=== PATIENT | female | born 1940 | race Two or more races ===

== ENCOUNTER 2022-08-12 14:01 | Inpatient (IN) | payer MEDICARE, MEDICAID, SELFPAY ==
--- NOTE | ~2022-08-12 | XR_ITS ---
EXAMINATION: XR CHEST CLINICAL INFORMATION: Cough COMPARISON: None available. TECHNIQUE: Frontal view of the chest was obtained. FINDINGS: The lungs are well expanded. There is no focal consolidation, edema, or effusion. No pneumothorax. The cardiomediastinal silhouette is within normal limits of size with a tortuous aorta. No acute osseous abnormality. Advanced degenerative changes at both glenohumeral joints. XR/XR chest 1V IMPRESSION: No acute pulmonary disease.
--- NOTE | ~2022-08-12 | US_ITS ---
EXAMINATION: US VENOUS ULTRASOUND WITH DOPPLER LOWER EXTREMITY, BILATERAL CLINICAL INFORMATION: Swelling of the lower extremities, left greater than right COMPARISON: None available. TECHNIQUE: Ultrasound of the deep veins is performed from the hip to the calf with compression sonography and color and pulse Doppler assessment. Spectral analysis with color-flow imaging is performed. FINDINGS: RIGHT: There is normal venous compression and respiratory variation and augmented flow. The visualized common femoral vein, superficial femoral vein, profunda femoral vein, popliteal vein, and the trifurcation region shows no evidence of deep venous thrombosis. There is no significant popliteal fossa cyst. LEFT: There is normal venous compression and respiratory variation and augmented flow. The visualized common femoral vein, superficial femoral vein, profunda femoral vein, popliteal vein, and the trifurcation region shows no evidence of deep venous thrombosis. There is no significant popliteal fossa cyst. If the patient's symptoms persist, followup ultrasound in 5 days 7 days might be of value to exclude proximal propagation from a non-visualized calf vein. US/US venous duplex LE BI IMPRESSION: No DVT demonstrated in the bilateral lower extremity.
--- NOTE | ~2022-08-12 | CT_ITS ---
EXAMINATION: CT HEAD WITHOUT CONTRAST CLINICAL INFORMATION: New onset of psychosis and cognitive decline. COMPARISON: None. TECHNIQUE: Contiguous axial imaging was performed from the skullbase to vertex without intravenous administration of contrast. This CT examination was performed using dose optimization techniques as appropriate, variously including the following: *Automated exposure control *Adjustment of mA and/or kV according to patient size (this includes techniques or standardized protocols for targeted exams where dose is matched to indication/reason for exam; i.e. extremities or head) *Use of iterative reconstruction technique DLP: 661 mGy-cm. FINDINGS: There is no evidence of acute intracranial hemorrhage or territorial infarction. No abnormal mass effect or midline shift is seen. [place] to white matter differentiation is well preserved. No extra-axial fluid collections are identified. The ventricles are normal in size. Mild to moderate chronic white matter microangiopathic changes noted. The osseous structures and soft tissues are normal. The mastoid air cells are well aerated. Significant right sphenoid sinus mucosal disease noted. CT/CT head/brain wo IV con IMPRESSION: No acute intracranial pathology. Significant right sphenoid sinus disease; correlate for any acute symptomatology.
--- NOTE | 2022-08-12 14:11 | ECG_ITS ---
Test Reason : ams Blood Pressure : / mmHG Vent. Rate : 068 BPM Atrial Rate : 068 BPM P-R Int : 164 ms QRS Dur : 106 ms QT Int : 408 ms P-R-T Axes : 067 -45 070 degrees QTc Int : 433 ms Sinus rhythm with occasional Premature ventricular complexes and Premature atrial complexes Left anterior fascicular block Left ventricular hypertrophy with repolarization abnormality ( R in aVL , [place] product ) Abnormal ECG No previous ECGs available Referred By: Michael Ramirez Electronically Signed By:MANDY MONROE
[2022-08-12 14:15] VITALS: BP 179/77; PULSE 75; RESP 14; TEMP 37.1; O2SAT 95; BMI 24.5
--- NOTE | 2022-08-12 14:38 | ED_ITS ---
HPI - General Adult General Chief complaint: Psychiatric Symptoms Stated complaint: SEC 12, AVH per EMS Time Seen by Provider: 08/12/22 14:11 Source: patient Mode of arrival: EMS History of Present Illness HPI narrative: 81-year-old female with history of schizophrenia presents with increasing hallucinations, wandering. There is no reports of SI or HI. Patient is reportedly compliant with her medications. Patient denies SI or HI. She has no fevers, chills, sweats. She denies any urinary symptoms. Patient currently resides at home with her family. There is no clear relieving or exacerbating features. Symptoms are moderate to severe in nature. Reportedly, symptoms have been progressing over the last couple months. Additionally, patient has been noted to have a resting tremor. Related Data Allergies Allergy/AdvReac Type Severity Reaction Status Date / Time No Known Allergies Allergy Verified 08/12/22 14:11 Review of Systems Review of Systems: Yes all other systems are reviewed and are negative Physical Exam ED Vital Signs: Vital Signs - 24 hr 08/12/22 14:15 Temperature 98.7 F Pulse Rate 75 Respiratory Rate 14 Blood Pressure 179/77 H Pulse Oximetry 95 Oxygen Delivery Method Room Air BMI result Body Mass Index 24.5 GEN: Well developed, no acute distress, alert, oriented HEENT: Normocephalic, atraumatic, normal external ears, nose appears normal, no oropharyngeal edema or exudates Eyes: Normal to appearance Neck: Supple, no lymphadenopathy Respiratory: Talks in complete sentences, no respiratory distress, clear to auscultation bilaterally Cardiovascular: Regular rate and rhythm, no murmurs rubs or gallops Abdomen: Soft, nontender, nondistended, no guarding, no rebound Back: No CVA tenderness Extremities: No clubbing cyanosis or edema Neurologic: No focal neurologic deficits, cranial nerves 2-12 intact, strength is 5/5 bilaterally, gait normal Skin: No rash Course Course Course Narrative: 81-year-old female with history of schizophrenia presents for psychiatric evaluation. She has reportedly been having hallucinations and wandering. Patient initially did not want come to the hospital however when the police arrived, she was much more cooperative. Here in the emergency department she is cooperative. Offers no SI or HI. She is cooperative. Patient will have laboratory analysis to rule out metabolic related comorbidities and wrist guards to her decompensation Reevaluation(s) Reevaluation #1: Patient is awaiting psychiatric consultation. Patient will be signed out to my colleague who is assuming care at this time. Time: 16:48 Medications Administered Discontinued Medications Generic Name Dose Route Start Last Admin Trade Name Dean PRN Reason Stop Dose Admin Potassium Chloride 40 meq 08/12/22 16:19 08/12/22 16:39 Potassium Chloride Packet 20 Meq Packet PO 08/12/22 16:20 40 meq ONCE ONE Administration Medical Decision Making Medical Decision Making MDM Narrative: 81-year-old female history of schizophrenia. She presents for psychiatric evaluation. Will obtain routine laboratory analysis to rule out other organic causes such as thyroid dysfunction. Differential Diagnosis Differential Diagnoses: The differential diagnosis associated with the presentation includes (Schizophrenia, schizoaffective, bipolar, depression, anxiety, PTSD, mood disorder, adjustment disorder) Admission/Observation Consideration of admission/observation: Escalation of care including admission/observation considered Consult Healthcare Provider Management of the patient was discussed with: Behavioral Health Provider Lab Data [facility] Lab Attestation statement: I reviewed the patient's lab results. 08/12/22 15:40 08/12/22 15:40 Labs: Lab Results 08/12/22 08/12/22 08/12/22 Range/Units 15:40 15:40 15:40 WBC 9.2 (4.8-10.8) X10*3/uL RBC 4.38 (4.20-5.50) X10*6/uL Hgb 14.2 (12.0-16.0) g/dl Hct 41.8 (37.0-47.0) % MCV 95.4 (80.0-98.0) fL MCH 32.4 (27.0-33.0) pg MCHC 34.0 (31.0-35.0) g/dl RDW 13.5 (11.0-16.0) % Plt Count 330 (160-400) X10*3/uL MPV 9.1 L (9.4-12.3) fL Immature Gran % (Auto) 1.6 H (0.0-0.4) % Neut % (Auto) 68.4 (45-73) % Lymph % (Auto) 18.7 L (20-40) % [place] % (Auto) 10.5 (2-11) % Eos % (Auto) 0.4 (0-4) % Baso % (Auto) 0.4 (0-2) % Lymph # (Auto) 1.7 (1.2-4.9) X10*3/uL [place] # (Auto) 1.0 (0.1-1.2) X10*3/uL Eos # (Auto) 0.0 (0.0-0.4) X10*3/uL Baso # (Auto) 0.0 (0.0-0.2) X10*3/uL Abs Immat Gran (auto) 0.15 H (0.00-0.03) X10*3/uL Absolute Neuts (auto) 6.3 (2.0-8.3) x10*3/uL Absolute Nucleated RBC 0.000 (0.0-0.012) X10*3/uL Nucleated RBC % (auto) 0.0 (0.0-0.2) /100WBC Sodium 143 (135-145) mmol/L Potassium 3.2 L (3.3-5.1) mmol/L Chloride 108 (96-108) mmol/L Carbon Dioxide 25 (22-29) mmol/L Anion Gap 13 (12-20) BUN 12 (9-16) mg/dL Creatinine 0.70 (0.5-1.4) mg/dL Estim Creat Clear Calc 52.5 Estimated GFR > 60 Random Glucose 114 (60-115) mg/dL Calcium 9.2 (8.4-10.2) mg/dL Total Bilirubin 0.8 (0.0-1.0) mg/dL AST 19 (5-31) U/L ALT 13 (0-31) U/L Alkaline Phosphatase 60 (39-117) U/L Total Protein 6.2 L (6.5-8.0) g/dL Albumin 4.1 (3.5-5.0) g/dL TSH (0.32-4.0) uIU/mL Ethyl Alcohol < 10 mg/dL COVID-19 ([facility]) Negative (Negative) COVID-19 Clin Com See Note 08/12/22 Range/Units 15:40 WBC (4.8-10.8) X10*3/uL RBC (4.20-5.50) X10*6/uL Hgb (12.0-16.0) g/dl Hct (37.0-47.0) % MCV (80.0-98.0) fL MCH (27.0-33.0) pg MCHC (31.0-35.0) g/dl RDW (11.0-16.0) % Plt Count (160-400) X10*3/uL MPV (9.4-12.3) fL Immature Gran % (Auto) (0.0-0.4) % Neut % (Auto) (45-73) % Lymph % (Auto) (20-40) % [place] % (Auto) (2-11) % Eos % (Auto) (0-4) % Baso % (Auto) (0-2) % Lymph # (Auto) (1.2-4.9) X10*3/uL [place] # (Auto) (0.1-1.2) X10*3/uL Eos # (Auto) (0.0-0.4) X10*3/uL Baso # (Auto) (0.0-0.2) X10*3/uL Abs Immat Gran (auto) (0.00-0.03) X10*3/uL Absolute Neuts (auto) (2.0-8.3) x10*3/uL Absolute Nucleated RBC (0.0-0.012) X10*3/uL Nucleated RBC % (auto) (0.0-0.2) /100WBC Sodium (135-145) mmol/L Potassium (3.3-5.1) mmol/L Chloride (96-108) mmol/L Carbon Dioxide (22-29) mmol/L Anion Gap (12-20) BUN (9-16) mg/dL Creatinine (0.5-1.4) mg/dL Estim Creat Clear Calc Estimated GFR Random Glucose (60-115) mg/dL Calcium (8.4-10.2) mg/dL Total Bilirubin (0.0-1.0) mg/dL AST (5-31) U/L ALT (0-31) U/L Alkaline Phosphatase (39-117) U/L Total Protein (6.5-8.0) g/dL Albumin (3.5-5.0) g/dL TSH 0.49 (0.32-4.0) uIU/mL Ethyl Alcohol mg/dL COVID-19 ([facility]AL[facility]) (Negative) COVID-19 Clin Com Independent Interpretation I performed an independent interpretation of an: EKG (Normal sinus rhythm heart rate 68, frequent PVCs, frequent PACs, sinus arrhythmia, nonspecific T-wave changes, tremulous baseline) Independent Historian Clinical information obtained from an independent historian. History obtained from or confirmed by: EMS Prescription Management I considered prescription management with: Other (Anxiety lytics) Discharge Plan Discharge Clinical Impression: Chronic schizophrenia, Resting tremor, Hypokalemia Patient Disposition: Still a Patient Interventions: Gray-Suicide Risk Severity Scale Last Done: 08/12/22 14:17
[2022-08-12 15:45] LABS: MANUAL DIFF FLAG NO
[2022-08-12 15:47] LABS: Basophils Percent Auto 0.4 % (0-2); Eosinophils Percent Auto 0.4 % (0-4); Hematocrit 41.8 % (37.0-47.0); Hemoglobin 14.2 g/dl (12.0-16.0); Imm Gran Abs Auto 0.15 X10*3/uL (0.00-0.03); Imm Gran Pct Auto 1.6 % (0.0-0.4); Lymphocytes Absolute Auto 1.7 X10*3/uL (1.2-4.9); Lymphocytes Percent Auto 18.7 % (20-40); Mean Corpuscular Hemoglobin 32.4 pg (27.0-33.0); Mean Corpuscular Volume 95.4 fL (80.0-98.0); Mean Platelet Volume 9.1 fL (9.4-12.3); Monocytes Percent Auto 10.5 % (2-11); Neutrophils Absolute Auto 6.3 x10*3/uL (2.0-8.3); Neutrophils Percent Auto 68.4 % (45-73); Platelet Count 330 X10*3/uL (160-400); Red Blood Count 4.38 X10*6/uL (4.20-5.50); Red Cell Distribution Width 13.5 % (11.0-16.0); White Blood Count 9.2 X10*3/uL (4.8-10.8)
[2022-08-12 16:02] LABS: COVID-19 Test Negative (Negative); IDNOW Serial# BCCEAD1C
[2022-08-12 16:08] LABS: Alanine Aminotransferase 13 U/L (0-31); Albumin Level 4.1 g/dL (3.5-5.0); Alkaline Phosphatase 60 U/L (39-117); Anion Gap 13 (12-20); Aspartate Amino Transferase 19 U/L (5-31); Bilirubin Total 0.8 mg/dL (0.0-1.0); Blood Urea Nitrogen 12 mg/dL (9-16); Calcium 9.2 mg/dL (8.4-10.2); Carbon Dioxide 25 mmol/L (22-29); Chloride 108 mmol/L (96-108); Creatinine Clr Calc Pharmacy 52.5; Estimated Glomerular Filt Rate > 60; Ethanol < 10 mg/dL; Glucose Random 114 mg/dL (60-115); Potassium 3.2 mmol/L (3.3-5.1); Sodium 143 mmol/L (135-145); Total Protein 6.2 g/dL (6.5-8.0)
[2022-08-12 16:24] LABS: TSH reflex Free T4 0.49 uIU/mL (0.32-4.0)
[2022-08-12] MEDS: Potassium Chloride Packet 20 MEQ PACKET 40 MEQ PO (16:39)
[2022-08-12 18:36] LABS: Appearance Urine Cloudy; Color Urine Yellow; Glucose Urine UA Negative (Negative); Leukocyte Esterase Urine Negative (Negative); Nitrite Urine Negative (Negative); Specific Gravity - Urine 1.015 (1.005-1.025); Urine Blood Negative (Negative); Urine Ketones Negative (Negative); Urine Protein Negative (Neg-Trace)
[2022-08-12 18:44] LABS: Amphetamine Screen Urine Not Detected (Not Detect); Barbiturates, Urine Not Detected (Not Detect); Benzodiazepines Screen Urine Not Detected (Not Detect); Cannabinoid Screen Urine Not Detected (Not Detect); Cocaine Screen Urine Not Detected (Not Detect); Fentanyl, urine Not Detected (Not Detect); Opiate Screen Urine Not Detected (Not Detect); Phencyclidine Screen Urine Not Detected (Not Detect)
--- NOTE | 2022-08-12 19:43 | PHA.MEDREC ---
Pharmacy Consult ? Medication Reconciliation Pharmacy has completed the medication reconciliation. Med rec completed using claim history. Unable to obtain information from patient or daughter.
[2022-08-12 20:36] VITALS: BP 178/70; PULSE 65; RESP 17; TEMP 36.8; O2SAT 96
--- NOTE | 2022-08-13 01:56 | PC.ADMIT ---
Amy was admitted to S1 at 22:50 from POD on a CV for treatment of Unspecified Schizophrenia. Patient is taiwanese speaking only. A vendor analyst was present during admission, however admission assessment was brief due to a patient reporting she was tired and wanted to go to sleep. Information gathered from crisis assessment. Per crisis assessment pt moved here from [place] in September of 2021 and currently resides with her daughter in an apartment. Precipitants of admission per crisis evaluation include increased paranoia, AH, delusions and wandering. Pt reportedly wanders out of the apartment frequently and will get lost. Pt reported feeling as though people are putting cameras and microphones in her apartment to listen and watch her. She believes the police are after her. Amy is alert and oriented to self only, did not know the date, believed she was in [place], and when asked why she was here Iris responded ?there are lots? the declined to elaborate. Currently the patient is denying SI/HI/AH/VH. Crisis eval reports that she has been endorsing AH as well as responding to internal stimuli. Unable to assess how appetite and sleep have been d/t patient requesting to discontinue the admission assessment. Pt appears to be disorganized in the thought process. When speaking Iris will suddenly begin to whisper quietly. Pt has a HX of HTN. Unknown if the patient has been taking medications at home prior to arrival. Patient utilizes cane to ambulate per crisis assessment, appearing unsteady when on unit and attempting to ambulate. Patient gripping onto RN?s arm tightly. Pt placed on 5 minute safety checks.
[2022-08-13 06:00] VITALS: BP 148/70; PULSE 70; RESP 18; TEMP 36.8; O2SAT 98
[2022-08-13] MEDS: Atorvastatin Calcium 10 MG TABLET PO (08:50)
[2022-08-13] MEDS: Furosemide 40 MG TABLET PO (08:50)
[2022-08-13] MEDS: Cholecalciferol (Vitamin D3) 25 MCG TABLET PO (08:50)
--- NOTE | 2022-08-13 15:34 | P.HPPS_ITS ---
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 Patient is friendly and calm. She is alert and oriented to self place; she said she came to the hospital because she was nervous but is not sure why she has to remain. Patient endorses paranoid delusions saying that there are cameras and microphones set up in house to spy o n her; she is not sure who is doing it or why, perhaps the other tenants because they do not know her? Patient also has some worries that the police are after her but it is not clear why. Patient says that she prays a lot at home and her daughter mistakenly think she has hearing voices and talking to someone. She agrees to stay on the unit to help her with nervousness including starting medications for such. Patient's daughter also named amy paz who says that her mother has been living with her for the past 9 months and everything has been fine; in early July patient started having auditory hallucinations and talking about paranoid delusions saying the apartment was bugged; she would leave the apartment unannounced and was wandering around the building; when found on another floor she said her she hurt her cousin tell her to go there (no such goes exists). She says her mother will sit there talking out loud to no one; patient and daughter patient any visual hallucinations. Daughter says she has never heard of her mother having any psychiatric illness in her life; [facility] she does not know what her day-to-day life was like and will ask family who knows her from [place]. Past Psychiatric History: None Medical Evaluation Reviewed: Yes [facility] Family History: Daughter: Bipolar Social History: Patient lives her life in [place]; moved to [place] 9 months ago to live with her daughter; psychotic symptoms 1st started this July 2022 Substance History: Denies Trauma History: Deferred Diagnostics Vital Signs (24Hr): Vital Signs - 24 hr 08/12/22 20:36 08/13/22 06:00 Temperature 98.3 F 98.2 F Pulse Rate 65 70 Respiratory Rate 17 18 Blood Pressure 178/70 H 148/70 H Pulse Oximetry 96 98 Oxygen Delivery Method Room Air BMI result Body Mass Index 24.5 Labs 08/12/22 15:40 08/12/22 15:40 Labs: Laboratory Results - last 48 hr 08/12/22 08/12/22 08/12/22 15:40 15:40 15:40 WBC 9.2 RBC 4.38 Hgb 14.2 Hct 41.8 MCV 95.4 MCH 32.4 MCHC 34.0 RDW 13.5 Plt Count 330 MPV 9.1 L Immature Gran % (Auto) 1.6 H Neut % (Auto) 68.4 Lymph % (Auto) 18.7 L [place] % (Auto) 10.5 Eos % (Auto) 0.4 Baso % (Auto) 0.4 Lymph # (Auto) 1.7 [place] # (Auto) 1.0 Eos # (Auto) 0.0 Baso # (Auto) 0.0 Abs Immat Gran (auto) 0.15 H Absolute Neuts (auto) 6.3 Absolute Nucleated RBC 0.000 Nucleated RBC % (auto) 0.0 Sodium 143 Potassium 3.2 L Chloride 108 Carbon Dioxide 25 Anion Gap 13 BUN 12 Creatinine 0.70 Estim Creat Clear Calc 52.5 Estimated GFR > 60 Random Glucose 114 Calcium 9.2 Total Bilirubin 0.8 AST 19 ALT 13 Alkaline Phosphatase 60 Total Protein 6.2 L Albumin 4.1 TSH Urine Color Urine Appearance Urine pH Ur Specific [place] Urine Protein Urine Glucose (UA) Urine Ketones Urine Blood Urine Nitrite Ur Leukocyte Esterase Urine Opiates Screen Urine Fentanyl Screen Ur Barbiturates Screen Ur Phencyclidine Scrn Ur Amphetamines Screen U Benzodiazepines Scrn Urine Cocaine Screen U Marijuana (THC) Screen Ethyl Alcohol < 10 COVID-19 ([facility]) Negative COVID-19 Clin Com See Note 08/12/22 08/12/22 08/12/22 15:40 18:23 18:23 WBC RBC Hgb Hct MCV MCH MCHC RDW Plt Count MPV Immature Gran % (Auto) Neut % (Auto) Lymph % (Auto) [place] % (Auto) Eos % (Auto) Baso % (Auto) Lymph # (Auto) [place] # (Auto) Eos # (Auto) Baso # (Auto) Abs Immat Gran (auto) Absolute Neuts (auto) Absolute Nucleated RBC Nucleated RBC % (auto) Sodium Potassium Chloride Carbon Dioxide Anion Gap BUN Creatinine Estim Creat Clear Calc Estimated GFR Random Glucose Calcium Total Bilirubin AST ALT Alkaline Phosphatase Total Protein Albumin TSH 0.49 Urine Color Yellow Urine Appearance Cloudy Urine pH 7.0 Ur Specific [place] 1.015 Urine Protein Negative Urine Glucose (UA) Negative Urine Ketones Negative Urine Blood Negative Urine Nitrite Negative Ur Leukocyte Esterase Negative Urine Opiates Screen Not Detected Urine Fentanyl Screen Not Detected Ur Barbiturates Screen Not Detected Ur Phencyclidine Scrn Not Detected Ur Amphetamines Screen Not Detected U Benzodiazepines Scrn Not Detected Urine Cocaine Screen Not Detected U Marijuana (THC) Screen Not Detected Ethyl Alcohol COVID-19 ([facility]) COVID-19 Clin Com Meds/Allergies Meds Home Medications Medication Instructions Recorded Confirmed Type atorvastatin 10 mg tablet 1 tab PO DAILY 08/12/22 08/12/22 History calcium carbonate 500 mg calcium 1 tab PO DAILY 08/12/22 08/12/22 History (1,250 mg) tablet cholecalciferol (vitamin D3) 25 1 cap PO DAILY 08/12/22 08/12/22 History mcg (1,000 unit) capsule (Vitamin D3) furosemide 40 mg tablet 1 tab PO DAILY 08/12/22 08/12/22 History melatonin 10 mg disintegrating 1 tab PO BEDTIME PRN insomnia 08/12/22 08/12/22 History tablet metoprolol succinate 50 mg 1 tab PO DAILY 08/12/22 08/12/22 History tablet,extended release 24 hr nifedipine 90 mg tablet,extended 1 tab PO DAILY 08/12/22 08/12/22 History release sertraline 25 mg tablet 1 tab PO DAILY 08/12/22 08/12/22 History diclofenac sodium 1 % topical gel 2 - 4 g topical BID 08/13/22 08/13/22 History diclofenac sodium 1 % topical gel topical 08/13/22 History sertraline 50 mg tablet 1 tab PO DAILY 08/13/22 08/13/22 History Allergies Allergies Allergy/AdvReac Type Severity Reaction Status Date / Time No Known Allergies Allergy Verified 08/12/22 23:06 Mental Status Exam Mental Status Exam Narrative: Pt is alert and oriented; behavior is cooperative, friendly and calm; patient is not in distress; dressed in casual attire and well groomed: mood is described as good and affect congruent; eye contact appropriate; Speech is normal rate, volume and prosody and not pressured; no psychomotor agitation/retardation present; thought process is mostly goal directed; Thought content is with paranoid delusions; however she is also able to be pertinent irrelevant topics; denies any SI/HI. Patient internally preoccupied though denies AVH. Patients insight and judgment impaired Assessment & Plan Assessment & Plan (1) Psychotic disorder: Status: Acute Code(s): F29 - Unspecified psychosis not due to a substance or known physiological condition Plan Patient is a 81-year-old female with little known psychiatric history, moved here to live with her daughter 9 months ago and presents now for psychotic symptoms starting in early July. Patient is friendly and calm. She is alert and oriented to self place; she said she came to the hospital because she was nervous but is not sure why she has to remain. Patient endorses paranoid delusions saying that there are cameras and microphones set up in house to spy on her; daughter says no history of psychiatric illness that she knows of and no psychotic symptoms until this past July. Impression: Currently patient has psychotic symptoms of both auditory hallucinations and delusional thinking. Daughter may have bipolar disorder however patient does not have any other manic symptoms present. To daughter's knowledge her mother has never had any psychiatric or psychotic illness however will get collateral from family in [place]. Patient's vitals, labs grossly within normal limits. No signs of infection. Will continue home medications for now and start low-dose Risperdal at bedtime. Will consider head CT given that psychotic symptoms seemingly started for the 1st time this July; however will hold off until more collateral can be gathered about patient's history. Plan: CV Q 15 minute checks Patient's daughter Amy and her brother Tete healthcare proxies; they will get the form Continue home medications; full list provided by daughter Start Risperdal 0.5 mg q.h.s. for psychotic symptoms Will consider head CT but hold off for now until more collateral can be gathered Patient educated on: diagnosis and medication risk/benefits Informed Consent: understands, does not understand and further education needed Reason for continued inpatient stay Substantial Risk for: inability to function Statement Statement: I have reviewed the history and physical and performed a pertinent examination on my patient. No changes have occurred unless specified. If the History and Physical was not performed prior to admission, the Hospitalist's service will be consulted for completing the admission physical. Time Spent With Patient Time: Total time managing care of this patient today ____ minutes.
[2022-08-13 18:00] VITALS: BP 154/77; PULSE 100; RESP 18; TEMP 36; O2SAT 96
[2022-08-13] MEDS: Melatonin 3 MG TABLET 9 MG PO (20:52)
[2022-08-13] MEDS: risperiDONE 0.5 MG TABLET PO (20:52)
[2022-08-14 07:10] LABS: Alanine Aminotransferase 15 U/L (0-31); Alkaline Phosphatase 58 U/L (39-117); Anion Gap 18 (12-20); Aspartate Amino Transferase 22 U/L (5-31); Calcium 9.5 mg/dL (8.4-10.2); Carbon Dioxide 25 mmol/L (22-29); Chloride 105 mmol/L (96-108); Cholesterol 175 mg/dL; Glucose Fasting 116 mg/dL (60-99); HDL Cholesterol 61 mg/dL; LDL Cholesterol Calculated 94 mg/dl; Potassium 3.8 mmol/L (3.3-5.1); Sodium 144 mmol/L (135-145); Total Protein 6.4 g/dL (6.5-8.0); Triglycerides 103 mg/dL
[2022-08-14 07:30] VITALS: BP 177/85; PULSE 94; RESP 15; TEMP 37.5; O2SAT 95
[2022-08-14 07:38] LABS: Blood Urea Nitrogen 20 mg/dL (9-16); Creatinine Clr Calc Pharmacy 29.9; Estimated Glomerular Filt Rate 42
[2022-08-14] MEDS: NIFEdipine ER 90 MG TAB.ER.24 PO (08:29)
[2022-08-14] MEDS: Sertraline HCL 50 MG TABLET PO (08:29)
[2022-08-14] MEDS: Aspirin Enteric Coated 81 MG TABLET.DR PO (08:29)
[2022-08-14] MEDS: Metoprolol Succinate ER 50 MG TAB.ER.24H PO (08:29)
[2022-08-14] MEDS: Furosemide 40 MG TABLET PO (08:30)
[2022-08-14] MEDS: Cholecalciferol (Vitamin D3) 25 MCG TABLET PO (08:30)
[2022-08-14] MEDS: Sertraline HCL 25 MG TABLET PO (08:30)
[2022-08-14] MEDS: Atorvastatin Calcium 10 MG TABLET PO (08:30)
[2022-08-14 09:00] VITALS: BP 106/55
--- NOTE | 2022-08-14 16:28 | HO.PSYCHPN ---
Subjective Subjective Date of Service: 08/14/22 Reason For Visit: confused Interim History: Met with patient; discussed with nursing team; discussed with son was present Patient calm and cooperative on the unit; slept through the night; clearly internally preoccupied however denies AVH. Otherwise remains organized and well groomed. Patient willing to remain on the unit but says she very much wants to go home soon. Her son and [id number] present however they do not know her history either. Mental Status Exam Mental Status Exam Narrative: Pt is alert and oriented; behavior is cooperative, friendly and calm; patient is not in distress; dressed in casual attire and well groomed: mood is described as good and affect congruent; eye contact appropriate; Speech is normal rate, volume and prosody and not pressured; no psychomotor agitation/retardation present; thought process is mostly goal directed; Thought content is with paranoid delusions; however she is also able to be pertinent irrelevant topics; denies any SI/HI. Patient internally preoccupied though denies AVH. Patients insight and judgment impaired Diagnostics Vital Signs (24Hr): Vital Signs - 24 hr 08/13/22 18:00 08/14/22 07:30 08/14/22 09:00 Temperature 96.8 F 99.5 F Pulse Rate 100 94 Respiratory Rate 18 15 Blood Pressure 154/77 H 177/85 H 106/55 L Pulse Oximetry 96 95 Oxygen Delivery Method Room Air Room Air BMI result Body Mass Index 24.5 Labs 08/12/22 15:40 08/14/22 06:28 Labs: Laboratory Results - last 48 hr 08/12/22 08/12/22 08/12/22 15:40 15:40 15:40 WBC 9.2 RBC 4.38 Hgb 14.2 Hct 41.8 MCV 95.4 MCH 32.4 MCHC 34.0 RDW 13.5 Plt Count 330 MPV 9.1 L Immature Gran % (Auto) 1.6 H Neut % (Auto) 68.4 Lymph % (Auto) 18.7 L [place] % (Auto) 10.5 Eos % (Auto) 0.4 Baso % (Auto) 0.4 Lymph # (Auto) 1.7 [place] # (Auto) 1.0 Eos # (Auto) 0.0 Baso # (Auto) 0.0 Abs Immat Gran (auto) 0.15 H Absolute Neuts (auto) 6.3 Absolute Nucleated RBC 0.000 Nucleated RBC % (auto) 0.0 Sodium 143 Potassium 3.2 L Chloride 108 Carbon Dioxide 25 Anion Gap 13 BUN 12 Creatinine 0.70 Estim Creat Clear Calc 52.5 Estimated GFR > 60 Random Glucose 114 Fasting Glucose Calcium 9.2 Total Bilirubin 0.8 AST 19 ALT 13 Alkaline Phosphatase 60 Total Protein 6.2 L Albumin 4.1 Triglycerides Cholesterol LDL Cholesterol, Calc HDL Cholesterol TSH Urine Color Urine Appearance Urine pH Ur Specific [place] Urine Protein Urine Glucose (UA) Urine Ketones Urine Blood Urine Nitrite Ur Leukocyte Esterase Urine Opiates Screen Urine Fentanyl Screen Ur Barbiturates Screen Ur Phencyclidine Scrn Ur Amphetamines Screen U Benzodiazepines Scrn Urine Cocaine Screen U Marijuana (THC) Screen Ethyl Alcohol < 10 COVID-19 (ODALYS) Negative COVID-[employer] Com See Note 08/12/22 08/12/22 08/12/22 15:40 18:23 18:23 WBC RBC Hgb Hct MCV MCH MCHC RDW Plt Count MPV Immature Gran % (Auto) Neut % (Auto) Lymph % (Auto) [place] % (Auto) Eos % (Auto) Baso % (Auto) Lymph # (Auto) [place] # (Auto) Eos # (Auto) Baso # (Auto) Abs Immat Gran (auto) Absolute Neuts (auto) Absolute Nucleated RBC Nucleated RBC % (auto) Sodium Potassium Chloride Carbon Dioxide Anion Gap BUN Creatinine Estim Creat Clear Calc Estimated GFR Random Glucose Fasting Glucose Calcium Total Bilirubin AST ALT Alkaline Phosphatase Total Protein Albumin Triglycerides Cholesterol LDL Cholesterol, Calc HDL Cholesterol TSH 0.49 Urine Color Yellow Urine Appearance Cloudy Urine pH 7.0 Ur Specific [place] 1.015 Urine Protein Negative Urine Glucose (UA) Negative Urine Ketones Negative Urine Blood Negative Urine Nitrite Negative Ur Leukocyte Esterase Negative Urine Opiates Screen Not Detected Urine Fentanyl Screen Not Detected Ur Barbiturates Screen Not Detected Ur Phencyclidine Scrn Not Detected Ur Amphetamines Screen Not Detected U Benzodiazepines Scrn Not Detected Urine Cocaine Screen Not Detected U Marijuana (THC) Screen Not Detected Ethyl Alcohol COVID-19 (ODALYS) [email or web address] 08/14/22 06:28 WBC RBC Hgb Hct MCV MCH MCHC RDW Plt Count MPV Immature Gran % (Auto) Neut % (Auto) Lymph % (Auto) [place] % (Auto) Eos % (Auto) Baso % (Auto) Lymph # (Auto) [place] # (Auto) Eos # (Auto) Baso # (Auto) Abs Immat Gran (auto) Absolute Neuts (auto) Absolute Nucleated RBC Nucleated RBC % (auto) Sodium 144 Potassium 3.8 Chloride 105 Carbon Dioxide 25 Anion Gap 18 BUN 20 H Creatinine 1.23 Estim Creat Clear Calc 29.9 Estimated GFR 42 Random Glucose Fasting Glucose 116 H Calcium 9.5 Total Bilirubin 1.0 AST 22 ALT 15 Alkaline Phosphatase 58 Total Protein 6.4 L Albumin 4.0 Triglycerides 103 Cholesterol 175 LDL Cholesterol, Calc 94 HDL Cholesterol 61 TSH Urine Color Urine Appearance Urine pH Ur Specific [place] Urine Protein Urine Glucose (UA) Urine Ketones Urine Blood Urine Nitrite Ur Leukocyte Esterase Urine Opiates Screen Urine Fentanyl Screen Ur Barbiturates Screen Ur Phencyclidine Scrn Ur Amphetamines Screen U Benzodiazepines Scrn Urine Cocaine Screen U Marijuana (THC) Screen Ethyl Alcohol COVID-19 (ODALYS) COVID-19 Clin Com Medications Medications Current Medications Acetaminophen (Acetaminophen 325 Mg Tablet) 650 mg PO Q6H PRN PRN Reason: Headache/Pain Mild Scale (1-3) Al Hydroxide/Mg Hydroxide (Magnesium Hydrox/Alum Hydrox 30 Ml Oral.Susp) 30 ml PO Q6H PRN PRN Reason: Heartburn/Nausea Aspirin (Aspirin Enteric Coated 81 Mg Tablet.Dr) 81 mg PO DAILY [facility] Last Admin: 08/14/22 08:29 Dose: 81 mg Atorvastatin Calcium (Atorvastatin Calcium 10 Mg Tablet) 10 mg PO DAILY [facility] Last Admin: 08/14/22 08:30 Dose: 10 mg Calcium Carbonate (Calcium Carbonate 500 Mg Tablet) 500 mg PO DAILY [facility] Last Admin: 08/14/22 08:29 Dose: 500 mg Furosemide (Furosemide 40 Mg Tablet) 40 mg PO DAILY [facility]; Protocol Last Admin: 08/14/22 08:30 Dose: 40 mg Magnesium Hydroxide (Milk Of Magnesia 30 Ml Oral.Susp) 30 ml PO DAILY PRN PRN Reason: Constipation Melatonin (Melatonin 3 Mg Tablet) 9 mg PO BEDTIME PRN PRN Reason: insomnia Last Admin: 08/13/22 20:52 Dose: 9 mg Metoprolol Succinate (Metoprolol Succinate Er 50 Mg Tab.Er.24h) 50 mg PO DAILY [facility]; Protocol Last Admin: 08/14/22 08:29 Dose: 50 mg Nifedipine (Nifedipine Er 90 Mg Tab.Er.24) 90 mg PO DAILY [facility] Last Admin: 08/14/22 08:29 Dose: 90 mg Olanzapine (Olanzapine 2.5 Mg Tablet) 2.5 mg PO TID PRN PRN Reason: agitation Risperidone (Risperidone 0.5 Mg Tablet) 0.5 mg PO BEDTIME [facility] Last Admin: 08/13/22 20:52 Dose: 0.5 mg Sertraline HCl (Sertraline Hcl 25 Mg Tablet) 25 mg PO DAILY [facility] Last Admin: 08/14/22 08:30 Dose: 25 mg Sertraline HCl (Sertraline Hcl 50 Mg Tablet) 50 mg PO DAILY [facility] Last Admin: 08/14/22 08:29 Dose: 50 mg Vitamin D (Cholecalciferol (Vitamin D3) 25 Mcg Tablet) 25 mcg PO DAILY [facility] Last Admin: 08/14/22 08:30 Dose: 25 mcg Allergies Allergies Allergy/AdvReac Type Severity Reaction Status Date / Time No Known Allergies Allergy Verified 08/12/22 23:06 Assessment & Plan Assessment & Plan (1) Psychotic disorder: Status: Acute Code(s): F29 - Unspecified psychosis not due to a substance or known physiological condition Plan Patient is a 81-year-old female with little known psychiatric history, moved here to live with her daughter 9 months ago and presents now for psychotic symptoms starting in early July. Patient is friendly and calm. She is alert and oriented to self place; she said she came to the hospital because she was nervous but is not sure why she has to remain. Patient endorses paranoid delusions saying that there are cameras and microphones set up in house to spy on her; daughter says no history of psychiatric illness that she knows of and no psychotic symptoms until this past July. Impression: Currently patient has psychotic symptoms of both auditory hallucinations and delusional thinking. Daughter may have bipolar disorder however patient does not have any other manic symptoms present. To daughter's knowledge her mother has never had any psychiatric or psychotic illness however will get collateral from family in [place]. Patient's vitals, labs grossly within normal limits. No signs of infection. Will continue home medications for now and start low-dose Risperdal at bedtime. Will consider head CT given that psychotic symptoms seemingly started for the 1st time this July; however will hold off until more collateral can be gathered about patient's history. Plan: CV Q 15 minute checks Patient's daughter Amy and her brother Tete healthcare proxies; they will get the form Continue home medications; full list provided by daughter Continue Risperdal 0.5 mg q.h.s. for psychotic symptoms Will consider head CT but hold off for now until more collateral can be gathered Patient educated on: diagnosis Informed Consent: does not understand Reason for contiued inpatient stay Substantial Risk for: inability to function Time Spent With Patient Time: Total time managing care of this patient today ____ minutes.
[2022-08-14 18:01] VITALS: BP 129/73; PULSE 96; RESP 16; TEMP 36.3; O2SAT 97
[2022-08-14] MEDS: guaiFENesin 200 MG/10 ML 10 ML LIQUID PO (18:21)
[2022-08-14] MEDS: risperiDONE 0.5 MG TABLET PO (21:11)
[2022-08-15 06:00] VITALS: BP 131/71; PULSE 73; RESP 20; TEMP 36.6; O2SAT 93
--- NOTE | 2022-08-15 10:30 | HO.PSYCHPN ---
Subjective Subjective Date of Service: 08/15/22 Reason For Visit: confused Subjective Notes: Conditional Voluntary Interim History: Pt with bright affect, somewhat confused as to where she is, why. Pt reports she is here to rest. She denies SI/HI. She denies AH/VH. Per nursing, pt slept through the night. She is taking medications as prescribed. No behavioral concerns. When asked about safety at home, she states is a safe place where I live with my daughter. Medication Compliance: Yes Review of Systems Review of Systems Yes all other systems are reviewed and are negative Mental Status Exam Mental Status Exam Narrative: Appearance: casually groomed, good hygiene, in NAD. Ambulates with walker Behavior: friendly Psychomotor: no agitation or retardation noted Speech: clear, normal rate/rhythm/volume, spontaneous. TP: mostly linear, poverty of thought TC: feeling comfortable here Mood: Good Affect: bright, congruent SI: denies HI: denies VH/AH: denies, no overt signs Delusions: no overt delusional content noted or reported Insight/judgment: impaired x 2. Memory/cog: alert, not oriented to place, situation, year, she does know is August. Pending MOCA and ACL. Diagnostics Vital Signs (24Hr): Vital Signs - 24 hr 08/14/22 18:01 08/15/22 06:00 Temperature 97.3 F 97.9 F Pulse Rate 96 73 Respiratory Rate 16 20 Blood Pressure 129/73 131/71 Pulse Oximetry 97 93 Oxygen Delivery Method Room Air Room Air BMI result Body Mass Index 24.5 Labs 08/12/22 15:40 08/14/22 06:28 Labs: Laboratory Results - last 48 hr 08/14/22 08/15/22 06:28 11:11 Sodium 144 Potassium 3.8 Chloride 105 Carbon Dioxide 25 Anion Gap 18 BUN 20 H Creatinine 1.23 Estim Creat Clear Calc 29.9 Estimated GFR 42 Fasting Glucose 116 H Calcium 9.5 Total Bilirubin 1.0 AST 22 ALT 15 Alkaline Phosphatase 58 Total Protein 6.4 L Albumin 4.0 Triglycerides 103 Cholesterol 175 LDL Cholesterol, Calc 94 HDL Cholesterol 61 Influenza Type A (PCR) NEGATIVE Influenza Type B (PCR) NEGATIVE RSV RNA Qual (PCR) NEGATIVE SARS-CoV-2 RNA (RT-PCR) NEGATIVE Medications Medications Current Medications Acetaminophen (Acetaminophen 325 Mg Tablet) 650 mg PO Q6H PRN PRN Reason: Headache/Pain Mild Scale (1-3) Last Admin: 08/15/22 10:56 Dose: 650 mg Al Hydroxide/Mg Hydroxide (Magnesium Hydrox/Alum Hydrox 30 Ml Oral.Susp) 30 ml PO Q6H PRN PRN Reason: Heartburn/Nausea Aspirin (Aspirin Enteric Coated 81 Mg Tablet.Dr) 81 mg PO DAILY [facility] Last Admin: 08/15/22 10:54 Dose: 81 mg Atorvastatin Calcium (Atorvastatin Calcium 10 Mg Tablet) 10 mg PO DAILY [facility] Last Admin: 08/15/22 10:55 Dose: 10 mg Benzocaine (Throat Lozenge, Medicated Lozenge) 1 lozenge MUCOUS MEM Q2H PRN PRN Reason: Sore Throat Calcium Carbonate (Calcium Carbonate 500 Mg Tablet) 500 mg PO DAILY [facility] Last Admin: 08/15/22 10:56 Dose: 500 mg Furosemide (Furosemide 40 Mg Tablet) 40 mg PO DAILY [facility]; Protocol Last Admin: 08/15/22 10:56 Dose: 40 mg Guaifenesin (Guaifenesin 200 Mg/10 Ml 10 Ml Liquid) 10 ml PO Q6H PRN PRN Reason: Cough Last Admin: 08/15/22 10:54 Dose: 10 ml Magnesium Hydroxide (Milk Of Magnesia 30 Ml Oral.Susp) 30 ml PO DAILY PRN PRN Reason: Constipation Melatonin (Melatonin 3 Mg Tablet) 9 mg PO BEDTIME PRN PRN Reason: insomnia Last Admin: 08/13/22 20:52 Dose: 9 mg Metoprolol Succinate (Metoprolol Succinate Er 50 Mg Tab.Er.24h) 50 mg PO DAILY [facility]; Protocol Last Admin: 08/15/22 10:54 Dose: 50 mg Nifedipine (Nifedipine Er 90 Mg Tab.Er.24) 90 mg PO DAILY [facility] Last Admin: 08/15/22 10:54 Dose: 90 mg Olanzapine (Olanzapine 2.5 Mg Tablet) 2.5 mg PO TID PRN PRN Reason: agitation Risperidone (Risperidone 0.5 Mg Tablet) 0.5 mg PO BEDTIME [facility] Last Admin: 08/14/22 21:11 Dose: 0.5 mg Sertraline HCl (Sertraline Hcl 25 Mg Tablet) 25 mg PO DAILY [facility] Last Admin: 08/15/22 10:56 Dose: 25 mg Sertraline HCl (Sertraline Hcl 50 Mg Tablet) 50 mg PO DAILY [facility] Last Admin: 03/13/23 10:54 Dose: 50 mg Vitamin D (Cholecalciferol (Vitamin D3) 25 Mcg Tablet) 25 mcg PO DAILY [facility] Last Admin: 08/15/22 10:56 Dose: 25 mcg Allergies Allergies Allergy/AdvReac Type Severity Reaction Status Date / Time No Known Allergies Allergy Verified 08/12/22 23:06 Assessment & Plan Assessment & Plan (1) Psychotic disorder: Status: Acute Code(s): F29 - Unspecified psychosis not due to a substance or known physiological condition Plan Patient is a 81-year-old female with little known psychiatric history, moved here to live with her daughter 9 months ago and presents now for psychotic symptoms starting in early July. Patient is friendly and calm. She is alert and oriented to self place; she said she came to the hospital because she was nervous but is not sure why she has to remain. Patient endorses paranoid delusions saying that there are cameras and microphones set up in house to spy on her; daughter says no history of psychiatric illness that she knows of and no psychotic symptoms until this past July. Plan: CV Q 15 minute checks Patient's daughter Amy and her brother Tete healthcare proxies; they will get the form Continue home medications; full list provided by daughter Continue Risperdal 0.5 mg q.h.s. 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 continue risperidone and sertraline. Once MOCA is completed, pattern of cognitive impairment will be more clear. Reason for contiued inpatient stay Substantial Risk for: inability to function Time Spent With Patient Time: Total time managing care of this patient today ____ minutes.
[2022-08-15] MEDS: Sertraline HCL 50 MG TABLET PO (10:54)
[2022-08-15] MEDS: Metoprolol Succinate ER 50 MG TAB.ER.24H PO (10:54)
[2022-08-15] MEDS: Aspirin Enteric Coated 81 MG TABLET.DR PO (10:54)
[2022-08-15] MEDS: NIFEdipine ER 90 MG TAB.ER.24 PO (10:54)
[2022-08-15] MEDS: guaiFENesin 200 MG/10 ML 10 ML LIQUID PO (10:54)
[2022-08-15] MEDS: Atorvastatin Calcium 10 MG TABLET PO (10:55)
[2022-08-15] MEDS: Furosemide 40 MG TABLET PO (10:56)
[2022-08-15] MEDS: Acetaminophen 325 MG TABLET 650 MG PO (10:56)
[2022-08-15] MEDS: Sertraline HCL 25 MG TABLET PO (10:56)
[2022-08-15] MEDS: Cholecalciferol (Vitamin D3) 25 MCG TABLET PO (10:56)
[2022-08-15 12:09] LABS: Influenza A PCR NEGATIVE (Negative); Influenza B PCR NEGATIVE (Negative); Resp Syncy Virus RNA Qual PCR NEGATIVE (Negative); SARS COV2 PCR INHOUSE NEGATIVE (Negative)
[2022-08-15 18:00] VITALS: BP 134/72; PULSE 72; RESP 16; TEMP 36.8; O2SAT 92
[2022-08-15] MEDS: risperiDONE 0.5 MG TABLET PO (20:56)
[2022-08-16 06:00] VITALS: BP 134/79; PULSE 122; RESP 16; TEMP 37; O2SAT 95
[2022-08-16] MEDS: Sertraline HCL 25 MG TABLET PO (08:53)
[2022-08-16] MEDS: Sertraline HCL 50 MG TABLET PO (08:53)
[2022-08-16] MEDS: NIFEdipine ER 90 MG TAB.ER.24 PO (08:53)
[2022-08-16] MEDS: Aspirin Enteric Coated 81 MG TABLET.DR PO (08:53)
[2022-08-16] MEDS: Furosemide 40 MG TABLET PO (08:53)
[2022-08-16] MEDS: Atorvastatin Calcium 10 MG TABLET PO (08:54)
[2022-08-16] MEDS: Metoprolol Succinate ER 50 MG TAB.ER.24H PO (08:54)
[2022-08-16] MEDS: Cholecalciferol (Vitamin D3) 25 MCG TABLET PO (08:56)
--- NOTE | 2022-08-16 12:27 | HO.PSYCHPN ---
Subjective Subjective Date of Service: 08/16/22 Reason For Visit: confused Subjective Notes: Conditional Voluntary Interim History: Pt reports sleeping better. She reports cough (covid negative), mild malaise but denies SOB. Pt reports she has been in communication with her daughter who has advised her to continue care here in the hospital but she states that she misses home. Per nursing, pt appeared more confused in evening and appeared internally preoccupied. Review of Systems Review of Systems Yes all other systems are reviewed and are negative Mental Status Exam Mental Status Exam Narrative: Appearance: casually groomed, good hygiene, in NAD. Ambulates with walker Behavior: friendly Psychomotor: no agitation or retardation noted Speech: clear, normal rate/rhythm/volume, spontaneous. TP: mostly linear, poverty of thought TC: feeling comfortable here Mood: Good Affect: bright, congruent SI: denies HI: denies VH/AH: denies, no overt signs Delusions: no overt delusional content noted or reported Insight/judgment: impaired x 2. Memory/cog: alert, not oriented to place, situation, year, she does know is August. Pending MOCA and ACL. Diagnostics Vital Signs (24Hr): Vital Signs - 24 hr 08/15/22 18:00 08/16/22 06:00 Temperature 98.2 F 98.6 F Pulse Rate 72 122 H Respiratory Rate 16 16 Blood Pressure 134/72 134/79 Pulse Oximetry 92 95 Oxygen Delivery Method Room Air Room Air BMI result Body Mass Index 24.5 Labs 08/12/22 15:40 08/14/22 06:28 Labs: Laboratory Results - last 48 hr 08/15/22 11:11 Influenza Type A (PCR) NEGATIVE Influenza Type B (PCR) NEGATIVE RSV RNA Qual (PCR) NEGATIVE SARS-CoV-2 RNA (RT-PCR) NEGATIVE Imaging Radiology Impressions: ITS Impressions Head CT 08/15/22 14:53 IMPRESSION: No acute intracranial pathology. Significant right sphenoid sinus disease; correlate for any acute symptomatology. Medications Medications Current Medications Acetaminophen (Acetaminophen 325 Mg Tablet) 650 mg PO Q6H PRN PRN Reason: Headache/Pain Mild Scale (1-3) Last Admin: 08/15/22 10:56 Dose: 650 mg Al Hydroxide/Mg Hydroxide (Magnesium Hydrox/Alum Hydrox 30 Ml Oral.Susp) 30 ml PO Q6H PRN PRN Reason: Heartburn/Nausea Aspirin (Aspirin Enteric Coated 81 Mg Tablet.) 81 mg PO DAILY [facility] Last Admin: 08/16/22 08:53 Dose: 81 mg Atorvastatin Calcium (Atorvastatin Calcium 10 Mg Tablet) 10 mg PO DAILY [facility] Last Admin: 08/16/22 08:54 Dose: 10 mg Benzocaine (Throat Lozenge, Medicated Lozenge) 1 lozenge MUCOUS MEM Q2H PRN PRN Reason: Sore Throat Calcium Carbonate (Calcium Carbonate 500 Mg Tablet) 500 mg PO DAILY [facility] Last Admin: 08/16/22 08:53 Dose: 500 mg Furosemide (Furosemide 40 Mg Tablet) 40 mg PO DAILY [facility]; Protocol Last Admin: 08/16/22 08:53 Dose: 40 mg Guaifenesin (Guaifenesin 200 Mg/10 Ml 10 Ml Liquid) 10 ml PO Q6H PRN PRN Reason: Cough Last Admin: 08/15/22 10:54 Dose: 10 ml Magnesium Hydroxide (Milk Of Magnesia 30 Ml Oral.Susp) 30 ml PO DAILY PRN PRN Reason: Constipation Melatonin (Melatonin 3 Mg Tablet) 9 mg PO BEDTIME PRN PRN Reason: insomnia Last Admin: 08/13/22 20:52 Dose: 9 mg Metoprolol Succinate (Metoprolol Succinate Er 50 Mg Tab.Er.24h) 50 mg PO DAILY [facility]; Protocol Last Admin: 08/16/22 08:54 Dose: 50 mg Nifedipine (Nifedipine Er 90 Mg Tab.Er.24) 90 mg PO DAILY [facility] Last Admin: 08/16/22 08:53 Dose: 90 mg Olanzapine (Olanzapine 2.5 Mg Tablet) 2.5 mg PO TID PRN PRN Reason: agitation Risperidone (Risperidone 0.5 Mg Tablet) 0.5 mg PO BEDTIME [facility] Last Admin: 08/15/22 20:56 Dose: 0.5 mg Sertraline HCl (Sertraline Hcl 25 Mg Tablet) 25 mg PO DAILY [facility] Last Admin: 08/16/22 08:53 Dose: 25 mg Sertraline HCl (Sertraline Hcl 50 Mg Tablet) 50 mg PO DAILY [facility] Last Admin: 08/16/22 08:53 Dose: 50 mg Vitamin D (Cholecalciferol (Vitamin D3) 25 Mcg Tablet) 25 mcg PO DAILY [facility] Last Admin: 08/16/22 08:56 Dose: 25 mcg Allergies Allergies Allergy/AdvReac Type Severity Reaction Status Date / Time No Known Allergies Allergy Verified 08/12/22 23:06 Assessment & Plan Assessment & Plan (1) Psychotic disorder: Status: Acute Code(s): F29 - Unspecified psychosis not due to a substance or known physiological condition Plan Patient is a 81-year-old female with little known psychiatric history, moved here to live with her daughter 9 months ago and presents now for psychotic symptoms starting in early July. Patient is friendly and calm. She is alert and oriented to self place; she said she came to the hospital because she was nervous but is not sure why she has to remain. Patient endorses paranoid delusions saying that there are cameras and microphones set up in house to spy on her; daughter says no history of psychiatric illness that she knows of and no psychotic symptoms until this past July. Plan: CV Q 15 minute checks Patient's daughter Amy and her brother Tete healthcare proxies; they will get the form Continue home medications; full list provided by daughter Continue Risperdal 0.5 mg q.h.s. 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 continue risperidone and sertraline. Once MOCA is completed, pattern of cognitive impairment will be more clear. 08/16 continue current medications. May consider medication such as exelon or aricept Reason for contiued inpatient stay Substantial Risk for: inability to function Time Spent With Patient Time: Total time managing care of this patient today ____ minutes.
[2022-08-16 18:00] VITALS: BP 111/60; PULSE 73; RESP 18; TEMP 37; O2SAT 94
[2022-08-16] MEDS: Melatonin 3 MG TABLET 9 MG PO (20:49)
[2022-08-16] MEDS: risperiDONE 0.5 MG TABLET PO (20:49)
[2022-08-17 06:00] VITALS: BP 126/70; PULSE 95; RESP 16; TEMP 36.7; O2SAT 93
[2022-08-17] MEDS: Cholecalciferol (Vitamin D3) 25 MCG TABLET PO (10:46)
[2022-08-17] MEDS: Furosemide 40 MG TABLET PO (10:46)
[2022-08-17] MEDS: Sertraline HCL 25 MG TABLET PO (10:46)
[2022-08-17] MEDS: Sertraline HCL 50 MG TABLET PO (10:46)
[2022-08-17] MEDS: Aspirin Enteric Coated 81 MG TABLET.DR PO (10:47)
[2022-08-17] MEDS: Metoprolol Succinate ER 50 MG TAB.ER.24H PO (10:47)
[2022-08-17] MEDS: NIFEdipine ER 90 MG TAB.ER.24 PO (10:47)
[2022-08-17] MEDS: Atorvastatin Calcium 10 MG TABLET PO (10:47)
--- NOTE | 2022-08-17 15:33 | HO.PSYCHPN ---
Subjective Subjective Date of Service: 08/17/22 Reason For Visit: confused Subjective Notes: Conditional Voluntary Interim History: Per nursing, pt with broken sleep. Per staff pt observed talking to someone who was not there. She is taking medications as prescribed. We had family meeting with her daughter. We discussed dx of vascular dementia- MOCA showing impairment in executive function, recall, attention, orientation fairly intact. Head CT showing microvascular changes and atrophy. Daugther expressed concern as to whether she can care for her at home and wants pt to be placed at [facility]. Medication Compliance: Yes Side effects from medications: No Attending Groups: Intermittent Review of Systems Review of Systems Yes all other systems are reviewed and are negative Mental Status Exam Mental Status Exam Narrative: Appearance: casually groomed, good hygiene, in NAD. Ambulates with walker Behavior: friendly Psychomotor: no agitation or retardation noted Speech: clear, normal rate/rhythm/volume, spontaneous. TP: mostly linear, poverty of thought TC: feeling comfortable here Mood: Good Affect: bright, congruent SI: denies HI: denies VH/AH: denies, no overt signs Delusions: no overt delusional content noted or reported Insight/judgment: impaired x 2. Memory/cog: alert, not oriented to place, situation, year, she does know is August. Pending MOCA and ACL. Diagnostics Vital Signs (24Hr): Vital Signs - 24 hr 08/17/22 18:00 08/17/22 23:25 Temperature 98.3 F Pulse Rate 71 Respiratory Rate 18 Blood Pressure 151/70 H Pulse Oximetry 91 L 92 Oxygen Delivery Method Room Air Room Air BMI result Body Mass Index 24.5 Labs 08/12/22 15:40 08/14/22 06:28 Imaging Radiology Impressions: ITS Impressions Head CT 08/15/22 14:53 IMPRESSION: No acute intracranial pathology. Significant right sphenoid sinus disease; correlate for any acute symptomatology. Medications Medications Current Medications Acetaminophen (Acetaminophen 325 Mg Tablet) 650 mg PO Q6H PRN PRN Reason: Headache/Pain Mild Scale (1-3) Last Admin: 08/15/22 10:56 Dose: 650 mg Al Hydroxide/Mg Hydroxide (Magnesium Hydrox/Alum Hydrox 30 Ml Oral.Susp) 30 ml PO Q6H PRN PRN Reason: Heartburn/Nausea Aspirin (Aspirin Enteric Coated 81 Mg Tablet.) 81 mg PO DAILY [facility] Last Admin: 08/17/22 10:47 Dose: 81 mg Atorvastatin Calcium (Atorvastatin Calcium 10 Mg Tablet) 10 mg PO DAILY [facility] Last Admin: 08/17/22 10:47 Dose: 10 mg Benzocaine (Throat Lozenge, Medicated Lozenge) 1 lozenge MUCOUS MEM Q2H PRN PRN Reason: Sore Throat Calcium Carbonate (Calcium Carbonate 500 Mg Tablet) 500 mg PO DAILY [facility] Last Admin: 08/17/22 10:47 Dose: 500 mg Furosemide (Furosemide 40 Mg Tablet) 40 mg PO DAILY [facility]; Protocol Last Admin: 08/17/22 10:46 Dose: 40 mg Guaifenesin (Guaifenesin 200 Mg/10 Ml 10 Ml Liquid) 10 ml PO Q6H PRN PRN Reason: Cough Last Admin: 08/17/22 23:19 Dose: 10 ml Magnesium Hydroxide (Milk Of Magnesia 30 Ml Oral.Susp) 30 ml PO DAILY PRN PRN Reason: Constipation Melatonin (Melatonin 3 Mg Tablet) 9 mg PO BEDTIME PRN PRN Reason: insomnia Last Admin: 08/17/22 20:28 Dose: 9 mg Metoprolol Succinate (Metoprolol Succinate Er 50 Mg Tab.Er.24h) 50 mg PO DAILY [facility]; Protocol Last Admin: 08/17/22 10:47 Dose: 50 mg Nifedipine (Nifedipine Er 90 Mg Tab.Er.24) 90 mg PO DAILY [facility] Last Admin: 08/17/22 10:47 Dose: 90 mg Olanzapine (Olanzapine 2.5 Mg Tablet) 2.5 mg PO TID PRN PRN Reason: agitation Risperidone (Risperidone 0.5 Mg Tablet) 0.5 mg PO BEDTIME [facility] Last Admin: 08/17/22 20:28 Dose: 0.5 mg Sertraline HCl (Sertraline Hcl 25 Mg Tablet) 25 mg PO DAILY [facility] Last Admin: 08/17/22 10:46 Dose: 25 mg Sertraline HCl (Sertraline Hcl 50 Mg Tablet) 50 mg PO DAILY [facility] Last Admin: 08/17/22 10:46 Dose: 50 mg Vitamin D (Cholecalciferol (Vitamin D3) 25 Mcg Tablet) 25 mcg PO DAILY [facility] Last Admin: 08/17/22 10:46 Dose: 25 mcg Allergies Allergies Allergy/AdvReac Type Severity Reaction Status Date / Time No Known Allergies Allergy Verified 08/12/22 23:06 Assessment & Plan Assessment & Plan (1) Psychotic disorder: Status: Deleted Code(s): F29 - Unspecified psychosis not due to a substance or known physiological condition (2) Major 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 Patient is friendly and calm. She is alert and oriented to self place; she said she came to the hospital because she was nervous but is not sure why she has to remain. Patient endorses paranoid delusions saying that there are cameras and microphones set up in house to spy on her; daughter says no history of psychiatric illness that she knows of and no psychotic symptoms until this past July. Plan: CV Q 15 minute checks Patient's daughter Amy and her brother Tete healthcare proxies; they will get the form Continue home medications; full list provided by daughter Continue Risperdal 0.5 mg q.h.s. 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 continue risperidone and sertraline. Once MOCA is completed, pattern of cognitive impairment will be more clear. 08/16 continue current medications. May consider medication such as exelon or aricept 08/17 may change to olanzapine as pt already with resting tremors. Start exelon 1.5mg po BID. Patient educated on: diagnosis Informed Consent: understands Reason for contiued inpatient stay Substantial Risk for: inability to function Time Spent With Patient Time: Total time managing care of this patient today __30__ minutes.
[2022-08-17 18:00] VITALS: BP 151/70; PULSE 71; RESP 18; TEMP 36.8; O2SAT 91
[2022-08-17] MEDS: risperiDONE 0.5 MG TABLET PO (20:28)
[2022-08-17] MEDS: Melatonin 3 MG TABLET 9 MG PO (20:28)
[2022-08-17] MEDS: guaiFENesin 200 MG/10 ML 10 ML LIQUID PO (23:19)
[2022-08-17 23:25] VITALS: O2SAT 92
[2022-08-18 07:00] VITALS: BMI 23.8
[2022-08-18 08:30] VITALS: BP 119/69; PULSE 92; RESP 18; TEMP 36.6; O2SAT 94
[2022-08-18] MEDS: Cholecalciferol (Vitamin D3) 25 MCG TABLET PO (09:20)
[2022-08-18] MEDS: Metoprolol Succinate ER 50 MG TAB.ER.24H PO (09:20)
[2022-08-18] MEDS: NIFEdipine ER 90 MG TAB.ER.24 PO (09:21)
[2022-08-18] MEDS: Sertraline HCL 50 MG TABLET PO (09:21)
[2022-08-18] MEDS: Aspirin Enteric Coated 81 MG TABLET.DR PO (09:21)
[2022-08-18] MEDS: Furosemide 40 MG TABLET PO (09:21)
[2022-08-18] MEDS: Atorvastatin Calcium 10 MG TABLET PO (09:22)
[2022-08-18] MEDS: Sertraline HCL 25 MG TABLET PO (09:22)
[2022-08-18] MEDS: Rivastigmine Tartrate 1.5 MG CAPSULE PO ×2 (09:43→20:56)
--- NOTE | 2022-08-18 12:41 | P.PNPSI_ITS ---
Subjective Subjective Date of Service: 08/18/22 Reason For Visit: confused Subjective Notes: Conditional Voluntary Interim History: Pt slept through the night. Pt reports feeling better physically. She is enjoying conversation with new Bangladeshi speaking peer. She denies SI/HI. We discussed switching risperidone to olanzapine. She does have even before introducing antipsychotic resting tremor. No behavioral concerns. Medication Compliance: Yes Review of Systems Review of Systems Yes all other systems are reviewed and are negative Mental Status Exam Mental Status Exam Narrative: Appearance: casually groomed, good hygiene, in NAD. Ambulates with walker Behavior: friendly Psychomotor: no agitation or retardation noted Speech: clear, normal rate/rhythm/volume, spontaneous. TP: mostly linear, poverty of thought TC: feeling comfortable here Mood: Good Affect: bright, congruent SI: denies HI: denies VH/AH: denies, no overt signs Delusions: no overt delusional content noted or reported Insight/judgment: impaired x 2. Memory/cog: alert, not oriented to place, situation, year, she does know is August. Pending MOCA and ACL. Diagnostics Vital Signs (24Hr): Vital Signs - 24 hr 08/18/22 19:25 Temperature 98.1 F Pulse Rate 68 Respiratory Rate 18 Blood Pressure 119/61 Pulse Oximetry 95 Oxygen Delivery Method Room Air BMI result Body Mass Index 23.8 Labs 08/12/22 15:40 08/14/22 06:28 Imaging Radiology Impressions: ITS Impressions Head CT 08/15/22 14:53 IMPRESSION: No acute intracranial pathology. Significant right sphenoid sinus disease; correlate for any acute symptomatology. Medications Medications Current Medications Acetaminophen (Acetaminophen 325 Mg Tablet) 650 mg PO Q6H PRN PRN Reason: Headache/Pain Mild Scale (1-3) Last Admin: 08/15/22 10:56 Dose: 650 mg Al Hydroxide/Mg Hydroxide (Magnesium Hydrox/Alum Hydrox 30 Ml Oral.Susp) 30 ml PO Q6H PRN PRN Reason: Heartburn/Nausea Aspirin (Aspirin Enteric Coated 81 Mg Tablet.) 81 mg PO DAILY [facility] Last Admin: 08/18/22 09:21 Dose: 81 mg Atorvastatin Calcium (Atorvastatin Calcium 10 Mg Tablet) 10 mg PO DAILY [facility] Last Admin: 08/18/22 09:22 Dose: 10 mg Benzocaine (Throat Lozenge, Medicated Lozenge) 1 lozenge MUCOUS MEM Q2H PRN PRN Reason: Sore Throat Calcium Carbonate (Calcium Carbonate 500 Mg Tablet) 500 mg PO DAILY [facility] Last Admin: 08/18/22 09:21 Dose: 500 mg Furosemide (Furosemide 40 Mg Tablet) 40 mg PO DAILY [facility]; Protocol Last Admin: 08/18/22 09:21 Dose: 40 mg Guaifenesin (Guaifenesin 200 Mg/10 Ml 10 Ml Liquid) 10 ml PO Q6H PRN PRN Reason: Cough Last Admin: 08/17/22 23:19 Dose: 10 ml Magnesium Hydroxide (Milk Of Magnesia 30 Ml Oral.Susp) 30 ml PO DAILY PRN PRN Reason: Constipation Melatonin (Melatonin 3 Mg Tablet) 9 mg PO BEDTIME PRN PRN Reason: insomnia Last Admin: 08/18/22 22:19 Dose: 9 mg Metoprolol Succinate (Metoprolol Succinate Er 50 Mg Tab.Er.24h) 50 mg PO DAILY [facility]; Protocol Last Admin: 08/18/22 09:20 Dose: 50 mg Nifedipine (Nifedipine Er 90 Mg Tab.Er.24) 90 mg PO DAILY [facility] Last Admin: 08/18/22 09:21 Dose: 90 mg Olanzapine (Olanzapine 2.5 Mg Tablet) 2.5 mg PO TID PRN PRN Reason: agitation Rivastigmine Tartrate (Rivastigmine Tartrate 1.5 Mg Capsule) 1.5 mg PO BID [facility] Last Admin: 08/18/22 20:56 Dose: 1.5 mg Sertraline HCl (Sertraline Hcl 25 Mg Tablet) 25 mg PO DAILY [facility] Last Admin: 08/18/22 09:22 Dose: 25 mg Sertraline HCl (Sertraline Hcl 50 Mg Tablet) 50 mg PO DAILY [facility] Last Admin: 08/18/22 09:21 Dose: 50 mg Vitamin D (Cholecalciferol (Vitamin D3) 25 Mcg Tablet) 25 mcg PO DAILY [facility] Last Admin: 08/18/22 09:20 Dose: 25 mcg Allergies Allergies Allergy/AdvReac Type Severity Reaction Status Date / Time No Known Allergies Allergy Verified 08/12/22 23:06 Assessment & Plan Assessment & Plan (1) Major 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 Patient is friendly and calm. She is alert and oriented to self place; she said she came to the hospital because she was nervous but is not sure why she has to remain. Patient endorses paranoid delusions saying that there are cameras and microphones set up in house to spy on her; daughter says no history of psychiatric illness that she knows of and no psychotic symptoms until this past July. Plan: CV Q 15 minute checks Patient's daughter Amy and her brother Tete healthcare proxies; they will get the form Continue home medications; full list provided by daughter Continue Risperdal 0.5 mg q.h.s. 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 continue risperidone and sertraline. Once MOCA is completed, pattern of cognitive impairment will be more clear. 08/16 continue current medications. May consider medication such as exelon or aricept 08/17 may change to olanzapine as pt already with resting tremors. Start exelon 1.5mg po BID. 08/18 continue tx. change risperidone to olanzapine 2.5mg po qhs given underlying resting tremor. Reason for contiued inpatient stay Substantial Risk for: inability to function Time Spent With Patient Time: Total time managing care of this patient today ____ minutes.
[2022-08-18 19:25] VITALS: BP 119/61; PULSE 68; RESP 18; TEMP 36.7; O2SAT 95
[2022-08-18] MEDS: risperiDONE 0.5 MG TABLET PO (20:56)
[2022-08-18] MEDS: Melatonin 3 MG TABLET 9 MG PO (22:19)
[2022-08-19 06:00] VITALS: BP 111/59; PULSE 77; RESP 18; TEMP 36.7; O2SAT 94
[2022-08-19] MEDS: Cholecalciferol (Vitamin D3) 25 MCG TABLET PO (08:48)
[2022-08-19] MEDS: Rivastigmine Tartrate 1.5 MG CAPSULE PO ×2 (08:49→20:39)
[2022-08-19] MEDS: Aspirin Enteric Coated 81 MG TABLET.DR PO (08:49)
[2022-08-19] MEDS: Atorvastatin Calcium 10 MG TABLET PO (08:49)
[2022-08-19] MEDS: Furosemide 40 MG TABLET PO (08:49)
[2022-08-19] MEDS: NIFEdipine ER 90 MG TAB.ER.24 PO (08:50)
[2022-08-19] MEDS: Sertraline HCL 25 MG TABLET PO (08:50)
[2022-08-19] MEDS: Sertraline HCL 50 MG TABLET PO (08:50)
--- NOTE | 2022-08-19 15:23 | P.PNPSI_ITS ---
Subjective Subjective Date of Service: 08/19/22 Reason For Visit: confused Subjective Notes: Conditional Voluntary Interim History: The nursing staff reported the patient had been showing sinus symptoms of psychosis, responding to internal stimuli. The social media editor reported that the daughter does not want to take her back and she was exploring long-term placement options. On interview the patient is pleasantly confused Mental Status Exam Mental Status Exam Patient Appearance: Appropriate Patient Orientation: Person Level of Consciousness: Disoriented and Restless Patient Behavior: Guarded Mood Description: Calm Affect Description: Labile Patient Cognition Impaired: Yes Ability to Follow Directions: Fair Speech Pattern: Clear Hallucinations: Auditory Delusions: Paranoid Ideation Thought Process: Illogical and Distracted Thought Content: positive for [place] Judgement: Poor Diagnostics Vital Signs (24Hr): Vital Signs - 24 hr 08/18/22 19:25 08/19/22 06:00 Temperature 98.1 F 98.1 F Pulse Rate 68 77 Respiratory Rate 18 18 Blood Pressure 119/61 111/59 L Pulse Oximetry 95 94 Oxygen Delivery Method Room Air Room Air BMI result Body Mass Index 23.8 Labs 08/12/22 15:40 08/14/22 06:28 Imaging Radiology Impressions: ITS Impressions Head CT 08/15/22 14:53 IMPRESSION: No acute intracranial pathology. Significant right sphenoid sinus disease; correlate for any acute symptomatology. Medications Medications Current Medications Acetaminophen (Acetaminophen 325 Mg Tablet) 650 mg PO Q6H PRN PRN Reason: Headache/Pain Mild Scale (1-3) Last Admin: 08/15/22 10:56 Dose: 650 mg Al Hydroxide/Mg Hydroxide (Magnesium Hydrox/Alum Hydrox 30 Ml Oral.Susp) 30 ml PO Q6H PRN PRN Reason: Heartburn/Nausea Aspirin (Aspirin Enteric Coated 81 Mg Tablet.Dr) 81 mg PO DAILY [facility] Last Admin: 08/19/22 08:49 Dose: 81 mg Atorvastatin Calcium (Atorvastatin Calcium 10 Mg Tablet) 10 mg PO DAILY [facility] Last Admin: 08/19/22 08:49 Dose: 10 mg Benzocaine (Throat Lozenge, Medicated Lozenge) 1 lozenge MUCOUS MEM Q2H PRN PRN Reason: Sore Throat Calcium Carbonate (Calcium Carbonate 500 Mg Tablet) 500 mg PO DAILY [facility] Last Admin: 08/19/22 08:49 Dose: 500 mg Furosemide (Furosemide 40 Mg Tablet) 40 mg PO DAILY [facility]; Protocol Last Admin: 08/19/22 08:49 Dose: 40 mg Guaifenesin (Guaifenesin 200 Mg/10 Ml 10 Ml Liquid) 10 ml PO Q6H PRN PRN Reason: Cough Last Admin: 08/17/22 23:19 Dose: 10 ml Magnesium Hydroxide (Milk Of Magnesia 30 Ml Oral.Susp) 30 ml PO DAILY PRN PRN Reason: Constipation Melatonin (Melatonin 3 Mg Tablet) 9 mg PO BEDTIME PRN PRN Reason: insomnia Last Admin: 08/18/22 22:19 Dose: 9 mg Metoprolol Succinate (Metoprolol Succinate Er 50 Mg Tab.Er.24h) 50 mg PO DAILY [facility]; Protocol Last Admin: 08/19/22 08:52 Dose: Not Given Nifedipine (Nifedipine Er 90 Mg Tab.Er.24) 90 mg PO DAILY [facility] Last Admin: 08/19/22 08:50 Dose: 90 mg Olanzapine (Olanzapine 2.5 Mg Tablet) 2.5 mg PO TID PRN PRN Reason: agitation Olanzapine (Olanzapine 2.5 Mg Tablet) 2.5 mg PO BEDTIME [facility] Rivastigmine Tartrate (Rivastigmine Tartrate 1.5 Mg Capsule) 1.5 mg PO BID [facility] Last Admin: 08/19/22 08:49 Dose: 1.5 mg Sertraline HCl (Sertraline Hcl 25 Mg Tablet) 25 mg PO DAILY [facility] Last Admin: 08/19/22 08:50 Dose: 25 mg Sertraline HCl (Sertraline Hcl 50 Mg Tablet) 50 mg PO DAILY [facility] Last Admin: 08/19/22 08:50 Dose: 50 mg Vitamin D (Cholecalciferol (Vitamin D3) 25 Mcg Tablet) 25 mcg PO DAILY [facility] Last Admin: 08/19/22 08:48 Dose: 25 mcg Allergies Allergies Allergy/AdvReac Type Severity Reaction Status Date / Time No Known Allergies Allergy Verified 08/12/22 23:06 Assessment & Plan Assessment & Plan (1) Major 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 Patient is friendly and calm. She is alert and oriented to self place; she said she came to the hospital because she was nervous but is not sure why she has to remain. Patient endorses paranoid delusions saying that there are cameras and microphones set up in house to spy on her; daughter says no history of psychiatric illness that she knows of and no psychotic symptoms until this past July. Plan: CV Q 15 minute checks Patient's daughter Amy and her brother Tete healthcare proxies; they will get the form Continue home medications; full list provided by daughter Continue Risperdal 0.5 mg q.h.s. 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 continue risperidone and sertraline. Once MOCA is completed, pattern of cognitive impairment will be more clear. 08/16 continue current medications. May consider medication such as exelon or aricept 08/17 may change to olanzapine as pt already with resting tremors. Start exelon 1.5mg po BID. 08/18 continue tx. change risperidone to olanzapine 2.5mg po qhs given underlying resting tremor. 08/19 continue with same treatment Reason for contiued inpatient stay Substantial Risk for: inability to function, rapid decompensation and med/psych decompensation Time Spent With Patient Time: Total time managing care of this patient today __20__ minutes.
[2022-08-19 18:00] VITALS: BP 134/63; PULSE 88; RESP 16; TEMP 36.4; O2SAT 92
[2022-08-19] MEDS: OLANZapine 2.5 MG TABLET PO (20:39)
[2022-08-19] MEDS: Acetaminophen 325 MG TABLET 650 MG PO (20:44)
[2022-08-20 09:08] VITALS: BP 138/75; PULSE 54; RESP 18; TEMP 36.2; O2SAT 96
[2022-08-20] MEDS: Sertraline HCL 25 MG TABLET PO (09:10)
[2022-08-20] MEDS: Furosemide 40 MG TABLET PO (09:10)
[2022-08-20] MEDS: Atorvastatin Calcium 10 MG TABLET PO (09:10)
[2022-08-20] MEDS: Rivastigmine Tartrate 1.5 MG CAPSULE PO ×2 (09:10→20:12)
[2022-08-20] MEDS: Sertraline HCL 50 MG TABLET PO (09:10)
[2022-08-20] MEDS: Metoprolol Succinate ER 50 MG TAB.ER.24H PO (09:10)
[2022-08-20] MEDS: NIFEdipine ER 90 MG TAB.ER.24 PO (09:10)
[2022-08-20] MEDS: Aspirin Enteric Coated 81 MG TABLET.DR PO (09:10)
[2022-08-20] MEDS: Cholecalciferol (Vitamin D3) 25 MCG TABLET PO (09:10)
--- NOTE | 2022-08-20 09:54 | P.PNPSI_ITS ---
Subjective Subjective Date of Service: 08/20/22 Reason For Visit: confused Subjective Notes: Conditional Voluntary Interim History: The nursing staff reported the patient has been confused but cooperative, she ate 25% of her dinner, she is pleasant and cheerful and restless at times. She slept 5 hours. On interview the patient looks pleasantly confused no evidence of responding to internal stimulus Mental Status Exam Mental Status Exam Patient Appearance: Well Grooomed and Appropriate Patient Orientation: Person Level of Consciousness: Awake and Appropriate Patient Behavior: Guarded and Passive Mood Description: Suspicious Affect Description: Constricted Patient Cognition Impaired: Yes Ability to Follow Directions: Good Speech Pattern: Clear Hallucinations: None Delusions: Not Present Thought Process: Distracted Thought Content: positive for [place], positive for Circumstantial and positive for Poverty of Content Judgement: Fair Diagnostics Vital Signs (24Hr): Vital Signs - 24 hr 08/19/22 18:00 08/20/22 09:08 Temperature 97.5 F 97.2 F Pulse Rate 88 54 Respiratory Rate 16 18 Blood Pressure 134/63 138/75 Pulse Oximetry 92 96 Oxygen Delivery Method Room Air Room Air BMI result Body Mass Index 23.8 Labs 08/12/22 15:40 08/14/22 06:28 Imaging Radiology Impressions: ITS Impressions Head CT 08/15/22 14:53 IMPRESSION: No acute intracranial pathology. Significant right sphenoid sinus disease; correlate for any acute symptomatology. Medications Medications Current Medications Acetaminophen (Acetaminophen 325 Mg Tablet) 650 mg PO Q6H PRN PRN Reason: Headache/Pain Mild Scale (1-3) Last Admin: 08/19/22 20:44 Dose: 650 mg Al Hydroxide/Mg Hydroxide (Magnesium Hydrox/Alum Hydrox 30 Ml Oral.Susp) 30 ml PO Q6H PRN PRN Reason: Heartburn/Nausea Aspirin (Aspirin Enteric Coated 81 Mg Tablet.) 81 mg PO DAILY [facility] Last Admin: 08/20/22 09:10 Dose: 81 mg Atorvastatin Calcium (Atorvastatin Calcium 10 Mg Tablet) 10 mg PO DAILY [facility] Last Admin: 08/20/22 09:10 Dose: 10 mg Benzocaine (Throat Lozenge, Medicated Lozenge) 1 lozenge MUCOUS MEM Q2H PRN PRN Reason: Sore Throat Calcium Carbonate (Calcium Carbonate 500 Mg Tablet) 500 mg PO DAILY [facility] Last Admin: 08/20/22 09:10 Dose: 500 mg Furosemide (Furosemide 40 Mg Tablet) 40 mg PO DAILY [facility]; Protocol Last Admin: 08/20/22 09:10 Dose: 40 mg Guaifenesin (Guaifenesin 200 Mg/10 Ml 10 Ml Liquid) 10 ml PO Q6H PRN PRN Reason: Cough Last Admin: 08/17/22 23:19 Dose: 10 ml Magnesium Hydroxide (Milk Of Magnesia 30 Ml Oral.Susp) 30 ml PO DAILY PRN PRN Reason: Constipation Melatonin (Melatonin 3 Mg Tablet) 9 mg PO BEDTIME PRN PRN Reason: insomnia Last Admin: 08/18/22 22:19 Dose: 9 mg Metoprolol Succinate (Metoprolol Succinate Er 50 Mg Tab.Er.24h) 50 mg PO DAILY [facility]; Protocol Last Admin: 08/20/22 09:10 Dose: 50 mg Nifedipine (Nifedipine Er 90 Mg Tab.Er.24) 90 mg PO DAILY [facility] Last Admin: 08/20/22 09:10 Dose: 90 mg Olanzapine (Olanzapine 2.5 Mg Tablet) 2.5 mg PO TID PRN PRN Reason: agitation Olanzapine (Olanzapine 2.5 Mg Tablet) 2.5 mg PO BEDTIME [facility] Last Admin: 08/19/22 20:39 Dose: 2.5 mg Rivastigmine Tartrate (Rivastigmine Tartrate 1.5 Mg Capsule) 1.5 mg PO BID [facility] Last Admin: 08/20/22 09:10 Dose: 1.5 mg Sertraline HCl (Sertraline Hcl 25 Mg Tablet) 25 mg PO DAILY [facility] Last Admin: 08/20/22 09:10 Dose: 25 mg Sertraline HCl (Sertraline Hcl 50 Mg Tablet) 50 mg PO DAILY [facility] Last Admin: 08/20/22 09:10 Dose: 50 mg Vitamin D (Cholecalciferol (Vitamin D3) 25 Mcg Tablet) 25 mcg PO DAILY [facility] Last Admin: 08/20/22 09:10 Dose: 25 mcg Allergies Allergies Allergy/AdvReac Type Severity Reaction Status Date / Time No Known Allergies Allergy Verified 08/12/22 23:06 Assessment & Plan Assessment & Plan (1) Major neurocognitive disorder due to multiple etiologies with behavioral disturbance: Status: Acute Code(s): F02.818 - Dementia in other diseases classified elsewhere, unspecified severity, with other behavioral disturbance Plan Patient is a 81-year-old female with little known psychiatric history, moved here to live with her daughter 9 months ago and presents now for psychotic sympt oms starting in early July. Patient is friendly and calm. She is alert and oriented to self place; she said she came to the hospital because she was nervous but is not sure why she has to remain. Patient endorses paranoid delusions saying that there are cameras and microphones set up in house to spy on her; daughter says no history of psychiatric illness that she knows of and no psychotic symptoms until this past July. Plan: CV Q 15 minute checks Patient's daughter Amy and her brother Tete healthcare proxies; they will get the form Continue home medications; full list provided by daughter Continue Risperdal 0.5 mg q.h.s. 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 continue risperidone and sertraline. Once MOCA is completed, pattern of co gnitive impairment will be more clear. 08/16 continue current medications. May consider medication such as exelon or aricept 08/17 may change to olanzapine as pt already with resting tremors. Start exelon 1.5mg po BID. 08/18 continue tx. change risperidone to olanzapine 2.5mg po qhs given underlying resting tremor. 08/19 continue with same treatment 08/20 continue same treatment Reason for contiued inpatient stay Substantial Risk for: inability to function, rapid decompensation and med/psych decompensation Time Spent With Patient Time: Total time managing care of this patient today ____ minutes.
[2022-08-20 18:42] VITALS: BP 122/81; PULSE 79; RESP 16; TEMP 36.7; O2SAT 94
[2022-08-20] MEDS: OLANZapine 2.5 MG TABLET PO (20:12)
[2022-08-20] MEDS: Acetaminophen 325 MG TABLET 650 MG PO (20:37)
[2022-08-21] MEDS: Cholecalciferol (Vitamin D3) 25 MCG TABLET PO (08:03)
[2022-08-21] MEDS: Sertraline HCL 25 MG TABLET PO (08:03)
[2022-08-21] MEDS: Aspirin Enteric Coated 81 MG TABLET.DR PO (08:03)
[2022-08-21] MEDS: NIFEdipine ER 90 MG TAB.ER.24 PO (08:04)
[2022-08-21] MEDS: Sertraline HCL 50 MG TABLET PO (08:04)
[2022-08-21] MEDS: Atorvastatin Calcium 10 MG TABLET PO (08:05)
[2022-08-21] MEDS: Rivastigmine Tartrate 1.5 MG CAPSULE PO ×2 (08:05→19:48)
[2022-08-21] MEDS: Furosemide 40 MG TABLET PO (08:06)
[2022-08-21 08:09] VITALS: BP 111/70; PULSE 92; RESP 16; TEMP 36.4; O2SAT 99
--- NOTE | 2022-08-21 11:57 | P.PNPSI_ITS ---
Subjective Subjective Date of Service: 08/21/22 Reason For Visit: confused Subjective Notes: Conditional Voluntary Interim History: The nursing staff reported the patient slept well last night she complained of pain in received Tylenol with for improvement, she had a bowel movement yesterday. She slept 7 hours. The staff has noticed a sometimes she has self dialogue was. On interview the patient denies new symptoms she looks pleasantly confused. Mental Status Exam Mental Status Exam Patient Appearance: Well Grooomed and Appropriate Patient Orientation: Person and Situation Level of Consciousness: Awake and Appropriate Patient Behavior: Guarded and Passive Mood Description: Withdrawn Affect Description: Blunted Patient Cognition Impaired: Yes Ability to Follow Directions: Good Speech Pattern: Clear Hallucinations: Auditory Delusions: Paranoid Ideation Thought Process: Distracted and Slowed Thinking Thought Content: positive for [place] and positive for Circumstantial Judgement: Fair Diagnostics Vital Signs (24Hr): Vital Signs - 24 hr 08/20/22 18:42 08/21/22 08:09 Temperature 98.1 F 97.5 F Pulse Rate 79 92 Respiratory Rate 16 16 Blood Pressure 122/81 111/70 Pulse Oximetry 94 99 Oxygen Delivery Method Room Air Room Air BMI result Body Mass Index 23.8 Labs 08/12/22 15:40 08/14/22 06:28 Imaging Radiology Impressions: ITS Impressions Head CT 08/15/22 14:53 IMPRESSION: No acute intracranial pathology. Significant right sphenoid sinus disease; correlate for any acute symptomatology. Medications Medications Current Medications Acetaminophen (Acetaminophen 325 Mg Tablet) 650 mg PO Q6H PRN PRN Reason: Headache/Pain Mild Scale (1-3) Last Admin: 08/20/22 20:37 Dose: 650 mg Al Hydroxide/Mg Hydroxide (Magnesium Hydrox/Alum Hydrox 30 Ml Oral.Susp) 30 ml PO Q6H PRN PRN Reason: Heartburn/Nausea Aspirin (Aspirin Enteric Coated 81 Mg Tablet.) 81 mg PO DAILY [facility] Last Admin: 08/21/22 08:03 Dose: 81 mg Atorvastatin Calcium (Atorvastatin Calcium 10 Mg Tablet) 10 mg PO DAILY [facility] Last Admin: 08/21/22 08:05 Dose: 10 mg Benzocaine (Throat Lozenge, Medicated Lozenge) 1 lozenge MUCOUS MEM Q2H PRN PRN Reason: Sore Throat Calcium Carbonate (Calcium Carbonate 500 Mg Tablet) 500 mg PO DAILY [facility] Last Admin: 08/21/22 08:05 Dose: 500 mg Furosemide (Furosemide 40 Mg Tablet) 40 mg PO DAILY [facility]; Protocol Last Admin: 08/21/22 08:06 Dose: 40 mg Guaifenesin (Guaifenesin 200 Mg/10 Ml 10 Ml Liquid) 10 ml PO Q6H PRN PRN Reason: Cough Last Admin: 08/17/22 23:19 Dose: 10 ml Magnesium Hydroxide (Milk Of Magnesia 30 Ml Oral.Susp) 30 ml PO DAILY PRN PRN Reason: Constipation Melatonin (Melatonin 3 Mg Tablet) 9 mg PO BEDTIME PRN PRN Reason: insomnia Last Admin: 08/18/22 22:19 Dose: 9 mg Metoprolol Succinate (Metoprolol Succinate Er 50 Mg Tab.Er.24h) 50 mg PO DAILY [facility]; Protocol Last Admin: 08/21/22 08:04 Dose: Not Given Nifedipine (Nifedipine Er 90 Mg Tab.Er.24) 90 mg PO DAILY [facility] Last Admin: 08/21/22 08:04 Dose: 90 mg Olanzapine (Olanzapine 2.5 Mg Tablet) 2.5 mg PO TID PRN PRN Reason: agitation Olanzapine (Olanzapine 2.5 Mg Tablet) 2.5 mg PO BEDTIME [facility] Last Admin: 08/20/22 20:12 Dose: 2.5 mg Rivastigmine Tartrate (Rivastigmine Tartrate 1.5 Mg Capsule) 1.5 mg PO BID [facility] Last Admin: 08/21/22 08:05 Dose: 1.5 mg Sertraline HCl (Sertraline Hcl 25 Mg Tablet) 25 mg PO DAILY [facility] Last Admin: 08/21/22 08:03 Dose: 25 mg Sertraline HCl (Sertraline Hcl 50 Mg Tablet) 50 mg PO DAILY [facility] Last Admin: 08/21/22 08:04 Dose: 50 mg Vitamin D (Cholecalciferol (Vitamin D3) 25 Mcg Tablet) 25 mcg PO DAILY [facility] Last Admin: 08/21/22 08:03 Dose: 25 mcg Allergies Allergies Allergy/AdvReac Type Severity Reaction Status Date / Time No Known Allergies Allergy Verified 08/12/22 23:06 Assessment & Plan Assessment & Plan (1) Major 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 Patient is friendly and calm. She is alert and oriented to self place; she said she came to the hospital because she was nervous but is not sure why she has to remain. Patient endorses paranoid delusions saying that there are cameras and microphones set up in house to spy on her; daughter says no history of psychiatric illness that she knows of and no psychotic symptoms until this past July. Plan: CV Q 15 minute checks Patient's daughter Amy and her brother Tete healthcare proxies; they will get the form Continue home medications; full list provided by daughter Continue Risperdal 0.5 mg q.h.s. 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 continue risperidone and sertraline. Once MOCA is completed, pattern of cognitive impairment will be more clear. 08/16 continue current medications. May consider medication such as exelon or aricept 08/17 may change to olanzapine as pt already with resting tremors. Start exelon 1.5mg po BID. 08/18 continue tx. change risperidone to olanzapine 2.5mg po qhs given underlying resting tremor. 08/19 continue with same treatment 08/20 continue same treatment. 08/21 increase Zyprexa up to 5 mg po qhs. Reason for contiued inpatient stay Substantial Risk for: inability to function, rapid decompensation and med/psych decompensation Time Spent With Patient Time: Total time managing care of this patient today __20__ minutes.
[2022-08-21 18:51] VITALS: BP 144/74; PULSE 83; RESP 18; TEMP 36.3; O2SAT 95
[2022-08-21] MEDS: OLANZapine 5 MG TABLET PO (19:48)
[2022-08-21] MEDS: Melatonin 3 MG TABLET 9 MG PO (20:52)
[2022-08-22 08:20] VITALS: BP 160/97; PULSE 104; RESP 18; TEMP 36.3; O2SAT 95
[2022-08-22] MEDS: Furosemide 40 MG TABLET PO (08:21)
[2022-08-22] MEDS: NIFEdipine ER 90 MG TAB.ER.24 PO (08:22)
[2022-08-22] MEDS: Aspirin Enteric Coated 81 MG TABLET.DR PO (08:22)
[2022-08-22] MEDS: Metoprolol Succinate ER 50 MG TAB.ER.24H PO (08:22)
[2022-08-22] MEDS: Atorvastatin Calcium 10 MG TABLET PO (08:22)
[2022-08-22] MEDS: Rivastigmine Tartrate 1.5 MG CAPSULE PO ×2 (08:22→20:34)
[2022-08-22] MEDS: Sertraline HCL 50 MG TABLET PO (08:23)
[2022-08-22] MEDS: Cholecalciferol (Vitamin D3) 25 MCG TABLET PO (08:23)
[2022-08-22] MEDS: Sertraline HCL 25 MG TABLET PO (08:23)
--- NOTE | 2022-08-22 11:52 | PC.NURSE ---
Pt. with good balance and steady gait. Uses assistive devices appropriately. Bed alarm not indicated.
--- NOTE | 2022-08-22 14:28 | P.PNPSI_ITS ---
Subjective Subjective Date of Service: 08/22/22 Reason For Visit: confused Subjective Notes: Conditional Voluntary Interim History: Pt mostly in bed more visible in the afternoon. She reports feeling okay. She reports less cough and physical symptoms related to cold/sinus infection. Pt denies SI/HI. When asked about depression or anxiety, pt denies. No behavioral concerns. Visible bilat action and resting tremors. Medication Compliance: Yes Side effects from medications: No Review of Systems Review of Systems Yes all other systems are reviewed and are negative Mental Status Exam Mental Status Exam Narrative: Appearance: casually groomed, good hygiene, in NAD. Ambulates with walker Behavior: friendly Psychomotor: no agitation or retardation noted Speech: clear, normal rate/rhythm/volume, spontaneous. TP: mostly linear, poverty of thought TC: feeling comfortable here Mood: Good Affect: bright, congruent SI: denies HI: denies VH/AH: denies, no overt signs Delusions: no overt delusional content noted or reported Insight/judgment: impaired x 2. Memory/cog: alert, not oriented to place, situation, year, she does know is August. Pending MOCA and ACL. Diagnostics Vital Signs (24Hr): Vital Signs - 24 hr 08/22/22 08:20 08/22/22 20:35 Temperature 97.4 F 98.1 F Pulse Rate 104 H 73 Respiratory Rate 18 18 Blood Pressure 160/97 H 124/69 Pulse Oximetry 95 94 Oxygen Delivery Method Room Air Room Air BMI result Body Mass Index 23.8 Labs 08/12/22 15:40 08/14/22 06:28 Imaging Radiology Impressions: ITS Impressions Head CT 08/15/22 14:53 IMPRESSION: No acute intracranial pathology. Significant right sphenoid sinus disease; correlate for any acute symptomatology. Medications Medications Current Medications Acetaminophen (Acetaminophen 325 Mg Tablet) 650 mg PO Q6H PRN PRN Reason: Headache/Pain Mild Scale (1-3) Last Admin: 08/20/22 20:37 Dose: 650 mg Al Hydroxide/Mg Hydroxide (Magnesium Hydrox/Alum Hydrox 30 Ml Oral.Susp) 30 ml PO Q6H PRN PRN Reason: Heartburn/Nausea Aspirin (Aspirin Enteric Coated 81 Mg Tablet.) 81 mg PO DAILY [facility] Last Admin: 08/22/22 08:22 Dose: 81 mg Atorvastatin Calcium (Atorvastatin Calcium 10 Mg Tablet) 10 mg PO DAILY [facility] Last Admin: 08/22/22 08:22 Dose: 10 mg Benzocaine (Throat Lozenge, Medicated Lozenge) 1 lozenge MUCOUS MEM Q2H PRN PRN Reason: Sore Throat Calcium Carbonate (Calcium Carbonate 500 Mg Tablet) 500 mg PO DAILY [facility] Last Admin: 08/22/22 08:22 Dose: 500 mg Furosemide (Furosemide 40 Mg Tablet) 40 mg PO DAILY [facility]; Protocol Last Admin: 08/22/22 08:21 Dose: 40 mg Guaifenesin (Guaifenesin 200 Mg/10 Ml 10 Ml Liquid) 10 ml PO Q6H PRN PRN Reason: Cough Last Admin: 08/17/22 23:19 Dose: 10 ml Magnesium Hydroxide (Milk Of Magnesia 30 Ml Oral.Susp) 30 ml PO DAILY PRN PRN Reason: Constipation Melatonin (Melatonin 3 Mg Tablet) 9 mg PO BEDTIME PRN PRN Reason: insomnia Last Admin: 08/22/22 20:34 Dose: 9 mg Metoprolol Succinate (Metoprolol Succinate Er 50 Mg Tab.Er.24h) 50 mg PO DAILY [facility]; Protocol Last Admin: 08/22/22 08:22 Dose: 50 mg Nifedipine (Nifedipine Er 90 Mg Tab.Er.24) 90 mg PO DAILY [facility] Last Admin: 08/22/22 08:22 Dose: 90 mg Olanzapine (Olanzapine 2.5 Mg Tablet) 2.5 mg PO TID PRN PRN Reason: agitation Olanzapine (Olanzapine 5 Mg Tablet) 5 mg PO BEDTIME [facility] Last Admin: 08/22/22 20:34 Dose: 5 mg Rivastigmine Tartrate (Rivastigmine Tartrate 1.5 Mg Capsule) 1.5 mg PO BID [facility] Last Admin: 08/22/22 20:34 Dose: 1.5 mg Sertraline HCl (Sertraline Hcl 25 Mg Tablet) 25 mg PO DAILY [facility] Last Admin: 08/22/22 08:23 Dose: 25 mg Sertraline HCl (Sertraline Hcl 50 Mg Tablet) 50 mg PO DAILY [facility] Last Admin: 08/22/22 08:23 Dose: 50 mg Vitamin D (Cholecalciferol (Vitamin D3) 25 Mcg Tablet) 25 mcg PO DAILY [facility] Last Admin: 08/22/22 08:23 Dose: 25 mcg Allergies Allergies Allergy/AdvReac Type Severity Reaction Status Date / Time No Known Allergies Allergy Verified 08/12/22 23:06 Assessment & Plan Assessment & Plan (1) Major 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 Patient is friendly and calm. She is alert and oriented to self place; she said she came to the hospital because she was nervous but is not sure why she has to remain. Patient endorses paranoid delusions saying that there are cameras and microphones set up in house to spy on her; daughter says no history of psychiatric illness that she knows of and no psychotic symptoms until this past July. Plan: CV Q 15 minute checks Patient's daughter Amy and her brother Tete healthcare proxies; they will get the form Continue home medications; full list provided by daughter Continue Risperdal 0.5 mg q.h.s. for psychotic symptoms 08/15: psychotic symptoms most likely secondary to neurocognitive disorder. continue risperidone and sertraline. Once MOCA is completed, pattern of cognitive impairment will be more clear. 08/16 continue current medications. May consider medication such as exelon or aricept 08/17 may change to olanzapine as pt already with resting tremors. Start exelon 1.5mg po BID. 08/18 continue tx. change risperidone to olanzapine 2.5mg po qhs given underlying resting tremor. 08/19 continue with same treatment 08/20 continue same treatment. 08/21 increase Zyprexa up to 5 mg po qhs. 08/22 continue tx. Reason for contiued inpatient stay Substantial Risk for: inability to function Time Spent With Patient Time: Total time managing care of this patient today ____ minutes.
[2022-08-22] MEDS: Melatonin 3 MG TABLET 9 MG PO (20:34)
[2022-08-22] MEDS: OLANZapine 5 MG TABLET PO (20:34)
[2022-08-22 20:35] VITALS: BP 124/69; PULSE 73; RESP 18; TEMP 36.7; O2SAT 94
[2022-08-23] MEDS: OLANZapine 2.5 MG TABLET PO (00:47)
[2022-08-23] MEDS: Acetaminophen 325 MG TABLET 650 MG PO ×2 (00:48→10:52)
[2022-08-23] MEDS: traZODone HCL 50 MG TABLET PO ×2 (02:33→20:28)
[2022-08-23 08:20] VITALS: BP 134/69; PULSE 104; RESP 18; TEMP 35.9; O2SAT 95
[2022-08-23] MEDS: Furosemide 40 MG TABLET PO (08:22)
[2022-08-23] MEDS: Aspirin Enteric Coated 81 MG TABLET.DR PO (08:22)
[2022-08-23] MEDS: Metoprolol Succinate ER 50 MG TAB.ER.24H PO (08:23)
[2022-08-23] MEDS: Sertraline HCL 25 MG TABLET PO (08:23)
[2022-08-23] MEDS: Rivastigmine Tartrate 1.5 MG CAPSULE PO ×2 (08:23→20:27)
[2022-08-23] MEDS: Cholecalciferol (Vitamin D3) 25 MCG TABLET PO (08:23)
[2022-08-23] MEDS: Sertraline HCL 50 MG TABLET PO (08:24)
[2022-08-23] MEDS: NIFEdipine ER 90 MG TAB.ER.24 PO (08:24)
[2022-08-23] MEDS: Atorvastatin Calcium 10 MG TABLET PO (08:25)
--- NOTE | 2022-08-23 12:07 | P.CNNE_ITS ---
History of Present Illness Data of Consult Service Date: 08/23/22 Primary Care Provider: Unknown Physician HPI Reason for consult: Tremors, Hallucinations This is a 81-year-old female who moved here from [place] to live with her daughter 9 months ago. She presents with psychotic symptoms of auditory hallucinations and paranoia starting in early July.? Patient is friendly, calm, alert and oriented to self and place. I was asked to see her for tremors in her hands. The tremors get worse from time to time but do not affect her ability to function. She said she is here because she was nervous. Had some paranoid delusions about cameras and microphones set up in house to spy on her; she is not sure who is doing it or why. Also worries that the police are after her but it is not clear why.? Noted to have periods of self dialogue. CT brain negative. Review of Systems Review of Systems: Yes all other systems are reviewed and are negative [facility] Social History Social History Household Members: Children Housing: Apartment Do you presently have visiting nurse or other home services: Yes Unable to assess alcohol history related to: Unable to respond Patient Tobacco Use Status: Never used Tobacco Use of substances other than those prescribed or required for medical reasons: Unable to respond Currently Displaying Signs/Symptoms of Drug Intoxication Withdrawal: No Spiritual Healthcare Practices: Unknown d/t pt requesting to go to bed. Rastafari Healthcare Practices: Unknown d/t pt requesting to go to bed. Cultural Healthcare Practices: Unknown d/t pt requesting to go to bed. Advance Directives: Yes Advance Directives on File: Yes Advance Directives Date on File: 08/12/22 Do you have thoughts of harming others: None Do you have a plan to hurt others: No Plan Recently lost weight without trying: Unsure How much weight loss: Unsure Nutrition Risks: No Nutritional Risk Patient : No : No Poor oral hygiene: No Sexual orientation: Straight/Heterosexual Meds Allergies Allergy/AdvReac Type Severity Reaction Status Date / Time No Known Allergies Allergy Verified 08/12/22 23:06 Active Medications: Current Medications Acetaminophen (Acetaminophen 325 Mg Tablet) 650 mg PO Q6H PRN PRN Reason: Headache/Pain Mild Scale (1-3) Last Admin: 08/23/22 10:52 Dose: 650 mg Al Hydroxide/Mg Hydroxide (Magnesium Hydrox/Alum Hydrox 30 Ml Oral.Susp) 30 ml PO Q6H PRN PRN Reason: Heartburn/Nausea Aspirin (Aspirin Enteric Coated 81 Mg Tablet.Dr) 81 mg PO DAILY [facility] Last Admin: 08/23/22 08:22 Dose: 81 mg Atorvastatin Calcium (Atorvastatin Calcium 10 Mg Tablet) 10 mg PO DAILY [facility] Last Admin: 08/23/22 08:25 Dose: 10 mg Benzocaine (Throat Lozenge, Medicated Lozenge) 1 lozenge MUCOUS MEM Q2H PRN PRN Reason: Sore Throat Calcium Carbonate (Calcium Carbonate 500 Mg Tablet) 500 mg PO DAILY [facility] Last Admin: 08/23/22 08:23 Dose: 500 mg Furosemide (Furosemide 40 Mg Tablet) 40 mg PO DAILY [facility]; Protocol Last Admin: 08/23/22 08:22 Dose: 40 mg Guaifenesin (Guaifenesin 200 Mg/10 Ml 10 Ml Liquid) 10 ml PO Q6H PRN PRN Reason: Cough Last Admin: 08/17/22 23:19 Dose: 10 ml Magnesium Hydroxide (Milk Of Magnesia 30 Ml Oral.Susp) 30 ml PO DAILY PRN PRN Reason: Constipation Melatonin (Melatonin 3 Mg Tablet) 9 mg PO BEDTIME PRN PRN Reason: insomnia Last Admin: 08/22/22 20:34 Dose: 9 mg Metoprolol Succinate (Metoprolol Succinate Er 50 Mg Tab.Er.24h) 50 mg PO DAILY [facility]; Protocol Last Admin: 08/23/22 08:23 Dose: 50 mg Nifedipine (Nifedipine Er 90 Mg Tab.Er.24) 90 mg PO DAILY [facility] Last Admin: 08/23/22 08:24 Dose: 90 mg Olanzapine (Olanzapine 2.5 Mg Tablet) 2.5 mg PO TID PRN PRN Reason: agitation Last Admin: 08/23/22 00:47 Dose: 2.5 mg Olanzapine (Olanzapine 5 Mg Tablet) 5 mg PO BEDTIME [facility] Last Admin: 08/22/22 20:34 Dose: 5 mg Rivastigmine Tartrate (Rivastigmine Tartrate 1.5 Mg Capsule) 1.5 mg PO BID [facility] Last Admin: 08/23/22 08:23 Dose: 1.5 mg Sertraline HCl (Sertraline Hcl 25 Mg Tablet) 25 mg PO DAILY [facility] Last Admin: 08/23/22 08:23 Dose: 25 mg Sertraline HCl (Sertraline Hcl 50 Mg Tablet) 50 mg PO DAILY [facility] Last Admin: 08/23/22 08:24 Dose: 50 mg Trazodone HCl (Trazodone Hcl 50 Mg Tablet) 50 mg PO BEDTIME [facility] Trazodone HCl (Trazodone Hcl 50 Mg Tablet) 50 mg PO BEDTIME PRN PRN Reason: Sleep Vitamin D (Cholecalciferol (Vitamin D3) 25 Mcg Tablet) 25 mcg PO DAILY [facility] Last Admin: 08/23/22 08:23 Dose: 25 mcg Home Medications Medication Instructions Recorded Confirmed Last Taken Type atorvastatin 10 mg tablet 1 tab PO DAILY 08/12/22 08/12/22 Unknown History calcium carbonate 500 mg calcium 1 tab PO DAILY 08/12/22 08/12/22 Unknown History (1,250 mg) tablet cholecalciferol (vitamin D3) 25 1 cap PO DAILY 08/12/22 08/12/22 Unknown History mcg (1,000 unit) capsule (Vitamin D3) furosemide 40 mg tablet 1 tab PO DAILY 08/12/22 08/12/22 Unknown History melatonin 10 mg disintegrating 1 tab PO BEDTIME PRN insomnia 08/12/22 08/12/22 Unknown History tablet metoprolol succinate 50 mg 1 tab PO DAILY 08/12/22 08/12/22 Unknown History tablet,extended release 24 hr nifedipine 90 mg tablet,extended 1 tab PO DAILY 08/12/22 08/12/22 Unknown History release sertraline 25 mg tablet 1 tab PO DAILY 08/12/22 08/12/22 Unknown History diclofenac sodium 1 % topical gel 2 - 4 g topical BID 08/13/22 08/13/22 Unknown History diclofenac sodium 1 % topical gel topical 08/13/22 Unknown History sertraline 50 mg tablet 1 tab PO DAILY 08/13/22 08/13/22 Unknown History Physical Exam Vital Signs: Vital Signs: Last Vital Signs Temp 96.6 F L 08/23/22 08:20 Pulse 104 H 08/23/22 08:20 Resp 18 08/23/22 08:20 BP 134/69 08/23/22 08:20 Pulse Ox 95 08/23/22 08:20 O2 Del Method 08/23/22 08:20 BMI result Body Mass Index 23.8 Neuro: Other: Alert pleasant and cooperative. No bradykinesia or rigidity. No rest tremor. Normal muscle toneWalks with a walkerShe has moderate amplitude coarse tremor of the extended upper extremities aware that it high-frequency that is maintained through [id number] test. Walks with a walker Results Labs 08/12/22 15:40 08/14/22 06:28 Microbiology Microbiology Results: Microbiology 08/18/22 11:15 Throat Throat Culture - Final No Group A Beta-hemolytic Streptococci isolated. Assessment and Plan (1) Tremor: Status: Acute This appears to be an essential tremor that may have been made worse with medications. History should be obtained from the daughter to find out if there is any family history of tremor that may suggest a benign familial tremor and whether the tremor was present before this admission. Recommendation: I would start her on propranolol 40 mg orally twice a day. (2) Major neurocognitive disorder due to multiple etiologies with behavioral d isturbance: Status: Acute Plan Patient is a 81-year-old female with little known psychiatric history, moved here to live with her daughter 9 months ago and presents now for psychotic symptoms starting in early July. Patient is friendly and calm. She is alert and oriented to self place; she said she came to the hospital because she was nervous but is not sure why she has to remain. Patient endorses paranoid de lusions saying that there are cameras and microphones set up in house to spy on her; daughter says no history of psychiatric illness that she knows of and no psychotic symptoms until this past July. Plan: CV Q 15 minute checks Patient's daughter Amy and her brother Tete healthcare proxies; they will get the form Continue home medications; full list provided by daughter Continue Risperdal 0.5 mg q.h.s. for psychotic symptoms 08/15: psychotic symptoms most likely secondary to neurocognitive disorder. continue risperidone and sertraline. Once MOCA is completed, pattern of cognitive impairment will be more clear. 08/16 continue current medications. May consider medication such as exelon or aricept 08/17 may change to olanzapine as pt already with resting tremors. Start exelon 1.5mg po BID. 08/18 continue tx. change risperidone to olanzapine 2.5mg po qhs given underlying resting tremor. 08/19 continue with same treatment 08/20 continue same treatment. 08/21 increase Zyprexa up to 5 mg po qhs. 3/20 continue tx. Time Spent With Patient Time: Total time managing care of this patient today ____ minutes. Procedures Date of Service Date of Service: 08/23/22
--- NOTE | 2022-08-23 13:34 | P.PNPSI_ITS ---
Subjective Subjective Date of Service: 08/23/22 Reason For Visit: confused Subjective Notes: Conditional Voluntary Interim History: Pt sitting in chair in her room. She reports she is feeling well. She denies SI/HI. She does report some sadness about being here in hospital and not able to go outside. She denies VH/AH. Pt slept most of the night but woke up after midnight and received trazodone with good effect. Will scheduled trazodone. Review of Systems Review of Systems Yes all other systems are reviewed and are negative Mental Status Exam Mental Status Exam Narrative: Appearance: casually groomed, good hygiene, in NAD. Ambulates with walker Behavior: friendly Psychomotor: no agitation or retardation noted Speech: clear, normal rate/rhythm/volume, spontaneous. TP: mostly linear, poverty of thought TC: feeling comfortable here Mood: Good Affect: bright, congruent SI: denies HI: denies VH/AH: denies, no overt signs Delusions: no overt delusional content noted or reported Insight/judgment: impaired x 2. Memory/cog: alert, not oriented to place, situation, year, she does know is [facility]. Pending MOCA and ACL. Diagnostics Vital Signs (24Hr): Vital Signs - 24 hr 08/22/22 20:35 08/23/22 08:20 Temperature 98.1 F 96.6 F L Pulse Rate 73 104 H Respiratory Rate 18 18 Blood Pressure 124/69 134/69 Pulse Oximetry 94 95 Oxygen Delivery Method Room Air Room Air BMI result Body Mass Index 23.8 Labs 08/12/22 15:40 08/14/22 06:28 Imaging Radiology Impressions: ITS Impressions Head CT 08/15/22 14:53 IMPRESSION: No acute intracranial pathology. Significant right sphenoid sinus disease; correlate for any acute symptomatology. Medications Medications Current Medications Acetaminophen (Acetaminophen 325 Mg Tablet) 650 mg PO Q6H PRN PRN Reason: Headache/Pain Mild Scale (1-3) Last Admin: 08/23/22 10:52 Dose: 650 mg Al Hydroxide/Mg Hydroxide (Magnesium Hydrox/Alum Hydrox 30 Ml Oral.Susp) 30 ml PO Q6H PRN PRN Reason: Heartburn/Nausea Aspirin (Aspirin Enteric Coated 81 Mg Tablet.) 81 mg PO DAILY [facility] Last Admin: 08/23/22 08:22 Dose: 81 mg Atorvastatin Calcium (Atorvastatin Calcium 10 Mg Tablet) 10 mg PO DAILY [facility] Last Admin: 08/23/22 08:25 Dose: 10 mg Benzocaine (Throat Lozenge, Medicated Lozenge) 1 lozenge MUCOUS MEM Q2H PRN PRN Reason: Sore Throat Calcium Carbonate (Calcium Carbonate 500 Mg Tablet) 500 mg PO DAILY [facility] Last Admin: 08/23/22 08:23 Dose: 500 mg Furosemide (Furosemide 40 Mg Tablet) 40 mg PO DAILY [facility]; Protocol Last Admin: 08/23/22 08:22 Dose: 40 mg Guaifenesin (Guaifenesin 200 Mg/10 Ml 10 Ml Liquid) 10 ml PO Q6H PRN PRN Reason: Cough Last Admin: 08/17/22 23:19 Dose: 10 ml Magnesium Hydroxide (Milk Of Magnesia 30 Ml Oral.Susp) 30 ml PO DAILY PRN PRN Reason: Constipation Melatonin (Melatonin 3 Mg Tablet) 9 mg PO BEDTIME PRN PRN Reason: insomnia Last Admin: 08/22/22 20:34 Dose: 9 mg Metoprolol Succinate (Metoprolol Succinate Er 50 Mg Tab.Er.24h) 50 mg PO DAILY [facility]; Protocol Last Admin: 08/23/22 08:23 Dose: 50 mg Nifedipine (Nifedipine Er 90 Mg Tab.Er.24) 90 mg PO DAILY [facility] Last Admin: 08/23/22 08:24 Dose: 90 mg Olanzapine (Olanzapine 2.5 Mg Tablet) 2.5 mg PO TID PRN PRN Reason: agitation Last Admin: 08/23/22 00:47 Dose: 2.5 mg Olanzapine (Olanzapine 5 Mg Tablet) 5 mg PO BEDTIME [facility] Last Admin: 08/22/22 20:34 Dose: 5 mg Rivastigmine Tartrate (Rivastigmine Tartrate 1.5 Mg Capsule) 1.5 mg PO BID [facility] Last Admin: 08/23/22 08:23 Dose: 1.5 mg Sertraline HCl (Sertraline Hcl 25 Mg Tablet) 25 mg PO DAILY [facility] Last Admin: 08/23/22 08:23 Dose: 25 mg Sertraline HCl (Sertraline Hcl 50 Mg Tablet) 50 mg PO DAILY [facility] Last Admin: 08/23/22 08:24 Dose: 50 mg Trazodone HCl (Trazodone Hcl 50 Mg Tablet) 50 mg PO BEDTIME [facility] Trazodone HCl (Trazodone Hcl 50 Mg Tablet) 50 mg PO BEDTIME PRN PRN Reason: Sleep Vitamin D (Cholecalciferol (Vitamin D3) 25 Mcg Tablet) 25 mcg PO DAILY [facility] Last Admin: 08/23/22 08:23 Dose: 25 mcg Allergies Allergies Allergy/AdvReac Type Severity Reaction Status Date / Time No Known Allergies Allergy Verified 08/12/22 23:06 Assessment & Plan Assessment & Plan (1) Major 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 Patient is friendly and calm. She is alert and oriented to self place; she said she came to the hospital because she was nervous but is not sure why she has to remain. Patient endorses paranoid delusions saying that there are cameras and microphones set up in house to spy on her; daughter says no history of psychiatric illness that she knows of and no psychotic symptoms until this past July. Plan: CV Q 15 minute checks Patient's daughter Amy and her brother Tete healthcare proxies; they will get the form Continue home medications; full list provided by daughter Continue Risperdal 0.5 mg q.h.s. for psychotic symptoms 08/15: psychotic symptoms most likely secondary to neurocognitive disorder. continue risperidone and sertraline. Once MOCA is completed, pattern of cognitive impairment will be more clear. 08/16 continue current medications. May consider medication such as exelon or aricept 08/17 may change to olanzapine as pt already with resting tremors. Start exelon 1.5mg po BID. 08/18 continue tx. change risperidone to olanzapine 2.5mg po qhs given underlying resting tremor. 08/19 continue with same treatment 08/20 continue same treatment. 08/21 increase Zyprexa up to 5 mg po qhs. 08/22 continue tx. 08/23 scheduled trazodone 50mg po qhs. seen by neurology re: tremors. Reason for contiued inpatient stay Substantial Risk for: inability to function Time Spent With Patient Time: Total time managing care of this patient today ____ minutes.
[2022-08-23 18:00] VITALS: BP 153/78; PULSE 75; RESP 18; TEMP 36.3; O2SAT 93
[2022-08-23] MEDS: OLANZapine 5 MG TABLET PO (20:27)
[2022-08-24 08:00] VITALS: BP 140/77; PULSE 93; RESP 20; TEMP 36.1; O2SAT 97
[2022-08-24] MEDS: Aspirin Enteric Coated 81 MG TABLET.DR PO (08:21)
[2022-08-24] MEDS: Metoprolol Succinate ER 50 MG TAB.ER.24H PO (08:21)
[2022-08-24] MEDS: Atorvastatin Calcium 10 MG TABLET PO (08:21)
[2022-08-24] MEDS: NIFEdipine ER 90 MG TAB.ER.24 PO (08:21)
[2022-08-24] MEDS: Sertraline HCL 25 MG TABLET PO (08:21)
[2022-08-24] MEDS: Furosemide 40 MG TABLET PO (08:21)
[2022-08-24] MEDS: Rivastigmine Tartrate 1.5 MG CAPSULE PO ×2 (08:22→20:34)
[2022-08-24] MEDS: Sertraline HCL 50 MG TABLET PO (08:22)
[2022-08-24] MEDS: Cholecalciferol (Vitamin D3) 25 MCG TABLET PO (08:23)
[2022-08-24] MEDS: Acetaminophen 325 MG TABLET 650 MG PO ×3 (08:32→21:25)
[2022-08-24] MEDS: Amoxicillin/Potassium Clav 500 MG TABLET PO (15:23)
[2022-08-24 18:00] VITALS: BP 137/72; PULSE 101; RESP 18; TEMP 36.4; O2SAT 92
[2022-08-24] MEDS: OLANZapine 5 MG TABLET PO (20:34)
[2022-08-24] MEDS: traZODone HCL 100 MG TABLET PO (20:34)
--- NOTE | 2022-08-25 00:33 | PC.NURSE ---
Staff notified this filing writer that pt fell in the floor. Went to the room to assess patient and found pt. lying on the floor in her R. side of the body. When pt. asked what happened? Pt. answered, I feel dizzy and I fell on my R side of my body but I did not hit my head. Body assessment done. Pt. alert and oriented x3, pupils in equal size, 3 mm. PERRLA. Able to move all extremities w/o pain, no bruises or skin tears noted.VS taken and recorded. Pt assisted by staff to get up w/o pain and able to walk using a walker back to bed.Machine I Cutter- Tracie Patel and Dr. Lalo Florian and daughter, Amy Huertas notified of the fall. We will continue to monitor patient.
[2022-08-25 01:07] VITALS: BP 137/72; PULSE 101; RESP 17; TEMP 36.4
[2022-08-25 06:00] VITALS: BP 124/72; PULSE 103; RESP 18; TEMP 36.1; O2SAT 93
[2022-08-25 07:00] VITALS: BMI 24.3
[2022-08-25] MEDS: Amoxicillin/Potassium Clav 500 MG TABLET PO ×2 (07:01→17:22)
--- NOTE | 2022-08-25 08:38 | HO.PSYCHPN ---
Subjective Subjective Date of Service: 08/24/22 Reason For Visit: confused Subjective Notes: Conditional Voluntary Interim History: Pt seen talking to herself, yelling at someone who is not there. When asked pt states she is praying but this financial underwriter commented on fact that it does not sound like a prayer. Pt reports sinus pain radiating to ear and headache. Will start antibiotic for sinusitis, her head CT did show sinus inflamation and it is not getting better. She denies IS/HI. no behavioral concerns. Review of Systems Review of Systems Yes all other systems are reviewed and are negative Mental Status Exam Mental Status Exam Narrative: Appearance: casually groomed, good hygiene, in NAD. Ambulates with walker Behavior: friendly Psychomotor: no agitation or retardation noted Speech: clear, normal rate/rhythm/volume, spontaneous. TP: mostly linear, poverty of thought TC: feeling comfortable here Mood: Good Affect: bright, congruent SI: denies HI: denies VH/AH: denies, no overt signs Delusions: no overt delusional content noted or reported Insight/judgment: impaired x 2. Memory/cog: alert, not oriented to place, situation, year, she does know is [place]. Pending MOCA and ACL. Diagnostics Vital Signs (24Hr): Vital Signs - 24 hr 08/24/22 18:00 08/25/22 01:07 Temperature 97.6 F 97.6 F Pulse Rate 101 H 101 H Respiratory Rate 18 17 Blood Pressure 137/72 137/72 Pulse Oximetry 92 Oxygen Delivery Method Room Air BMI result Body Mass Index 23.8 Labs 08/12/22 15:40 08/14/22 06:28 Imaging Radiology Impressions: ITS Impressions Head CT 08/15/22 14:53 IMPRESSION: No acute intracranial pathology. Significant right sphenoid sinus disease; correlate for any acute symptomatology. Medications Medications Current Medications Acetaminophen (Acetaminophen 325 Mg Tablet) 650 mg PO Q6H PRN PRN Reason: Headache/Pain Mild Scale (1-3) Last Admin: 08/24/22 21:25 Dose: 650 mg Al Hydroxide/Mg Hydroxide (Magnesium Hydrox/Alum Hydrox 30 Ml Oral.Susp) 30 ml PO Q6H PRN PRN Reason: Heartburn/Nausea Amoxicillin/Clavulanate Potassium (Amoxicillin/Potassium Clav 500 Mg Tablet) 500 mg PO Q12H [facility] Stop: 08/31/22 17:59 Last Admin: 08/25/22 07:01 Dose: 500 mg Aspirin (Aspirin Enteric Coated 81 Mg Tablet.Dr) 81 mg PO DAILY [facility] Last Admin: 08/24/22 08:21 Dose: 81 mg Atorvastatin Calcium (Atorvastatin Calcium 10 Mg Tablet) 10 mg PO DAILY [facility] Last Admin: 08/24/22 08:21 Dose: 10 mg Benzocaine (Throat Lozenge, Medicated Lozenge) 1 lozenge MUCOUS MEM Q2H PRN PRN Reason: Sore Throat Calcium Carbonate (Calcium Carbonate 500 Mg Tablet) 500 mg PO DAILY [facility] Last Admin: 08/24/22 08:21 Dose: 500 mg Capsaicin (Capsaicin 0.025% Cream 60 Gm Tube) 1 appl TOPICAL TID PRN; Protocol PRN Reason: knee pain Furosemide (Furosemide 40 Mg Tablet) 40 mg PO DAILY [facility]; Protocol Last Admin: 08/24/22 08:21 Dose: 40 mg Guaifenesin (Guaifenesin 200 Mg/10 Ml 10 Ml Liquid) 10 ml PO Q6H PRN PRN Reason: Cough Last Admin: 08/17/22 23:19 Dose: 10 ml Magnesium Hydroxide (Milk Of Magnesia 30 Ml Oral.Susp) 30 ml PO DAILY PRN PRN Reason: Constipation Melatonin (Melatonin 3 Mg Tablet) 9 mg PO BEDTIME PRN PRN Reason: insomnia Last Admin: 08/22/22 20:34 Dose: 9 mg Metoprolol Succinate (Metoprolol Succinate Er 50 Mg Tab.Er.24h) 50 mg PO DAILY [facility]; Protocol Last Admin: 08/24/22 08:21 Dose: 50 mg Nifedipine (Nifedipine Er 90 Mg Tab.Er.24) 90 mg PO DAILY [facility] Last Admin: 08/24/22 08:21 Dose: 90 mg Olanzapine (Olanzapine 2.5 Mg Tablet) 2.5 mg PO TID PRN PRN Reason: agitation Last Admin: 08/23/22 00:47 Dose: 2.5 mg Olanzapine (Olanzapine 5 Mg Tablet) 5 mg PO BEDTIME [facility] Last Admin: 08/24/22 20:34 Dose: 5 mg Olanzapine (Olanzapine 2.5 Mg Tablet) 2.5 mg PO DAILY [facility] Rivastigmine Tartrate (Rivastigmine Tartrate 1.5 Mg Capsule) 1.5 mg PO BID [facility] Last Admin: 08/24/22 20:34 Dose: 1.5 mg Sertraline HCl (Sertraline Hcl 50 Mg Tablet) 50 mg PO DAILY [facility] Last Admin: 08/24/22 08:22 Dose: 50 mg Trazodone HCl (Trazodone Hcl 50 Mg Tablet) 50 mg PO BEDTIME PRN PRN Reason: Sleep Trazodone HCl (Trazodone Hcl 100 Mg Tablet) 100 mg PO BEDTIME [facility] Last Admin: 08/24/22 20:34 Dose: 100 mg Vitamin D (Cholecalciferol (Vitamin D3) 25 Mcg Tablet) 25 mcg PO DAILY [facility] Last Admin: 08/24/22 08:23 Dose: 25 mcg Allergies Allergies Allergy/AdvReac Type Severity Reaction Status Date / Time No Known Allergies Allergy Verified 08/12/22 23:06 Assessment & Plan Assessment & Plan (1) Major 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 Patient is friendly and calm. She is alert and oriented to self place; she said she came to the hospital because she was nervous but is not sure why she has to remain. Patient endorses paranoid delusions saying that there are cameras and microphones set up in house to spy on her; daughter says no history of psychiatric illness that she knows of and no psychotic symptoms until this past July. Plan: CV Q 15 minute checks Patient's daughter Amy and her brother Tete healthcare proxies; they will get the form Continue home medications; full list provided by daughter Continue Risperdal 0.5 mg q.h.s. for psychotic symptoms 08/15: psychotic symptoms most likely secondary to neurocognitive disorder. continue risperidone and sertraline. Once MOCA is completed, pattern of cognitive impairment will be more clear. 08/16 continue current medications. May consider medication such as exelon or aricept 08/17 may change to olanzapine as pt already with resting tremors. Start exelon 1.5mg po BID. 08/18 continue tx. change risperidone to olanzapine 2.5mg po qhs given underlying resting tremor. 08/19 continue with same treatment 08/20 continue same treatment. 08/21 increase Zyprexa up to 5 mg po qhs. 08/22 continue tx. 08/24 Increase olanzapine to 2.5mg po daily and 5mg po qhs. start aumentin 500mg po BID x 7 days for sinusitis. Reason for contiued inpatient stay Substantial Risk for: inability to function Time Spent With Patient Time: Total time managing care of this patient today ____ minutes.
[2022-08-25] MEDS: Aspirin Enteric Coated 81 MG TABLET.DR PO (08:40)
[2022-08-25] MEDS: Cholecalciferol (Vitamin D3) 25 MCG TABLET PO (08:41)
[2022-08-25] MEDS: Sertraline HCL 50 MG TABLET PO (08:44)
[2022-08-25] MEDS: OLANZapine 2.5 MG TABLET PO (08:44)
[2022-08-25] MEDS: Atorvastatin Calcium 10 MG TABLET PO (08:44)
[2022-08-25] MEDS: Furosemide 40 MG TABLET PO (08:44)
[2022-08-25] MEDS: Rivastigmine Tartrate 1.5 MG CAPSULE PO ×2 (08:44→20:01)
[2022-08-25] MEDS: NIFEdipine ER 90 MG TAB.ER.24 PO (08:44)
[2022-08-25] MEDS: Acetaminophen 325 MG TABLET 650 MG PO ×2 (09:11→21:06)
[2022-08-25] MEDS: Throat Lozenge, Medicated LOZENGE 1 LOZENGE MUCOUS MEM ×3 (09:11→21:06)
[2022-08-25] MEDS: guaiFENesin 200 MG/10 ML 10 ML LIQUID PO ×2 (09:11→21:06)
[2022-08-25 10:03] LABS: COVID-19 Test Negative (Negative); IDNOW Serial# 08D9AD1C
--- NOTE | 2022-08-25 15:11 | HO.PSYCHPN ---
Subjective Subjective Date of Service: 08/25/22 Reason For Visit: confused Subjective Notes: Conditional Voluntary Interim History: The nursing staff reported the patient had been depressed but no anxiety. She has been visible in the unit but with low energy. Today she complained of cough and nasal discharge. COVID test was ordered and was negative. On interview the patient denies new symptoms. Mental Status Exam Mental Status Exam Patient Appearance: Appropriate Patient Orientation: Person and Situation Level of Consciousness: Awake and Appropriate Patient Behavior: Guarded and Passive Mood Description: Calm Affect Description: Withdrawn Patient Cognition Impaired: Yes Ability to Follow Directions: Good Speech Pattern: Clear Hallucinations: Auditory Delusions: Paranoid Ideation Thought Process: Distracted and Slowed Thinking Thought Content: positive for [place] and positive for Perseveration Judgement: Fair Diagnostics Vital Signs (24Hr): Vital Signs - 24 hr 08/24/22 18:00 08/25/22 01:07 08/25/22 06:00 Temperature 97.6 F 97.6 F 96.9 F Pulse Rate 101 H 101 H 103 H Respiratory Rate 18 17 18 Blood Pressure 137/72 137/72 124/72 Pulse Oximetry 92 93 Oxygen Delivery Method Room Air Room Air BMI result Body Mass Index 24.3 Labs 08/12/22 15:40 08/14/22 06:28 Labs: Laboratory Results - last 48 hr 08/25/22 09:00 COVID-19 ([facility]) Negative COVID-19 Clin Com See Note Imaging Radiology Impressions: ITS Impressions Head CT 08/15/22 14:53 IMPRESSION: No acute intracranial pathology. Significant right sphenoid sinus disease; correlate for any acute symptomatology. Medications Medications Current Medications Acetaminophen (Acetaminophen 325 Mg Tablet) 650 mg PO Q6H PRN PRN Reason: Headache/Pain Mild Scale (1-3) Last Admin: 08/25/22 09:11 Dose: 650 mg Al Hydroxide/Mg Hydroxide (Magnesium Hydrox/Alum Hydrox 30 Ml Oral.Susp) 30 ml PO Q6H PRN PRN Reason: Heartburn/Nausea Amoxicillin/Clavulanate Potassium (Amoxicillin/Potassium Clav 500 Mg Tablet) 500 mg PO Q12H [facility] Stop: 08/31/22 17:59 Last Admin: 08/25/22 07:01 Dose: 500 mg Aspirin (Aspirin Enteric Coated 81 Mg Tablet.) 81 mg PO DAILY [facility] Last Admin: 08/25/22 08:40 Dose: 81 mg Atorvastatin Calcium (Atorvastatin Calcium 10 Mg Tablet) 10 mg PO DAILY [facility] Last Admin: 08/25/22 08:44 Dose: 10 mg Benzocaine (Throat Lozenge, Medicated Lozenge) 1 lozenge MUCOUS MEM Q2H PRN PRN Reason: Sore Throat Last Admin: 08/25/22 09:11 Dose: 1 lozenge Calcium Carbonate (Calcium Carbonate 500 Mg Tablet) 500 mg PO DAILY [facility] Last Admin: 08/25/22 08:44 Dose: 500 mg Capsaicin (Capsaicin 0.025% Cream 60 Gm Tube) 1 appl TOPICAL TID PRN; Protocol PRN Reason: knee pain Furosemide (Furosemide 40 Mg Tablet) 40 mg PO DAILY [facility]; Protocol Last Admin: 08/25/22 08:44 Dose: 40 mg Guaifenesin (Guaifenesin 200 Mg/10 Ml 10 Ml Liquid) 10 ml PO Q6H PRN PRN Reason: Cough Last Admin: 08/25/22 09:11 Dose: 10 ml Magnesium Hydroxide (Milk Of Magnesia 30 Ml Oral.Susp) 30 ml PO DAILY PRN PRN Reason: Constipation Melatonin (Melatonin 3 Mg Tablet) 9 mg PO BEDTIME PRN PRN Reason: insomnia Last Admin: 08/22/22 20:34 Dose: 9 mg Metoprolol Succinate (Metoprolol Succinate Er 50 Mg Tab.Er.24h) 50 mg PO DAILY [facility]; Protocol Last Admin: 08/25/22 08:48 Dose: Not Given Nifedipine (Nifedipine Er 90 Mg Tab.Er.24) 90 mg PO DAILY [facility] Last Admin: 08/25/22 08:44 Dose: 90 mg Olanzapine (Olanzapine 2.5 Mg Tablet) 2.5 mg PO TID PRN PRN Reason: agitation Last Admin: 08/23/22 00:47 Dose: 2.5 mg Olanzapine (Olanzapine 5 Mg Tablet) 5 mg PO BEDTIME [facility] Last Admin: 08/24/22 20:34 Dose: 5 mg Olanzapine (Olanzapine 2.5 Mg Tablet) 2.5 mg PO DAILY [facility] Last Admin: 08/25/22 08:44 Dose: 2.5 mg Rivastigmine Tartrate (Rivastigmine Tartrate 1.5 Mg Capsule) 1.5 mg PO BID [facility] Last Admin: 08/25/22 08:44 Dose: 1.5 mg Sertraline HCl (Sertraline Hcl 50 Mg Tablet) 50 mg PO DAILY [facility] Last Admin: 08/25/22 08:44 Dose: 50 mg Trazodone HCl (Trazodone Hcl 50 Mg Tablet) 50 mg PO BEDTIME PRN PRN Reason: Sleep Trazodone HCl (Trazodone Hcl 100 Mg Tablet) 100 mg PO BEDTIME [facility] Last Admin: 08/24/22 20:34 Dose: 100 mg Vitamin D (Cholecalciferol (Vitamin D3) 25 Mcg Tablet) 25 mcg PO DAILY [facility] Last Admin: 08/25/22 08:41 Dose: 25 mcg Allergies Allergies Allergy/AdvReac Type Severity Reaction Status Date / Time No Known Allergies Allergy Verified 08/12/22 23:06 Assessment & Plan Assessment & Plan (1) Major 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 Patient is friendly and calm. She is alert and oriented to self place; she said she came to the hospital because she was nervous but is not sure why she has to remain. Patient endorses paranoid delusions saying that there are cameras and microphones set up in house to spy on her; daughter says no history of psychiatric illness that she knows of and no psychotic symptoms until this past July. Plan: CV Q 15 minute checks Patient's daughter Amy and her brother Tete healthcare proxies; they will get the form Continue home medications; full list provided by daughter Continue Risperdal 0.5 mg q.h.s. for psychotic symptoms 08/15: psychotic symptoms most likely secondary to neurocognitive disorder. continue risperidone and sertraline. Once MOCA is completed, pattern of cognitive impairment will be more clear. 08/16 continue current medications. May consider medication such as exelon or aricept 08/17 may change to olanzapine as pt already with resting tremors. Start exelon 1.5mg po BID. 08/18 continue tx. change risperidone to olanzapine 2.5mg po qhs given underlying resting tremor. 08/19 continue with same treatment 08/20 continue same treatment. 08/21 increase Zyprexa up to 5 mg po qhs. 08/22 continue tx. 08/24 Increase olanzapine to 2.5mg po daily and 5mg po qhs. start aumentin 500mg po BID x 7 days for sinusitis. Reason for contiued inpatient stay Substantial Risk for: inability to function, rapid decompensation and med/psych decompensation Time Spent With Patient Time: Total time managing care of this patient today __20__ minutes.
[2022-08-25 18:00] VITALS: BP 134/73; PULSE 80; RESP 18; TEMP 36.5; O2SAT 95
[2022-08-25] MEDS: traZODone HCL 100 MG TABLET PO (20:01)
[2022-08-25] MEDS: OLANZapine 5 MG TABLET PO (20:01)
[2022-08-26 06:00] VITALS: BP 123/78; PULSE 98; RESP 19; TEMP 36.1; O2SAT 93
[2022-08-26] MEDS: Acetaminophen 325 MG TABLET 650 MG PO (06:05)
[2022-08-26] MEDS: Throat Lozenge, Medicated LOZENGE 1 LOZENGE MUCOUS MEM (06:05)
[2022-08-26] MEDS: Amoxicillin/Potassium Clav 500 MG TABLET PO ×2 (06:05→17:53)
[2022-08-26] MEDS: guaiFENesin 200 MG/10 ML 10 ML LIQUID PO (06:05)
[2022-08-26] MEDS: Sertraline HCL 50 MG TABLET PO (08:38)
[2022-08-26] MEDS: NIFEdipine ER 90 MG TAB.ER.24 PO (08:38)
[2022-08-26] MEDS: Cholecalciferol (Vitamin D3) 25 MCG TABLET PO (08:38)
[2022-08-26] MEDS: Aspirin Enteric Coated 81 MG TABLET.DR PO (08:38)
[2022-08-26] MEDS: Rivastigmine Tartrate 1.5 MG CAPSULE PO ×2 (08:39→19:44)
[2022-08-26] MEDS: Furosemide 40 MG TABLET PO (08:39)
[2022-08-26] MEDS: Atorvastatin Calcium 10 MG TABLET PO (08:39)
[2022-08-26] MEDS: Metoprolol Succinate ER 50 MG TAB.ER.24H PO (08:39)
[2022-08-26] MEDS: OLANZapine 2.5 MG TABLET PO (08:41)
[2022-08-26] MEDS: LORazepam 0.5 MG TABLET PO (15:56)
[2022-08-26 18:00] VITALS: BP 144/72; PULSE 75; RESP 18; TEMP 36.8; O2SAT 93
[2022-08-26] MEDS: OLANZapine 5 MG TABLET PO (19:44)
[2022-08-26] MEDS: traZODone HCL 100 MG TABLET PO (19:44)
[2022-08-26] MEDS: Propranolol HCL 20 MG TABLET PO (19:44)
--- NOTE | 2022-08-26 20:34 | P.PNPSI_ITS ---
Subjective Subjective Date of Service: 08/26/22 Reason For Visit: confused Subjective Notes: Conditional Voluntary Interim History: Pt reports that she is feeling better physically, no headache or radiating pain to ear thought to be related to sinusitis. Pt reports she prays, and that she is concern because staff thinks that she is hearing voices. She states she understands that she has to wait here until she finds new placement but that she is praying not hearing voices. Tremors are visible- neurology saw pt and recommended propanolol, however, pt on metoprolol. This consumer loan underwriter sent message to neurology to clarify if okay to give both but no response yet. She denies SI/HI. She slept through the night. No behavioral concerns. Review of Systems Review of Systems Yes all other systems are reviewed and are negative Mental Status Exam Mental Status Exam Narrative: Appearance: casually groomed, good hygiene, in NAD. Ambulates with walker Behavior: friendly Psychomotor: no agitation or retardation noted Speech: clear, normal rate/rhythm/volume, spontaneous. TP: mostly linear, poverty of thought TC: feeling comfortable here Mood: Good Affect: bright, congruent SI: denies HI: denies VH/AH: denies, no overt signs Delusions: no overt delusional content noted or reported Insight/judgment: impaired x 2. Memory/cog: alert, not oriented to place, situation, year, she does know is August. Pending MOCA and ACL. Diagnostics Vital Signs (24Hr): Vital Signs - 24 hr 08/26/22 06:00 08/26/22 18:00 Temperature 96.9 F 98.2 F Pulse Rate 98 75 Respiratory Rate 19 18 Blood Pressure 123/78 144/72 H Pulse Oximetry 93 93 Oxygen Delivery Method Room Air Room Air BMI result Body Mass Index 24.3 Labs 08/12/22 15:40 08/14/22 06:28 Labs: Laboratory Results - last 48 hr 08/25/22 09:00 COVID-19 ([facility]) Negative COVID-19 Clin Com See Note Imaging Radiology Impressions: ITS Impressions Head CT 08/15/22 14:53 IMPRESSION: No acute intracranial pathology. Significant right sphenoid sinus disease; correlate for any acute symptomatology. Medications Medications Current Medications Acetaminophen (Acetaminophen 325 Mg Tablet) 650 mg PO Q6H PRN PRN Reason: Headache/Pain Mild Scale (1-3) Last Admin: 08/26/22 06:05 Dose: 650 mg Al Hydroxide/Mg Hydroxide (Magnesium Hydrox/Alum Hydrox 30 Ml Oral.Susp) 30 ml PO Q6H PRN PRN Reason: Heartburn/Nausea Amoxicillin/Clavulanate Potassium (Amoxicillin/Potassium Clav 500 Mg Tablet) 500 mg PO Q12H [facility] Stop: 08/31/22 17:59 Last Admin: 08/26/22 17:53 Dose: 500 mg Aspirin (Aspirin Enteric Coated 81 Mg Tablet.Dr) 81 mg PO DAILY [facility] Last Admin: 08/26/22 08:38 Dose: 81 mg Atorvastatin Calcium (Atorvastatin Calcium 10 Mg Tablet) 10 mg PO DAILY [facility] Last Admin: 08/26/22 08:39 Dose: 10 mg Benzocaine (Throat Lozenge, Medicated Lozenge) 1 lozenge MUCOUS MEM Q2H PRN PRN Reason: Sore Throat Last Admin: 08/26/22 06:05 Dose: 1 lozenge Calcium Carbonate (Calcium Carbonate 500 Mg Tablet) 500 mg PO DAILY [facility] Last Admin: 08/26/22 08:37 Dose: 500 mg Capsaicin (Capsaicin 0.025% Cream 60 Gm Tube) 1 appl TOPICAL TID [facility]; Protocol Last Admin: 08/26/22 19:46 Dose: Not Given Furosemide (Furosemide 40 Mg Tablet) 40 mg PO DAILY [facility]; Protocol Last Admin: 08/26/22 08:39 Dose: 40 mg Guaifenesin (Guaifenesin 200 Mg/10 Ml 10 Ml Liquid) 10 ml PO Q6H PRN PRN Reason: Cough Last Admin: 08/26/22 06:05 Dose: 10 ml Magnesium Hydroxide (Milk Of Magnesia 30 Ml Oral.Susp) 30 ml PO DAILY PRN PRN Reason: Constipation Melatonin (Melatonin 3 Mg Tablet) 9 mg PO BEDTIME PRN PRN Reason: insomnia Last Admin: 08/22/22 20:34 Dose: 9 mg Metoprolol Succinate (Metoprolol Succinate Er 50 Mg Tab.Er.24h) 50 mg PO DAILY [facility]; Protocol Last Admin: 08/26/22 08:39 Dose: 50 mg Nifedipine (Nifedipine Er 90 Mg Tab.Er.24) 90 mg PO DAILY [facility] Last Admin: 08/26/22 08:38 Dose: 90 mg Olanzapine (Olanzapine 2.5 Mg Tablet) 2.5 mg PO TID PRN PRN Reason: agitation Last Admin: 08/23/22 00:47 Dose: 2.5 mg Olanzapine (Olanzapine 5 Mg Tablet) 5 mg PO BEDTIME [facility] Last Admin: 08/26/22 19:44 Dose: 5 mg Olanzapine (Olanzapine 2.5 Mg Tablet) 2.5 mg PO DAILY [facility] Last Admin: 08/26/22 08:41 Dose: 2.5 mg Propranolol HCl (Propranolol Hcl 20 Mg Tablet) 20 mg PO BID [facility]; Protocol Last Admin: 08/26/22 19:44 Dose: 20 mg Rivastigmine Tartrate (Rivastigmine Tartrate 1.5 Mg Capsule) 1.5 mg PO BID [facility] Last Admin: 08/26/22 19:44 Dose: 1.5 mg Sertraline HCl (Sertraline Hcl 50 Mg Tablet) 50 mg PO DAILY [facility] Last Admin: 08/26/22 08:38 Dose: 50 mg Trazodone HCl (Trazodone Hcl 50 Mg Tablet) 50 mg PO BEDTIME PRN PRN Reason: Sleep Trazodone HCl (Trazodone Hcl 100 Mg Tablet) 100 mg PO BEDTIME [facility] Last Admin: 08/26/22 19:44 Dose: 100 mg Vitamin D (Cholecalciferol (Vitamin D3) 25 Mcg Tablet) 25 mcg PO DAILY [facility] Last Admin: 08/26/22 08:38 Dose: 25 mcg Allergies Allergies Allergy/AdvReac Type Severity Reaction Status Date / Time No Known Allergies Allergy Verified 08/12/22 23:06 Assessment & Plan Assessment & Plan (1) Major 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 Patient is friendly and calm. She is alert and oriented to self place; she said she came to the hospital because she was nervous but is not sure why she has to remain. Patient endorses paranoid delusions saying that there are cameras and microphones set up in house to spy on her; daughter says no history of psychiatric illness that she knows of and no psychotic symptoms until this past July. Plan: 08/15: psychotic symptoms most likely secondary to neurocognitive disorder. con tinue risperidone and sertraline. Once MOCA is completed, pattern of cognitive impairment will be more clear. 08/16 continue current medications. May consider medication such as exelon or aricept 08/17 may change to olanzapine as pt already with resting tremors. Start exelon 1.5mg po BID. 08/18 continue tx. change risperidone to olanzapine 2.5mg po qhs given underlying resting tremor. 08/19 continue with same treatment 08/20 continue same treatment. Tremors are visible- neurology saw pt and recomme nded propanolol, however, pt on metoprolol. This consumer loan underwriter sent message to neurology to clarify if okay to give both but no response yet. 08/21 increase Zyprexa up to 5 mg po qhs. 08/22 continue tx. 08/24 Increase olanzapine to 2.5mg po daily and 5mg po qhs. start aumentin 500mg po BID x 7 days for sinusitis. 08/26 Tremors are visible and impairing her mobility- neurology saw pt and recommended propanolol, however, pt on metoprolol. This consumer loan underwriter sent message to neurology to clarify if okay to give both but no response yet. Will add propanolol 20mg po BID. Reason for contiued inpatient stay Substantial Risk for: inability to function Time Spent With Patient Time: Total time managing care of this patient today ____ minutes.
[2022-08-27] MEDS: Amoxicillin/Potassium Clav 500 MG TABLET PO ×2 (05:24→17:25)
[2022-08-27 08:31] VITALS: BP 155/74; PULSE 74; RESP 16; TEMP 36.2; O2SAT 92
[2022-08-27] MEDS: Aspirin Enteric Coated 81 MG TABLET.DR PO (08:50)
[2022-08-27] MEDS: Cholecalciferol (Vitamin D3) 25 MCG TABLET PO (08:50)
[2022-08-27] MEDS: Rivastigmine Tartrate 1.5 MG CAPSULE PO ×2 (08:51→19:48)
[2022-08-27] MEDS: Sertraline HCL 50 MG TABLET PO (08:51)
[2022-08-27] MEDS: Propranolol HCL 20 MG TABLET PO ×2 (08:51→19:48)
[2022-08-27] MEDS: Metoprolol Succinate ER 50 MG TAB.ER.24H PO (08:51)
[2022-08-27] MEDS: Atorvastatin Calcium 10 MG TABLET PO (08:51)
[2022-08-27] MEDS: Furosemide 40 MG TABLET PO (08:51)
[2022-08-27] MEDS: OLANZapine 2.5 MG TABLET PO (08:51)
[2022-08-27] MEDS: NIFEdipine ER 90 MG TAB.ER.24 PO (08:51)
[2022-08-27 18:00] VITALS: BP 130/74; PULSE 68; RESP 16; TEMP 36.3; O2SAT 94
--- NOTE | 2022-08-27 18:43 | HO.PSYCHPN ---
Subjective Subjective Date of Service: 08/27/22 Reason For Visit: confused Interim History: Pt reports that she is feeling good . She is seen in her room. She was called by her name. She was looking outside the window. She was preoccupied and was talking to herself and responding to internal stimuli. She has been better physically, Had visitors today. She denies SI/HI. She slept through the night. No behavioral concerns. Review of Systems Review of Systems Yes all other systems are reviewed and are negative Mental Status Exam Mental Status Exam Narrative: Appearance: casually groomed, good hygiene, in NAD. Ambulates with walker Behavior: friendly Psychomotor: no agitation or retardation noted Speech: clear, normal rate/rhythm/volume, spontaneous. TP: mostly linear, poverty of thought TC: feeling comfortable here Mood: Good Affect: bright, congruent SI: denies HI: denies VH/AH: denies, no overt signs Delusions: no overt delusional content noted or reported Insight/judgment: impaired x 2. Memory/cog: alert, not oriented to place, situation, year, she does know is August. Pending MOCA and ACL. Patient Appearance: Appropriate Patient Orientation: Person and Situation Level of Consciousness: Awake and Appropriate Patient Behavior: Guarded and Passive Mood Description: Calm Affect Description: Withdrawn Patient Cognition Impaired: Yes Ability to Follow Directions: Good Speech Pattern: Clear Diagnostics Vital Signs (24Hr): Vital Signs - 24 hr 08/27/22 08:31 Temperature 97.1 F Pulse Rate 74 Respiratory Rate 16 Blood Pressure 155/74 H Pulse Oximetry 92 Oxygen Delivery Method Room Air BMI result Body Mass Index 24.3 Labs 08/12/22 15:40 08/14/22 06:28 Imaging Radiology Impressions: ITS Impressions Head CT 08/15/22 14:53 IMPRESSION: No acute intracranial pathology. Significant right sphenoid sinus disease; correlate for any acute symptomatology. Medications Medications Current Medications Acetaminophen (Acetaminophen 325 Mg Tablet) 650 mg PO Q6H PRN PRN Reason: Headache/Pain Mild Scale (1-3) Last Admin: 08/26/22 06:05 Dose: 650 mg Al Hydroxide/Mg Hydroxide (Magnesium Hydrox/Alum Hydrox 30 Ml Oral.Susp) 30 ml PO Q6H PRN PRN Reason: Heartburn/Nausea Amoxicillin/Clavulanate Potassium (Amoxicillin/Potassium Clav 500 Mg Tablet) 500 mg PO Q12H [facility] Stop: 08/31/22 17:59 Last Admin: 08/27/22 17:25 Dose: 500 mg Aspirin (Aspirin Enteric Coated 81 Mg Tablet.Dr) 81 mg PO DAILY [facility] Last Admin: 08/27/22 08:50 Dose: 81 mg Atorvastatin Calcium (Atorvastatin Calcium 10 Mg Tablet) 10 mg PO DAILY [facility] Last Admin: 08/27/22 08:51 Dose: 10 mg Benzocaine (Throat Lozenge, Medicated Lozenge) 1 lozenge MUCOUS MEM Q2H PRN PRN Reason: Sore Throat Last Admin: 08/26/22 06:05 Dose: 1 lozenge Calcium Carbonate (Calcium Carbonate 500 Mg Tablet) 500 mg PO DAILY [facility] Last Admin: 08/27/22 08:51 Dose: 500 mg Capsaicin (Capsaicin 0.025% Cream 60 Gm Tube) 1 appl TOPICAL TID [facility]; Protocol Last Admin: 08/27/22 14:41 Dose: Not Given Furosemide (Furosemide 40 Mg Tablet) 40 mg PO DAILY [facility]; Protocol Last Admin: 08/27/22 08:51 Dose: 40 mg Guaifenesin (Guaifenesin 200 Mg/10 Ml 10 Ml Liquid) 10 ml PO Q6H PRN PRN Reason: Cough Last Admin: 08/26/22 06:05 Dose: 10 ml Magnesium Hydroxide (Milk Of Magnesia 30 Ml Oral.Susp) 30 ml PO DAILY PRN PRN Reason: Constipation Melatonin (Melatonin 3 Mg Tablet) 9 mg PO BEDTIME PRN PRN Reason: insomnia Last Admin: 08/22/22 20:34 Dose: 9 mg Metoprolol Succinate (Metoprolol Succinate Er 50 Mg Tab.Er.24h) 50 mg PO DAILY [facility]; Protocol Last Admin: 08/27/22 08:51 Dose: 50 mg Nifedipine (Nifedipine Er 90 Mg Tab.Er.24) 90 mg PO DAILY [facility] Last Admin: 08/27/22 08:51 Dose: 90 mg Non-Formulary Medication ( Diclofenac Sodium 1% Gel) 1 each TOPICAL BID@ [facility] Olanzapine (Olanzapine 2.5 Mg Tablet) 2.5 mg PO TID PRN PRN Reason: agitation Last Admin: 08/23/22 00:47 Dose: 2.5 mg Olanzapine (Olanzapine 5 Mg Tablet) 5 mg PO BEDTIME [facility] Last Admin: 08/26/22 19:44 Dose: 5 mg Olanzapine (Olanzapine 2.5 Mg Tablet) 2.5 mg PO DAILY [facility] Last Admin: 08/27/22 08:51 Dose: 2.5 mg Propranolol HCl (Propranolol Hcl 20 Mg Tablet) 20 mg PO BID [facility]; Protocol Last Admin: 08/27/22 08:51 Dose: 20 mg Rivastigmine Tartrate (Rivastigmine Tartrate 1.5 Mg Capsule) 1.5 mg PO BID [facility] Last Admin: 08/27/22 08:51 Dose: 1.5 mg Sertraline HCl (Sertraline Hcl 50 Mg Tablet) 50 mg PO DAILY [facility] Last Admin: 08/27/22 08:51 Dose: 50 mg Trazodone HCl (Trazodone Hcl 50 Mg Tablet) 50 mg PO BEDTIME PRN PRN Reason: Sleep Trazodone HCl (Trazodone Hcl 100 Mg Tablet) 100 mg PO BEDTIME [facility] Last Admin: 08/26/22 19:44 Dose: 100 mg Vitamin D (Cholecalciferol (Vitamin D3) 25 Mcg Tablet) 25 mcg PO DAILY [facility] Last Admin: 08/27/22 08:50 Dose: 25 mcg Allergies Allergies Allergy/AdvReac Type Severity Reaction Status Date / Time No Known Allergies Allergy Verified 08/12/22 23:06 Assessment & Plan Assessment & Plan (1) Major 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 Patient is friendly and calm. She is alert and oriented to self place; she said she came to the hospital because she was nervous but is not sure why she has to remain. Patient endorses paranoid delusions saying that there are cameras and microphones set up in house to spy on her; daughter says no history of psychiatric illness that she knows of and no psychotic symptoms until this past July. Plan: 08/15: psychotic symptoms most likely secondary to neurocognitive disorder. continue risperidone and sertraline. Once MOCA is completed, pattern of cognitive impairment will be more clear. 08/16 continue current medications. May consider medication such as exelon or aricept 08/17 may change to olanzapine as pt already with resting tremors. Start exelon 1.5mg po BID. 08/18 continue tx. change risperidone to olanzapine 2.5mg po qhs given underlying resting tremor. 08/19 continue with same treatment 08/20 continue same treatment. Tremors are visible- neurology saw pt and recommended propanolol, however, pt on metoprolol. This insurance underwriter sales sent message to neurology to clarify if okay to give both but no response yet. 08/21 increase Zyprexa up to 5 mg po qhs. 08/22 continue tx. 08/24 Increase olanzapine to 2.5mg po daily and 5mg po qhs. start aumentin 500mg po BID x 7 days for sinusitis. 08/26 Tremors are visible and impairing her mobility- neurology saw pt and recommended propanolol, however, pt on metoprolol. This insurance underwriter sales sent message to neurology to clarify if okay to give both but no response yet. Will add propanolol 20mg po BID. 08/27: Continue current tx plan. VSS. Reason for contiued inpatient stay Substantial Risk for: inability to function and rapid decompensation Time Spent With Patient Time: Total time managing care of this patient today ____ minutes.
[2022-08-27] MEDS: OLANZapine 5 MG TABLET PO (19:48)
[2022-08-27] MEDS: traZODone HCL 100 MG TABLET PO (19:52)
--- NOTE | 2022-08-28 | ECG_ITS ---
Test Reason : cough Blood Pressure : / mmHG Vent. Rate : 065 BPM Atrial Rate : 065 BPM P-R Int : 184 ms QRS Dur : 108 ms QT Int : 454 ms P-R-T Axes : 081 -41 033 degrees QTc Int : 472 ms Sinus rhythm with Premature supraventricular complexes Left axis deviation Minimal voltage criteria for LVH, may be normal variant ( Omega product ) Cannot rule out Anterior infarct , age undetermined Abnormal ECG No significant changes when compared with the previous EKG of 12 august 2022 Referred By: Cornelius Sadler Electronically Signed By:MANDY MONROE
[2022-08-28] MEDS: Amoxicillin/Potassium Clav 500 MG TABLET PO ×2 (05:34→17:32)
[2022-08-28 07:30] VITALS: BP 130/63; PULSE 66; RESP 16; TEMP 36.7; O2SAT 94
[2022-08-28] MEDS: Sertraline HCL 50 MG TABLET PO (08:30)
[2022-08-28] MEDS: Furosemide 40 MG TABLET PO (08:30)
[2022-08-28] MEDS: OLANZapine 2.5 MG TABLET PO (08:30)
[2022-08-28] MEDS: Rivastigmine Tartrate 1.5 MG CAPSULE PO ×2 (08:30→20:34)
[2022-08-28] MEDS: Propranolol HCL 20 MG TABLET PO ×2 (08:30→20:33)
[2022-08-28] MEDS: Aspirin Enteric Coated 81 MG TABLET.DR PO (08:30)
[2022-08-28] MEDS: Cholecalciferol (Vitamin D3) 25 MCG TABLET PO (08:30)
[2022-08-28] MEDS: Atorvastatin Calcium 10 MG TABLET PO (08:31)
[2022-08-28] MEDS: NIFEdipine ER 90 MG TAB.ER.24 PO (08:31)
[2022-08-28] MEDS: Metoprolol Succinate ER 50 MG TAB.ER.24H PO (08:31)
[2022-08-28] MEDS: Acetaminophen 325 MG TABLET 650 MG PO ×2 (10:37→21:47)
[2022-08-28 18:00] VITALS: BP 144/74; PULSE 70; RESP 17; TEMP 36.2; O2SAT 92
--- NOTE | 2022-08-28 18:22 | HO.PSYCHPN ---
Subjective Subjective Date of Service: 08/28/22 Reason For Visit: confused Interim History: Pt reports that she is feeling good . She continues to be observed to respond to internal stimuli. Isolative. Cooperative with care. Denies SI. She appears preoccupied at times and talking to self. She has been better physically, She denies SI/HI. She slept through the night. No behavioral concerns. Review of Systems Review of Systems Yes all other systems are reviewed and are negative Mental Status Exam Mental Status Exam Narrative: Appearance: casually groomed, good hygiene, in NAD. Ambulates with walker Behavior: friendly Psychomotor: no agitation or retardation noted Speech: clear, normal rate/rhythm/volume, spontaneous. TP: mostly linear, poverty of thought TC: feeling comfortable here Mood: Good Affect: bright, congruent SI: denies HI: denies VH/AH: denies, no overt signs Delusions: no overt delusional content noted or reported Insight/judgment: impaired x 2. Memory/cog: alert, not oriented to place, situation, year, she does know is August. Pending MOCA and ACL. Patient Appearance: Appropriate Patient Orientation: Person and Situation Level of Consciousness: Awake and Appropriate Patient Behavior: Guarded and Passive Mood Description: Calm Affect Description: Withdrawn Patient Cognition Impaired: Yes Ability to Follow Directions: Good Speech Pattern: Clear Diagnostics Vital Signs (24Hr): Vital Signs - 24 hr 08/28/22 07:30 Temperature 98.1 F Pulse Rate 66 Respiratory Rate 16 Blood Pressure 130/63 Pulse Oximetry 94 Oxygen Delivery Method Room Air BMI result Body Mass Index 24.3 Labs 08/12/22 15:40 08/14/22 06:28 Imaging Radiology Impressions: ITS Impressions Head CT 08/15/22 14:53 IMPRESSION: No acute intracranial pathology. Significant right sphenoid sinus disease; correlate for any acute symptomatology. Medications Medications Current Medications Acetaminophen (Acetaminophen 325 Mg Tablet) 650 mg PO Q6H PRN PRN Reason: Headache/Pain Mild Scale (1-3) Last Admin: 08/28/22 10:37 Dose: 650 mg Al Hydroxide/Mg Hydroxide (Magnesium Hydrox/Alum Hydrox 30 Ml Oral.Susp) 30 ml PO Q6H PRN PRN Reason: Heartburn/Nausea Amoxicillin/Clavulanate Potassium (Amoxicillin/Potassium Clav 500 Mg Tablet) 500 mg PO Q12H [facility] Stop: 08/31/22 17:59 Last Admin: 08/28/22 17:32 Dose: 500 mg Aspirin (Aspirin Enteric Coated 81 Mg Tablet.Dr) 81 mg PO DAILY [facility] Last Admin: 08/28/22 08:30 Dose: 81 mg Atorvastatin Calcium (Atorvastatin Calcium 10 Mg Tablet) 10 mg PO DAILY [facility] Last Admin: 08/28/22 08:31 Dose: 10 mg Benzocaine (Throat Lozenge, Medicated Lozenge) 1 lozenge MUCOUS MEM Q2H PRN PRN Reason: Sore Throat Last Admin: 08/26/22 06:05 Dose: 1 lozenge Calcium Carbonate (Calcium Carbonate 500 Mg Tablet) 500 mg PO DAILY [facility] Last Admin: 08/28/22 08:30 Dose: 500 mg Capsaicin (Capsaicin 0.025% Cream 60 Gm Tube) 1 appl TOPICAL TID [facility]; Protocol Last Admin: 08/28/22 17:23 Dose: Not Given Furosemide (Furosemide 40 Mg Tablet) 40 mg PO DAILY [facility]; Protocol Last Admin: 08/28/22 08:30 Dose: 40 mg Guaifenesin (Guaifenesin 200 Mg/10 Ml 10 Ml Liquid) 10 ml PO Q6H PRN PRN Reason: Cough Last Admin: 08/26/22 06:05 Dose: 10 ml Magnesium Hydroxide (Milk Of Magnesia 30 Ml Oral.Susp) 30 ml PO DAILY PRN PRN Reason: Constipation Melatonin (Melatonin 3 Mg Tablet) 9 mg PO BEDTIME PRN PRN Reason: insomnia Last Admin: 08/22/22 20:34 Dose: 9 mg Metoprolol Succinate (Metoprolol Succinate Er 50 Mg Tab.Er.24h) 50 mg PO DAILY [facility]; Protocol Last Admin: 08/28/22 08:31 Dose: 50 mg Nifedipine (Nifedipine Er 90 Mg Tab.Er.24) 90 mg PO DAILY [facility] Last Admin: 08/28/22 08:31 Dose: 90 mg Non-Formulary Medication ( Diclofenac Sodium 1% Gel) 1 each TOPICAL BID@0830,2029 [facility] Last Admin: 08/28/22 17:21 Dose: 1 each Olanzapine (Olanzapine 2.5 Mg Tablet) 2.5 mg PO TID PRN PRN Reason: agitation Last Admin: 08/23/22 00:47 Dose: 2.5 mg Olanzapine (Olanzapine 5 Mg Tablet) 5 mg PO BEDTIME [facility] Last Admin: 08/27/22 19:48 Dose: 5 mg Olanzapine (Olanzapine 2.5 Mg Tablet) 2.5 mg PO DAILY [facility] Last Admin: 08/28/22 08:30 Dose: 2.5 mg Propranolol HCl (Propranolol Hcl 20 Mg Tablet) 20 mg PO BID [facility]; Protocol Last Admin: 08/28/22 08:30 Dose: 20 mg Rivastigmine Tartrate (Rivastigmine Tartrate 1.5 Mg Capsule) 1.5 mg PO BID [facility] Last Admin: 08/28/22 08:30 Dose: 1.5 mg Sertraline HCl (Sertraline Hcl 50 Mg Tablet) 50 mg PO DAILY [facility] Last Admin: 08/28/22 08:30 Dose: 50 mg Trazodone HCl (Trazodone Hcl 50 Mg Tablet) 50 mg PO BEDTIME PRN PRN Reason: Sleep Trazodone HCl (Trazodone Hcl 100 Mg Tablet) 100 mg PO BEDTIME [facility] Last Admin: 08/27/22 19:52 Dose: 100 mg Vitamin D (Cholecalciferol (Vitamin D3) 25 Mcg Tablet) 25 mcg PO DAILY [facility] Last Admin: 08/28/22 08:30 Dose: 25 mcg Allergies Allergies Allergy/AdvReac Type Severity Reaction Status Date / Time No Known Allergies Allergy Verified 08/12/22 23:06 Assessment & Plan Assessment & Plan (1) Major 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 Patient is friendly and calm. She is alert and oriented to self place; she said she came to the hospital because she was nervous but is not sure why she has to remain. Patient endorses paranoid delusions saying that there are cameras and microphones set up in house to spy on her; daughter says no history of psychiatric illness that she knows of and no psychotic symptoms until this past July. Plan: 08/15: psychotic symptoms most likely secondary to neurocognitive disorder. continue risperidone and sertraline. Once MOCA is completed, pattern of cognitive impairment will be more clear. 08/16 continue current medications. May consider medication such as exelon or aricept 08/17 may change to olanzapine as pt already with resting tremors. Start exelon 1.5mg po BID. 08/18 continue tx. change risperidone to olanzapine 2.5mg po qhs given underlying resting tremor. 08/19 continue with same treatment 08/20 continue same treatment. Tremors are visible- neurology saw pt and recommended propanolol, however, pt on metoprolol. This proposal manager writer sent message to neurology to clarify if okay to give both but no response yet. 08/21 increase Zyprexa up to 5 mg po qhs. 08/22 continue tx. 08/24 Increase olanzapine to 2.5mg po daily and 5mg po qhs. start aumentin 500mg po BID x 7 days for sinusitis. 08/26 Tremors are visible and impairing her mobility- neurology saw pt and recommended propanolol, however, pt on metoprolol. This proposal manager writer sent message to neurology to clarify if okay to give both but no response yet. Will add propanolol 20mg po BID. 08/27: Continue current tx plan. VSS. 08/28: Continue current plan Reason for contiued inpatient stay Substantial Risk for: inability to function and rapid decompensation Time Spent With Patient Time: Total time managing care of this patient today ____ minutes.
[2022-08-28] MEDS: OLANZapine 5 MG TABLET PO (20:33)
[2022-08-28] MEDS: traZODone HCL 100 MG TABLET PO (20:34)
[2022-08-28] MEDS: guaiFENesin 200 MG/10 ML 10 ML LIQUID PO (21:47)
--- NOTE | 2022-08-28 22:53 | P.EN_ITS ---
Event Note Date of Service: 08/28/22 Event Note: I was asked to evaluate this patient for complaints of chest pain. Patient is [place]ian-speaking, history is obtained with the help of PRODUCTION TEAM MEMBER at bedside. Patient states midsternal chest pain that has now resolved. She states it is worse with coughing, intermittent only when she coughs, nonradiating, has now resolved. She is stating shortness of breath, not hypoxic on vital check. she states that she has had a cough for the past 1 week, no phlegm, no fever or chills. Patient hemodynamically stable. Chest x-ray shows no acute pulmonary disease, troponin 15, EKG shows no ST T-wave changes, Plan: Will repeat troponin at 03:00 hours Will prescribe guaifenesin, for cough If patient continues to have cough or develops fever, considers chest CT to rule out pneumonia but at this time I am not concerned. Will obtain CBC to rule out leukocytosis. Patient afebrile, no tachycardia, no tachypnea, therefore pneumonia less likely. Continue supportive measure with cough suppressant Time Spent With Patient Time: Total time managing care of this patient today ____ minutes.
[2022-08-28 23:00] LABS: Troponin-I High Sensitivity 15.7 ng/L (<3.5-17.0)
--- NOTE | 2022-08-28 23:52 | PC.NURSE ---
Patient complaint of chest pain and cough. MD made aware. cough medication and tylenol given. Hospitalist consult obtained. EKG, chest xray, and troponin ordered. vitals obtained temp 98.4 BP 143/68 pulse 60 and O2 91.
[2022-08-29 02:31] LABS: Troponin-I High Sensitivity 18.1 ng/L (<3.5-17.0)
[2022-08-29] MEDS: Amoxicillin/Potassium Clav 500 MG TABLET PO ×2 (05:31→17:26)
[2022-08-29 06:00] VITALS: BP 127/62; PULSE 58; RESP 18; TEMP 36.2; O2SAT 93
[2022-08-29 09:48] LABS: Alanine Aminotransferase 12 U/L (0-31); Albumin Level 3.8 g/dL (3.5-5.0); Alkaline Phosphatase 57 U/L (39-117); Anion Gap 15 (12-20); Aspartate Amino Transferase 22 U/L (5-31); Bilirubin Total 0.7 mg/dL (0.0-1.0); Blood Urea Nitrogen 14 mg/dL (9-16); Calcium 9.3 mg/dL (8.4-10.2); Carbon Dioxide 25 mmol/L (22-29); Chloride 105 mmol/L (96-108); Creatinine Clr Calc Pharmacy 50.9; Estimated Glomerular Filt Rate > 60; Glucose Random 164 mg/dL (60-115); Potassium 3.8 mmol/L (3.3-5.1); Sodium 141 mmol/L (135-145); Total Protein 6.2 g/dL (6.5-8.0)
[2022-08-29] MEDS: Cholecalciferol (Vitamin D3) 25 MCG TABLET PO (10:13)
[2022-08-29] MEDS: NIFEdipine ER 90 MG TAB.ER.24 PO (10:13)
[2022-08-29] MEDS: Furosemide 40 MG TABLET PO (10:13)
[2022-08-29] MEDS: Metoprolol Succinate ER 50 MG TAB.ER.24H PO (10:13)
[2022-08-29] MEDS: Rivastigmine Tartrate 1.5 MG CAPSULE PO ×2 (10:13→20:44)
[2022-08-29] MEDS: OLANZapine 2.5 MG TABLET PO (10:14)
[2022-08-29] MEDS: Sertraline HCL 50 MG TABLET PO (10:14)
[2022-08-29] MEDS: Propranolol HCL 20 MG TABLET PO ×2 (10:14→20:43)
[2022-08-29] MEDS: Atorvastatin Calcium 10 MG TABLET PO (10:14)
[2022-08-29] MEDS: Aspirin Enteric Coated 81 MG TABLET.DR PO (10:14)
[2022-08-29] MEDS: Capsaicin 0.025% Cream 60 GM TUBE 1 APPL TOPICAL ×2 (14:22→20:41)
[2022-08-29 18:00] VITALS: BP 148/72; PULSE 62; RESP 18; TEMP 36; O2SAT 95
[2022-08-29] MEDS: OLANZapine 5 MG TABLET PO (20:43)
[2022-08-29] MEDS: traZODone HCL 100 MG TABLET PO (20:44)
[2022-08-30] MEDS: Amoxicillin/Potassium Clav 500 MG TABLET PO ×2 (06:27→16:56)
[2022-08-30 07:30] VITALS: BP 130/66; PULSE 69; RESP 16; TEMP 37; O2SAT 95
--- NOTE | 2022-08-30 07:57 | P.PNPSI_ITS ---
Subjective Subjective Date of Service: 08/29/22 Reason For Visit: confused Subjective Notes: Conditional Voluntary Interim History: Pt in her room. She reports she prays, denies hearing voices. Pt mostly in her room. She denies headache. She reports shoulder pain and left knee pain. She reports she used to get injections but does not remember doctor giving it to her- will contact daughter for further info on this. Pt denies SI/HI. Less tremors with addition of propanolol. Will monitor ortho VS, dizziness. Per nursing, no aggression towards self or others. Review of Systems Review of Systems Yes all other systems are reviewed and are negative Mental Status Exam Mental Status Exam Narrative: Appearance: casually groomed, good hygiene, in NAD. Ambulates with walker Behavior: friendly Psychomotor: no agitation or retardation noted Speech: clear, normal rate/rhythm/volume, spontaneous. TP: mostly linear, poverty of thought TC: feeling comfortable here Mood: Good Affect: bright, congruent SI: denies HI: denies VH/AH: denies, no overt signs Delusions: no overt delusional content noted or reported Insight/judgment: impaired x 2. Memory/cog: alert, not oriented to place, situation, year, she does know is August. Pending MOCA and ACL. Diagnostics Vital Signs (24Hr): Vital Signs - 24 hr 08/29/22 18:00 Temperature 96.8 F Pulse Rate 62 Respiratory Rate 18 Blood Pressure 148/72 H Pulse Oximetry 95 Oxygen Delivery Method Room Air BMI result Body Mass Index 24.3 Labs 08/12/22 15:40 08/29/22 09:20 Labs: Laboratory Results - last 48 hr 08/28/22 08/29/22 08/29/22 22:28 01:58 09:20 Sodium 141 Potassium 3.8 Chloride 105 Carbon Dioxide 25 Anion Gap 15 BUN 14 Creatinine 0.71 Estim Creat Clear Calc 50.9 Estimated GFR > 60 Random Glucose 164 H Calcium 9.3 Total Bilirubin 0.7 AST 22 ALT 12 Alkaline Phosphatase 57 Troponin I High Sens 15.7 18.1 H Total Protein 6.2 L Albumin 3.8 Imaging Radiology Impressions: ITS Impressions Head CT 08/15/22 14:53 IMPRESSION: No acute intracranial pathology. Significant right sphenoid sinus disease; correlate for any acute symptomatology. Chest X-Ray 08/28/22 22:24 IMPRESSION: No acute pulmonary disease. Medications Medications Current Medications Acetaminophen (Acetaminophen 325 Mg Tablet) 650 mg PO Q6H PRN PRN Reason: Headache/Pain Mild Scale (1-3) Last Admin: 08/28/22 21:47 Dose: 650 mg Al Hydroxide/Mg Hydroxide (Magnesium Hydrox/Alum Hydrox 30 Ml Oral.Susp) 30 ml PO Q6H PRN PRN Reason: Heartburn/Nausea Amoxicillin/Clavulanate Potassium (Amoxicillin/Potassium Clav 500 Mg Tablet) 500 mg PO Q12H [facility] Stop: 08/31/22 17:59 Last Admin: 08/30/22 06:27 Dose: 500 mg Aspirin (Aspirin Enteric Coated 81 Mg Tablet.Dr) 81 mg PO DAILY [facility] Last Admin: 08/29/22 10:14 Dose: 81 mg Atorvastatin Calcium (Atorvastatin Calcium 10 Mg Tablet) 10 mg PO DAILY [facility] Last Admin: 08/29/22 10:14 Dose: 10 mg Benzocaine (Throat Lozenge, Medicated Lozenge) 1 lozenge MUCOUS MEM Q2H PRN PRN Reason: Sore Throat Last Admin: 08/26/22 06:05 Dose: 1 lozenge Calcium Carbonate (Calcium Carbonate 500 Mg Tablet) 500 mg PO DAILY [facility] Last Admin: 08/29/22 10:14 Dose: 500 mg Capsaicin (Capsaicin 0.025% Cream 60 Gm Tube) 1 appl TOPICAL TID [facility]; Protocol Last Admin: 08/29/22 20:41 Dose: 1 appl Furosemide (Furosemide 40 Mg Tablet) 40 mg PO DAILY [facility]; Protocol Last Admin: 08/29/22 10:13 Dose: 40 mg Guaifenesin (Guaifenesin 200 Mg/10 Ml 10 Ml Liquid) 10 ml PO Q6H PRN PRN Reason: Cough Last Admin: 08/28/22 21:47 Dose: 10 ml Guaifenesin/Dextromethorphan (Guaifenesin Dm 100/10/5 Ml 5 Ml Syrup) 5 ml PO Q4H PRN PRN Reason: cough Magnesium Hydroxide (Milk Of Magnesia 30 Ml Oral.Susp) 30 ml PO DAILY PRN PRN Reason: Constipation Melatonin (Melatonin 3 Mg Tablet) 9 mg PO BEDTIME PRN PRN Reason: insomnia Last Admin: 08/22/22 20:34 Dose: 9 mg Metoprolol Succinate (Metoprolol Succinate Er 50 Mg Tab.Er.24h) 50 mg PO DAILY [facility]; Protocol Last Admin: 08/29/22 10:13 Dose: 50 mg Nifedipine (Nifedipine Er 90 Mg Tab.Er.24) 90 mg PO DAILY [facility] Last Admin: 08/29/22 10:13 Dose: 90 mg Non-Formulary Medication ( Diclofenac Sodium 1% Gel) 1 each TOPICAL BID@08,2029 [facility] Last Admin: 08/29/22 20:41 Dose: 1 each Olanzapine (Olanzapine 2.5 Mg Tablet) 2.5 mg PO TID PRN PRN Reason: agitation Last Admin: 08/23/22 00:47 Dose: 2.5 mg Olanzapine (Olanzapine 5 Mg Tablet) 5 mg PO BEDTIME [facility] Last Admin: 08/29/22 20:43 Dose: 5 mg Olanzapine (Olanzapine 2.5 Mg Tablet) 2.5 mg PO DAILY [facility] Last Admin: 08/29/22 10:14 Dose: 2.5 mg Ondansetron HCl (Ondansetron Odt 4 Mg Tab.Rapdis) 4 mg TRANSLINGU Q8H PRN PRN Reason: Nausea Propranolol HCl (Propranolol Hcl 20 Mg Tablet) 20 mg PO BID [facility]; Protocol Last Admin: 08/29/22 20:43 Dose: 20 mg Rivastigmine Tartrate (Rivastigmine Tartrate 1.5 Mg Capsule) 1.5 mg PO BID [facility] Last Admin: 08/29/22 20:44 Dose: 1.5 mg Sertraline HCl (Sertraline Hcl 50 Mg Tablet) 50 mg PO DAILY [facility] Last Admin: 08/29/22 10:14 Dose: 50 mg Trazodone HCl (Trazodone Hcl 50 Mg Tablet) 50 mg PO BEDTIME PRN PRN Reason: Sleep Trazodone HCl (Trazodone Hcl 100 Mg Tablet) 100 mg PO BEDTIME [facility] Last Admin: 08/29/22 20:44 Dose: 100 mg Vitamin D (Cholecalciferol (Vitamin D3) 25 Mcg Tablet) 25 mcg PO DAILY [facility] Last Admin: 08/29/22 10:13 Dose: 25 mcg Allergies Allergies Allergy/AdvReac Type Severity Reaction Status Date / Time No Known Allergies Allergy Verified 08/12/22 23:06 Assessment & Plan Assessment & Plan (1) Major 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 Patient is friendly and calm. She is alert and oriented to self place; she said she came to the hospital because she was nervous but is not sure why she has to remain. Patient endorses paranoid delusions saying that there are cameras and microphones set up in house to spy on her; daughter says no history of psychiatric illness that she knows of and no psychotic symptoms until this past July. Plan: 08/15: psychotic symptoms most likely secondary to neurocognitive disorder. continue risperidone and sertraline. Once MOCA is completed, pattern of cognitive impairment will be more clear. 08/16 continue current medications. May consider medication such as exelon or aricept 08/17 may change to olanzapine as pt already with resting tremors. Start exelon 1.5mg po BID. 08/18 continue tx. change risperidone to olanzapine 2.5mg po qhs given underlying resting tremor. 08/19 continue with same treatment 08/20 continue same treatment. Tremors are visible- neurology saw pt and recommended propanolol, however, pt on metoprolol. This communications writer sent message to neurology to clarify if okay to give both but no response yet. 08/21 increase Zyprexa up to 5 mg po qhs. 08/22 continue tx. 08/24 Increase olanzapine to 2.5mg po daily and 5mg po qhs. start aumentin 500mg po BID x 7 days for sinusitis. 08/26 Tremors are visible and impairing her mobility- neurology saw pt and recommended propanolol, however, pt on metoprolol. This communications writer sent message to neurology to clarify if okay to give both but no response yet. Will add propanolol 20mg po BID. 08/27: Continue current tx plan. VSS. 08/28: Continue current plan 08/29 continue tx. Reason for contiued inpatient stay Substantial Risk for: inability to function Time Spent With Patient Time: Total time managing care of this patient today ____ minutes.
--- NOTE | 2022-08-30 08:37 | P.PNPSI_ITS ---
Subjective Subjective Date of Service: 08/30/22 Reason For Visit: confused Interim History: Pt mostly in her room. She denies depressed mood but expresses appropriate frustration about being here waiting for placement. Per daughter, pt has called her reporting paranoid telling daughter that the police is after her. Pt denies hearing voices but may be experiencing paranoid delusions. She denies SI/HI. Per nursing, pt slept well. No behavioral concerns. Medication Compliance: Yes Review of Systems Review of Systems Yes all other systems are reviewed and are negative Mental Status Exam Mental Status Exam Narrative: Appearance: casually groomed, good hygiene, in NAD. Ambulates with walker Behavior: friendly Psychomotor: no agitation or retardation noted Speech: clear, normal rate/rhythm/volume, spontaneous. TP: mostly linear, poverty of thought TC: feeling comfortable here Mood: Good Affect: bright, congruent SI: denies HI: denies VH/AH: denies, no overt signs Delusions: no overt delusional content noted or reported Insight/judgment: impaired x 2. Memory/cog: alert, not oriented to place, situation, year, she does know is August. Pending MOCA and ACL. Diagnostics Vital Signs (24Hr): Vital Signs - 24 hr 08/29/22 18:00 Temperature 96.8 F Pulse Rate 62 Respiratory Rate 18 Blood Pressure 148/72 H Pulse Oximetry 95 Oxygen Delivery Method Room Air BMI result Body Mass Index 24.3 Labs 08/12/22 15:40 08/29/22 09:20 Labs: Laboratory Results - last 48 hr 08/28/22 08/29/22 08/29/22 22:28 01:58 09:20 Sodium 141 Potassium 3.8 Chloride 105 Carbon Dioxide 25 Anion Gap 15 BUN 14 Creatinine 0.71 Estim Creat Clear Calc 50.9 Estimated GFR > 60 Random Glucose 164 H Calcium 9.3 Total Bilirubin 0.7 AST 22 ALT 12 Alkaline Phosphatase 57 Troponin I High Sens 15.7 18.1 H Total Protein 6.2 L Albumin 3.8 Imaging Radiology Impressions: ITS Impressions Head CT 08/15/22 14:53 IMPRESSION: No acute intracranial pathology. Significant right sphenoid sinus disease; correlate for any acute symptomatology. Chest X-Ray 08/28/22 22:24 IMPRESSION: No acute pulmonary disease. Medications Medications Current Medications Acetaminophen (Acetaminophen 325 Mg Tablet) 650 mg PO Q6H PRN PRN Reason: Headache/Pain Mild Scale (1-3) Last Admin: 08/28/22 21:47 Dose: 650 mg Al Hydroxide/Mg Hydroxide (Magnesium Hydrox/Alum Hydrox 30 Ml Oral.Susp) 30 ml PO Q6H PRN PRN Reason: Heartburn/Nausea Amoxicillin/Clavulanate Potassium (Amoxicillin/Potassium Clav 500 Mg Tablet) 500 mg PO Q12H [facility] Stop: 08/31/22 17:59 Last Admin: 08/30/22 06:27 Dose: 500 mg Aspirin (Aspirin Enteric Coated 81 Mg Tablet.Dr) 81 mg PO DAILY [facility] Last Admin: 08/29/22 10:14 Dose: 81 mg Atorvastatin Calcium (Atorvastatin Calcium 10 Mg Tablet) 10 mg PO DAILY [facility] Last Admin: 08/29/22 10:14 Dose: 10 mg Benzocaine (Throat Lozenge, Medicated Lozenge) 1 lozenge MUCOUS MEM Q2H PRN PRN Reason: Sore Throat Last Admin: 08/26/22 06:05 Dose: 1 lozenge Calcium Carbonate (Calcium Carbonate 500 Mg Tablet) 500 mg PO DAILY [facility] Last Admin: 08/29/22 10:14 Dose: 500 mg Capsaicin (Capsaicin 0.025% Cream 60 Gm Tube) 1 appl TOPICAL TID [facility]; Protocol Last Admin: 08/29/22 20:41 Dose: 1 appl Furosemide (Furosemide 40 Mg Tablet) 40 mg PO DAILY [facility]; Protocol Last Admin: 08/29/22 10:13 Dose: 40 mg Guaifenesin (Guaifenesin 200 Mg/10 Ml 10 Ml Liquid) 10 ml PO Q6H PRN PRN Reason: Cough Last Admin: 08/28/22 21:47 Dose: 10 ml Guaifenesin/Dextromethorphan (Guaifenesin Dm 100/10/5 Ml 5 Ml Syrup) 5 ml PO Q4H PRN PRN Reason: cough Magnesium Hydroxide (Milk Of Magnesia 30 Ml Oral.Susp) 30 ml PO DAILY PRN PRN Reason: Constipation Melatonin (Melatonin 3 Mg Tablet) 9 mg PO BEDTIME PRN PRN Reason: insomnia Last Admin: 08/22/22 20:34 Dose: 9 mg Metoprolol Succinate (Metoprolol Succinate Er 50 Mg Tab.Er.24h) 50 mg PO DAILY [facility]; Protocol Last Admin: 08/29/22 10:13 Dose: 50 mg Nifedipine (Nifedipine Er 90 Mg Tab.Er.24) 90 mg PO DAILY [facility] Last Admin: 08/29/22 10:13 Dose: 90 mg Non-Formulary Medication ( Diclofenac Sodium 1% Gel) 1 each TOPICAL BID@829,2029 [facility] Last Admin: 08/29/22 20:41 Dose: 1 each Olanzapine (Olanzapine 2.5 Mg Tablet) 2.5 mg PO TID PRN PRN Reason: agitation Last Admin: 08/23/22 00:47 Dose: 2.5 mg Olanzapine (Olanzapine 5 Mg Tablet) 5 mg PO BEDTIME [facility] Last Admin: 08/29/22 20:43 Dose: 5 mg Olanzapine (Olanzapine 2.5 Mg Tablet) 2.5 mg PO DAILY [facility] Last Admin: 08/29/22 10:14 Dose: 2.5 mg Ondansetron HCl (Ondansetron Odt 4 Mg Tab.Rapdis) 4 mg TRANSLINGU Q8H PRN PRN Reason: Nausea Propranolol HCl (Propranolol Hcl 20 Mg Tablet) 20 mg PO BID [facility]; Protocol Last Admin: 08/29/22 20:43 Dose: 20 mg Rivastigmine Tartrate (Rivastigmine Tartrate 1.5 Mg Capsule) 1.5 mg PO BID [facility] Last Admin: 08/29/22 20:44 Dose: 1.5 mg Sertraline HCl (Sertraline Hcl 50 Mg Tablet) 50 mg PO DAILY [facility] Last Admin: 08/29/22 10:14 Dose: 50 mg Trazodone HCl (Trazodone Hcl 50 Mg Tablet) 50 mg PO BEDTIME PRN PRN Reason: Sleep Trazodone HCl (Trazodone Hcl 100 Mg Tablet) 100 mg PO BEDTIME [facility] Last Admin: 08/29/22 20:44 Dose: 100 mg Vitamin D (Cholecalciferol (Vitamin D3) 25 Mcg Tablet) 25 mcg PO DAILY [facility] Last Admin: 08/29/22 10:13 Dose: 25 mcg Allergies Allergies Allergy/AdvReac Type Severity Reaction Status Date / Time No Known Allergies Allergy Verified 08/12/22 23:06 Assessment & Plan Assessment & Plan (1) Major 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 Patient is friendly and calm. She is alert and oriented to self place; she said she came to the hospital because she was nervous but is not sure why she has to remain. Patient endorses paranoid delusions saying that there are cameras and microphones set up in house to spy on her; daughter says no history of psychiatric illness that she knows of and no psychotic symptoms until this past July. Plan: 08/15: psychotic symptoms most likely secondary to neurocognitive disorder. continue risperidone and sertraline. Once MOCA is completed, pattern of cognitive impairment will be more clear. 08/16 continue current medications. May consider medication such as exelon or aricept 08/17 may change to olanzapine as pt already with resting tremors. Start exelon 1.5mg po BID. 08/18 continue tx. change risperidone to olanzapine 2.5mg po qhs given underlying resting tremor. 08/19 continue with same treatment 08/20 continue same treatment. Tremors are visible- neurology saw pt and recommended propanolol, however, pt on metoprolol. This underwriter mortgage loan sent message to neurology to clarify if okay to give both but no response yet. 08/21 increase Zyprexa up to 5 mg po qhs. 08/22 continue tx. 08/24 Increase olanzapine to 2.5mg po daily and 5mg po qhs. start aumentin 500mg po BID x 7 days for sinusitis. 08/26 Tremors are visible and impairing her mobility- neurology saw pt and recommended propanolol, however, pt on metoprolol. This underwriter mortgage loan sent message to neurology to clarify if okay to give both but no response yet. Will add propanolol 20mg po BID. 08/27: Continue current tx plan. VSS. 08/28: Continue current plan 08/29 continue tx. 08/30 continue tx. Reason for contiued inpatient stay Substantial Risk for: inability to function Time Spent With Patient Time: Total time managing care of this patient today ____ minutes.
[2022-08-30] MEDS: Sertraline HCL 50 MG TABLET PO (09:09)
[2022-08-30] MEDS: Furosemide 40 MG TABLET PO (09:09)
[2022-08-30] MEDS: Cholecalciferol (Vitamin D3) 25 MCG TABLET PO (09:09)
[2022-08-30] MEDS: Propranolol HCL 20 MG TABLET PO ×2 (09:09→20:53)
[2022-08-30] MEDS: Metoprolol Succinate ER 50 MG TAB.ER.24H PO (09:09)
[2022-08-30] MEDS: OLANZapine 2.5 MG TABLET PO (09:09)
[2022-08-30] MEDS: Atorvastatin Calcium 10 MG TABLET PO (09:09)
[2022-08-30] MEDS: Aspirin Enteric Coated 81 MG TABLET.DR PO (09:09)
[2022-08-30] MEDS: Rivastigmine Tartrate 1.5 MG CAPSULE PO ×2 (09:10→20:43)
[2022-08-30] MEDS: NIFEdipine ER 90 MG TAB.ER.24 PO (09:11)
[2022-08-30 20:30] VITALS: BP 158/83; PULSE 63; RESP 18; TEMP 36.9; O2SAT 93
[2022-08-30] MEDS: OLANZapine 5 MG TABLET PO (20:43)
[2022-08-30] MEDS: traZODone HCL 100 MG TABLET PO (20:43)
[2022-08-31] MEDS: Amoxicillin/Potassium Clav 500 MG TABLET PO (04:47)
[2022-08-31 07:30] VITALS: BP 141/70; PULSE 67; RESP 18; TEMP 36.3; O2SAT 95
[2022-08-31] MEDS: Aspirin Enteric Coated 81 MG TABLET.DR PO (08:17)
[2022-08-31] MEDS: Cholecalciferol (Vitamin D3) 25 MCG TABLET PO (08:17)
[2022-08-31] MEDS: Furosemide 40 MG TABLET PO (08:17)
[2022-08-31] MEDS: OLANZapine 2.5 MG TABLET PO (08:18)
[2022-08-31] MEDS: NIFEdipine ER 90 MG TAB.ER.24 PO (08:18)
[2022-08-31] MEDS: Atorvastatin Calcium 10 MG TABLET PO (08:18)
[2022-08-31] MEDS: Metoprolol Succinate ER 50 MG TAB.ER.24H PO (08:18)
[2022-08-31] MEDS: Sertraline HCL 50 MG TABLET PO (08:18)
[2022-08-31] MEDS: Propranolol HCL 20 MG TABLET PO ×2 (08:18→20:24)
[2022-08-31] MEDS: Rivastigmine Tartrate 1.5 MG CAPSULE PO ×2 (08:18→20:24)
[2022-08-31 18:00] VITALS: BP 151/72; PULSE 60; RESP 18; TEMP 36.3; O2SAT 94
[2022-08-31] MEDS: traZODone HCL 100 MG TABLET PO (20:24)
[2022-08-31] MEDS: OLANZapine 5 MG TABLET PO (20:24)
[2022-09-01 06:00] VITALS: BP 161/83; PULSE 66; RESP 16; TEMP 36.6; O2SAT 95
[2022-09-01 07:00] VITALS: BMI 24.5
--- NOTE | 2022-09-01 08:42 | HO.PSYCHPN ---
Subjective Subjective Date of Service: 08/31/22 Reason For Visit: confused Subjective Notes: Conditional Voluntary Interim History: Pt continues to be in her room. She reports feeling okay. She reports shoulder and left knee pain. Pt denies SI/HI. Pt appears to be more paranoid in afternoon/night when she calls daughter telling her that police is after her. Pt slept through the night. Tremors have improved with propanolol. Medication Compliance: Yes Side effects from medications: No Attending Groups: No Review of Systems Review of Systems Yes all other systems are reviewed and are negative Mental Status Exam Mental Status Exam Narrative: Appearance: casually groomed, good hygiene, in NAD. Ambulates with walker Behavior: friendly Psychomotor: no agitation or retardation noted Speech: clear, normal rate/rhythm/volume, spontaneous. TP: mostly linear, poverty of thought TC: feeling comfortable here Mood: Good Affect: bright, congruent SI: denies HI: denies VH/AH: denies, no overt signs Delusions: no overt delusional content noted or reported Insight/judgment: impaired x 2. Memory/cog: alert, not oriented to place, situation, year, she does know is August. Pending MOCA and ACL. Diagnostics Vital Signs (24Hr): Vital Signs - 24 hr 08/31/22 18:00 Temperature 97.4 F Pulse Rate 60 Respiratory Rate 18 Blood Pressure 151/72 H Pulse Oximetry 94 Oxygen Delivery Method Room Air BMI result Body Mass Index 24.3 Labs 08/12/22 15:40 08/29/22 09:20 Imaging Radiology Impressions: ITS Impressions Head CT 08/15/22 14:53 IMPRESSION: No acute intracranial pathology. Significant right sphenoid sinus disease; correlate for any acute symptomatology. Chest X-Ray 08/28/22 22:24 IMPRESSION: No acute pulmonary disease. Medications Medications Current Medications Acetaminophen (Acetaminophen 325 Mg Tablet) 650 mg PO Q6H PRN PRN Reason: Headache/Pain Mild Scale (1-3) Last Admin: 08/28/22 21:47 Dose: 650 mg Al Hydroxide/Mg Hydroxide (Magnesium Hydrox/Alum Hydrox 30 Ml Oral.Susp) 30 ml PO Q6H PRN PRN Reason: Heartburn/Nausea Aspirin (Aspirin Enteric Coated 81 Mg Tablet.) 81 mg PO DAILY [facility] Last Admin: 08/31/22 08:17 Dose: 81 mg Atorvastatin Calcium (Atorvastatin Calcium 10 Mg Tablet) 10 mg PO DAILY [facility] Last Admin: 08/31/22 08:18 Dose: 10 mg Benzocaine (Throat Lozenge, Medicated Lozenge) 1 lozenge MUCOUS MEM Q2H PRN PRN Reason: Sore Throat Last Admin: 08/26/22 06:05 Dose: 1 lozenge Calcium Carbonate (Calcium Carbonate 500 Mg Tablet) 500 mg PO DAILY [facility] Last Admin: 08/31/22 08:17 Dose: 500 mg Capsaicin (Capsaicin 0.025% Cream 60 Gm Tube) 1 appl TOPICAL TID [facility]; Protocol Last Admin: 08/31/22 20:28 Dose: Not Given Furosemide (Furosemide 40 Mg Tablet) 40 mg PO DAILY [facility]; Protocol Last Admin: 08/31/22 08:17 Dose: 40 mg Guaifenesin (Guaifenesin 200 Mg/10 Ml 10 Ml Liquid) 10 ml PO Q6H PRN PRN Reason: Cough Last Admin: 08/28/22 21:47 Dose: 10 ml Guaifenesin/Dextromethorphan (Guaifenesin Dm 100/10/5 Ml 5 Ml Syrup) 5 ml PO Q4H PRN PRN Reason: cough Magnesium Hydroxide (Milk Of Magnesia 30 Ml Oral.Susp) 30 ml PO DAILY PRN PRN Reason: Constipation Melatonin (Melatonin 3 Mg Tablet) 9 mg PO BEDTIME PRN PRN Reason: insomnia Last Admin: 08/22/22 20:34 Dose: 9 mg Metoprolol Succinate (Metoprolol Succinate Er 50 Mg Tab.Er.24h) 50 mg PO DAILY [facility]; Protocol Last Admin: 08/31/22 08:18 Dose: 50 mg Nifedipine (Nifedipine Er 90 Mg Tab.Er.24) 90 mg PO DAILY [facility] Last Admin: 08/31/22 08:18 Dose: 90 mg Non-Formulary Medication ( Diclofenac Sodium 1% Gel) 1 each TOPICAL BID@0830,2030 [facility] Last Admin: 08/31/22 20:25 Dose: 1 each Olanzapine (Olanzapine 2.5 Mg Tablet) 2.5 mg PO TID PRN PRN Reason: agitation Last Admin: 08/23/22 00:47 Dose: 2.5 mg Olanzapine (Olanzapine 5 Mg Tablet) 5 mg PO BEDTIME [facility] Last Admin: 08/31/22 20:24 Dose: 5 mg Olanzapine (Olanzapine 2.5 Mg Tablet) 2.5 mg PO DAILY@1500 [facility] Ondansetron HCl (Ondansetron Odt 4 Mg Tab.Rapdis) 4 mg TRANSLINGU Q8H PRN PRN Reason: Nausea Propranolol HCl (Propranolol Hcl 20 Mg Tablet) 20 mg PO BID [facility]; Protocol Last Admin: 08/31/22 20:24 Dose: 20 mg Rivastigmine Tartrate (Rivastigmine Tartrate 1.5 Mg Capsule) 1.5 mg PO BID [facility] Last Admin: 08/31/22 20:24 Dose: 1.5 mg Sertraline HCl (Sertraline Hcl 50 Mg Tablet) 50 mg PO DAILY [facility] Last Admin: 08/31/22 08:18 Dose: 50 mg Trazodone HCl (Trazodone Hcl 50 Mg Tablet) 50 mg PO BEDTIME PRN PRN Reason: Sleep Trazodone HCl (Trazodone Hcl 100 Mg Tablet) 100 mg PO BEDTIME [facility] Last Admin: 08/31/22 20:24 Dose: 100 mg Vitamin D (Cholecalciferol (Vitamin D3) 25 Mcg Tablet) 25 mcg PO DAILY [facility] Last Admin: 08/31/22 08:17 Dose: 25 mcg Allergies Allergies Allergy/AdvReac Type Severity Reaction Status Date / Time No Known Allergies Allergy Verified 08/12/22 23:06 Assessment & Plan Assessment & Plan (1) Major 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 Patient is friendly and calm. She is alert and oriented to self place; she said she came to the hospital because she was nervous but is not sure why she has to remain. Patient endorses paranoid delusions saying that there are cameras and microphones set up in house to spy on her; daughter says no history of psychiatric illness that she knows of and no psychotic symptoms until this past July. Plan: 08/15: psychotic symptoms most likely secondary to neurocognitive disorder. continue risperidone and sertraline. Once MOCA is completed, pattern of cognitive impairment will be more clear. 08/16 continue current medications. May consider medication such as exelon or aricept 08/17 may change to olanzapine as pt already with resting tremors. Start exelon 1.5mg po BID. 08/18 continue tx. change risperidone to olanzapine 2.5mg po qhs given underlying resting tremor. 08/19 continue with same treatment 08/20 continue same treatment. Tremors are visible- neurology saw pt and recommended propanolol, however, pt on metoprolol. This pattern chart writer sent message to neurology to clarify if okay to give both but no response yet. 08/21 increase Zyprexa up to 5 mg po qhs. 08/22 continue tx. 08/24 Increase olanzapine to 2.5mg po daily and 5mg po qhs. start aumentin 500mg po BID x 7 days for sinusitis. 08/26 Tremors are visible and impairing her mobility- neurology saw pt and recommended propanolol, however, pt on metoprolol. This pattern chart writer sent message to neurology to clarify if okay to give both but no response yet. Will add propanolol 20mg po BID. 08/27: Continue current tx plan. VSS. 08/28: Continue current plan 08/29 continue tx. 08/30 continue tx. 08/31 continue tx. Reason for contiued inpatient stay Substantial Risk for: inability to function Time Spent With Patient Time: Total time managing care of this patient today ____ minutes.
[2022-09-01] MEDS: Aspirin Enteric Coated 81 MG TABLET.DR PO (08:51)
[2022-09-01] MEDS: Rivastigmine Tartrate 1.5 MG CAPSULE PO ×2 (08:51→20:18)
[2022-09-01] MEDS: NIFEdipine ER 90 MG TAB.ER.24 PO (08:51)
[2022-09-01] MEDS: Capsaicin 0.025% Cream 60 GM TUBE 1 APPL TOPICAL ×3 (08:52→20:23)
[2022-09-01] MEDS: Metoprolol Succinate ER 50 MG TAB.ER.24H PO (08:52)
[2022-09-01] MEDS: Furosemide 40 MG TABLET PO (08:52)
[2022-09-01] MEDS: Cholecalciferol (Vitamin D3) 25 MCG TABLET PO (08:52)
[2022-09-01] MEDS: Propranolol HCL 20 MG TABLET PO ×2 (08:52→20:18)
[2022-09-01] MEDS: Atorvastatin Calcium 10 MG TABLET PO (08:52)
[2022-09-01] MEDS: Sertraline HCL 50 MG TABLET PO (08:52)
--- NOTE | 2022-09-01 11:38 | P.PNPSI_ITS ---
Subjective Subjective Date of Service: 09/02/22 Reason For Visit: confused Interim History: Pt is pleasant on approach. She reports she is feeling well and shows appreciation for this display card writer checking in with her. She reports she has been sleeping well- which is verified by nursing. She is visible for meals but minimally interacting with peers. No SI/HI. She continues to be seen self holden loguing which daughter reports is not her usual, although pt will say she is praying. This display card writer called [facility], she is due to cortisone shot in November, has appointment coming up in September but this is to check on shoulder. Medication Compliance: Yes Side effects from medications: No Review of Systems Review of Systems Yes all other systems are reviewed and are negative Mental Status Exam Mental Status Exam Narrative: Appearance: casually groomed, good hygiene, in NAD. Ambulates with walker Behavior: friendly Psychomotor: no agitation or retardation noted Speech: clear, normal rate/rhythm/volume, spontaneous. TP: mostly linear, poverty of thought TC: feeling comfortable here Mood: Good Affect: bright, congruent SI: denies HI: denies VH/AH: denies, no overt signs Delusions: no overt delusional content noted or reported Insight/judgment: impaired x 2. Memory/cog: alert, not oriented to place, situation, year, she does know is August. Pending MOCA and ACL. Diagnostics Vital Signs (24Hr): Vital Signs - 24 hr 08/31/22 18:00 09/01/22 06:00 Temperature 97.4 F 97.8 F Pulse Rate 60 66 Respiratory Rate 18 16 Blood Pressure 151/72 H 161/83 H Pulse Oximetry 94 95 Oxygen Delivery Method Room Air Room Air BMI result Body Mass Index 24.3 Labs 08/12/22 15:40 08/29/22 09:20 Imaging Radiology Impressions: ITS Impressions Head CT 08/15/22 14:53 IMPRESSION: No acute intracranial pathology. Significant right sphenoid sinus disease; correlate for any acute symptomatology. Chest X-Ray 08/28/22 22:24 IMPRESSION: No acute pulmonary disease. Medications Medications Current Medications Acetaminophen (Acetaminophen 325 Mg Tablet) 650 mg PO Q6H PRN PRN Reason: Headache/Pain Mild Scale (1-3) Last Admin: 08/28/22 21:47 Dose: 650 mg Al Hydroxide/Mg Hydroxide (Magnesium Hydrox/Alum Hydrox 30 Ml Oral.Susp) 30 ml PO Q6H PRN PRN Reason: Heartburn/Nausea Aspirin (Aspirin Enteric Coated 81 Mg Tablet.Dr) 81 mg PO DAILY [facility] Last Admin: 09/01/22 08:51 Dose: 81 mg Atorvastatin Calcium (Atorvastatin Calcium 10 Mg Tablet) 10 mg PO DAILY [facility] Last Admin: 09/01/22 08:52 Dose: 10 mg Benzocaine (Throat Lozenge, Medicated Lozenge) 1 lozenge MUCOUS MEM Q2H PRN PRN Reason: Sore Throat Last Admin: 08/26/22 06:05 Dose: 1 lozenge Calcium Carbonate (Calcium Carbonate 500 Mg Tablet) 500 mg PO DAILY [facility] Last Admin: 09/01/22 08:51 Dose: 500 mg Capsaicin (Capsaicin 0.025% Cream 60 Gm Tube) 1 appl TOPICAL TID [facility]; Protocol Last Admin: 09/01/22 08:52 Dose: 1 appl Furosemide (Furosemide 40 Mg Tablet) 40 mg PO DAILY [facility]; Protocol Last Admin: 09/01/22 08:52 Dose: 40 mg Guaifenesin (Guaifenesin 200 Mg/10 Ml 10 Ml Liquid) 10 ml PO Q6H PRN PRN Reason: Cough Last Admin: 08/28/22 21:47 Dose: 10 ml Guaifenesin/Dextromethorphan (Guaifenesin Dm 100/10/5 Ml 5 Ml Syrup) 5 ml PO Q4H PRN PRN Reason: cough Magnesium Hydroxide (Milk Of Magnesia 30 Ml Oral.Susp) 30 ml PO DAILY PRN PRN Reason: Constipation Melatonin (Melatonin 3 Mg Tablet) 9 mg PO BEDTIME PRN PRN Reason: insomnia Last Admin: 08/22/22 20:34 Dose: 9 mg Metoprolol Succinate (Metoprolol Succinate Er 50 Mg Tab.Er.24h) 50 mg PO DAILY [facility]; Protocol Last Admin: 09/01/22 08:52 Dose: 50 mg Nifedipine (Nifedipine Er 90 Mg Tab.Er.24) 90 mg PO DAILY [facility] Last Admin: 09/01/22 08:51 Dose: 90 mg Non-Formulary Medication ( Diclofenac Sodium 1% Gel) 1 each TOPICAL BID@0830,2029 [facility] Last Admin: 09/01/22 09:53 Dose: 1 each Olanzapine (Olanzapine 2.5 Mg Tablet) 2.5 mg PO TID PRN PRN Reason: agitation Last Admin: 08/23/22 00:47 Dose: 2.5 mg Olanzapine (Olanzapine 5 Mg Tablet) 5 mg PO BEDTIME [facility] Last Admin: 08/31/22 20:24 Dose: 5 mg Olanzapine (Olanzapine 2.5 Mg Tablet) 2.5 mg PO DAILY@1500 [facility] Ondansetron HCl (Ondansetron Odt 4 Mg Tab.Rapdis) 4 mg TRANSLINGU Q8H PRN PRN Reason: Nausea Propranolol HCl (Propranolol Hcl 20 Mg Tablet) 20 mg PO BID [facility]; Protocol Last Admin: 09/01/22 08:52 Dose: 20 mg Rivastigmine Tartrate (Rivastigmine Tartrate 1.5 Mg Capsule) 1.5 mg PO BID [facility] Last Admin: 09/01/22 08:51 Dose: 1.5 mg Sertraline HCl (Sertraline Hcl 50 Mg Tablet) 50 mg PO DAILY [facility] Last Admin: 09/01/22 08:52 Dose: 50 mg Trazodone HCl (Trazodone Hcl 50 Mg Tablet) 50 mg PO BEDTIME PRN PRN Reason: Sleep Trazodone HCl (Trazodone Hcl 100 Mg Tablet) 100 mg PO BEDTIME [facility] Last Admin: 08/31/22 20:24 Dose: 100 mg Vitamin D (Cholecalciferol (Vitamin D3) 25 Mcg Tablet) 25 mcg PO DAILY [facility] Last Admin: 09/01/22 08:52 Dose: 25 mcg Allergies Allergies Allergy/AdvReac Type Severity Reaction Status Date / Time No Known Allergies Allergy Verified 08/12/22 23:06 Assessment & Plan Assessment & Plan (1) Major 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 Patient is friendly and calm. She is alert and oriented to self place; she said she came to the hospital because she was nervous but is not sure why she has to remain. Patient endorses paranoid delusions saying that there are cameras and microphones set up in house to spy on her; daughter says no history of psychiatric illness that she knows of and no psychotic symptoms until this past July. Plan: 08/15: psychotic symptoms most likely secondary to neurocognitive disorder. continue risperidone and sertraline. Once MOCA is completed, pattern of cognitive impairment will be more clear. 08/16 continue current medications. May consider medication such as exelon or aricept 08/17 may change to olanzapine as pt already with resting tremors. Start exelon 1.5mg po BID. 08/18 continue tx. change risperidone to olanzapine 2.5mg po qhs given underlying resting tremor. 08/19 continue with same treatment 08/20 continue same treatment. Tremors are visible- neurology saw pt and recommended propanolol, however, pt on metoprolol. This display card writer sent message to neurology to clarify if okay to give both but no response yet. 08/21 increase Zyprexa up to 5 mg po qhs. 08/22 continue tx. 08/24 Increase olanzapine to 2.5mg po daily and 5mg po qhs. start aumentin 500mg po BID x 7 days for sinusitis. 08/26 Tremors are visible and impairing her mobility- neurology saw pt and recommended propanolol, however, pt on metoprolol. This display card writer sent message to neurology to clarify if okay to give both but no response yet. Will add pro panolol 20mg po BID. 08/27: Continue current tx plan. VSS. 08/28: Continue current plan 08/29 continue tx. 08/30 continue tx. 08/31 continue tx. 09/01 continue tx. called [facility] to check on next cortisone shot for left knee not until November. Reason for contiued inpatient stay Substantial Risk for: inability to function Time Spent With Patient Time: Total time managing care of this patient today ____ minutes.
[2022-09-01] MEDS: OLANZapine 2.5 MG TABLET PO (14:41)
[2022-09-01 18:00] VITALS: BP 137/62; PULSE 63; RESP 18; TEMP 36.3; O2SAT 96
[2022-09-01] MEDS: OLANZapine 5 MG TABLET PO (20:18)
[2022-09-01] MEDS: traZODone HCL 100 MG TABLET PO (20:19)
[2022-09-02 06:00] VITALS: BP 150/75; PULSE 55; RESP 16; TEMP 36.6; O2SAT 96
[2022-09-02] MEDS: Cholecalciferol (Vitamin D3) 25 MCG TABLET PO (09:28)
[2022-09-02] MEDS: Aspirin Enteric Coated 81 MG TABLET.DR PO (09:28)
[2022-09-02] MEDS: NIFEdipine ER 90 MG TAB.ER.24 PO (09:28)
[2022-09-02] MEDS: Furosemide 40 MG TABLET PO (09:29)
[2022-09-02] MEDS: Sertraline HCL 50 MG TABLET PO (09:29)
[2022-09-02] MEDS: Rivastigmine Tartrate 1.5 MG CAPSULE PO ×2 (09:29→20:27)
[2022-09-02] MEDS: Atorvastatin Calcium 10 MG TABLET PO (09:29)
[2022-09-02] MEDS: Capsaicin 0.025% Cream 60 GM TUBE 1 APPL TOPICAL ×2 (09:59→17:07)
[2022-09-02] MEDS: OLANZapine 2.5 MG TABLET PO (14:21)
[2022-09-02 18:00] VITALS: BP 140/63; PULSE 73; RESP 16; O2SAT 93
--- NOTE | 2022-09-02 19:56 | HO.PSYCHPN ---
Subjective Subjective Date of Service: 09/02/22 Reason For Visit: confused Subjective Notes: Conditional Voluntary Interim History: Pt continues to present as pleasant on approach. She reports she is feeling well. She reports she has been sleeping well- which is verified by nursing. She is more visible on the unit but does not interact with peers much. She reports left knee pain at times is severe, taking tylenol and capsaicin. No SI/HI. She continues to be seen self dialoguing which daughter reports is not her usual, although pt will say she is praying. Review of Systems Review of Systems Yes all other systems are reviewed and are negative Mental Status Exam Mental Status Exam Narrative: Appearance: casually groomed, good hygiene, in NAD. Ambulates with walker Behavior: friendly Psychomotor: no agitation or retardation noted Speech: clear, normal rate/rhythm/volume, spontaneous. TP: mostly linear, poverty of thought TC: feeling comfortable here Mood: Good Affect: bright, congruent SI: denies HI: denies VH/AH: denies, no overt signs Delusions: no overt delusional content noted or reported Insight/judgment: impaired x 2. Memory/cog: alert, not oriented to place, situation, year, she does know is August. Pending MOCA and ACL. Diagnostics Vital Signs (24Hr): Vital Signs - 24 hr 09/02/22 06:00 Temperature 97.8 F Pulse Rate 55 Respiratory Rate 16 Blood Pressure 150/75 H Pulse Oximetry 96 Oxygen Delivery Method Room Air BMI result Body Mass Index 24.5 Labs 08/12/22 15:40 08/29/22 09:20 Imaging Radiology Impressions: ITS Impressions Head CT 08/15/22 14:53 IMPRESSION: No acute intracranial pathology. Significant right sphenoid sinus disease; correlate for any acute symptomatology. Chest X-Ray 08/28/22 22:24 IMPRESSION: No acute pulmonary disease. Medications Medications Current Medications Acetaminophen (Acetaminophen 325 Mg Tablet) 650 mg PO Q6H PRN PRN Reason: Headache/Pain Mild Scale (1-3) Last Admin: 08/28/22 21:47 Dose: 650 mg Al Hydroxide/Mg Hydroxide (Magnesium Hydrox/Alum Hydrox 30 Ml Oral.Susp) 30 ml PO Q6H PRN PRN Reason: Heartburn/Nausea Aspirin (Aspirin Enteric Coated 81 Mg Tablet.) 81 mg PO DAILY [facility] Last Admin: 09/02/22 09:28 Dose: 81 mg Atorvastatin Calcium (Atorvastatin Calcium 10 Mg Tablet) 10 mg PO DAILY [facility] Last Admin: 09/02/22 09:29 Dose: 10 mg Benzocaine (Throat Lozenge, Medicated Lozenge) 1 lozenge MUCOUS MEM Q2H PRN PRN Reason: Sore Throat Last Admin: 08/26/22 06:05 Dose: 1 lozenge Calcium Carbonate (Calcium Carbonate 500 Mg Tablet) 500 mg PO DAILY [facility] Last Admin: 09/02/22 09:29 Dose: 500 mg Capsaicin (Capsaicin 0.025% Cream 60 Gm Tube) 1 appl TOPICAL TID [facility]; Protocol Last Admin: 09/02/22 17:07 Dose: 1 appl Furosemide (Furosemide 40 Mg Tablet) 40 mg PO DAILY [facility]; Protocol Last Admin: 09/02/22 09:29 Dose: 40 mg Guaifenesin (Guaifenesin 200 Mg/10 Ml 10 Ml Liquid) 10 ml PO Q6H PRN PRN Reason: Cough Last Admin: 08/28/22 21:47 Dose: 10 ml Guaifenesin/Dextromethorphan (Guaifenesin Dm 100/10/5 Ml 5 Ml Syrup) 5 ml PO Q4H PRN PRN Reason: cough Magnesium Hydroxide (Milk Of Magnesia 30 Ml Oral.Susp) 30 ml PO DAILY PRN PRN Reason: Constipation Melatonin (Melatonin 3 Mg Tablet) 9 mg PO BEDTIME PRN PRN Reason: insomnia Last Admin: 08/22/22 20:34 Dose: 9 mg Metoprolol Succinate (Metoprolol Succinate Er 50 Mg Tab.Er.24h) 50 mg PO DAILY [facility]; Protocol Last Admin: 09/02/22 09:30 Dose: Not Given Nifedipine (Nifedipine Er 90 Mg Tab.Er.24) 90 mg PO DAILY [facility] Last Admin: 09/02/22 09:28 Dose: 90 mg Non-Formulary Medication ( Diclofenac Sodium 1% Gel) 1 each TOPICAL BID@0830,2029 [facility] Last Admin: 09/02/22 09:59 Dose: 1 each Olanzapine (Olanzapine 2.5 Mg Tablet) 2.5 mg PO TID PRN PRN Reason: agitation Last Admin: 08/23/22 00:47 Dose: 2.5 mg Olanzapine (Olanzapine 5 Mg Tablet) 5 mg PO BEDTIME [facility] Last Admin: 09/01/22 20:18 Dose: 5 mg Olanzapine (Olanzapine 2.5 Mg Tablet) 2.5 mg PO DAILY@1500 [facility] Last Admin: 09/02/22 14:21 Dose: 2.5 mg Ondansetron HCl (Ondansetron Odt 4 Mg Tab.Rapdis) 4 mg TRANSLINGU Q8H PRN PRN Reason: Nausea Propranolol HCl (Propranolol Hcl 20 Mg Tablet) 20 mg PO BID [facility]; Protocol Last Admin: 09/02/22 09:31 Dose: Not Given Rivastigmine Tartrate (Rivastigmine Tartrate 1.5 Mg Capsule) 1.5 mg PO BID [facility] Last Admin: 09/02/22 09:29 Dose: 1.5 mg Sertraline HCl (Sertraline Hcl 50 Mg Tablet) 50 mg PO DAILY [facility] Last Admin: 09/02/22 09:29 Dose: 50 mg Trazodone HCl (Trazodone Hcl 50 Mg Tablet) 50 mg PO BEDTIME PRN PRN Reason: Sleep Trazodone HCl (Trazodone Hcl 100 Mg Tablet) 100 mg PO BEDTIME [facility] Last Admin: 09/01/22 20:19 Dose: 100 mg Vitamin D (Cholecalciferol (Vitamin D3) 25 Mcg Tablet) 25 mcg PO DAILY [facility] Last Admin: 09/02/22 09:28 Dose: 25 mcg Allergies Allergies Allergy/AdvReac Type Severity Reaction Status Date / Time No Known Allergies Allergy Verified 08/12/22 23:06 Assessment & Plan Assessment & Plan (1) Major 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 Patient is friendly and calm. She is alert and oriented to self place; she said she came to the hospital because she was nervous but is not sure why she has to remain. Patient endorses paranoid delusions saying that there are cameras and microphones set up in house to spy on her; daughter says no history of psychiatric illness that she knows of and no psychotic symptoms until this past July. Plan: 08/15: psychotic symptoms most likely secondary to neurocognitive disorder. continue risperidone and sertraline. Once MOCA is completed, pattern of cognitive impairment will be more clear. 08/16 continue current medications. May consider medication such as exelon or aricept 08/17 may change to olanzapine as pt already with resting tremors. Start exelon 1.5mg po BID. 08/18 continue tx. change risperidone to olanzapine 2.5mg po qhs given underlying resting tremor. 08/19 continue with same treatment 08/20 continue same treatment. Tremors are visible- neurology saw pt and recommended propanolol, however, pt on metoprolol. This sign writer hand sent message to neurology to clarify if okay to give both but no response yet. 08/21 increase Zyprexa up to 5 mg po qhs. 08/22 continue tx. 08/24 Increase olanzapine to 2.5mg po daily and 5mg po qhs. start aumentin 500mg po BID x 7 days for sinusitis. 08/26 Tremors are visible and impairing her mobility- neurology saw pt and recommended propanolol, however, pt on metoprolol. This sign writer hand sent message to neurology to clarify if okay to give both but no response yet. Will add propanolol 20mg po BID. 08/27: Continue current tx plan. VSS. 08/28: Continue current plan 08/29 continue tx. 08/30 continue tx. 08/31 continue tx. 09/01 continue tx. called [facility] to check on next cortisone shot for left knee not until November. 09/02 continue tx. [facility] reports next cortisone shot for knee is in November, not September. Reason for contiued inpatient stay Substantial Risk for: inability to function Time Spent With Patient Time: Total time managing care of this patient today ____ minutes.
[2022-09-02] MEDS: OLANZapine 5 MG TABLET PO (20:27)
[2022-09-02] MEDS: Propranolol HCL 20 MG TABLET PO (20:27)
[2022-09-02] MEDS: traZODone HCL 100 MG TABLET PO (20:27)
[2022-09-03 08:36] VITALS: BP 146/67; PULSE 85; RESP 17; TEMP 36.1; O2SAT 97
[2022-09-03] MEDS: Metoprolol Succinate ER 50 MG TAB.ER.24H PO (09:00)
[2022-09-03] MEDS: Furosemide 40 MG TABLET PO (09:00)
[2022-09-03] MEDS: Rivastigmine Tartrate 1.5 MG CAPSULE PO ×2 (09:00→20:32)
[2022-09-03] MEDS: NIFEdipine ER 90 MG TAB.ER.24 PO (09:00)
[2022-09-03] MEDS: Cholecalciferol (Vitamin D3) 25 MCG TABLET PO (09:00)
[2022-09-03] MEDS: Sertraline HCL 50 MG TABLET PO (09:00)
[2022-09-03] MEDS: Atorvastatin Calcium 10 MG TABLET PO (09:00)
[2022-09-03] MEDS: Aspirin Enteric Coated 81 MG TABLET.DR PO (09:00)
[2022-09-03] MEDS: Propranolol HCL 20 MG TABLET PO ×2 (09:00→20:32)
--- NOTE | 2022-09-03 12:54 | HO.PSYCHPN ---
Subjective Subjective Date of Service: 09/03/22 Reason For Visit: confused Subjective Notes: Conditional Voluntary Interim History: Pt continues to present as pleasant on approach. She reports she is feeling well. She reports she has been sleeping well- which is verified by nursing. She is more visible on the unit but does not interact with peers much. She reports left knee pain at times is severe, taking tylenol and capsaicin. No SI/HI. She continues to be seen self dialoguing which daughter reports is not her usual, although pt will say she is praying. Review of Systems Review of Systems Yes all other systems are reviewed and are negative Mental Status Exam Mental Status Exam Narrative: Appearance: casually groomed, good hygiene, in NAD. Ambulates with walker Behavior: friendly Psychomotor: no agitation or retardation noted Speech: clear, normal rate/rhythm/volume, spontaneous. TP: mostly linear, poverty of thought TC: feeling comfortable here Mood: Good Affect: bright, congruent SI: denies HI: denies VH/AH: denies, no overt signs Delusions: no overt delusional content noted or reported Insight/judgment: impaired x 2. Memory/cog: alert, not oriented to place, situation, year, she does know is August. Pending MOCA and ACL. Diagnostics Vital Signs (24Hr): Vital Signs - 24 hr 09/02/22 18:00 09/03/22 08:36 Temperature 97.0 F Pulse Rate 73 85 Respiratory Rate 16 17 Blood Pressure 140/63 H 146/67 H Pulse Oximetry 93 97 Oxygen Delivery Method Room Air Room Air BMI result Body Mass Index 24.5 Labs 08/12/22 15:40 08/29/22 09:20 Imaging Radiology Impressions: ITS Impressions Head CT 08/15/22 14:53 IMPRESSION: No acute intracranial pathology. Significant right sphenoid sinus disease; correlate for any acute symptomatology. Chest X-Ray 08/28/22 22:24 IMPRESSION: No acute pulmonary disease. Medications Medications Current Medications Acetaminophen (Acetaminophen 325 Mg Tablet) 650 mg PO Q6H PRN PRN Reason: Headache/Pain Mild Scale (1-3) Last Admin: 08/28/22 21:47 Dose: 650 mg Al Hydroxide/Mg Hydroxide (Magnesium Hydrox/Alum Hydrox 30 Ml Oral.Susp) 30 ml PO Q6H PRN PRN Reason: Heartburn/Nausea Aspirin (Aspirin Enteric Coated 81 Mg Tablet.Dr) 81 mg PO DAILY [facility] Last Admin: 09/03/22 09:00 Dose: 81 mg Atorvastatin Calcium (Atorvastatin Calcium 10 Mg Tablet) 10 mg PO DAILY [facility] Last Admin: 09/03/22 09:00 Dose: 10 mg Benzocaine (Throat Lozenge, Medicated Lozenge) 1 lozenge MUCOUS MEM Q2H PRN PRN Reason: Sore Throat Last Admin: 08/26/22 06:05 Dose: 1 lozenge Calcium Carbonate (Calcium Carbonate 500 Mg Tablet) 500 mg PO DAILY [facility] Last Admin: 09/03/22 09:00 Dose: 500 mg Capsaicin (Capsaicin 0.025% Cream 60 Gm Tube) 1 appl TOPICAL TID [facility]; Protocol Last Admin: 09/03/22 09:34 Dose: Not Given Furosemide (Furosemide 40 Mg Tablet) 40 mg PO DAILY [facility]; Protocol Last Admin: 09/03/22 09:00 Dose: 40 mg Guaifenesin (Guaifenesin 200 Mg/10 Ml 10 Ml Liquid) 10 ml PO Q6H PRN PRN Reason: Cough Last Admin: 08/28/22 21:47 Dose: 10 ml Guaifenesin/Dextromethorphan (Guaifenesin Dm 100/10/5 Ml 5 Ml Syrup) 5 ml PO Q4H PRN PRN Reason: cough Magnesium Hydroxide (Milk Of Magnesia 30 Ml Oral.Susp) 30 ml PO DAILY PRN PRN Reason: Constipation Melatonin (Melatonin 3 Mg Tablet) 9 mg PO BEDTIME PRN PRN Reason: insomnia Last Admin: 08/22/22 20:34 Dose: 9 mg Metoprolol Succinate (Metoprolol Succinate Er 50 Mg Tab.Er.24h) 50 mg PO DAILY [facility]; Protocol Last Admin: 09/03/22 09:00 Dose: 50 mg Nifedipine (Nifedipine Er 90 Mg Tab.Er.24) 90 mg PO DAILY [facility] Last Admin: 09/03/22 09:00 Dose: 90 mg Non-Formulary Medication ( Diclofenac Sodium 1% Gel) 1 each TOPICAL BID@829,2029 [facility] Last Admin: 09/03/22 09:02 Dose: 1 each Olanzapine (Olanzapine 2.5 Mg Tablet) 2.5 mg PO TID PRN PRN Reason: agitation Last Admin: 08/23/22 00:47 Dose: 2.5 mg Olanzapine (Olanzapine 5 Mg Tablet) 5 mg PO BEDTIME [facility] Last Admin: 09/02/22 20:27 Dose: 5 mg Olanzapine (Olanzapine 2.5 Mg Tablet) 2.5 mg PO DAILY@1500 [facility] Last Admin: 09/02/22 14:21 Dose: 2.5 mg Ondansetron HCl (Ondansetron Odt 4 Mg Tab.Rapdis) 4 mg TRANSLINGU Q8H PRN PRN Reason: Nausea Propranolol HCl (Propranolol Hcl 20 Mg Tablet) 20 mg PO BID [facility]; Protocol Last Admin: 09/03/22 09:00 Dose: 20 mg Rivastigmine Tartrate (Rivastigmine Tartrate 1.5 Mg Capsule) 1.5 mg PO BID [facility] Last Admin: 09/03/22 09:00 Dose: 1.5 mg Sertraline HCl (Sertraline Hcl 50 Mg Tablet) 50 mg PO DAILY [facility] Last Admin: 09/03/22 09:00 Dose: 50 mg Trazodone HCl (Trazodone Hcl 50 Mg Tablet) 50 mg PO BEDTIME PRN PRN Reason: Sleep Trazodone HCl (Trazodone Hcl 100 Mg Tablet) 100 mg PO BEDTIME [facility] Last Admin: 09/02/22 20:27 Dose: 100 mg Vitamin D (Cholecalciferol (Vitamin D3) 25 Mcg Tablet) 25 mcg PO DAILY [facility] Last Admin: 09/03/22 09:00 Dose: 25 mcg Allergies Allergies Allergy/AdvReac Type Severity Reaction Status Date / Time No Known Allergies Allergy Verified 08/12/22 23:06 Assessment & Plan Assessment & Plan (1) Major 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 Patient is friendly and calm. She is alert and oriented to self place; she said she came to the hospital because she was nervous but is not sure why she has to remain. Patient endorses paranoid delusions saying that there are cameras and microphones set up in house to spy on her; daughter says no history of psychiatric illness that she knows of and no psychotic symptoms until this past July. Plan: 08/15: psychotic symptoms most likely secondary to neurocognitive disorder. continue risperidone and sertraline. Once MOCA is completed, pattern of cognitive impairment will be more clear. 08/16 continue current medications. May consider medication such as exelon or aricept 08/17 may change to olanzapine as pt already with resting tremors. Start exelon 1.5mg po BID. 08/18 continue tx. change risperidone to olanzapine 2.5mg po qhs given underlying resting tremor. 08/19 continue with same treatment 08/20 continue same treatment. Tremors are visible- neurology saw pt and recommended propanolol, however, pt on metoprolol. This clinical writer sent message to neurology to clarify if okay to give both but no response yet. 08/21 increase Zyprexa up to 5 mg po qhs. 08/22 continue tx. 08/24 Increase olanzapine to 2.5mg po daily and 5mg po qhs. start aumentin 500mg po BID x 7 days for sinusitis. 08/26 Tremors are visible and impairing her mobility- neurology saw pt and recommended propanolol, however, pt on metoprolol. This clinical writer sent message to neurology to clarify if okay to give both but no response yet. Will add propanolol 20mg po BID. 08/27: Continue current tx plan. VSS. 08/28: Continue current plan 08/29 continue tx. 08/30 continue tx. 08/31 continue tx. 09/01 continue tx. called [facility] to check on next cortisone shot for left knee not until November. 09/02 continue tx. 09/03 continue tx. Reason for contiued inpatient stay Substantial Risk for: inability to function Time Spent With Patient Time: Total time managing care of this patient today ____ minutes.
[2022-09-03] MEDS: OLANZapine 2.5 MG TABLET PO (15:25)
[2022-09-03 18:00] VITALS: BP 118/59; PULSE 62; RESP 18; TEMP 36.2; O2SAT 93
[2022-09-03] MEDS: OLANZapine 5 MG TABLET PO (20:31)
[2022-09-03] MEDS: Capsaicin 0.025% Cream 60 GM TUBE 1 APPL TOPICAL (20:31)
[2022-09-03] MEDS: traZODone HCL 100 MG TABLET PO (20:32)
[2022-09-04] MEDS: Acetaminophen 325 MG TABLET 650 MG PO (01:12)
[2022-09-04] MEDS: traZODone HCL 50 MG TABLET PO (01:13)
[2022-09-04 07:30] VITALS: BP 136/65; PULSE 62; RESP 15; TEMP 36.2; O2SAT 96
[2022-09-04] MEDS: NIFEdipine ER 90 MG TAB.ER.24 PO (09:17)
[2022-09-04] MEDS: Rivastigmine Tartrate 1.5 MG CAPSULE PO ×2 (09:17→20:48)
[2022-09-04] MEDS: Metoprolol Succinate ER 50 MG TAB.ER.24H PO (09:17)
[2022-09-04] MEDS: Aspirin Enteric Coated 81 MG TABLET.DR PO (09:17)
[2022-09-04] MEDS: Cholecalciferol (Vitamin D3) 25 MCG TABLET PO (09:17)
[2022-09-04] MEDS: Sertraline HCL 50 MG TABLET PO (09:18)
[2022-09-04] MEDS: Atorvastatin Calcium 10 MG TABLET PO (09:18)
[2022-09-04] MEDS: Furosemide 40 MG TABLET PO (09:18)
[2022-09-04] MEDS: Propranolol HCL 20 MG TABLET PO ×2 (09:18→20:48)
[2022-09-04] MEDS: OLANZapine 2.5 MG TABLET PO (15:35)
--- NOTE | 2022-09-04 19:56 | P.PNPSI_ITS ---
Subjective Subjective Date of Service: 09/04/22 Reason For Visit: confused Subjective Notes: Conditional Voluntary Interim History: Pt continues to present as pleasant on approach. She reports she is feeling well. She reports she has been sleeping well- which is verified by nursing. She is more visible on the unit but does not interact with peers much. She reports left knee pain at times is severe, taking tylenol and capsaicin. No SI/HI. She continues but appears less, self dialoguing. Review of Systems Review of Systems Yes all other systems are reviewed and are negative Mental Status Exam Mental Status Exam Narrative: Appearance: casually groomed, good hygiene, in NAD. Ambulates with walker Behavior: friendly Psychomotor: no agitation or retardation noted Speech: clear, normal rate/rhythm/volume, spontaneous. TP: mostly linear, poverty of thought TC: feeling comfortable here Mood: Good Affect: bright, congruent SI: denies HI: denies VH/AH: denies, no overt signs Delusions: no overt delusional content noted or reported Insight/judgment: impaired x 2. Memory/cog: alert, not oriented to place, situation, year, she does know is August. Pending MOCA and ACL. Diagnostics Vital Signs (24Hr): Vital Signs - 24 hr 09/04/22 07:30 Temperature 97.1 F Pulse Rate 62 Respiratory Rate 15 Blood Pressure 136/65 Pulse Oximetry 96 Oxygen Delivery Method Room Air BMI result Body Mass Index 24.5 Labs 08/12/22 15:40 08/29/22 09:20 Imaging Radiology Impressions: ITS Impressions Head CT 08/15/22 14:53 IMPRESSION: No acute intracranial pathology. Significant right sphenoid sinus disease; correlate for any acute symptomatology. Chest X-Ray 08/28/22 22:24 IMPRESSION: No acute pulmonary disease. Medications Medications Current Medications Acetaminophen (Acetaminophen 325 Mg Tablet) 650 mg PO Q6H PRN PRN Reason: Headache/Pain Mild Scale (1-3) Last Admin: 09/04/22 01:12 Dose: 650 mg Al Hydroxide/Mg Hydroxide (Magnesium Hydrox/Alum Hydrox 30 Ml Oral.Susp) 30 ml PO Q6H PRN PRN Reason: Heartburn/Nausea Aspirin (Aspirin Enteric Coated 81 Mg Tablet.) 81 mg PO DAILY [facility] Last Admin: 09/04/22 09:17 Dose: 81 mg Atorvastatin Calcium (Atorvastatin Calcium 10 Mg Tablet) 10 mg PO DAILY [facility] Last Admin: 09/04/22 09:18 Dose: 10 mg Benzocaine (Throat Lozenge, Medicated Lozenge) 1 lozenge MUCOUS MEM Q2H PRN PRN Reason: Sore Throat Last Admin: 08/26/22 06:05 Dose: 1 lozenge Calcium Carbonate (Calcium Carbonate 500 Mg Tablet) 500 mg PO DAILY [facility] Last Admin: 09/04/22 09:18 Dose: 500 mg Capsaicin (Capsaicin 0.025% Cream 60 Gm Tube) 1 appl TOPICAL TID [facility]; Protocol Last Admin: 09/04/22 16:00 Dose: Not Given Furosemide (Furosemide 40 Mg Tablet) 40 mg PO DAILY [facility]; Protocol Last Admin: 09/04/22 09:18 Dose: 40 mg Guaifenesin (Guaifenesin 200 Mg/10 Ml 10 Ml Liquid) 10 ml PO Q6H PRN PRN Reason: Cough Last Admin: 08/28/22 21:47 Dose: 10 ml Guaifenesin/Dextromethorphan (Guaifenesin Dm 100/10/5 Ml 5 Ml Syrup) 5 ml PO Q4H PRN PRN Reason: cough Magnesium Hydroxide (Milk Of Magnesia 30 Ml Oral.Susp) 30 ml PO DAILY PRN PRN Reason: Constipation Melatonin (Melatonin 3 Mg Tablet) 9 mg PO BEDTIME PRN PRN Reason: insomnia Last Admin: 08/22/22 20:34 Dose: 9 mg Metoprolol Succinate (Metoprolol Succinate Er 50 Mg Tab.Er.24h) 50 mg PO DAILY [facility]; Protocol Last Admin: 09/04/22 09:17 Dose: 50 mg Nifedipine (Nifedipine Er 90 Mg Tab.Er.24) 90 mg PO DAILY [facility] Last Admin: 09/04/22 09:17 Dose: 90 mg Non-Formulary Medication ( Diclofenac Sodium 1% Gel) 1 each TOPICAL BID@0830,2030 [facility] Last Admin: 09/04/22 09:50 Dose: Not Given Olanzapine (Olanzapine 2.5 Mg Tablet) 2.5 mg PO TID PRN PRN Reason: agitation Last Admin: 08/23/22 00:47 Dose: 2.5 mg Olanzapine (Olanzapine 5 Mg Tablet) 5 mg PO BEDTIME [facility] Last Admin: 09/03/22 20:31 Dose: 5 mg Olanzapine (Olanzapine 2.5 Mg Tablet) 2.5 mg PO DAILY@1500 [facility] Last Admin: 09/04/22 15:35 Dose: 2.5 mg Ondansetron HCl (Ondansetron Odt 4 Mg Tab.Rapdis) 4 mg TRANSLINGU Q8H PRN PRN Reason: Nausea Propranolol HCl (Propranolol Hcl 20 Mg Tablet) 20 mg PO BID [facility]; Protocol Last Admin: 09/04/22 09:18 Dose: 20 mg Rivastigmine Tartrate (Rivastigmine Tartrate 1.5 Mg Capsule) 1.5 mg PO BID [facility] Last Admin: 09/04/22 09:17 Dose: 1.5 mg Sertraline HCl (Sertraline Hcl 50 Mg Tablet) 50 mg PO DAILY [facility] Last Admin: 09/04/22 09:18 Dose: 50 mg Trazodone HCl (Trazodone Hcl 50 Mg Tablet) 50 mg PO BEDTIME PRN PRN Reason: Sleep Last Admin: 09/04/22 01:13 Dose: 50 mg Trazodone HCl (Trazodone Hcl 100 Mg Tablet) 100 mg PO BEDTIME [facility] Last Admin: 09/03/22 20:32 Dose: 100 mg Vitamin D (Cholecalciferol (Vitamin D3) 25 Mcg Tablet) 25 mcg PO DAILY [facility] Last Admin: 09/04/22 09:17 Dose: 25 mcg Allergies Allergies Allergy/AdvReac Type Severity Reaction Status Date / Time No Known Allergies Allergy Verified 08/12/22 23:06 Assessment & Plan Assessment & Plan (1) Major 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 Patient is friendly and calm. She is alert and oriented to self place; she said she came to the hospital because she was nervous but is not sure why she has to remain. Patient endorses paranoid delusions saying that there are cameras and microphones set up in house to spy on her; daughter says no history of psychiatric illness that she knows of and no psychotic symptoms until this past July. Plan: 08/15: psychotic symptoms most likely secondary to neurocognitive disorder. continue risperidone and sertraline. Once MOCA is completed, pattern of cognitive impairment will be more clear. 08/16 continue current medications. May consider medication such as exelon or aricept 08/17 may change to olanzapine as pt already with resting tremors. Start exelon 1.5mg po BID. 08/18 continue tx. change risperidone to olanzapine 2.5mg po qhs given underlying resting tremor. 08/19 continue with same treatment 08/20 continue same treatment. Tremors are visible- neurology saw pt and recommended propanolol, however, pt on metoprolol. This jingle writer sent message to neurology to clarify if okay to give both but no response yet. 08/21 increase Zyprexa up to 5 mg po qhs. 08/22 continue tx. 08/24 Increase olanzapine to 2.5mg po daily and 5mg po qhs. start aumentin 500mg po BID x 7 days for sinusitis. 08/26 Tremors are visible and impairing her mobility- neurology saw pt and recommended propanolol, however, pt on metoprolol. This jingle writer sent message to neurology to clarify if okay to give both but no response yet. Will add propanolol 20mg po BID. 08/27: Continue current tx plan. VSS. 08/28: Continue current plan 08/29 continue tx. 08/30 continue tx. 08/31 continue tx. 09/01 continue tx. called [facility] to check on next cortisone shot for left knee not until November. 09/02 continue tx. 09/03 continue tx 09/04 continue tx. Reason for contiued inpatient stay Substantial Risk for: inability to function Time Spent With Patient Time: Total time managing care of this patient today ____ minutes.
[2022-09-04] MEDS: OLANZapine 5 MG TABLET PO (20:48)
[2022-09-04] MEDS: traZODone HCL 100 MG TABLET PO (20:48)
[2022-09-04 21:39] VITALS: BP 112/55; PULSE 61; RESP 18; TEMP 36.5; O2SAT 93
[2022-09-05 08:00] VITALS: BP 143/67; PULSE 67; RESP 18; TEMP 36.6; O2SAT 96
[2022-09-05] MEDS: Sertraline HCL 50 MG TABLET PO (09:20)
[2022-09-05] MEDS: Atorvastatin Calcium 10 MG TABLET PO (09:20)
[2022-09-05] MEDS: Aspirin Enteric Coated 81 MG TABLET.DR PO (09:20)
[2022-09-05] MEDS: Rivastigmine Tartrate 1.5 MG CAPSULE PO ×2 (09:20→21:16)
[2022-09-05] MEDS: Cholecalciferol (Vitamin D3) 25 MCG TABLET PO (09:20)
[2022-09-05] MEDS: NIFEdipine ER 90 MG TAB.ER.24 PO (09:21)
[2022-09-05] MEDS: Propranolol HCL 20 MG TABLET PO (09:21)
[2022-09-05] MEDS: Metoprolol Succinate ER 50 MG TAB.ER.24H PO (09:21)
[2022-09-05] MEDS: Furosemide 40 MG TABLET PO (09:21)
[2022-09-05] MEDS: Capsaicin 0.025% Cream 60 GM TUBE 1 APPL TOPICAL ×3 (09:22→21:17)
--- NOTE | 2022-09-05 13:28 | P.PNPSI_ITS ---
Subjective Subjective Date of Service: 09/05/22 Reason For Visit: confused Subjective Notes: Conditional Voluntary Interim History: Pt continues to present as pleasant on approach. She reports knee pain. She states she hopes to go to new facility soon. She is awaiting answer from facility as pt hopes to be discharged soon. Pt denies SI/HI. Does talk sometimes, which she states she is praying. Review of Systems Review of Systems Yes all other systems are reviewed and are negative Mental Status Exam Mental Status Exam Narrative: Appearance: casually groomed, good hygiene, in NAD. Ambulates with walker Behavior: friendly Psychomotor: no agitation or retardation noted Speech: clear, normal rate/rhythm/volume, spontaneous. TP: mostly linear, poverty of thought TC: feeling comfortable here Mood: Good Affect: bright, congruent SI: denies HI: denies VH/AH: denies, no overt signs Delusions: no overt delusional content noted or reported Insight/judgment: impaired x 2. Memory/cog: alert, not oriented to place, situation, year, she does know is August. Pending MOCA and ACL. Diagnostics Vital Signs (24Hr): Vital Signs - 24 hr 09/04/22 21:39 09/05/22 08:00 Temperature 97.7 F 97.9 F Pulse Rate 61 67 Respiratory Rate 18 18 Blood Pressure 112/55 L 143/67 H Pulse Oximetry 93 96 Oxygen Delivery Method Room Air Room Air BMI result Body Mass Index 24.5 Labs 08/12/22 15:40 08/29/22 09:20 Imaging Radiology Impressions: ITS Impressions Head CT 08/15/22 14:53 IMPRESSION: No acute intracranial pathology. Significant right sphenoid sinus disease; correlate for any acute symptomatology. Chest X-Ray 08/28/22 22:24 IMPRESSION: No acute pulmonary disease. Medications Medications Current Medications Acetaminophen (Acetaminophen 325 Mg Tablet) 650 mg PO Q6H PRN PRN Reason: Headache/Pain Mild Scale (1-3) Last Admin: 09/04/22 01:12 Dose: 650 mg Al Hydroxide/Mg Hydroxide (Magnesium Hydrox/Alum Hydrox 30 Ml Oral.Susp) 30 ml PO Q6H PRN PRN Reason: Heartburn/Nausea Aspirin (Aspirin Enteric Coated 81 Mg Tablet.) 81 mg PO DAILY [facility] Last Admin: 09/05/22 09:20 Dose: 81 mg Atorvastatin Calcium (Atorvastatin Calcium 10 Mg Tablet) 10 mg PO DAILY [facility] Last Admin: 09/05/22 09:20 Dose: 10 mg Benzocaine (Throat Lozenge, Medicated Lozenge) 1 lozenge MUCOUS MEM Q2H PRN PRN Reason: Sore Throat Last Admin: 08/26/22 06:05 Dose: 1 lozenge Calcium Carbonate (Calcium Carbonate 500 Mg Tablet) 500 mg PO DAILY [facility] Last Admin: 09/05/22 09:21 Dose: 500 mg Capsaicin (Capsaicin 0.025% Cream 60 Gm Tube) 1 appl TOPICAL TID [facility]; Protocol Last Admin: 09/05/22 09:22 Dose: 1 appl Furosemide (Furosemide 40 Mg Tablet) 40 mg PO DAILY [facility]; Protocol Last Admin: 09/05/22 09:21 Dose: 40 mg Guaifenesin (Guaifenesin 200 Mg/10 Ml 10 Ml Liquid) 10 ml PO Q6H PRN PRN Reason: Cough Last Admin: 08/28/22 21:47 Dose: 10 ml Guaifenesin/Dextromethorphan (Guaifenesin Dm 100/10/5 Ml 5 Ml Syrup) 5 ml PO Q4H PRN PRN Reason: cough Magnesium Hydroxide (Milk Of Magnesia 30 Ml Oral.Susp) 30 ml PO DAILY PRN PRN Reason: Constipation Melatonin (Melatonin 3 Mg Tablet) 9 mg PO BEDTIME PRN PRN Reason: insomnia Last Admin: 08/22/22 20:34 Dose: 9 mg Metoprolol Succinate (Metoprolol Succinate Er 50 Mg Tab.Er.24h) 50 mg PO DAILY [facility]; Protocol Last Admin: 09/05/22 09:21 Dose: 50 mg Nifedipine (Nifedipine Er 90 Mg Tab.Er.24) 90 mg PO DAILY [facility] Last Admin: 09/05/22 09:21 Dose: 90 mg Non-Formulary Medication ( Diclofenac Sodium 1% Gel) 1 each TOPICAL BID@0830 ,2030 [facility] Last Admin: 09/05/22 10:44 Dose: 1 each Olanzapine (Olanzapine 2.5 Mg Tablet) 2.5 mg PO TID PRN PRN Reason: agitation Last Admin: 08/23/22 00:47 Dose: 2.5 mg Olanzapine (Olanzapine 5 Mg Tablet) 5 mg PO BEDTIME [facility] Last Admin: 09/04/22 20:48 Dose: 5 mg Olanzapine (Olanzapine 2.5 Mg Tablet) 2.5 mg PO DAILY@1500 [facility] Last Admin: 09/04/22 15:35 Dose: 2.5 mg Ondansetron HCl (Ondansetron Odt 4 Mg Tab.Rapdis) 4 mg TRANSLINGU Q8H PRN PRN Reason: Nausea Propranolol HCl (Propranolol Hcl 20 Mg Tablet) 20 mg PO BID [facility]; Protocol Last Admin: 09/05/22 09:21 Dose: 20 mg Rivastigmine Tartrate (Rivastigmine Tartrate 1.5 Mg Capsule) 1.5 mg PO BID [facility] Last Admin: 09/05/22 09:20 Dose: 1.5 mg Sertraline HCl (Sertraline Hcl 50 Mg Tablet) 50 mg PO DAILY [facility] Last Admin: 09/05/22 09:20 Dose: 50 mg Trazodone HCl (Trazodone Hcl 50 Mg Tablet) 50 mg PO BEDTIME PRN PRN Reason: Sleep Last Admin: 09/04/22 01:13 Dose: 50 mg Trazodone HCl (Trazodone Hcl 100 Mg Tablet) 100 mg PO BEDTIME [facility] Last Admin: 09/04/22 20:48 Dose: 100 mg Vitamin D (Cholecalciferol (Vitamin D3) 25 Mcg Tablet) 25 mcg PO DAILY [facility] Last Admin: 09/05/22 09:20 Dose: 25 mcg Allergies Allergies Allergy/AdvReac Type Severity Reaction Status Date / Time No Known Allergies Allergy Verified 08/12/22 23:06 Assessment & Plan Assessment & Plan (1) Major 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 Patient is friendly and calm. She is alert and oriented to self place; she said she came to the hospital because she was nervous but is not sure why she has to remain. Patient endorses paranoid delusions saying that there are cameras and microphones set up in house to spy on her; daughter says no history of psychiatric illness that she knows of and no psychotic symptoms until this past July. Plan: 08/15: psychotic symptoms most likely secondary to neurocognitive disorder. continue risperidone and sertraline. Once MOCA is completed, pattern of cognitive impairment will be more clear. 08/16 continue current medications. May consider medication such as exelon or aricept 08/17 may change to olanzapine as pt already with resting tremors. Start exelon 1.5mg po BID. 08/18 continue tx. change risperidone to olanzapine 2.5mg po qhs given underlying resting tremor. 08/19 continue with same treatment 08/20 continue same treatment. Tremors are visible- neurology saw pt and recommended propanolol, however, pt on metoprolol. This mortgage loan underwriter sent message to neurology to clarify if okay to give both but no response yet. 08/21 increase Zyprexa up to 5 mg po qhs. 08/22 continue tx. 08/24 Increase olanzapine to 2.5mg po daily and 5mg po qhs. start aumentin 500mg po BID x 7 days for sinusitis. 08/26 Tremors are visible and impairing her mobility- neurology saw pt and recommended propanolol, however, pt on metoprolol. This mortgage loan underwriter sent message to neurology to clarify if okay to give both but no response yet. Will add propanolol 20mg po BID. 08/27: Continue current tx plan. VSS. 08/28: Continue current plan 08/29 continue tx. 08/30 continue tx. 08/31 continue tx. 09/01 continue tx. called [facility] to check on next cortisone shot for left knee not until November. 09/02 continue tx. 09/03 continue tx 09/04 continue tx. 09/05 continue tx. Reason for contiued inpatient stay Substantial Risk for: inability to function Time Spent With Patient Time: Total time managing care of this patient today ____ minutes.
[2022-09-05] MEDS: OLANZapine 2.5 MG TABLET PO (14:54)
[2022-09-05] MEDS: Acetaminophen 325 MG TABLET 650 MG PO (17:34)
[2022-09-05 18:00] VITALS: BP 156/71; PULSE 59; RESP 18; TEMP 36.1; O2SAT 95
[2022-09-05] MEDS: traZODone HCL 100 MG TABLET PO (21:15)
[2022-09-05] MEDS: OLANZapine 5 MG TABLET PO (21:15)
[2022-09-06 10:20] VITALS: BP 148/68; PULSE 63; RESP 18; TEMP 36.5; O2SAT 95
[2022-09-06] MEDS: Sertraline HCL 50 MG TABLET PO (10:56)
[2022-09-06] MEDS: Furosemide 40 MG TABLET PO (10:56)
[2022-09-06] MEDS: NIFEdipine ER 90 MG TAB.ER.24 PO (10:56)
[2022-09-06] MEDS: Atorvastatin Calcium 10 MG TABLET PO (10:56)
[2022-09-06] MEDS: Propranolol HCL 20 MG TABLET PO ×2 (10:57→20:20)
[2022-09-06] MEDS: Metoprolol Succinate ER 50 MG TAB.ER.24H PO (10:57)
[2022-09-06] MEDS: Aspirin Enteric Coated 81 MG TABLET.DR PO (10:57)
[2022-09-06] MEDS: Rivastigmine Tartrate 1.5 MG CAPSULE PO ×2 (10:57→20:20)
[2022-09-06] MEDS: Cholecalciferol (Vitamin D3) 25 MCG TABLET PO (10:58)
[2022-09-06] MEDS: Capsaicin 0.025% Cream 60 GM TUBE 1 APPL TOPICAL (14:44)
[2022-09-06] MEDS: Acetaminophen 325 MG TABLET 650 MG PO (14:45)
[2022-09-06] MEDS: OLANZapine 2.5 MG TABLET PO (14:45)
[2022-09-06] MEDS: traMADoL HCL 50 MG TABLET 25 MG PO (15:55)
[2022-09-06 20:07] VITALS: BP 129/62; PULSE 64
[2022-09-06] MEDS: OLANZapine 5 MG TABLET PO (20:20)
[2022-09-06] MEDS: Acetaminophen 325 MG TABLET 975 MG PO (20:20)
[2022-09-06] MEDS: traZODone HCL 100 MG TABLET PO (20:20)
--- NOTE | 2022-09-06 21:44 | P.PNPSI_ITS ---
Subjective Subjective Date of Service: 09/06/22 Reason For Visit: confused Subjective Notes: Conditional Voluntary Interim History: Pt sleeping and eating well. Pt very disappointed because facility considers she should go to memory unit,not regular [facility]. Pt denies SI/HI. Pt reports knee pain as severe- schedule tylenol, will give one dose of tramadol. No behavioral concerns. Medication Compliance: Yes Side effects from medications: No Review of Systems Review of Systems Yes all other systems are reviewed and are negative Mental Status Exam Mental Status Exam Narrative: Appearance: casually groomed, good hygiene, in NAD. Ambulates with walker Behavior: friendly Psychomotor: no agitation or retardation noted Speech: clear, normal rate/rhythm/volume, spontaneous. TP: mostly linear, poverty of thought TC: feeling comfortable here Mood: Good Affect: bright, congruent SI: denies HI: denies VH/AH: denies, no overt signs Delusions: no overt delusional content noted or reported Insight/judgment: impaired x 2. Memory/cog: alert, not oriented to place, situation, year, she does know is August. Pending MOCA and ACL. Diagnostics Vital Signs (24Hr): Vital Signs - 24 hr 09/06/22 10:20 09/06/22 20:07 Temperature 97.7 F Pulse Rate 63 64 Respiratory Rate 18 Blood Pressure 148/68 H 129/62 Pulse Oximetry 95 Oxygen Delivery Method Room Air BMI result Body Mass Index 24.5 Labs 08/12/22 15:40 08/29/22 09:20 Imaging Radiology Impressions: ITS Impressions Head CT 08/15/22 14:53 IMPRESSION: No acute intracranial pathology. Significant right sphenoid sinus disease; correlate for any acute symptomatology. Chest X-Ray 08/28/22 22:24 IMPRESSION: No acute pulmonary disease. Medications Medications Current Medications Acetaminophen (Acetaminophen 325 Mg Tablet) 975 mg PO BID [facility] Last Admin: 09/06/22 20:20 Dose: 975 mg Al Hydroxide/Mg Hydroxide (Magnesium Hydrox/Alum Hydrox 30 Ml Oral.Susp) 30 ml PO Q6H PRN PRN Reason: Heartburn/Nausea Aspirin (Aspirin Enteric Coated 81 Mg Tablet.) 81 mg PO DAILY [facility] Last Admin: 09/06/22 10:57 Dose: 81 mg Atorvastatin Calcium (Atorvastatin Calcium 10 Mg Tablet) 10 mg PO DAILY [facility] Last Admin: 09/06/22 10:56 Dose: 10 mg Benzocaine (Throat Lozenge, Medicated Lozenge) 1 lozenge MUCOUS MEM Q2H PRN PRN Reason: Sore Throat Last Admin: 08/26/22 06:05 Dose: 1 lozenge Calcium Carbonate (Calcium Carbonate 500 Mg Tablet) 500 mg PO DAILY [facility] Last Admin: 09/06/22 10:57 Dose: 500 mg Capsaicin (Capsaicin 0.025% Cream 60 Gm Tube) 1 appl TOPICAL TID [facility]; Protocol Last Admin: 09/06/22 20:24 Dose: Not Given Furosemide (Furosemide 40 Mg Tablet) 40 mg PO DAILY [facility]; Protocol Last Admin: 09/06/22 10:56 Dose: 40 mg Guaifenesin (Guaifenesin 200 Mg/10 Ml 10 Ml Liquid) 10 ml PO Q6H PRN PRN Reason: Cough Last Admin: 08/28/22 21:47 Dose: 10 ml Guaifenesin/Dextromethorphan (Guaifenesin Dm 100/10/5 Ml 5 Ml Syrup) 5 ml PO Q4H PRN PRN Reason: cough Magnesium Hydroxide (Milk Of Magnesia 30 Ml Oral.Susp) 30 ml PO DAILY PRN PRN Reason: Constipation Melatonin (Melatonin 3 Mg Tablet) 9 mg PO BEDTIME PRN PRN Reason: insomnia Last Admin: 08/22/22 20:34 Dose: 9 mg Metoprolol Succinate (Metoprolol Succinate Er 50 Mg Tab.Er.24h) 50 mg PO DAILY [facility]; Protocol Last Admin: 09/06/22 10:57 Dose: 50 mg Nifedipine (Nifedipine Er 90 Mg Tab.Er.24) 90 mg PO DAILY [facility] Last Admin: 09/06/22 10:56 Dose: 90 mg Non-Formulary Medication ( Diclofenac Sodium 1% Gel) 1 each TOPICAL BID@0830,2030 [facility] Last Admin: 09/06/22 20:24 Dose: Not Given Olanzapine (Olanzapine 2.5 Mg Tablet) 2.5 mg PO TID PRN PRN Reason: agitation Last Admin: 08/23/22 00:47 Dose: 2.5 mg Olanzapine (Olanzapine 5 Mg Tablet) 5 mg PO BEDTIME [facility] Last Admin: 09/06/22 20:20 Dose: 5 mg Olanzapine (Olanzapine 2.5 Mg Tablet) 2.5 mg PO DAILY@1500 [facility] Last Admin: 09/06/22 14:45 Dose: 2.5 mg Ondansetron HCl (Ondansetron Odt 4 Mg Tab.Rapdis) 4 mg TRANSLINGU Q8H PRN PRN Reason: Nausea Propranolol HCl (Propranolol Hcl 20 Mg Tablet) 20 mg PO BID [facility]; Protocol Last Admin: 09/06/22 20:20 Dose: 20 mg Rivastigmine Tartrate (Rivastigmine Tartrate 1.5 Mg Capsule) 1.5 mg PO BID [facility] Last Admin: 09/06/22 20:20 Dose: 1.5 mg Sertraline HCl (Sertraline Hcl 50 Mg Tablet) 50 mg PO DAILY [facility] Last Admin: 09/06/22 10:56 Dose: 50 mg Trazodone HCl (Trazodone Hcl 50 Mg Tablet) 50 mg PO BEDTIME PRN PRN Reason: Sleep Last Admin: 09/04/22 01:13 Dose: 50 mg Trazodone HCl (Trazodone Hcl 100 Mg Tablet) 100 mg PO BEDTIME [facility] Last Admin: 09/06/22 20:20 Dose: 100 mg Vitamin D (Cholecalciferol (Vitamin D3) 25 Mcg Tablet) 25 mcg PO DAILY [facility] Last Admin: 09/06/22 10:58 Dose: 25 mcg Allergies Allergies Allergy/AdvReac Type Severity Reaction Status Date / Time No Known Allergies Allergy Verified 08/12/22 23:06 Assessment & Plan Assessment & Plan (1) Major 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 Patient is friendly and calm. She is alert and oriented to self place; she said she came to the hospital because she was nervous but is not sure why she has to remain. Patient endorses paranoid delusions saying that there are cameras and microphones set up in house to spy on her; daughter says no history of psychiatric illness that she knows of and no psychotic symptoms until this past July. Plan: 08/15: psychotic symptoms most likely secondary to neurocognitive disorder. continue risperidone and sertraline. Once MOCA is completed, pattern of cognitive impairment will be more clear. 08/16 continue current medications. May consider medication such as exelon or aricept 08/17 may change to olanzapine as pt already with resting tremors. Start exelon 1.5mg po BID. 08/18 continue tx. change risperidone to olanzapine 2.5mg po qhs given underlying resting tremor. 08/19 continue with same treatment 08/20 continue same treatment. Tremors are visible- neurology saw pt and recommended propanolol, however, pt on metoprolol. This senior underwriter sent message to neurology to clarify if okay to give both but no response yet. 08/21 increase Zyprexa up to 5 mg po qhs. 08/22 continue tx. 08/24 Increase olanzapine to 2.5mg po daily and 5mg po qhs. start aumentin 500mg po BID x 7 days for sinusitis. 08/26 Tremors are visible and impairing her mobility- neurology saw pt and recommended propanolol, however, pt on metoprolol. This senior underwriter sent message to neurology to clarify if okay to give both but no response yet. Will add p ropanolol 20mg po BID. 08/27: Continue current tx plan. VSS. 08/28: Continue current plan 08/29 continue tx. 08/30 continue tx. 08/31 continue tx. 09/01 continue tx. called [facility] to check on next cortisone shot for left knee not until November. 09/02 continue tx. 09/03 continue tx 09/04 continue tx. 09/05 continue tx. 09/06 schedule tylenol 979 mg po BID. one time dose of tramadol for knee pain. Reason for contiued inpatient stay Substantial Risk for: inability to function Time Spent With Patient Time: Total time managing care of this patient today ____ minutes.
[2022-09-06] MEDS: traZODone HCL 50 MG TABLET PO (23:12)
[2022-09-06] MEDS: Melatonin 3 MG TABLET 9 MG PO (23:14)
[2022-09-06] MEDS: guaiFENesin 200 MG/10 ML 10 ML LIQUID PO (23:15)
[2022-09-07 06:00] VITALS: BP 130/62; PULSE 62; RESP 16; TEMP 36.1; O2SAT 97
[2022-09-07] MEDS: Capsaicin 0.025% Cream 60 GM TUBE 1 APPL TOPICAL ×2 (09:00→20:39)
[2022-09-07] MEDS: Rivastigmine Tartrate 1.5 MG CAPSULE PO ×2 (09:03→20:41)
[2022-09-07] MEDS: Sertraline HCL 50 MG TABLET PO (09:03)
[2022-09-07] MEDS: Cholecalciferol (Vitamin D3) 25 MCG TABLET PO (09:03)
[2022-09-07] MEDS: NIFEdipine ER 90 MG TAB.ER.24 PO (09:03)
[2022-09-07] MEDS: Acetaminophen 325 MG TABLET 975 MG PO ×2 (09:03→20:38)
[2022-09-07] MEDS: Furosemide 40 MG TABLET PO (09:04)
[2022-09-07] MEDS: Metoprolol Succinate ER 50 MG TAB.ER.24H PO (09:04)
[2022-09-07] MEDS: Aspirin Enteric Coated 81 MG TABLET.DR PO (09:04)
[2022-09-07] MEDS: Propranolol HCL 20 MG TABLET PO ×2 (09:04→20:40)
[2022-09-07] MEDS: Atorvastatin Calcium 10 MG TABLET PO (09:04)
--- NOTE | 2022-09-07 10:14 | HO.PSYCHPN ---
Subjective Subjective Date of Service: 09/07/22 Reason For Visit: confused Subjective Notes: Conditional Voluntary Interim History: Pt sleeping and eating well. Pt pleasant cooperative c/o knee pain No behavioral concerns. Medication Compliance: Yes Side effects from medications: No Mental Status Exam Mental Status Exam Narrative: Appearance: casually groomed, good hygiene, in NAD. Ambulates with walker Behavior: friendly Psychomotor: no agitation or retardation noted Speech: clear, normal rate/rhythm/volume, spontaneous. TP: mostly linear, poverty of thought TC: feeling comfortable here Mood: Good Affect: bright, congruent SI: denies HI: denies VH/AH: denies, no overt signs Delusions: no overt delusional content noted or reported Insight/judgment: impaired x 2. Memory/cog: alert, not oriented to place, situation, year, she does know is August. Pending MOCA and ACL. Diagnostics Vital Signs (24Hr): Vital Signs - 24 hr 09/06/22 10:20 09/06/22 20:07 09/07/22 06:00 Temperature 97.7 F 96.9 F Pulse Rate 63 64 62 Respiratory Rate 18 16 Blood Pressure 148/68 H 129/62 130/62 Pulse Oximetry 95 97 Oxygen Delivery Method Room Air Room Air BMI result Body Mass Index 24.5 Labs 08/12/22 15:40 08/29/22 09:20 Imaging Radiology Impressions: ITS Impressions Head CT 08/15/22 14:53 IMPRESSION: No acute intracranial pathology. Significant right sphenoid sinus disease; correlate for any acute symptomatology. Chest X-Ray 08/28/22 22:24 IMPRESSION: No acute pulmonary disease. Medications Medications Current Medications Acetaminophen (Acetaminophen 325 Mg Tablet) 975 mg PO BID [facility] Last Admin: 09/07/22 09:03 Dose: 975 mg Al Hydroxide/Mg Hydroxide (Magnesium Hydrox/Alum Hydrox 30 Ml Oral.Susp) 30 ml PO Q6H PRN PRN Reason: Heartburn/Nausea Aspirin (Aspirin Enteric Coated 81 Mg Tablet.) 81 mg PO DAILY [facility] Last Admin: 09/07/22 09:04 Dose: 81 mg Atorvastatin Calcium (Atorvastatin Calcium 10 Mg Tablet) 10 mg PO DAILY [facility] Last Admin: 09/07/22 09:04 Dose: 10 mg Benzocaine (Throat Lozenge, Medicated Lozenge) 1 lozenge MUCOUS MEM Q2H PRN PRN Reason: Sore Throat Last Admin: 08/26/22 06:05 Dose: 1 lozenge Calcium Carbonate (Calcium Carbonate 500 Mg Tablet) 500 mg PO DAILY [facility] Last Admin: 09/07/22 09:04 Dose: 500 mg Capsaicin (Capsaicin 0.025% Cream 60 Gm Tube) 1 appl TOPICAL TID [facility]; Protocol Last Admin: 09/07/22 09:00 Dose: 1 appl Furosemide (Furosemide 40 Mg Tablet) 40 mg PO DAILY [facility]; Protocol Last Admin: 09/07/22 09:04 Dose: 40 mg Guaifenesin (Guaifenesin 200 Mg/10 Ml 10 Ml Liquid) 10 ml PO Q6H PRN PRN Reason: Cough Last Admin: 09/06/22 23:15 Dose: 10 ml Guaifenesin/Dextromethorphan (Guaifenesin Dm 100/10/5 Ml 5 Ml Syrup) 5 ml PO Q4H PRN PRN Reason: cough Magnesium Hydroxide (Milk Of Magnesia 30 Ml Oral.Susp) 30 ml PO DAILY PRN PRN Reason: Constipation Melatonin (Melatonin 3 Mg Tablet) 9 mg PO BEDTIME PRN PRN Reason: insomnia Last Admin: 09/06/22 23:14 Dose: 9 mg Metoprolol Succinate (Metoprolol Succinate Er 50 Mg Tab.Er.24h) 50 mg PO DAILY [facility]; Protocol Last Admin: 09/07/22 09:04 Dose: 50 mg Nifedipine (Nifedipine Er 90 Mg Tab.Er.24) 90 mg PO DAILY [facility] Last Admin: 09/07/22 09:03 Dose: 90 mg Non-Formulary Medication ( Diclofenac Sodium 1% Gel) 1 each TOPICAL BID@0830,2030 [facility] Last Admin: 09/07/22 09:00 Dose: 1 each Olanzapine (Olanzapine 2.5 Mg Tablet) 2.5 mg PO TID PRN PRN Reason: agitation Last Admin: 08/23/22 00:47 Dose: 2.5 mg Olanzapine (Olanzapine 5 Mg Tablet) 5 mg PO BEDTIME [facility] Last Admin: 09/06/22 20:20 Dose: 5 mg Olanzapine (Olanzapine 2.5 Mg Tablet) 2.5 mg PO DAILY@1500 [facility] Last Admin: 09/06/22 14:45 Dose: 2.5 mg Ondansetron HCl (Ondansetron Odt 4 Mg Tab.Rapdis) 4 mg TRANSLINGU Q8H PRN PRN Reason: Nausea Propranolol HCl (Propranolol Hcl 20 Mg Tablet) 20 mg PO BID [facility]; Protocol Last Admin: 09/07/22 09:04 Dose: 20 mg Rivastigmine Tartrate (Rivastigmine Tartrate 1.5 Mg Capsule) 1.5 mg PO BID [facility] Last Admin: 09/07/22 09:03 Dose: 1.5 mg Sertraline HCl (Sertraline Hcl 50 Mg Tablet) 50 mg PO DAILY [facility] Last Admin: 09/07/22 09:03 Dose: 50 mg Trazodone HCl (Trazodone Hcl 50 Mg Tablet) 50 mg PO BEDTIME PRN PRN Reason: Sleep Last Admin: 09/06/22 23:12 Dose: 50 mg Trazodone HCl (Trazodone Hcl 100 Mg Tablet) 100 mg PO BEDTIME [facility] Last Admin: 09/06/22 20:20 Dose: 100 mg Vitamin D (Cholecalciferol (Vitamin D3) 25 Mcg Tablet) 25 mcg PO DAILY [facility] Last Admin: 09/07/22 09:03 Dose: 25 mcg Allergies Allergies Allergy/AdvReac Type Severity Reaction Status Date / Time No Known Allergies Allergy Verified 08/12/22 23:06 Assessment & Plan Assessment & Plan (1) Major 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 Patient is friendly and calm. She is alert and oriented to self place; she said she came to the hospital because she was nervous but is not sure why she has to remain. Patient endorses paranoid delusions saying that there are cameras and microphones set up in house to spy on her; daughter says no history of psychiatric illness that she knows of and no psychotic symptoms until this past July. Plan: 08/15: psychotic symptoms most likely secondary to neurocognitive disorder. continue risperidone and sertraline. Once MOCA is completed, pattern of cognitive impairment will be more clear. 08/16 continue current medications. May consider medication such as exelon or aricept 08/17 may change to olanzapine as pt already with resting tremors. Start exelon 1.5mg po BID. 08/18 continue tx. change risperidone to olanzapine 2.5mg po qhs given underlying resting tremor. 08/19 continue with same treatment 08/20 continue same treatment. Tremors are visible- neurology saw pt and recommended propanolol, however, pt on metoprolol. This entry writer sent message to neurology to clarify if okay to give both but no response yet. 08/21 increase Zyprexa up to 5 mg po qhs. 08/22 continue tx. 08/24 Increase olanzapine to 2.5mg po daily and 5mg po qhs. start aumentin 500mg po BID x 7 days for sinusitis. 08/26 Tremors are visible and impairing her mobility- neurology saw pt and recommended propanolol, however, pt on metoprolol. This entry writer sent message to neurology to clarify if okay to give both but no response yet. Will add propanolol 20mg po BID. 08/27: Continue current tx plan. VSS. 08/28: Continue current plan 08/29 continue tx. 08/30 continue tx. 08/31 continue tx. 09/01 continue tx. called [facility] to check on next cortisone shot for left knee not until November. 09/02 continue tx. 09/03 continue tx 09/04 continue tx. 09/05 continue tx. 09/06 schedule tylenol 979 mg po BID. one time dose of tramadol for knee pain. 09/07/22 cont plan of care d/c planning Reason for contiued inpatient stay Substantial Risk for: inability to function and rapid decompensation Time Spent With Patient Time: Total time managing care of this patient today ____ minutes.
[2022-09-07] MEDS: OLANZapine 2.5 MG TABLET PO (14:30)
[2022-09-07 18:00] VITALS: BP 138/63; PULSE 66; RESP 18; TEMP 36.4; O2SAT 96
[2022-09-07] MEDS: OLANZapine 5 MG TABLET PO (20:40)
[2022-09-07] MEDS: traZODone HCL 100 MG TABLET PO (20:41)
[2022-09-08 06:00] VITALS: BP 164/77; PULSE 62; RESP 18; TEMP 36.7; O2SAT 96
[2022-09-08] MEDS: Metoprolol Succinate ER 50 MG TAB.ER.24H PO (08:56)
[2022-09-08] MEDS: Rivastigmine Tartrate 1.5 MG CAPSULE PO ×2 (08:56→22:59)
[2022-09-08] MEDS: Acetaminophen 325 MG TABLET 975 MG PO ×2 (08:56→22:58)
[2022-09-08] MEDS: NIFEdipine ER 90 MG TAB.ER.24 PO (08:57)
[2022-09-08] MEDS: Aspirin Enteric Coated 81 MG TABLET.DR PO (08:57)
[2022-09-08] MEDS: Furosemide 40 MG TABLET PO (08:57)
[2022-09-08] MEDS: Cholecalciferol (Vitamin D3) 25 MCG TABLET PO (08:57)
[2022-09-08] MEDS: Propranolol HCL 20 MG TABLET PO (08:57)
[2022-09-08] MEDS: Atorvastatin Calcium 10 MG TABLET PO (08:57)
[2022-09-08] MEDS: Sertraline HCL 50 MG TABLET PO (08:58)
[2022-09-08] MEDS: OLANZapine 2.5 MG TABLET PO (16:24)
[2022-09-08] MEDS: Capsaicin 0.025% Cream 60 GM TUBE 1 APPL TOPICAL ×2 (16:24→22:59)
[2022-09-08 22:57] VITALS: BP 121/56; PULSE 61; RESP 18; TEMP 36.9; O2SAT 98
[2022-09-08] MEDS: OLANZapine 5 MG TABLET PO (22:59)
[2022-09-08] MEDS: traZODone HCL 100 MG TABLET PO (22:59)
[2022-09-09 06:00] VITALS: BP 129/62; PULSE 66; RESP 16; TEMP 36.1; O2SAT 95
[2022-09-09] MEDS: Sertraline HCL 50 MG TABLET PO (08:12)
[2022-09-09] MEDS: Aspirin Enteric Coated 81 MG TABLET.DR PO (08:12)
[2022-09-09] MEDS: Propranolol HCL 20 MG TABLET PO ×2 (08:12→19:50)
[2022-09-09] MEDS: Rivastigmine Tartrate 1.5 MG CAPSULE PO ×2 (08:13→19:50)
[2022-09-09] MEDS: Acetaminophen 325 MG TABLET 975 MG PO ×2 (08:13→19:50)
[2022-09-09] MEDS: Cholecalciferol (Vitamin D3) 25 MCG TABLET PO (08:14)
[2022-09-09] MEDS: Furosemide 40 MG TABLET PO (08:14)
[2022-09-09] MEDS: NIFEdipine ER 90 MG TAB.ER.24 PO (08:14)
[2022-09-09] MEDS: Metoprolol Succinate ER 50 MG TAB.ER.24H PO (08:14)
[2022-09-09] MEDS: Atorvastatin Calcium 10 MG TABLET PO (08:14)
--- NOTE | 2022-09-09 08:31 | P.PNPSI_ITS ---
Subjective Subjective Date of Service: 09/08/22 Reason For Visit: confused Subjective Notes: Conditional Voluntary Interim History: Pt reports she is doing well, continues to report knee pain, minimal effect with tylenol. Pt denies SI/HI. She hopes to go soon to new facility, she states she does not want to be a burden to her children and understand she can't live with them. Per nursing, no behavioral concerns. Review of Systems Review of Systems Yes all other systems are reviewed and are negative Mental Status Exam Mental Status Exam Narrative: Appearance: casually groomed, good hygiene, in NAD. Ambulates with walker Behavior: friendly Psychomotor: no agitation or retardation noted Speech: clear, normal rate/rhythm/volume, spontaneous. TP: mostly linear, poverty of thought TC: feeling comfortable here Mood: Good Affect: bright, congruent SI: denies HI: denies VH/AH: denies, no overt signs Delusions: no overt delusional content noted or reported Insight/judgment: impaired x 2. Memory/cog: alert, not oriented to place, situation, year, she does know is August. Pending MOCA and ACL. Diagnostics Vital Signs (24Hr): Vital Signs - 24 hr 09/08/22 22:57 Temperature 98.4 F Pulse Rate 61 Respiratory Rate 18 Blood Pressure 121/56 L Pulse Oximetry 98 Oxygen Delivery Method Room Air BMI result Body Mass Index 24.5 Labs 08/12/22 15:40 08/29/22 09:20 Imaging Radiology Impressions: ITS Impressions Head CT 08/15/22 14:53 IMPRESSION: No acute intracranial pathology. Significant right sphenoid sinus disease; correlate for any acute symptomatology. Chest X-Ray 08/28/22 22:24 IMPRESSION: No acute pulmonary disease. Medications Medications Current Medications Acetaminophen (Acetaminophen 325 Mg Tablet) 975 mg PO BID [facility] Last Admin: 09/09/22 08:13 Dose: 975 mg Al Hydroxide/Mg Hydroxide (Magnesium Hydrox/Alum Hydrox 30 Ml Oral.Susp) 30 ml PO Q6H PRN PRN Reason: Heartburn/Nausea Aspirin (Aspirin Enteric Coated 81 Mg Tablet.) 81 mg PO DAILY [facility] Last Admin: 09/09/22 08:12 Dose: 81 mg Atorvastatin Calcium (Atorvastatin Calcium 10 Mg Tablet) 10 mg PO DAILY [facility] Last Admin: 09/09/22 08:14 Dose: 10 mg Benzocaine (Throat Lozenge, Medicated Lozenge) 1 lozenge MUCOUS MEM Q2H PRN PRN Reason: Sore Throat Last Admin: 08/26/22 06:05 Dose: 1 lozenge Calcium Carbonate (Calcium Carbonate 500 Mg Tablet) 500 mg PO DAILY [facility] Last Admin: 09/09/22 08:14 Dose: 500 mg Capsaicin (Capsaicin 0.025% Cream 60 Gm Tube) 1 appl TOPICAL TID [facility]; Protocol Last Admin: 09/08/22 22:59 Dose: 1 appl Furosemide (Furosemide 40 Mg Tablet) 40 mg PO DAILY [facility]; Protocol Last Admin: 09/09/22 08:14 Dose: 40 mg Guaifenesin (Guaifenesin 200 Mg/10 Ml 10 Ml Liquid) 10 ml PO Q6H PRN PRN Reason: Cough Last Admin: 09/06/22 23:15 Dose: 10 ml Guaifenesin/Dextromethorphan (Guaifenesin Dm 100/10/5 Ml 5 Ml Syrup) 5 ml PO Q4H PRN PRN Reason: cough Magnesium Hydroxide (Milk Of Magnesia 30 Ml Oral.Susp) 30 ml PO DAILY PRN PRN Reason: Constipation Melatonin (Melatonin 3 Mg Tablet) 9 mg PO BEDTIME PRN PRN Reason: insomnia Last Admin: 09/06/22 23:14 Dose: 9 mg Metoprolol Succinate (Metoprolol Succinate Er 50 Mg Tab.Er.24h) 50 mg PO DAILY [facility]; Protocol Last Admin: 09/09/22 08:14 Dose: 50 mg Nifedipine (Nifedipine Er 90 Mg Tab.Er.24) 90 mg PO DAILY [facility] Last Admin: 09/09/22 08:14 Dose: 90 mg Non-Formulary Medication ( Diclofenac Sodium 1% Gel) 1 each TOPICAL BID@0830,2030 [facility] Last Admin: 09/08/22 22:59 Dose: 1 each Olanzapine (Olanzapine 2.5 Mg Tablet) 2.5 mg PO TID PRN PRN Reason: agitation Last Admin: 08/23/22 00:47 Dose: 2.5 mg Olanzapine (Olanzapine 5 Mg Tablet) 5 mg PO BEDTIME [facility] Last Admin: 09/08/22 22:59 Dose: 5 mg Olanzapine (Olanzapine 2.5 Mg Tablet) 2.5 mg PO DAILY@1500 [facility] Last Admin: 09/08/22 16:24 Dose: 2.5 mg Ondansetron HCl (Ondansetron Odt 4 Mg Tab.Rapdis) 4 mg TRANSLINGU Q8H PRN PRN Reason: Nausea Propranolol HCl (Propranolol Hcl 20 Mg Tablet) 20 mg PO BID [facility]; Protocol Last Admin: 09/09/22 08:12 Dose: 20 mg Rivastigmine Tartrate (Rivastigmine Tartrate 1.5 Mg Capsule) 1.5 mg PO BID [facility] Last Admin: 09/09/22 08:13 Dose: 1.5 mg Sertraline HCl (Sertraline Hcl 50 Mg Tablet) 50 mg PO DAILY [facility] Last Admin: 09/09/22 08:12 Dose: 50 mg Trazodone HCl (Trazodone Hcl 50 Mg Tablet) 50 mg PO BEDTIME PRN PRN Reason: Sleep Last Admin: 09/06/22 23:12 Dose: 50 mg Trazodone HCl (Trazodone Hcl 100 Mg Tablet) 100 mg PO BEDTIME [facility] Last Admin: 09/08/22 22:59 Dose: 100 mg Vitamin D (Cholecalciferol (Vitamin D3) 25 Mcg Tablet) 25 mcg PO DAILY [facility] Last Admin: 09/09/22 08:14 Dose: 25 mcg Allergies Allergies Allergy/AdvReac Type Severity Reaction Status Date / Time No Known Allergies Allergy Verified 08/12/22 23:06 Assessment & Plan Assessment & Plan (1) Major 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 Patient is friendly and calm. She is alert and oriented to self place; she said she came to the hospital because she was nervous but is not sure why she has to remain. Patient endorses paranoid delusions saying that there are cameras and microphones set up in house to spy on her; daughter says no history of psychiatric illness that she knows of and no psychotic symptoms until this past July. Plan: 08/15: psychotic symptoms most likely secondary to neurocognitive disorder. continue risperidone and sertraline. Once MOCA is completed, pattern of cognitive impairment will be more clear. 08/16 continue current medications. May consider medication such as exelon or aricept 08/17 may change to olanzapine as pt already with resting tremors. Start exelon 1.5mg po BID. 08/18 continue tx. change risperidone to olanzapine 2.5mg po qhs given underlying resting tremor. 08/19 continue with same treatment 08/20 continue same treatment. Tremors are visible- neurology saw pt and recommended propanolol, however, pt on metoprolol. This ticket writer sent message to neurology to clarify if okay to give both but no response yet. 08/21 increase Zyprexa up to 5 mg po qhs. 08/22 continue tx. 08/24 Increase olanzapine to 2.5mg po daily and 5mg po qhs. start aumentin 500mg po BID x 7 days for sinusitis. 08/26 Tremors are visible and impairing her mobility- neurology saw pt and recommended propanolol, however, pt on metoprolol. This ticket writer sent message to neurology to clarify if okay to give both but no response yet. Will add propanol ol 20mg po BID. 08/27: Continue current tx plan. VSS. 08/28: Continue current plan 08/29 continue tx. 08/30 continue tx. 08/31 continue tx. 09/01 continue tx. called [facility] to check on next cortisone shot for left knee not until November. 09/02 continue tx. 09/03 continue tx 09/04 continue tx. 09/05 continue tx. 09/06 schedule tylenol 979 mg po BID. one time dose of tramadol for knee pain. 09/07/22 cont plan of care d/c planning Reason for contiued inpatient stay Substantial Risk for: inability to function Time Spent With Patient Time: Total time managing care of this patient today ____ minutes.
--- NOTE | 2022-09-09 11:54 | P.PNPSI_ITS ---
Subjective Subjective Date of Service: 09/09/22 Reason For Visit: confused Subjective Notes: Conditional Voluntary Interim History: Pt continues to report she is doing well, continues to report knee pain, minimal effect with tylenol. Pt denies SI/HI. She hopes to go soon to new facility, she states she does not want to be a burden to her children and understand she can't live with them. Per nursing, no behavioral concerns. Review of Systems Review of Systems Yes all other systems are reviewed and are negative Mental Status Exam Mental Status Exam Narrative: Appearance: casually groomed, good hygiene, in NAD. Ambulates with walker Behavior: friendly Psychomotor: no agitation or retardation noted Speech: clear, normal rate/rhythm/volume, spontaneous. TP: mostly linear, poverty of thought TC: feeling comfortable here Mood: Good Affect: bright, congruent SI: denies HI: denies VH/AH: denies, no overt signs Delusions: no overt delusional content noted or reported Insight/judgment: impaired x 2. Memory/cog: alert, not oriented to place, situation, year, she does know is August. Pending MOCA and ACL. Diagnostics Vital Signs (24Hr): Vital Signs - 24 hr 09/08/22 22:57 09/09/22 06:00 Temperature 98.4 F 97.0 F Pulse Rate 61 66 Respiratory Rate 18 16 Blood Pressure 121/56 L 129/62 Pulse Oximetry 98 95 Oxygen Delivery Method Room Air Room Air BMI result Body Mass Index 24.5 Labs 08/12/22 15:40 08/29/22 09:20 Imaging Radiology Impressions: ITS Impressions Head CT 08/15/22 14:53 IMPRESSION: No acute intracranial pathology. Significant right sphenoid sinus disease; correlate for any acute symptomatology. Chest X-Ray 08/28/22 22:24 IMPRESSION: No acute pulmonary disease. Medications Medications Current Medications Acetaminophen (Acetaminophen 325 Mg Tablet) 975 mg PO BID [facility] Last Admin: 09/09/22 08:13 Dose: 975 mg Al Hydroxide/Mg Hydroxide (Magnesium Hydrox/Alum Hydrox 30 Ml Oral.Susp) 30 ml PO Q6H PRN PRN Reason: Heartburn/Nausea Aspirin (Aspirin Enteric Coated 81 Mg Tablet.) 81 mg PO DAILY [facility] Last Admin: 09/09/22 08:12 Dose: 81 mg Atorvastatin Calcium (Atorvastatin Calcium 10 Mg Tablet) 10 mg PO DAILY [facility] Last Admin: 09/09/22 08:14 Dose: 10 mg Benzocaine (Throat Lozenge, Medicated Lozenge) 1 lozenge MUCOUS MEM Q2H PRN PRN Reason: Sore Throat Last Admin: 08/26/22 06:05 Dose: 1 lozenge Calcium Carbonate (Calcium Carbonate 500 Mg Tablet) 500 mg PO DAILY [facility] Last Admin: 09/09/22 08:14 Dose: 500 mg Capsaicin (Capsaicin 0.025% Cream 60 Gm Tube) 1 appl TOPICAL TID [facility]; Protocol Last Admin: 09/08/22 22:59 Dose: 1 appl Furosemide (Furosemide 40 Mg Tablet) 40 mg PO DAILY [facility]; Protocol Last Admin: 09/09/22 08:14 Dose: 40 mg Guaifenesin (Guaifenesin 200 Mg/10 Ml 10 Ml Liquid) 10 ml PO Q6H PRN PRN Reason: Cough Last Admin: 09/06/22 23:15 Dose: 10 ml Guaifenesin/Dextromethorphan (Guaifenesin Dm 100/10/5 Ml 5 Ml Syrup) 5 ml PO Q4H PRN PRN Reason: cough Magnesium Hydroxide (Milk Of Magnesia 30 Ml Oral.Susp) 30 ml PO DAILY PRN PRN Reason: Constipation Melatonin (Melatonin 3 Mg Tablet) 9 mg PO BEDTIME PRN PRN Reason: insomnia Last Admin: 09/06/22 23:14 Dose: 9 mg Metoprolol Succinate (Metoprolol Succinate Er 50 Mg Tab.Er.24h) 50 mg PO DAILY [facility]; Protocol Last Admin: 09/09/22 08:14 Dose: 50 mg Nifedipine (Nifedipine Er 90 Mg Tab.Er.24) 90 mg PO DAILY [facility] Last Admin: 09/09/22 08:14 Dose: 90 mg Non-Formulary Medication ( Diclofenac Sodium 1% Gel) 1 each TOPICAL BID@0830,2030 [facility] Last Admin: 09/09/22 08:35 Dose: 1 each Olanzapine (Olanzapine 2.5 Mg Tablet) 2.5 mg PO TID PRN PRN Reason: agitation Last Admin: 08/23/22 00:47 Dose: 2.5 mg Olanzapine (Olanzapine 5 Mg Tablet) 5 mg PO BEDTIME [facility] Last Admin: 09/08/22 22:59 Dose: 5 mg Olanzapine (Olanzapine 2.5 Mg Tablet) 2.5 mg PO DAILY@1500 [facility] Last Admin: 09/08/22 16:24 Dose: 2.5 mg Ondansetron HCl (Ondansetron Odt 4 Mg Tab.Rapdis) 4 mg TRANSLINGU Q8H PRN PRN Reason: Nausea Propranolol HCl (Propranolol Hcl 20 Mg Tablet) 20 mg PO BID [facility]; Protocol Last Admin: 09/09/22 08:12 Dose: 20 mg Rivastigmine Tartrate (Rivastigmine Tartrate 1.5 Mg Capsule) 1.5 mg PO BID [facility] Last Admin: 09/09/22 08:13 Dose: 1.5 mg Sertraline HCl (Sertraline Hcl 50 Mg Tablet) 50 mg PO DAILY [facility] Last Admin: 09/09/22 08:12 Dose: 50 mg Trazodone HCl (Trazodone Hcl 50 Mg Tablet) 50 mg PO BEDTIME PRN PRN Reason: Sleep Last Admin: 09/06/22 23:12 Dose: 50 mg Trazodone HCl (Trazodone Hcl 100 Mg Tablet) 100 mg PO BEDTIME [facility] Last Admin: 09/08/22 22:59 Dose: 100 mg Vitamin D (Cholecalciferol (Vitamin D3) 25 Mcg Tablet) 25 mcg PO DAILY [facility] Last Admin: 09/09/22 08:14 Dose: 25 mcg Allergies Allergies Allergy/AdvReac Type Severity Reaction Status Date / Time No Known Allergies Allergy Verified 08/12/22 23:06 Assessment & Plan Assessment & Plan (1) Major 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 Patient is friendly and calm. She is alert and oriented to self place; she said she came to the hospital because she was nervous but is not sure why she has to remain. Patient endorses paranoid delusions saying that there are cameras and microphones set up in house to spy on her; daughter says no history of psychiatric illness that she knows of and no psychotic symptoms until this past July. Plan: 08/15: psychotic symptoms most likely secondary to neurocognitive disorder. continue risperidone and sertraline. Once MOCA is completed, pattern of cognitive impairment will be more clear. 08/16 continue current medications. May consider medication such as exelon or aricept 08/17 may change to olanzapine as pt already with resting tremors. Start exelon 1.5mg po BID. 08/18 continue tx. change risperidone to olanzapine 2.5mg po qhs given underlying resting tremor. 08/19 continue with same treatment 08/20 continue same treatment. Tremors are visible- neurology saw pt and recommended propanolol, however, pt on metoprolol. This insurance writer sent message to neurology to clarify if okay to give both but no response yet. 08/21 increase Zyprexa up to 5 mg po qhs. 08/22 continue tx. 08/24 Increase olanzapine to 2.5mg po daily and 5mg po qhs. start aumentin 500mg po BID x 7 days for sinusitis. 08/26 Tremors are visible and impairing her mobility- neurology saw pt and recommended propanolol, however, pt on metoprolol. This insurance writer sent message to neurology to clarify if okay to give both but no response yet. Will add propanolol 20mg po BID. 08/27: Continue current tx plan. VSS. 08/28: Continue current plan 08/29 continue tx. 08/30 continue tx. 08/31 continue tx. 09/01 continue tx. called [facility] to check on next cortisone shot for left knee not until November. 09/02 continue tx. 09/03 continue tx 09/04 continue tx. 09/05 continue tx. 09/06 schedule tylenol 979 mg po BID. one time dose of tramadol for knee pain. 09/07/22 cont plan of care d/c planning 09/08 continue tx 09/09 continue tx. Reason for contiued inpatient stay Substantial Risk for: inability to function Time Spent With Patient Time: Total time managing care of this patient today ____ minutes.
[2022-09-09] MEDS: OLANZapine 2.5 MG TABLET PO (15:47)
[2022-09-09] MEDS: Capsaicin 0.025% Cream 60 GM TUBE 1 APPL TOPICAL (16:09)
[2022-09-09 18:00] VITALS: BP 135/90; PULSE 61; RESP 16; TEMP 36.1; O2SAT 97
[2022-09-09] MEDS: traZODone HCL 100 MG TABLET PO (19:50)
[2022-09-09] MEDS: OLANZapine 5 MG TABLET PO (19:50)
[2022-09-10 06:00] VITALS: BP 169/79; PULSE 64; RESP 16; TEMP 36.6; O2SAT 95
[2022-09-10] MEDS: Aspirin Enteric Coated 81 MG TABLET.DR PO (09:26)
[2022-09-10] MEDS: NIFEdipine ER 90 MG TAB.ER.24 PO (09:26)
[2022-09-10] MEDS: Acetaminophen 325 MG TABLET 975 MG PO ×2 (09:26→20:43)
[2022-09-10] MEDS: Metoprolol Succinate ER 50 MG TAB.ER.24H PO (09:27)
[2022-09-10] MEDS: Atorvastatin Calcium 10 MG TABLET PO (09:27)
[2022-09-10] MEDS: Furosemide 40 MG TABLET PO (09:27)
[2022-09-10] MEDS: Rivastigmine Tartrate 1.5 MG CAPSULE PO ×2 (09:27→20:44)
[2022-09-10] MEDS: Cholecalciferol (Vitamin D3) 25 MCG TABLET PO (09:27)
[2022-09-10] MEDS: Sertraline HCL 50 MG TABLET PO (09:27)
[2022-09-10] MEDS: Propranolol HCL 20 MG TABLET PO ×2 (09:27→20:43)
[2022-09-10] MEDS: OLANZapine 2.5 MG TABLET PO (14:23)
[2022-09-10 18:00] VITALS: BP 152/80; PULSE 65; RESP 18; TEMP 36.4; O2SAT 96
[2022-09-10] MEDS: traZODone HCL 100 MG TABLET PO (20:44)
[2022-09-10] MEDS: OLANZapine 5 MG TABLET PO (20:44)
[2022-09-10] MEDS: Capsaicin 0.025% Cream 60 GM TUBE 1 APPL TOPICAL (20:48)
--- NOTE | 2022-09-10 22:25 | HO.PSYCHPN ---
Subjective Subjective Date of Service: 09/10/22 Reason For Visit: confused Interim History: Met with pt and d/w nursing. Increased internal stimuli. Established cognitive impairment. Pt reports being upset about her daughter and blames her for being in the hospital. Reports knee pain- has diclofencac cream that daughter is bringing in from home. Reports feeling safe herre but not at her daughters home. Deniedi depression. Denied med concerns. Eating ok. Medication Compliance: Yes Side effects from medications: No Attending Groups: Intermittent Review of Systems Acute medical concerns: No Review of Systems Review of Systems nothing acute/new Mental Status Exam Mental Status Exam Narrative: Appearance: casually groomed, good hygiene, in NAD. Ambulates with walker Behavior: friendly Psychomotor: no agitation or retardation noted Speech: clear, normal rate/rhythm/volume, spontaneous. TP: mostly linear, poverty of thought TC: feeling comfortable here Mood: Good Affect: bright, congruent SI: denies HI: denies VH/AH: denies, no overt signs Delusions: no overt delusional content noted or reported Insight/judgment: impaired x 2. Memory/cog: alert, not oriented to place, situation, year Diagnostics Vital Signs (24Hr): Vital Signs - 24 hr 09/10/22 06:00 09/10/22 18:00 Temperature 97.8 F 97.6 F Pulse Rate 64 65 Respiratory Rate 16 18 Blood Pressure 169/79 H 152/80 H Pulse Oximetry 95 96 Oxygen Delivery Method Room Air Room Air BMI result Body Mass Index 24.5 Labs 08/12/22 15:40 08/29/22 09:20 Imaging Radiology Impressions: ITS Impressions Head CT 08/15/22 14:53 IMPRESSION: No acute intracranial pathology. Significant right sphenoid sinus disease; correlate for any acute symptomatology. Chest X-Ray 08/28/22 22:24 IMPRESSION: No acute pulmonary disease. Medications Medications Current Medications Acetaminophen (Acetaminophen 325 Mg Tablet) 975 mg PO BID [facility] Last Admin: 09/10/22 20:43 Dose: 975 mg Al Hydroxide/Mg Hydroxide (Magnesium Hydrox/Alum Hydrox 30 Ml Oral.Susp) 30 ml PO Q6H PRN PRN Reason: Heartburn/Nausea Aspirin (Aspirin Enteric Coated 81 Mg Tablet.) 81 mg PO DAILY [facility] Last Admin: 09/10/22 09:26 Dose: 81 mg Atorvastatin Calcium (Atorvastatin Calcium 10 Mg Tablet) 10 mg PO DAILY [facility] Last Admin: 09/10/22 09:27 Dose: 10 mg Benzocaine (Throat Lozenge, Medicated Lozenge) 1 lozenge MUCOUS MEM Q2H PRN PRN Reason: Sore Throat Last Admin: 08/26/22 06:05 Dose: 1 lozenge Calcium Carbonate (Calcium Carbonate 500 Mg Tablet) 500 mg PO DAILY [facility] Last Admin: 09/10/22 09:27 Dose: 500 mg Capsaicin (Capsaicin 0.025% Cream 60 Gm Tube) 1 appl TOPICAL TID [facility]; Protocol Last Admin: 09/10/22 20:48 Dose: 1 appl Furosemide (Furosemide 40 Mg Tablet) 40 mg PO DAILY [facility]; Protocol Last Admin: 09/10/22 09:27 Dose: 40 mg Guaifenesin (Guaifenesin 200 Mg/10 Ml 10 Ml Liquid) 10 ml PO Q6H PRN PRN Reason: Cough Last Admin: 09/06/22 23:15 Dose: 10 ml Guaifenesin/Dextromethorphan (Guaifenesin Dm 100/10/5 Ml 5 Ml Syrup) 5 ml PO Q4H PRN PRN Reason: cough Magnesium Hydroxide (Milk Of Magnesia 30 Ml Oral.Susp) 30 ml PO DAILY PRN PRN Reason: Constipation Melatonin (Melatonin 3 Mg Tablet) 9 mg PO BEDTIME PRN PRN Reason: insomnia Last Admin: 09/06/22 23:14 Dose: 9 mg Metoprolol Succinate (Metoprolol Succinate Er 50 Mg Tab.Er.24h) 50 mg PO DAILY [facility]; Protocol Last Admin: 09/10/22 09:27 Dose: 50 mg Nifedipine (Nifedipine Er 90 Mg Tab.Er.24) 90 mg PO DAILY [facility] Last Admin: 09/10/22 09:26 Dose: 90 mg Non-Formulary Medication ( Diclofenac Sodium 1% Gel) 1 each TOPICAL BID@0830,2030 [facility] Last Admin: 09/10/22 20:50 Dose: Not Given Olanzapine (Olanzapine 2.5 Mg Tablet) 2.5 mg PO TID PRN PRN Reason: agitation Last Admin: 08/23/22 00:47 Dose: 2.5 mg Olanzapine (Olanzapine 5 Mg Tablet) 5 mg PO BEDTIME [facility] Last Admin: 09/10/22 20:44 Dose: 5 mg Olanzapine (Olanzapine 2.5 Mg Tablet) 2.5 mg PO DAILY@1500 [facility] Last Admin: 09/10/22 14:23 Dose: 2.5 mg Ondansetron HCl (Ondansetron Odt 4 Mg Tab.Rapdis) 4 mg TRANSLINGU Q8H PRN PRN Reason: Nausea Propranolol HCl (Propranolol Hcl 20 Mg Tablet) 20 mg PO BID [facility]; Protocol Last Admin: 09/10/22 20:43 Dose: 20 mg Rivastigmine Tartrate (Rivastigmine Tartrate 1.5 Mg Capsule) 1.5 mg PO BID [facility] Last Admin: 09/10/22 20:44 Dose: 1.5 mg Sertraline HCl (Sertraline Hcl 50 Mg Tablet) 50 mg PO DAILY [facility] Last Admin: 09/10/22 09:27 Dose: 50 mg Trazodone HCl (Trazodone Hcl 50 Mg Tablet) 50 mg PO BEDTIME PRN PRN Reason: Sleep Last Admin: 09/06/22 23:12 Dose: 50 mg Trazodone HCl (Trazodone Hcl 100 Mg Tablet) 100 mg PO BEDTIME [facility] Last Admin: 09/10/22 20:44 Dose: 100 mg Vitamin D (Cholecalciferol (Vitamin D3) 25 Mcg Tablet) 25 mcg PO DAILY [facility] Last Admin: 09/10/22 09:27 Dose: 25 mcg Allergies Allergies Allergy/AdvReac Type Severity Reaction Status Date / Time No Known Allergies Allergy Verified 08/12/22 23:06 Assessment & Plan Assessment & Plan (1) Major 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 Patient is friendly and calm. She is alert and oriented to self place; she said she came to the hospital because she was nervous but is not sure why she has to remain. Patient endorses paranoid delusions saying that there are cameras and microphones set up in house to spy on her; daughter says no history of psychiatric illness that she knows of and no psychotic symptoms until this past July. Plan: 08/15: psychotic symptoms most likely secondary to neurocognitive disorder. continue risperidone and sertraline. Once MOCA is completed, pattern of cognitive impairment will be more clear. 08/16 continue current medications. May consider medication such as exelon or aricept 08/17 may change to olanzapine as pt already with resting tremors. Start exelon 1.5mg po BID. 08/18 continue tx. change risperidone to olanzapine 2.5mg po qhs given underlying resting tremor. 08/19 continue with same treatment 08/20 continue same treatment. Tremors are visible- neurology saw pt and recommended propanolol, however, pt on metoprolol. This advertising writer sent message to neurology to clarify if okay to give both but no response yet. 08/21 increase Zyprexa up to 5 mg po qhs. 08/22 continue tx. 08/24 Increase olanzapine to 2.5mg po daily and 5mg po qhs. start aumentin 500mg po BID x 7 days for sinusitis. 08/26 Tremors are visible and impairing her mobility- neurology saw pt and recommended propanolol, however, pt on metoprolol. This advertising writer sent message to neurology to clarify if okay to give both but no response yet. Will add propanolol 20mg po BID. 08/27: Continue current tx plan. VSS. 08/28: Continue current plan 08/29 continue tx. 08/30 continue tx. 08/31 continue tx. 09/01 continue tx. called [facility] to check on next cortisone shot for left knee not until November. 09/02 continue tx. 09/03 continue tx 09/04 continue tx. 09/05 continue tx. 09/06 schedule tylenol 979 mg po BID. one time dose of tramadol for knee pain. 09/07/22 cont plan of care d/c planning 09/08 continue tx 09/09 continue tx. 09/10: no changes Reason for contiued inpatient stay Substantial Risk for: inability to function and rapid decompensation Time Spent With Patient Time: Total time managing care of this patient today ____ minutes.
[2022-09-11 08:00] VITALS: BP 160/76; PULSE 77; RESP 16; TEMP 36.6; O2SAT 97
[2022-09-11] MEDS: Cholecalciferol (Vitamin D3) 25 MCG TABLET PO (08:35)
[2022-09-11] MEDS: NIFEdipine ER 90 MG TAB.ER.24 PO (08:36)
[2022-09-11] MEDS: Atorvastatin Calcium 10 MG TABLET PO (08:36)
[2022-09-11] MEDS: Acetaminophen 325 MG TABLET 975 MG PO ×2 (08:36→21:05)
[2022-09-11] MEDS: Furosemide 40 MG TABLET PO (08:36)
[2022-09-11] MEDS: Metoprolol Succinate ER 50 MG TAB.ER.24H PO (08:37)
[2022-09-11] MEDS: Sertraline HCL 50 MG TABLET PO (08:38)
[2022-09-11] MEDS: Propranolol HCL 20 MG TABLET PO ×2 (08:38→21:07)
[2022-09-11] MEDS: Rivastigmine Tartrate 1.5 MG CAPSULE PO ×2 (08:38→21:06)
[2022-09-11] MEDS: Aspirin Enteric Coated 81 MG TABLET.DR PO (08:39)
[2022-09-11] MEDS: Capsaicin 0.025% Cream 60 GM TUBE 1 APPL TOPICAL ×3 (08:40→21:05)
--- NOTE | 2022-09-11 13:33 | HO.PSYCHPN ---
Subjective Subjective Date of Service: 09/11/22 Reason For Visit: confused Interim History: Met with pt and d/w nursing. Established cognitive impairment. Complaining of lower left leg swelling- pitting, no clear tenderness, no cellulitis, but differs significantly from right side. Otherwise continue to be upset about being in the hospital and with her family. Increased internal stimuli. Denied med concerns. Eating ok. Medication Compliance: Yes Side effects from medications: No Attending Groups: Intermittent Review of Systems Complaining of lower left leg swelling- pitting, no clear tenderness, no cellulitis, but differs significantly from right side Review of Systems Review of Systems Complaining of lower left leg swelling- pitting, no clear tenderness, no cellulitis, but differs significantly from right side Mental Status Exam Mental Status Exam Narrative: Appearance: casually groomed, good hygiene, in NAD. Ambulates with walker Behavior: friendly Psychomotor: no agitation or retardation noted Speech: clear, normal rate/rhythm/volume, spontaneous. TP: mostly linear, poverty of thought TC: feeling comfortable here Mood: Good Affect: bright, congruent SI: denies HI: denies VH/AH: denies, no overt signs Delusions: no overt delusional content noted or reported Insight/judgment: impaired x 2. Memory/cog: alert, not oriented to place, situation, year Diagnostics Vital Signs (24Hr): Vital Signs - 24 hr 09/10/22 18:00 Temperature 97.6 F Pulse Rate 65 Respiratory Rate 18 Blood Pressure 152/80 H Pulse Oximetry 96 Oxygen Delivery Method Room Air BMI result Body Mass Index 24.5 Labs 08/12/22 15:40 08/29/22 09:20 Imaging Radiology Impressions: ITS Impressions Head CT 08/15/22 14:53 IMPRESSION: No acute intracranial pathology. Significant right sphenoid sinus disease; correlate for any acute symptomatology. Chest X-Ray 08/28/22 22:24 IMPRESSION: No acute pulmonary disease. Medications Medications Current Medications Acetaminophen (Acetaminophen 325 Mg Tablet) 975 mg PO BID [facility] Last Admin: 09/11/22 08:36 Dose: 975 mg Al Hydroxide/Mg Hydroxide (Magnesium Hydrox/Alum Hydrox 30 Ml Oral.Susp) 30 ml PO Q6H PRN PRN Reason: Heartburn/Nausea Aspirin (Aspirin Enteric Coated 81 Mg Tablet.) 81 mg PO DAILY [facility] Last Admin: 09/11/22 08:39 Dose: 81 mg Atorvastatin Calcium (Atorvastatin Calcium 10 Mg Tablet) 10 mg PO DAILY [facility] Last Admin: 09/11/22 08:36 Dose: 10 mg Benzocaine (Throat Lozenge, Medicated Lozenge) 1 lozenge MUCOUS MEM Q2H PRN PRN Reason: Sore Throat Last Admin: 08/26/22 06:05 Dose: 1 lozenge Calcium Carbonate (Calcium Carbonate 500 Mg Tablet) 500 mg PO DAILY [facility] Last Admin: 09/11/22 09:36 Dose: 500 mg Capsaicin (Capsaicin 0.025% Cream 60 Gm Tube) 1 appl TOPICAL TID [facility]; Protocol Last Admin: 09/11/22 08:40 Dose: 1 appl Furosemide (Furosemide 40 Mg Tablet) 40 mg PO DAILY [facility]; Protocol Last Admin: 09/11/22 08:36 Dose: 40 mg Guaifenesin (Guaifenesin 200 Mg/10 Ml 10 Ml Liquid) 10 ml PO Q6H PRN PRN Reason: Cough Last Admin: 09/06/22 23:15 Dose: 10 ml Guaifenesin/Dextromethorphan (Guaifenesin Dm 100/10/5 Ml 5 Ml Syrup) 5 ml PO Q4H PRN PRN Reason: cough Magnesium Hydroxide (Milk Of Magnesia 30 Ml Oral.Susp) 30 ml PO DAILY PRN PRN Reason: Constipation Melatonin (Melatonin 3 Mg Tablet) 9 mg PO BEDTIME PRN PRN Reason: insomnia Last Admin: 09/06/22 23:14 Dose: 9 mg Metoprolol Succinate (Metoprolol Succinate Er 50 Mg Tab.Er.24h) 50 mg PO DAILY [facility]; Protocol Last Admin: 09/11/22 08:37 Dose: 50 mg Nifedipine (Nifedipine Er 90 Mg Tab.Er.24) 90 mg PO DAILY [facility] Last Admin: 09/11/22 08:36 Dose: 90 mg Non-Formulary Medication ( Diclofenac Sodium 1% Gel) 1 each TOPICAL BID@829,2029 [facility] Last Admin: 09/11/22 09:35 Dose: Not Given Olanzapine (Olanzapine 2.5 Mg Tablet) 2.5 mg PO TID PRN PRN Reason: agitation Last Admin: 08/23/22 00:47 Dose: 2.5 mg Olanzapine (Olanzapine 5 Mg Tablet) 5 mg PO BEDTIME [facility] Last Admin: 09/10/22 20:44 Dose: 5 mg Olanzapine (Olanzapine 2.5 Mg Tablet) 2.5 mg PO DAILY@1500 [facility] Last Admin: 09/10/22 14:23 Dose: 2.5 mg Ondansetron HCl (Ondansetron Odt 4 Mg Tab.Rapdis) 4 mg TRANSLINGU Q8H PRN PRN Reason: Nausea Propranolol HCl (Propranolol Hcl 20 Mg Tablet) 20 mg PO BID [facility]; Protocol Last Admin: 09/11/22 08:38 Dose: 20 mg Rivastigmine Tartrate (Rivastigmine Tartrate 1.5 Mg Capsule) 1.5 mg PO BID [facility] Last Admin: 09/11/22 08:38 Dose: 1.5 mg Sertraline HCl (Sertraline Hcl 50 Mg Tablet) 50 mg PO DAILY [facility] Last Admin: 09/11/22 08:38 Dose: 50 mg Trazodone HCl (Trazodone Hcl 50 Mg Tablet) 50 mg PO BEDTIME PRN PRN Reason: Sleep Last Admin: 09/06/22 23:12 Dose: 50 mg Trazodone HCl (Trazodone Hcl 100 Mg Tablet) 100 mg PO BEDTIME [facility] Last Admin: 09/10/22 20:44 Dose: 100 mg Vitamin D (Cholecalciferol (Vitamin D3) 25 Mcg Tablet) 25 mcg PO DAILY [facility] Last Admin: 09/11/22 08:35 Dose: 25 mcg Allergies Allergies Allergy/AdvReac Type Severity Reaction Status Date / Time No Known Allergies Allergy Verified 08/12/22 23:06 Assessment & Plan Assessment & Plan (1) Major 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 Patient is friendly and calm. She is alert and oriented to self place; she said she came to the hospital because she was nervous but is not sure why she has to remain. Patient endorses paranoid delusions saying that there are cameras and microphones set up in house to spy on her; daughter says no history of psychiatric illness that she knows of and no psychotic symptoms until this past July. Plan: 08/15: psychotic symptoms most likely secondary to neurocognitive disorder. continue risperidone and sertraline. Once MOCA is completed, pattern of cognitive impairment will be more clear. 08/16 continue current medications. May consider medication such as exelon or aricept 08/17 may change to olanzapine as pt already with resting tremors. Start exelon 1.5mg po BID. 08/18 continue tx. change risperidone to olanzapine 2.5mg po qhs given underlying resting tremor. 08/19 continue with same treatment 08/20 continue same treatment. Tremors are visible- neurology saw pt and recommended propanolol, however, pt on metoprolol. This loan underwriter sent message to neurology to clarify if okay to give both but no response yet. 08/21 increase Zyprexa up to 5 mg po qhs. 08/22 continue tx. 08/24 Increase olanzapine to 2.5mg po daily and 5mg po qhs. start aumentin 500mg po BID x 7 days for sinusitis. 08/26 Tremors are visible and impairing her mobility- neurology saw pt and recommended propanolol, however, pt on metoprolol. This loan underwriter sent message to neurology to clarify if okay to give both but no response yet. Will add propanolol 20mg po BID. 08/27: Continue current tx plan. VSS. 08/28: Continue current plan 08/29 continue tx. 08/30 continue tx. 08/31 continue tx. 09/01 continue tx. called [facility] to check on next cortisone shot for left knee not until November. 09/02 continue tx. 09/03 continue tx 09/04 continue tx. 09/05 continue tx. 09/06 schedule tylenol 979 mg po BID. one time dose of tramadol for knee pain. 09/07/22 cont plan of care d/c planning 09/08 continue tx 09/09 continue tx. 09/10: no changes 09/11: Complaining of lower left leg swelling- pitting, no clear tenderness, no cellulitis, but differs significantly from right side. Will order doppler and hospitalist consult Reason for contiued inpatient stay Substantial Risk for: inability to function Time Spent With Patient Time: Total time managing care of this patient today ____ minutes.
--- NOTE | 2022-09-11 15:27 | PM.EVENT ---
Event Note Date of Service: 09/11/22 Event Note: Addendum: Venous ultrasound of lower extremities bilaterally negative for DVT. Pt is an 82-year-old Amharic-speaking female seen for evaluation of left-leg swelling that was first noticed earlier in the day. Pt afebrile and hemodynamically stable. Pt complaining of chronic knee pain for which she wears a sleeve on her knee. Pt wears brace at all times, even at night. Patient not complaining of pain. Upon examination patient was noted to have 2+ left lower leg pitting edema. No erythema, signs of infection. Upon further examination left knee sleeve was noted to be doubled over and sitting under the patient's knee, cutting off circulation and thus the likely cause of the patient's unilateral lower leg edema. Brace was removed from leg and all braces were removed from the pt's room and placed in her secured belongings. Pt is to receive ultrasound of bilateral lower legs to evaluate for DVT, which we will review Pt should stop wearing her brace for now and elevate her legs If swelling persists or worsens, will re-evaluate pt Thank you for allowing us to participate in the care of this patient. Signing off at this time. Please let us know if there are any acute complaints or questions. Time Spent With Patient Time: Total time managing care of this patient today ____ minutes.
[2022-09-11] MEDS: OLANZapine 2.5 MG TABLET PO (15:29)
[2022-09-11 18:00] VITALS: BP 155/70; PULSE 62; RESP 17; TEMP 36.9; O2SAT 96
[2022-09-11] MEDS: OLANZapine 5 MG TABLET PO (21:06)
[2022-09-11] MEDS: traZODone HCL 100 MG TABLET PO (21:07)
[2022-09-12 06:00] VITALS: BP 156/80; PULSE 68; RESP 18; TEMP 36.2; O2SAT 95
[2022-09-12] MEDS: Rivastigmine Tartrate 1.5 MG CAPSULE PO ×2 (08:42→21:40)
[2022-09-12] MEDS: Acetaminophen 325 MG TABLET 975 MG PO ×2 (08:42→21:40)
[2022-09-12] MEDS: NIFEdipine ER 90 MG TAB.ER.24 PO (08:42)
[2022-09-12] MEDS: Propranolol HCL 20 MG TABLET PO ×2 (08:44→21:40)
[2022-09-12] MEDS: Metoprolol Succinate ER 50 MG TAB.ER.24H PO (08:44)
[2022-09-12] MEDS: Sertraline HCL 50 MG TABLET PO (08:44)
[2022-09-12] MEDS: Atorvastatin Calcium 10 MG TABLET PO (08:44)
[2022-09-12] MEDS: Furosemide 40 MG TABLET PO (08:44)
[2022-09-12] MEDS: Aspirin Enteric Coated 81 MG TABLET.DR PO (08:45)
[2022-09-12] MEDS: Capsaicin 0.025% Cream 60 GM TUBE 1 APPL TOPICAL ×3 (08:45→21:39)
[2022-09-12] MEDS: Cholecalciferol (Vitamin D3) 25 MCG TABLET PO (08:45)
--- NOTE | 2022-09-12 12:40 | HO.PSYCHPN ---
Subjective Subjective Date of Service: 09/12/22 Reason For Visit: confused Subjective Notes: Conditional Voluntary Interim History: The nursing staff reported the patient had been compliant with treatment, she looks confused she slept 7 hours. She denies anxiety or depression. Over the weekend she was rule out of DVT and medical exams came back negative. On interview the patient denies new symptoms she still responding to internal stimuli at times but no behavioral disturbances. Mental Status Exam Mental Status Exam Patient Appearance: Well Grooomed and Appropriate Patient Orientation: Person and Situation Level of Consciousness: Awake and Appropriate Patient Behavior: Guarded and Passive Mood Description: Withdrawn Affect Description: Constricted Patient Cognition Impaired: Yes Ability to Follow Directions: Good Speech Pattern: Clear Hallucinations: None Delusions: Not Present Thought Process: Slowed Thinking Thought Content: positive for [place] and positive for Poverty of Content Judgement: Fair Diagnostics Vital Signs (24Hr): Vital Signs - 24 hr 09/11/22 18:00 09/12/22 06:00 Temperature 98.4 F 97.1 F Pulse Rate 62 68 Respiratory Rate 17 18 Blood Pressure 155/70 H 156/80 H Pulse Oximetry 96 95 Oxygen Delivery Method Room Air Room Air BMI result Body Mass Index 24.5 Labs 08/12/22 15:40 08/29/22 09:20 Imaging Radiology Impressions: ITS Impressions Head CT 08/15/22 14:53 IMPRESSION: No acute intracranial pathology. Significant right sphenoid sinus disease; correlate for any acute symptomatology. Chest X-Ray 08/28/22 22:24 IMPRESSION: No acute pulmonary disease. Venous Duplex 09/11/22 15:52 IMPRESSION: No DVT demonstrated in the bilateral lower extremity. Medications Medications Current Medications Acetaminophen (Acetaminophen 325 Mg Tablet) 975 mg PO BID [facility] Last Admin: 09/12/22 08:42 Dose: 975 mg Al Hydroxide/Mg Hydroxide (Magnesium Hydrox/Alum Hydrox 30 Ml Oral.Susp) 30 ml PO Q6H PRN PRN Reason: Heartburn/Nausea Aspirin (Aspirin Enteric Coated 81 Mg Tablet.) 81 mg PO DAILY [facility] Last Admin: 09/12/22 08:45 Dose: 81 mg Atorvastatin Calcium (Atorvastatin Calcium 10 Mg Tablet) 10 mg PO DAILY [facility] Last Admin: 09/12/22 08:44 Dose: 10 mg Benzocaine (Throat Lozenge, Medicated Lozenge) 1 lozenge MUCOUS MEM Q2H PRN PRN Reason: Sore Throat Last Admin: 08/26/22 06:05 Dose: 1 lozenge Calcium Carbonate (Calcium Carbonate 500 Mg Tablet) 500 mg PO DAILY [facility] Last Admin: 09/12/22 08:44 Dose: 500 mg Capsaicin (Capsaicin 0.025% Cream 60 Gm Tube) 1 appl TOPICAL TID [facility]; Protocol Last Admin: 09/12/22 08:45 Dose: 1 appl Furosemide (Furosemide 40 Mg Tablet) 40 mg PO DAILY [facility]; Protocol Last Admin: 09/12/22 08:44 Dose: 40 mg Guaifenesin (Guaifenesin 200 Mg/10 Ml 10 Ml Liquid) 10 ml PO Q6H PRN PRN Reason: Cough Last Admin: 09/06/22 23:15 Dose: 10 ml Guaifenesin/Dextromethorphan (Guaifenesin Dm 100/10/5 Ml 5 Ml Syrup) 5 ml PO Q4H PRN PRN Reason: cough Magnesium Hydroxide (Milk Of Magnesia 30 Ml Oral.Susp) 30 ml PO DAILY PRN PRN Reason: Constipation Melatonin (Melatonin 3 Mg Tablet) 9 mg PO BEDTIME PRN PRN Reason: insomnia Last Admin: 09/06/22 23:14 Dose: 9 mg Metoprolol Succinate (Metoprolol Succinate Er 50 Mg Tab.Er.24h) 50 mg PO DAILY [facility]; Protocol Last Admin: 09/12/22 08:44 Dose: 50 mg Nifedipine (Nifedipine Er 90 Mg Tab.Er.24) 90 mg PO DAILY [facility] Last Admin: 09/12/22 08:42 Dose: 90 mg Non-Formulary Medication ( Diclofenac Sodium 1% Gel) 1 each TOPICAL BID@0830,2030 [facility] Last Admin: 09/12/22 08:46 Dose: Not Given Olanzapine (Olanzapine 2.5 Mg Tablet) 2.5 mg PO TID PRN PRN Reason: agitation Last Admin: 08/23/22 00:47 Dose: 2.5 mg Olanzapine (Olanzapine 5 Mg Tablet) 5 mg PO BEDTIME [facility] Last Admin: 09/11/22 21:06 Dose: 5 mg Olanzapine (Olanzapine 2.5 Mg Tablet) 2.5 mg PO DAILY@1500 [facility] Last Admin: 09/11/22 15:29 Dose: 2.5 mg Ondansetron HCl (Ondansetron Odt 4 Mg Tab.Rapdis) 4 mg TRANSLINGU Q8H PRN PRN Reason: Nausea Propranolol HCl (Propranolol Hcl 20 Mg Tablet) 20 mg PO BID [facility]; Protocol Last Admin: 09/12/22 08:44 Dose: 20 mg Rivastigmine Tartrate (Rivastigmine Tartrate 1.5 Mg Capsule) 1.5 mg PO BID [facility] Last Admin: 09/12/22 08:42 Dose: 1.5 mg Sertraline HCl (Sertraline Hcl 50 Mg Tablet) 50 mg PO DAILY [facility] Last Admin: 09/12/22 08:44 Dose: 50 mg Trazodone HCl (Trazodone Hcl 50 Mg Tablet) 50 mg PO BEDTIME PRN PRN Reason: Sleep Last Admin: 09/06/22 23:12 Dose: 50 mg Trazodone HCl (Trazodone Hcl 100 Mg Tablet) 100 mg PO BEDTIME [facility] Last Admin: 09/11/22 21:07 Dose: 100 mg Vitamin D (Cholecalciferol (Vitamin D3) 25 Mcg Tablet) 25 mcg PO DAILY [facility] Last Admin: 09/12/22 08:45 Dose: 25 mcg Allergies Allergies Allergy/AdvReac Type Severity Reaction Status Date / Time No Known Allergies Allergy Verified 08/12/22 23:06 Assessment & Plan Assessment & Plan (1) Major 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 Patient is friendly and calm. She is alert and oriented to self place; she said she came to the hospital because she was nervous but is not sure why she has to remain. Patient endorses paranoid delusions saying that there are cameras and microphones set up in house to spy on her; daughter says no history of psychiatric illness that she knows of and no psychotic symptoms until this past July. Plan: 08/15: psychotic symptoms most likely secondary to neurocognitive disorder. continue risperidone and sertraline. Once MOCA is completed, pattern of cognitive impairment will be more clear. 08/16 continue current medications. May consider medication such as exelon or aricept 08/17 may change to olanzapine as pt already with resting tremors. Start exelon 1.5mg po BID. 08/18 continue tx. change risperidone to olanzapine 2.5mg po qhs given underlying resting tremor. 08/19 continue with same treatment 08/20 continue same treatment. Tremors are visible- neurology saw pt and recommended propanolol, however, pt on metoprolol. This blog writer sent message to neurology to clarify if okay to give both but no response yet. 08/21 increase Zyprexa up to 5 mg po qhs. 08/22 continue tx. 08/24 Increase olanzapine to 2.5mg po daily and 5mg po qhs. start aumentin 500mg po BID x 7 days for sinusitis. 08/26 Tremors are visible and impairing her mobility- neurology saw pt and recommended propanolol, however, pt on metoprolol. This blog writer sent message to neurology to clarify if okay to give both but no response yet. Will add propanolol 20mg po BID. 08/27: Continue current tx plan. VSS. 08/28: Continue current plan 08/29 continue tx. 08/30 continue tx. 08/31 continue tx. 09/01 continue tx. called [facility] to check on next cortisone shot for left knee not until November. 09/02 continue tx. 09/03 continue tx 09/04 continue tx. 09/05 continue tx. 09/06 schedule tylenol 979 mg po BID. one time dose of tramadol for knee pain. 09/07/22 cont plan of care d/c planning 09/08 continue tx 09/09 continue tx. 09/10: no changes 09/11: Complaining of lower left leg swelling- p itting, no clear tenderness, no cellulitis, but differs significantly from right side. Will order doppler and hospitalist consult 09/12 continue with same treatment no DVT as per medical team Reason for contiued inpatient stay Substantial Risk for: inability to function, rapid decompensation and med/psych decompensation Time Spent With Patient Time: Total time managing care of this patient today ___20_ minutes.
[2022-09-12] MEDS: OLANZapine 2.5 MG TABLET PO (16:11)
[2022-09-12 18:00] VITALS: BP 146/68; PULSE 70; RESP 18; TEMP 36; O2SAT 99
[2022-09-12] MEDS: traZODone HCL 100 MG TABLET PO (21:40)
[2022-09-12] MEDS: OLANZapine 5 MG TABLET PO (21:40)
[2022-09-13 08:00] VITALS: BP 157/78; PULSE 61; RESP 17; TEMP 36.3; O2SAT 95
[2022-09-13] MEDS: Cholecalciferol (Vitamin D3) 25 MCG TABLET PO (08:54)
[2022-09-13] MEDS: Aspirin Enteric Coated 81 MG TABLET.DR PO (08:55)
[2022-09-13] MEDS: Rivastigmine Tartrate 1.5 MG CAPSULE PO ×2 (08:55→20:57)
[2022-09-13] MEDS: Furosemide 40 MG TABLET PO (08:55)
[2022-09-13] MEDS: Propranolol HCL 20 MG TABLET PO ×2 (08:56→20:57)
[2022-09-13] MEDS: NIFEdipine ER 90 MG TAB.ER.24 PO (08:56)
[2022-09-13] MEDS: Metoprolol Succinate ER 50 MG TAB.ER.24H PO (08:56)
[2022-09-13] MEDS: Atorvastatin Calcium 10 MG TABLET PO (08:56)
[2022-09-13] MEDS: Acetaminophen 325 MG TABLET 975 MG PO ×2 (08:57→20:57)
[2022-09-13] MEDS: Sertraline HCL 50 MG TABLET PO (08:57)
[2022-09-13] MEDS: OLANZapine 2.5 MG TABLET PO (14:17)
--- NOTE | 2022-09-13 16:45 | P.PNPSI_ITS ---
Subjective Subjective Date of Service: 09/13/22 Reason For Visit: confused Subjective Notes: Conditional Voluntary Interim History: The nursing staff reported the patient has been compliant with treatment she denies anxiety or depression she looks confused but she is pleasant and cooperative. The steam reported that the daughter visited her. The social media manager reported that she is being evaluated by [facility] facilities for probable transfer. On interview the patient denies new symptoms, waiting for placement. No exacerbation of psychotic symptoms. Mental Status Exam Mental Status Exam Patient Appearance: Well Grooomed Patient Orientation: Person and Situation Level of Consciousness: Awake and Appropriate Patient Behavior: Guarded and Passive Mood Description: Withdrawn Affect Description: Constricted Patient Cognition Impaired: Yes Ability to Follow Directions: Good Speech Pattern: Clear Hallucinations: None Delusions: Paranoid Ideation Thought Process: Distracted and Slowed Thinking Thought Content: positive for [place] and positive for Circumstantial Judgement: Fair Diagnostics Vital Signs (24Hr): Vital Signs - 24 hr 09/12/22 18:00 09/13/22 08:00 Temperature 96.8 F 97.3 F Pulse Rate 70 61 Respiratory Rate 18 17 Blood Pressure 146/68 H 157/78 H Pulse Oximetry 99 95 Oxygen Delivery Method Room Air Room Air BMI result Body Mass Index 24.5 Labs 08/12/22 15:40 08/29/22 09:20 Imaging Radiology Impressions: ITS Impressions Head CT 08/15/22 14:53 IMPRESSION: No acute intracranial pathology. Significant right sphenoid sinus disease; correlate for any acute symptomatology. Chest X-Ray 08/28/22 22:24 IMPRESSION: No acute pulmonary disease. Venous Duplex 09/11/22 15:52 IMPRESSION: No DVT demonstrated in the bilateral lower extremity. Medications Medications Current Medications Acetaminophen (Acetaminophen 325 Mg Tablet) 975 mg PO BID [facility] Last Admin: 09/13/22 08:57 Dose: 975 mg Al Hydroxide/Mg Hydroxide (Magnesium Hydrox/Alum Hydrox 30 Ml Oral.Susp) 30 ml PO Q6H PRN PRN Reason: Heartburn/Nausea Aspirin (Aspirin Enteric Coated 81 Mg Tablet.) 81 mg PO DAILY [facility] Last Admin: 09/13/22 08:55 Dose: 81 mg Atorvastatin Calcium (Atorvastatin Calcium 10 Mg Tablet) 10 mg PO DAILY [facility] Last Admin: 09/13/22 08:56 Dose: 10 mg Benzocaine (Throat Lozenge, Medicated Lozenge) 1 lozenge MUCOUS MEM Q2H PRN PRN Reason: Sore Throat Last Admin: 08/26/22 06:05 Dose: 1 lozenge Calcium Carbonate (Calcium Carbonate 500 Mg Tablet) 500 mg PO DAILY [facility] Last Admin: 09/13/22 08:55 Dose: 500 mg Capsaicin (Capsaicin 0.025% Cream 60 Gm Tube) 1 appl TOPICAL TID PRN; Protocol PRN Reason: Pain, Moderate (Pain Scale 4-6 Furosemide (Furosemide 40 Mg Tablet) 40 mg PO DAILY [facility]; Protocol Last Admin: 09/13/22 08:55 Dose: 40 mg Guaifenesin (Guaifenesin 200 Mg/10 Ml 10 Ml Liquid) 10 ml PO Q6H PRN PRN Reason: Cough Last Admin: 09/06/22 23:15 Dose: 10 ml Guaifenesin/Dextromethorphan (Guaifenesin Dm 100/10/5 Ml 5 Ml Syrup) 5 ml PO Q4H PRN PRN Reason: cough Magnesium Hydroxide (Milk Of Magnesia 30 Ml Oral.Susp) 30 ml PO DAILY PRN PRN Reason: Constipation Melatonin (Melatonin 3 Mg Tablet) 9 mg PO BEDTIME PRN PRN Reason: insomnia Last Admin: 09/06/22 23:14 Dose: 9 mg Metoprolol Succinate (Metoprolol Succinate Er 50 Mg Tab.Er.24h) 50 mg PO DAILY [facility]; Protocol Last Admin: 09/13/22 08:56 Dose: 50 mg Nifedipine (Nifedipine Er 90 Mg Tab.Er.24) 90 mg PO DAILY [facility] Last Admin: 09/13/22 08:56 Dose: 90 mg Non-Formulary Medication ( Diclofenac Sodium 1% Gel) 1 each TOPICAL BID@0830,2030 [facility] Last Admin: 09/13/22 08:58 Dose: 1 each Olanzapine (Olanzapine 2.5 Mg Tablet) 2.5 mg PO TID PRN PRN Reason: agitation Last Admin: 08/23/22 00:47 Dose: 2.5 mg Olanzapine (Olanzapine 5 Mg Tablet) 5 mg PO BEDTIME [facility] Last Admin: 09/12/22 21:40 Dose: 5 mg Olanzapine (Olanzapine 2.5 Mg Tablet) 2.5 mg PO DAILY@1500 [facility] Last Admin: 09/13/22 14:17 Dose: 2.5 mg Ondansetron HCl (Ondansetron Odt 4 Mg Tab.Rapdis) 4 mg TRANSLINGU Q8H PRN PRN Reason: Nausea Propranolol HCl (Propranolol Hcl 20 Mg Tablet) 20 mg PO BID [facility]; Protocol Last Admin: 09/13/22 08:56 Dose: 20 mg Rivastigmine Tartrate (Rivastigmine Tartrate 1.5 Mg Capsule) 1.5 mg PO BID [facility] Last Admin: 09/13/22 08:55 Dose: 1.5 mg Sertraline HCl (Sertraline Hcl 50 Mg Tablet) 50 mg PO DAILY [facility] Last Admin: 09/13/22 08:57 Dose: 50 mg Trazodone HCl (Trazodone Hcl 50 Mg Tablet) 50 mg PO BEDTIME PRN PRN Reason: Sleep Last Admin: 09/06/22 23:12 Dose: 50 mg Trazodone HCl (Trazodone Hcl 100 Mg Tablet) 100 mg PO BEDTIME [facility] Last Admin: 09/12/22 21:40 Dose: 100 mg Vitamin D (Cholecalciferol (Vitamin D3) 25 Mcg Tablet) 25 mcg PO DAILY [facility] Last Admin: 09/13/22 08:54 Dose: 25 mcg Allergies Allergies Allergy/AdvReac Type Severity Reaction Status Date / Time No Known Allergies Allergy Verified 08/12/22 23:06 Assessment & Plan Assessment & Plan (1) Major 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 Patient is friendly and calm. She is alert and oriented to self place; she said she came to the hospital because she was nervous but is not sure why she has to remain. Patient endorses paranoid delusions saying that there are cameras and microphones set up in house to spy on her; daughter says no history of psychiatric illness that she knows of and no psychotic symptoms until this past July. Plan: 08/15: psychotic symptoms most likely secondary to neurocognitive disorder. continue risperidone and sertraline. Once MOCA is completed, pattern of cognitive impairment will be more clear. 08/16 continue current medications. May consider medication such as exelon or aricept 08/17 may change to olanzapine as pt already with resting tremors. Start exelon 1.5mg po BID. 08/18 continue tx. change risperidone to olanzapine 2.5mg po qhs given underlying resting tremor. 08/19 continue with same treatment 08/20 continue same treatment. Tremors are visible- neurology saw pt and recommended propanolol, however, pt on metoprolol. This movie writer sent message to neurology to clarify if okay to give both but no response yet. 08/21 increase Zyprexa up to 5 mg po qhs. 08/22 continue tx. 08/24 Increase olanzapine to 2.5mg po daily and 5mg po qhs. start aumentin 500mg po BID x 7 days for sinusitis. 08/26 Tremors are visible and impairing her mobility- neurology saw pt and recommended propanolol, however, pt on metoprolol. This movie writer sent message to neurology to clarify if okay to give both but no response yet. Will add propanolol 20mg po BID. 08/27: Continue current tx plan. VSS. 08/28: Continue current plan 08/29 continue tx. 08/30 continue tx. 08/31 continue tx. 09/01 continue tx. called [facility] to check on next cortisone shot for left knee not until November. 09/02 continue tx. 09/03 continue tx 09/04 continue tx. 09/05 continue tx. 09/06 schedule tylenol 979 mg po BID. one time dose of tramadol for knee pain. 09/07/22 cont plan of care d/c planning 09/08 continue tx 09/09 continue tx. 09/10: no changes 09/11: Complaining of lower left leg swelling- p itting, no clear tenderness, no cellulitis, but differs significantly from right side. Will order doppler and hospitalist consult 09/12 continue with same treatment no DVT as per medical team 09/13 continue same treatment Reason for contiued inpatient stay Substantial Risk for: inability to function, rapid decompensation and med/psych decompensation Time Spent With Patient Time: Total time managing care of this patient today __20__ minutes.
[2022-09-13 18:00] VITALS: BP 132/72; PULSE 66; RESP 18; TEMP 36.7; O2SAT 97
[2022-09-13] MEDS: traZODone HCL 100 MG TABLET PO (20:57)
[2022-09-13] MEDS: OLANZapine 5 MG TABLET PO (20:57)
[2022-09-14 06:00] VITALS: BP 164/82; PULSE 74; RESP 16; TEMP 36.4; O2SAT 94
[2022-09-14] MEDS: Cholecalciferol (Vitamin D3) 25 MCG TABLET PO (08:50)
[2022-09-14] MEDS: Aspirin Enteric Coated 81 MG TABLET.DR PO (08:50)
[2022-09-14] MEDS: Sertraline HCL 50 MG TABLET PO (08:50)
[2022-09-14] MEDS: NIFEdipine ER 90 MG TAB.ER.24 PO (08:50)
[2022-09-14] MEDS: Furosemide 40 MG TABLET PO (08:50)
[2022-09-14] MEDS: Acetaminophen 325 MG TABLET 975 MG PO ×2 (08:50→20:20)
[2022-09-14] MEDS: Rivastigmine Tartrate 1.5 MG CAPSULE PO ×2 (08:50→20:22)
[2022-09-14] MEDS: Propranolol HCL 20 MG TABLET PO ×2 (08:50→20:22)
[2022-09-14] MEDS: Metoprolol Succinate ER 50 MG TAB.ER.24H PO (08:51)
[2022-09-14] MEDS: Atorvastatin Calcium 10 MG TABLET PO (08:51)
--- NOTE | 2022-09-14 11:03 | P.PNPSI_ITS ---
Subjective Subjective Date of Service: 09/14/22 Reason For Visit: confused Subjective Notes: Conditional Voluntary Interim History: Iris reports she has been sleeping well but waking up few times at night due to knee pain. Pt asks about when she can get injection again- informed once again, not until November. Pt denies SI/HI. She reports she is patiently waiting for new place. She denies VH/AH. At times self dialoguing but able to concentrate on different conversation. Pt reports knee pain not controlled with tylenol. Will try low dose tramadol 25mg po BID. Medication Compliance: Yes Side effects from medications: No Attending Groups: Intermittent Review of Systems Review of Systems Complaining of lower left leg swelling- pitting, no clear tenderness, no cellulitis, but differs significantly from right side Yes all other systems are reviewed and are negative Mental Status Exam Mental Status Exam Narrative: Appearance: casually groomed, good hygiene, in NAD. Ambulates with walker Behavior: friendly Psychomotor: no agitation or retardation noted Speech: clear, normal rate/rhythm/volume, spontaneous. TP: mostly linear TC: feeling comfortable here Mood: Good Affect: bright, congruent SI: denies HI: denies VH/AH: denies, no overt signs Delusions: no overt delusional content noted or reported Insight/judgment: fair x 2. Memory/cog: alert, oriented to place, month and year, at times confused about situation Diagnostics Vital Signs (24Hr): Vital Signs - 24 hr 09/13/22 18:00 09/14/22 06:00 Temperature 98.1 F 97.6 F Pulse Rate 66 74 Respiratory Rate 18 16 Blood Pressure 132/72 164/82 H Pulse Oximetry 97 94 Oxygen Delivery Method Room Air Room Air BMI result Body Mass Index 24.5 Labs 08/12/22 15:40 08/29/22 09:20 Imaging Radiology Impressions: ITS Impressions Head CT 08/15/22 14:53 IMPRESSION: No acute intracranial pathology. Significant right sphenoid sinus disease; correlate for any acute symptomatology. Chest X-Ray 08/28/22 22:24 IMPRESSION: No acute pulmonary disease. Venous Duplex 09/11/22 15:52 IMPRESSION: No DVT demonstrated in the bilateral lower extremity. Medications Medications Current Medications Acetaminophen (Acetaminophen 325 Mg Tablet) 975 mg PO BID [facility] Last Admin: 09/14/22 08:50 Dose: 975 mg Al Hydroxide/Mg Hydroxide (Magnesium Hydrox/Alum Hydrox 30 Ml Oral.Susp) 30 ml PO Q6H PRN PRN Reason: Heartburn/Nausea Aspirin (Aspirin Enteric Coated 81 Mg Tablet.Dr) 81 mg PO DAILY [facility] Last Admin: 09/14/22 08:50 Dose: 81 mg Atorvastatin Calcium (Atorvastatin Calcium 10 Mg Tablet) 10 mg PO DAILY [facility] Last Admin: 09/14/22 08:51 Dose: 10 mg Benzocaine (Throat Lozenge, Medicated Lozenge) 1 lozenge MUCOUS MEM Q2H PRN PRN Reason: Sore Throat Last Admin: 08/26/22 06:05 Dose: 1 lozenge Calcium Carbonate (Calcium Carbonate 500 Mg Tablet) 500 mg PO DAILY [facility] Last Admin: 09/14/22 08:50 Dose: 500 mg Capsaicin (Capsaicin 0.025% Cream 60 Gm Tube) 1 appl TOPICAL TID PRN; Protocol PRN Reason: Pain, Moderate (Pain Scale 4-6 Furosemide (Furosemide 40 Mg Tablet) 40 mg PO DAILY [facility]; Protocol Last Admin: 09/14/22 08:50 Dose: 40 mg Guaifenesin (Guaifenesin 200 Mg/10 Ml 10 Ml Liquid) 10 ml PO Q6H PRN PRN Reason: Cough Last Admin: 09/06/22 23:15 Dose: 10 ml Guaifenesin/Dextromethorphan (Guaifenesin Dm 100/10/5 Ml 5 Ml Syrup) 5 ml PO Q4H PRN PRN Reason: cough Magnesium Hydroxide (Milk Of Magnesia 30 Ml Oral.Susp) 30 ml PO DAILY PRN PRN Reason: Constipation Melatonin (Melatonin 3 Mg Tablet) 9 mg PO BEDTIME PRN PRN Reason: insomnia Last Admin: 09/06/22 23:14 Dose: 9 mg Metoprolol Succinate (Metoprolol Succinate Er 50 Mg Tab.Er.24h) 50 mg PO DAILY [facility]; Protocol Last Admin: 09/14/22 08:51 Dose: 50 mg Nifedipine (Nifedipine Er 90 Mg Tab.Er.24) 90 mg PO DAILY [facility] Last Admin: 09/14/22 08:50 Dose: 90 mg Non-Formulary Medication ( Diclofenac Sodium 1% Gel) 1 each TOPICAL BID@0830,2029 [facility] Last Admin: 09/14/22 08:51 Dose: 1 each Olanzapine (Olanzapine 2.5 Mg Tablet) 2.5 mg PO TID PRN PRN Reason: agitation Last Admin: 08/23/22 00:47 Dose: 2.5 mg Olanzapine (Olanzapine 5 Mg Tablet) 5 mg PO BEDTIME [facility] Last Admin: 09/13/22 20:57 Dose: 5 mg Olanzapine (Olanzapine 2.5 Mg Tablet) 2.5 mg PO DAILY@1500 [facility] Last Admin: 09/13/22 14:17 Dose: 2.5 mg Ondansetron HCl (Ondansetron Odt 4 Mg Tab.Rapdis) 4 mg TRANSLINGU Q8H PRN PRN Reason: Nausea Propranolol HCl (Propranolol Hcl 20 Mg Tablet) 20 mg PO BID [facility]; Protocol Last Admin: 09/14/22 08:50 Dose: 20 mg Rivastigmine Tartrate (Rivastigmine Tartrate 1.5 Mg Capsule) 1.5 mg PO BID [facility] Last Admin: 09/14/22 08:50 Dose: 1.5 mg Sertraline HCl (Sertraline Hcl 50 Mg Tablet) 50 mg PO DAILY [facility] Last Admin: 09/14/22 08:50 Dose: 50 mg Trazodone HCl (Trazodone Hcl 50 Mg Tablet) 50 mg PO BEDTIME PRN PRN Reason: Sleep Last Admin: 09/06/22 23:12 Dose: 50 mg Trazodone HCl (Trazodone Hcl 100 Mg Tablet) 100 mg PO BEDTIME [facility] Last Admin: 09/13/22 20:57 Dose: 100 mg Vitamin D (Cholecalciferol (Vitamin D3) 25 Mcg Tablet) 25 mcg PO DAILY [facility] Last Admin: 09/14/22 08:50 Dose: 25 mcg Allergies Allergies Allergy/AdvReac Type Severity Reaction Status Date / Time No Known Allergies Allergy Verified 08/12/22 23:06 Assessment & Plan Assessment & Plan (1) Major 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 Patient is friendly and calm. She is alert and oriented to self place; she said she came to the hospital because she was nervous but is not sure why she has to remain. Patient endorses paranoid delusions saying that there are cameras and microphones set up in house to spy on her; daughter says no history of psychiatric illness that she knows of and no psychotic symptoms until this past July. Plan: 08/15: psychotic symptoms most likely secondary to neurocognitive disorder. continue risperidone and sertraline. Once MOCA is completed, pattern of cognitive impairment will be more clear. 08/16 continue current medications. May consider medication such as exelon or aricept 08/17 may change to olanzapine as pt already with resting tremors. Start exelon 1.5mg po BID. 08/18 continue tx. change risperidone to olanzapine 2.5mg po qhs given underlying resting tremor. 08/19 continue with same treatment 08/20 continue same treatment. Tremors are visible- neurology saw pt and recommended propanolol, however, pt on metoprolol. This staff writer sent message to neurology to clarify if okay to give both but no response yet. 08/21 increase Zyprexa up to 5 mg po qhs. 08/22 continue tx. 08/24 Increase olanzapine to 2.5mg po daily and 5mg po qhs. start aumentin 500mg po BID x 7 days for sinusitis. 08/26 Tremors are visible and impairing her mobility- neurology saw pt and recommended propanolol, however, pt on metoprolol. This staff writer sent message to neurology to clarify if okay to give both but no response yet. Will add propanolol 20mg po BID. 08/27: Continue current tx plan. VSS. 08/28: Continue current plan 08/29 continue tx. 08/30 continue tx. 08/31 continue tx. 09/01 continue tx. called [facility] to check on next cortisone shot for left knee not until November. 09/02 continue tx. 09/03 continue tx 09/04 continue tx. 09/05 continue tx. 09/06 schedule tylenol 979 mg po BID. one time dose of tramadol for knee pain. 09/07/22 cont plan of care d/c planning 09/08 continue tx 09/09 continue tx. 09/10: no changes 09/11: Complaining of lower left leg swelling- p itting, no clear tenderness, no cellulitis, but differs significantly from right side. Will order doppler and hospitalist consult 09/12 continue with same treatment no DVT as per medical team 09/13 continue same treatment 09/14 add tramadol 25mg po BID at noon and bedtime. continue tylenol. For knee pain. Reason for contiued inpatient stay Substantial Risk for: inability to function Time Spent With Patient Time: Total time managing care of this patient today ____ minutes.
[2022-09-14] MEDS: traMADoL HCL 50 MG TABLET 25 MG PO ×2 (14:38→20:21)
[2022-09-14] MEDS: OLANZapine 2.5 MG TABLET PO (14:38)
[2022-09-14 18:00] VITALS: BP 115/62; PULSE 64; RESP 16; TEMP 36.4; O2SAT 94
[2022-09-14] MEDS: OLANZapine 5 MG TABLET PO (20:22)
[2022-09-14] MEDS: traZODone HCL 100 MG TABLET PO (20:22)
[2022-09-15 07:00] VITALS: BMI 25.3
[2022-09-15] MEDS: Acetaminophen 325 MG TABLET 975 MG PO ×2 (08:40→21:11)
[2022-09-15] MEDS: Aspirin Enteric Coated 81 MG TABLET.DR PO (08:41)
[2022-09-15] MEDS: Cholecalciferol (Vitamin D3) 25 MCG TABLET PO (08:41)
[2022-09-15] MEDS: Rivastigmine Tartrate 1.5 MG CAPSULE PO ×2 (08:41→21:11)
[2022-09-15] MEDS: NIFEdipine ER 90 MG TAB.ER.24 PO (08:41)
[2022-09-15] MEDS: Atorvastatin Calcium 10 MG TABLET PO (08:42)
[2022-09-15] MEDS: Furosemide 40 MG TABLET PO (08:42)
[2022-09-15] MEDS: Sertraline HCL 50 MG TABLET PO (08:42)
--- NOTE | 2022-09-15 09:36 | P.PNPSI_ITS ---
Subjective Subjective Date of Service: 09/15/22 Reason For Visit: confused Subjective Notes: Conditional Voluntary Interim History: Pt reports knee pain. She reports some improvement with tramadol for knee pain. She has been more visible on the unit and social with select peers. Some self dialoguing but to lesser extend. She denies SI/HI. No behavioral concerns. Pt is very pleasant. Attention is good when meeting with her directly. Medication Compliance: Yes Review of Systems Review of Systems Complaining of lower left leg swelling- pitting, no clear tenderness, no cellulitis, but differs significantly from right side Yes all other systems are reviewed and are negative Mental Status Exam Mental Status Exam Narrative: Appearance: casually groomed, good hygiene, in NAD. Ambulates with walker Behavior: friendly Psychomotor: no agitation or retardation noted Speech: clear, normal rate/rhythm/volume, spontaneous. TP: mostly linear TC: feeling comfortable here Mood: Good Affect: bright, congruent SI: denies HI: denies VH/AH: denies, no overt signs Delusions: no overt delusional content noted or reported Insight/judgment: fair x 2. Memory/cog: alert, oriented to place, month and year, at times confused about situation Diagnostics Vital Signs (24Hr): Vital Signs - 24 hr 09/14/22 18:00 Temperature 97.5 F Pulse Rate 64 Respiratory Rate 16 Blood Pressure 115/62 Pulse Oximetry 94 Oxygen Delivery Method Room Air BMI result Body Mass Index 24.5 Labs 08/12/22 15:40 08/29/22 09:20 Imaging Radiology Impressions: ITS Impressions Head CT 08/15/22 14:53 IMPRESSION: No acute intracranial pathology. Significant right sphenoid sinus disease; correlate for any acute symptomatology. Chest X-Ray 08/28/22 22:24 IMPRESSION: No acute pulmonary disease. Venous Duplex 09/11/22 15:52 IMPRESSION: No DVT demonstrated in the bilateral lower extremity. Medications Medications Current Medications Acetaminophen (Acetaminophen 325 Mg Tablet) 975 mg PO BID [facility] Last Admin: 09/15/22 08:40 Dose: 975 mg Al Hydroxide/Mg Hydroxide (Magnesium Hydrox/Alum Hydrox 30 Ml Oral.Susp) 30 ml PO Q6H PRN PRN Reason: Heartburn/Nausea Aspirin (Aspirin Enteric Coated 81 Mg Tablet.) 81 mg PO DAILY [facility] Last Admin: 09/15/22 08:41 Dose: 81 mg Atorvastatin Calcium (Atorvastatin Calcium 10 Mg Tablet) 10 mg PO DAILY [facility] Last Admin: 09/15/22 08:42 Dose: 10 mg Benzocaine (Throat Lozenge, Medicated Lozenge) 1 lozenge MUCOUS MEM Q2H PRN PRN Reason: Sore Throat Last Admin: 08/26/22 06:05 Dose: 1 lozenge Calcium Carbonate (Calcium Carbonate 500 Mg Tablet) 500 mg PO DAILY [facility] Last Admin: 09/15/22 08:42 Dose: 500 mg Capsaicin (Capsaicin 0.025% Cream 60 Gm Tube) 1 appl TOPICAL TID PRN; Protocol PRN Reason: Pain, Moderate (Pain Scale 4-6 Furosemide (Furosemide 40 Mg Tablet) 40 mg PO DAILY [facility]; Protocol Last Admin: 09/15/22 08:42 Dose: 40 mg Guaifenesin (Guaifenesin 200 Mg/10 Ml 10 Ml Liquid) 10 ml PO Q6H PRN PRN Reason: Cough Last Admin: 09/06/22 23:15 Dose: 10 ml Guaifenesin/Dextromethorphan (Guaifenesin Dm 100/10/5 Ml 5 Ml Syrup) 5 ml PO Q4H PRN PRN Reason: cough Magnesium Hydroxide (Milk Of Magnesia 30 Ml Oral.Susp) 30 ml PO DAILY PRN PRN Reason: Constipation Melatonin (Melatonin 3 Mg Tablet) 9 mg PO BEDTIME PRN PRN Reason: insomnia Last Admin: 09/06/22 23:14 Dose: 9 mg Metoprolol Succinate (Metoprolol Succinate Er 50 Mg Tab.Er.24h) 50 mg PO DAILY [facility]; Protocol Last Admin: 09/15/22 08:41 Dose: Not Given Nifedipine (Nifedipine Er 90 Mg Tab.Er.24) 90 mg PO DAILY [facility] Last Admin: 09/15/22 08:41 Dose: 90 mg Non-Formulary Medication ( Diclofenac Sodium 1% Gel) 1 each TOPICAL BID@0830,2030 [facility] Last Admin: 09/15/22 09:25 Dose: 1 each Olanzapine (Olanzapine 2.5 Mg Tablet) 2.5 mg PO TID PRN PRN Reason: agitation Last Admin: 08/23/22 00:47 Dose: 2.5 mg Olanzapine (Olanzapine 5 Mg Tablet) 5 mg PO BEDTIME [facility] Last Admin: 09/14/22 20:22 Dose: 5 mg Olanzapine (Olanzapine 2.5 Mg Tablet) 2.5 mg PO DAILY@1500 [facility] Last Admin: 09/14/22 14:38 Dose: 2.5 mg Ondansetron HCl (Ondansetron Odt 4 Mg Tab.Rapdis) 4 mg TRANSLINGU Q8H PRN PRN Reason: Nausea Propranolol HCl (Propranolol Hcl 20 Mg Tablet) 20 mg PO BID [facility]; Protocol Last Admin: 09/15/22 08:42 Dose: Not Given Rivastigmine Tartrate (Rivastigmine Tartrate 1.5 Mg Capsule) 1.5 mg PO BID [facility] Last Admin: 09/15/22 08:41 Dose: 1.5 mg Sertraline HCl (Sertraline Hcl 50 Mg Tablet) 50 mg PO DAILY [facility] Last Admin: 09/15/22 08:42 Dose: 50 mg Tramadol HCl (Tramadol Hcl 50 Mg Tablet) 25 mg PO BID@1200,2100 [facility] Last Admin: 09/14/22 20:21 Dose: 25 mg Trazodone HCl (Trazodone Hcl 50 Mg Tablet) 50 mg PO BEDTIME PRN PRN Reason: Sleep Last Admin: 09/06/22 23:12 Dose: 50 mg Trazodone HCl (Trazodone Hcl 100 Mg Tablet) 100 mg PO BEDTIME [facility] Last Admin: 09/14/22 20:22 Dose: 100 mg Vitamin D (Cholecalciferol (Vitamin D3) 25 Mcg Tablet) 25 mcg PO DAILY [facility] Last Admin: 09/15/22 08:41 Dose: 25 mcg Allergies Allergies Allergy/AdvReac Type Severity Reaction Status Date / Time No Known Allergies Allergy Verified 08/12/22 23:06 Assessment & Plan Assessment & Plan (1) Major 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 Patient is friendly and calm. She is alert and oriented to self place; she said she came to the hospital because she was nervous but is not sure why she has to remain. Patient endorses paranoid delusions saying that there are cameras and microphones set up in house to spy on her; daughter says no history of psychiatric illness that she knows of and no psychotic symptoms until this past July. Plan: 08/15: psychotic symptoms most likely secondary to neurocognitive disorder. continue risperidone and sertraline. Once MOCA is completed, pattern of cognitive impairment will be more clear. 08/16 continue current medications. May consider medication such as exelon or aricept 08/17 may change to olanzapine as pt already with resting tremors. Start exelon 1.5mg po BID. 08/18 continue tx. change risperidone to olanzapine 2.5mg po qhs given underlying resting tremor. 08/19 continue with same treatment 08/20 continue same treatment. Tremors are visible- neurology saw pt and recommended propanolol, however, pt on metoprolol. This junior copywriter sent message to neurology to clarify if okay to give both but no response yet. 08/21 increase Zyprexa up to 5 mg po qhs. 08/22 continue tx. 08/24 Increase olanzapine to 2.5mg po daily and 5mg po qhs. start aumentin 500mg po BID x 7 days for sinusitis. 08/26 Tremors are visible and impairing her mobility- neurology saw pt and recommended propanolol, however, pt on metoprolol. This junior copywriter sent message to neurology to clarify if okay to give both but no response yet. Will add propanolol 20mg po BID. 08/27: Continue current tx plan. VSS. 08/28: Continue current plan 08/29 continue tx. 08/30 continue tx. 08/31 continue tx. 09/01 continue tx. called [facility] to check on next cortisone shot for left knee not until November. 09/02 continue tx. 09/03 continue tx 09/04 continue tx. 09/05 continue tx. 09/06 schedule tylenol 979 mg po BID. one time dose of tramadol for knee pain. 09/07/22 cont plan of care d/c planning 09/08 continue tx 09/09 continue tx. 09/10: no changes 09/11: Complaining of lower left leg swelling- p itting, no clear tenderness, no cellulitis, but differs significantly from right side. Will order doppler and hospitalist consult 09/12 continue with same treatment no DVT as per medical team 09/13 continue same treatment 09/14 add tramadol 25mg po BID at noon and bedtime. continue tylenol. For knee pain. 09/15 continue current medication, may titrate tramadol for pain, monitor sedation and therapeutic effect. Reason for contiued inpatient stay Substantial Risk for: inability to function Time Spent With Patient Time: Total time managing care of this patient today ____ minutes.
[2022-09-15 09:46] VITALS: BP 109/55; PULSE 67; RESP 18; TEMP 36.4; O2SAT 95
[2022-09-15] MEDS: traMADoL HCL 50 MG TABLET 25 MG PO ×2 (12:04→21:10)
[2022-09-15] MEDS: OLANZapine 2.5 MG TABLET PO (14:31)
[2022-09-15 18:00] VITALS: BP 123/61; PULSE 67; TEMP 36.2; O2SAT 95
[2022-09-15] MEDS: OLANZapine 5 MG TABLET PO (21:11)
[2022-09-15] MEDS: Propranolol HCL 20 MG TABLET PO (21:11)
[2022-09-15] MEDS: traZODone HCL 100 MG TABLET PO (21:11)
[2022-09-16 08:40] VITALS: BP 152/68; PULSE 68; RESP 16; TEMP 36.1; O2SAT 97
[2022-09-16] MEDS: Cholecalciferol (Vitamin D3) 25 MCG TABLET PO (08:43)
[2022-09-16] MEDS: Aspirin Enteric Coated 81 MG TABLET.DR PO (08:43)
[2022-09-16] MEDS: NIFEdipine ER 90 MG TAB.ER.24 PO (08:43)
[2022-09-16] MEDS: Atorvastatin Calcium 10 MG TABLET PO (08:43)
[2022-09-16] MEDS: Sertraline HCL 50 MG TABLET PO (08:43)
[2022-09-16] MEDS: Rivastigmine Tartrate 1.5 MG CAPSULE PO ×2 (08:43→20:22)
[2022-09-16] MEDS: Acetaminophen 325 MG TABLET 975 MG PO ×2 (08:44→20:20)
[2022-09-16] MEDS: Furosemide 40 MG TABLET PO (08:44)
[2022-09-16] MEDS: Propranolol HCL 20 MG TABLET PO ×2 (08:44→20:21)
[2022-09-16] MEDS: Metoprolol Succinate ER 50 MG TAB.ER.24H PO (08:44)
[2022-09-16] MEDS: traMADoL HCL 50 MG TABLET 25 MG PO ×2 (13:10→20:22)
--- NOTE | 2022-09-16 14:15 | P.PNPSI_ITS ---
Subjective Subjective Date of Service: 09/16/22 Reason For Visit: confused Subjective Notes: Conditional Voluntary Interim History: The nursing staff reported the patient had been confused, distracted but cooperative and compliant with medication. She attended to 1 group. The occupational therapist reported that she did well on one-to-one. The social work instructor reported that she is working to transfer her to group home facility. On interview the patient denies new symptoms pleasant and cooperative. Responding to internal stimuli at times but no behavioral response. Mental Status Exam Mental Status Exam Patient Appearance: Well Grooomed and Appropriate Patient Orientation: Person and Situation Level of Consciousness: Awake and Appropriate Patient Behavior: Guarded and Passive Mood Description: Withdrawn Affect Description: Constricted Patient Cognition Impaired: Yes Ability to Follow Directions: Good Speech Pattern: Clear Hallucinations: None Delusions: Not Present Thought Process: Linear Thought Content: positive for Circumstantial Judgement: Fair Diagnostics Vital Signs (24Hr): Vital Signs - 24 hr 09/15/22 18:00 09/16/22 08:40 Temperature 97.2 F 97 F Pulse Rate 67 68 Respiratory Rate 16 Blood Pressure 123/61 152/68 H Pulse Oximetry 95 97 Oxygen Delivery Method Room Air BMI result Body Mass Index 25.3 Labs 08/12/22 15:40 08/29/22 09:20 Imaging Radiology Impressions: ITS Impressions Head CT 08/15/22 14:53 IMPRESSION: No acute intracranial pathology. Significant right sphenoid sinus disease; correlate for any acute symptomatology. Chest X-Ray 08/28/22 22:24 IMPRESSION: No acute pulmonary disease. Venous Duplex 09/11/22 15:52 IMPRESSION: No DVT demonstrated in the bilateral lower extremity. Medications Medications Current Medications Acetaminophen (Acetaminophen 325 Mg Tablet) 975 mg PO BID [facility] Last Admin: 09/16/22 08:44 Dose: 975 mg Al Hydroxide/Mg Hydroxide (Magnesium Hydrox/Alum Hydrox 30 Ml Oral.Susp) 30 ml PO Q6H PRN PRN Reason: Heartburn/Nausea Aspirin (Aspirin Enteric Coated 81 Mg Tablet.) 81 mg PO DAILY [facility] Last Admin: 09/16/22 08:43 Dose: 81 mg Atorvastatin Calcium (Atorvastatin Calcium 10 Mg Tablet) 10 mg PO DAILY [facility] Last Admin: 09/16/22 08:43 Dose: 10 mg Benzocaine (Throat Lozenge, Medicated Lozenge) 1 lozenge MUCOUS MEM Q2H PRN PRN Reason: Sore Throat Last Admin: 08/26/22 06:05 Dose: 1 lozenge Calcium Carbonate (Calcium Carbonate 500 Mg Tablet) 500 mg PO DAILY [facility] Last Admin: 09/16/22 08:43 Dose: 500 mg Capsaicin (Capsaicin 0.025% Cream 60 Gm Tube) 1 appl TOPICAL TID PRN; Protocol PRN Reason: Pain, Moderate (Pain Scale 4-6 Furosemide (Furosemide 40 Mg Tablet) 40 mg PO DAILY [facility]; Protocol Last Admin: 09/16/22 08:44 Dose: 40 mg Guaifenesin (Guaifenesin 200 Mg/10 Ml 10 Ml Liquid) 10 ml PO Q6H PRN PRN Reason: Cough Last Admin: 09/06/22 23:15 Dose: 10 ml Guaifenesin/Dextromethorphan (Guaifenesin Dm 100/10/5 Ml 5 Ml Syrup) 5 ml PO Q4H PRN PRN Reason: cough Magnesium Hydroxide (Milk Of Magnesia 30 Ml Oral.Susp) 30 ml PO DAILY PRN PRN Reason: Constipation Melatonin (Melatonin 3 Mg Tablet) 9 mg PO BEDTIME PRN PRN Reason: insomnia Last Admin: 09/06/22 23:14 Dose: 9 mg Metoprolol Succinate (Metoprolol Succinate Er 50 Mg Tab.Er.24h) 50 mg PO DAILY [facility]; Protocol Last Admin: 09/16/22 08:44 Dose: 50 mg Nifedipine (Nifedipine Er 90 Mg Tab.Er.24) 90 mg PO DAILY [facility] Last Admin: 09/16/22 08:43 Dose: 90 mg Non-Formulary Medication ( Diclofenac Sodium 1% Gel) 1 each TOPICAL BID@ [facility] Last Admin: 09/16/22 08:49 Dose: 1 each Olanzapine (Olanzapine 2.5 Mg Tablet) 2.5 mg PO TID PRN PRN Reason: agitation Last Admin: 08/23/22 00:47 Dose: 2.5 mg Olanzapine (Olanzapine 5 Mg Tablet) 5 mg PO BEDTIME [facility] Last Admin: 09/15/22 21:11 Dose: 5 mg Olanzapine (Olanzapine 2.5 Mg Tablet) 2.5 mg PO DAILY@1500 [facility] Last Admin: 09/15/22 14:31 Dose: 2.5 mg Ondansetron HCl (Ondansetron Odt 4 Mg Tab.Rapdis) 4 mg TRANSLINGU Q8H PRN PRN Reason: Nausea Propranolol HCl (Propranolol Hcl 20 Mg Tablet) 20 mg PO BID [facility]; Protocol Last Admin: 09/16/22 08:44 Dose: 20 mg Rivastigmine Tartrate (Rivastigmine Tartrate 1.5 Mg Capsule) 1.5 mg PO BID [facility] Last Admin: 09/16/22 08:43 Dose: 1.5 mg Sertraline HCl (Sertraline Hcl 50 Mg Tablet) 50 mg PO DAILY [facility] Last Admin: 09/16/22 08:43 Dose: 50 mg Tramadol HCl (Tramadol Hcl 50 Mg Tablet) 25 mg PO BID@1200,2100 [facility] Last Admin: 09/16/22 13:10 Dose: 25 mg Trazodone HCl (Trazodone Hcl 50 Mg Tablet) 50 mg PO BEDTIME PRN PRN Reason: Sleep Last Admin: 09/06/22 23:12 Dose: 50 mg Trazodone HCl (Trazodone Hcl 100 Mg Tablet) 100 mg PO BEDTIME [facility] Last Admin: 09/15/22 21:11 Dose: 100 mg Vitamin D (Cholecalciferol (Vitamin D3) 25 Mcg Tablet) 25 mcg PO DAILY [facility] Last Admin: 09/16/22 08:43 Dose: 25 mcg Allergies Allergies Allergy/AdvReac Type Severity Reaction Status Date / Time No Known Allergies Allergy Verified 08/12/22 23:06 Assessment & Plan Assessment & Plan (1) Major 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 Patient is friendly and calm. She is alert and oriented to self place; she said she came to the hospital because she was nervous but is not sure why she has to remain. Patient endorses paranoid delusions saying that there are cameras and microphones set up in house to spy on her; daughter says no history of psychiatric illness that she knows of and no psychotic symptoms until this past July. Plan: 08/15: psychotic symptoms most likely secondary to neurocognitive disorder. continue risperidone and sertraline. Once MOCA is completed, pattern of cognitive impairment will be more clear. 3/14 continue current medications. May consider medication such as exelon or aricept 08/17 may change to olanzapine as pt already with resting tremors. Start exelon 1.5mg po BID. 08/18 continue tx. change risperidone to olanzapine 2.5mg po qhs given underlying resting tremor. 08/19 continue with same treatment 08/20 continue same treatment. Tremors are visible- neurology saw pt and recommended propanolol, however, pt on metoprolol. This mortgage loan underwriter sent message to neurology to clarify if okay to give both but no response yet. 08/21 increase Zyprexa up to 5 mg po qhs. 08/22 continue tx. 08/24 Increase olanzapine to 2.5mg po daily and 5mg po qhs. start aumentin 500mg po BID x 7 days for sinusitis. 08/26 Tremors are visible and impairing her mobility- neurology saw pt and recommended propanolol, however, pt on metoprolol. This mortgage loan underwriter sent message to neurology to clarify if okay to give both but no response yet. Will add propan olol 20mg po BID. 08/27: Continue current tx plan. VSS. 08/28: Continue current plan 08/29 continue tx. 08/30 continue tx. 08/31 continue tx. 09/01 continue tx. called [facility] to check on next cortisone shot for left knee not until November. 09/02 continue tx. 09/03 continue tx 09/04 continue tx. 09/05 continue tx. 09/06 schedule tylenol 979 mg po BID. one time dose of tramadol for knee pain. 09/07/22 cont plan of care d/c planning 09/08 continue tx 09/09 continue tx. 09/10: no changes 09/11: Complaining of lower left leg swelling- p itting, no clear tenderness, no cellulitis, but differs significantly from right side. Will order doppler and hospitalist consult 09/12 continue with same treatment no DVT as per medical team 09/13 continue same treatment 09/14 add tramadol 25mg po BID at noon and bedtime. continue tylenol. For knee pain. 09/16 no changes Reason for continued inpatient stay Substantial Risk for: inability to function, rapid decompensation and med/psych decompensation Time Spent With Patient Time: Total time managing care of this patient today __20__ minutes.
[2022-09-16] MEDS: OLANZapine 2.5 MG TABLET PO (15:34)
[2022-09-16 18:00] VITALS: BP 151/65; PULSE 66; RESP 16; TEMP 36.6; O2SAT 93
[2022-09-16] MEDS: OLANZapine 5 MG TABLET PO (20:21)
[2022-09-16] MEDS: traZODone HCL 100 MG TABLET PO (20:22)
[2022-09-17 08:57] VITALS: BP 158/73; PULSE 60; RESP 17; TEMP 35.8; O2SAT 96
[2022-09-17] MEDS: Furosemide 40 MG TABLET PO (08:58)
[2022-09-17] MEDS: Atorvastatin Calcium 10 MG TABLET PO (08:58)
[2022-09-17] MEDS: Rivastigmine Tartrate 1.5 MG CAPSULE PO ×2 (08:58→20:54)
[2022-09-17] MEDS: Metoprolol Succinate ER 50 MG TAB.ER.24H PO (08:58)
[2022-09-17] MEDS: Acetaminophen 325 MG TABLET 975 MG PO ×2 (08:58→20:52)
[2022-09-17] MEDS: Propranolol HCL 20 MG TABLET PO ×2 (08:58→20:54)
[2022-09-17] MEDS: Sertraline HCL 50 MG TABLET PO (08:58)
[2022-09-17] MEDS: Cholecalciferol (Vitamin D3) 25 MCG TABLET PO (08:58)
[2022-09-17] MEDS: NIFEdipine ER 90 MG TAB.ER.24 PO (08:58)
[2022-09-17] MEDS: Aspirin Enteric Coated 81 MG TABLET.DR PO (08:58)
--- NOTE | 2022-09-17 11:26 | P.PNPSI_ITS ---
Subjective Subjective Date of Service: 09/17/22 Reason For Visit: confused Interim History: Patient with intermittent paranoia at other times quite pleasant cooperative Medication Compliance: Yes Mental Status Exam Mental Status Exam Patient Appearance: Well Grooomed and Appropriate Patient Orientation: Person and Situation Level of Consciousness: Awake and Appropriate Patient Behavior: Guarded and Passive Mood Description: Withdrawn Affect Description: Constricted Patient Cognition Impaired: Yes Ability to Follow Directions: Good Speech Pattern: Clear Hallucinations: None Delusions: Not Present Thought Process: Linear Thought Content: positive for Circumstantial Judgement: Fair Diagnostics Vital Signs (24Hr): Vital Signs - 24 hr 09/16/22 18:00 09/17/22 08:57 Temperature 98 F 96.4 F L Pulse Rate 66 60 Respiratory Rate 16 17 Blood Pressure 151/65 H 158/73 H Pulse Oximetry 93 96 Oxygen Delivery Method Room Air Room Air BMI result Body Mass Index 25.3 Labs 08/12/22 15:40 08/29/22 09:20 Imaging Radiology Impressions: ITS Impressions Head CT 08/15/22 14:53 IMPRESSION: No acute intracranial pathology. Significant right sphenoid sinus disease; correlate for any acute symptomatology. Chest X-Ray 08/28/22 22:24 IMPRESSION: No acute pulmonary disease. Venous Duplex 09/11/22 15:52 IMPRESSION: No DVT demonstrated in the bilateral lower extremity. Medications Medications Current Medications Acetaminophen (Acetaminophen 325 Mg Tablet) 975 mg PO BID [facility] Last Admin: 09/17/22 08:58 Dose: 975 mg Al Hydroxide/Mg Hydroxide (Magnesium Hydrox/Alum Hydrox 30 Ml Oral.Susp) 30 ml PO Q6H PRN PRN Reason: Heartburn/Nausea Aspirin (Aspirin Enteric Coated 81 Mg Tablet.) 81 mg PO DAILY [facility] Last Admin: 09/17/22 08:58 Dose: 81 mg Atorvastatin Calcium (Atorvastatin Calcium 10 Mg Tablet) 10 mg PO DAILY [facility] Last Admin: 09/17/22 08:58 Dose: 10 mg Benzocaine (Throat Lozenge, Medicated Lozenge) 1 lozenge MUCOUS MEM Q2H PRN PRN Reason: Sore Throat Last Admin: 08/26/22 06:05 Dose: 1 lozenge Calcium Carbonate (Calcium Carbonate 500 Mg Tablet) 500 mg PO DAILY [facility] Last Admin: 09/17/22 08:58 Dose: 500 mg Capsaicin (Capsaicin 0.025% Cream 60 Gm Tube) 1 appl TOPICAL TID PRN; Protocol PRN Reason: Pain, Moderate (Pain Scale 4-6 Furosemide (Furosemide 40 Mg Tablet) 40 mg PO DAILY [facility]; Protocol Last Admin: 09/17/22 08:58 Dose: 40 mg Guaifenesin (Guaifenesin 200 Mg/10 Ml 10 Ml Liquid) 10 ml PO Q6H PRN PRN Reason: Cough Last Admin: 09/06/22 23:15 Dose: 10 ml Guaifenesin/Dextromethorphan (Guaifenesin Dm 100/10/5 Ml 5 Ml Syrup) 5 ml PO Q4H PRN PRN Reason: cough Magnesium Hydroxide (Milk Of Magnesia 30 Ml Oral.Susp) 30 ml PO DAILY PRN PRN Reason: Constipation Melatonin (Melatonin 3 Mg Tablet) 9 mg PO BEDTIME PRN PRN Reason: insomnia Last Admin: 09/06/22 23:14 Dose: 9 mg Metoprolol Succinate (Metoprolol Succinate Er 50 Mg Tab.Er.24h) 50 mg PO DAILY [facility]; Protocol Last Admin: 09/17/22 08:58 Dose: 50 mg Nifedipine (Nifedipine Er 90 Mg Tab.Er.24) 90 mg PO DAILY [facility] Last Admin: 09/17/22 08:58 Dose: 90 mg Non-Formulary Medication ( Diclofenac Sodium 1% Gel) 1 each TOPICAL BID@0830,2030 [facility] Last Admin: 09/17/22 08:59 Dose: 1 each Olanzapine (Olanzapine 2.5 Mg Tablet) 2.5 mg PO TID PRN PRN Reason: agitation Last Admin: 08/23/22 00:47 Dose: 2.5 mg Olanzapine (Olanzapine 5 Mg Tablet) 5 mg PO BEDTIME [facility] Last Admin: 09/16/22 20:21 Dose: 5 mg Olanzapine (Olanzapine 2.5 Mg Tablet) 2.5 mg PO DAILY@1500 [facility] Last Admin: 09/16/22 15:34 Dose: 2.5 mg Ondansetron HCl (Ondansetron Odt 4 Mg Tab.Rapdis) 4 mg TRANSLINGU Q8H PRN PRN Reason: Nausea Propranolol HCl (Propranolol Hcl 20 Mg Tablet) 20 mg PO BID [facility]; Protocol Last Admin: 09/17/22 08:58 Dose: 20 mg Rivastigmine Tartrate (Rivastigmine Tartrate 1.5 Mg Capsule) 1.5 mg PO BID [facility] Last Admin: 09/17/22 08:58 Dose: 1.5 mg Sertraline HCl (Sertraline Hcl 50 Mg Tablet) 50 mg PO DAILY [facility] Last Admin: 09/17/22 08:58 Dose: 50 mg Tramadol HCl (Tramadol Hcl 50 Mg Tablet) 25 mg PO BID@1200,2100 [facility] Last Admin: 09/16/22 20:22 Dose: 25 mg Trazodone HCl (Trazodone Hcl 50 Mg Tablet) 50 mg PO BEDTIME PRN PRN Reason: Sleep Last Admin: 09/06/22 23:12 Dose: 50 mg Trazodone HCl (Trazodone Hcl 100 Mg Tablet) 100 mg PO BEDTIME [facility] Last Admin: 09/16/22 20:22 Dose: 100 mg Vitamin D (Cholecalciferol (Vitamin D3) 25 Mcg Tablet) 25 mcg PO DAILY [facility] Last Admin: 09/17/22 08:58 Dose: 25 mcg Allergies Allergies Allergy/AdvReac Type Severity Reaction Status Date / Time No Known Allergies Allergy Verified 08/12/22 23:06 Assessment & Plan Assessment & Plan (1) Major 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 Patient is friendly and calm. She is alert and oriented to self place; she said she came to the hospital because she was nervous but is not sure why she has to remain. Patient endorses paranoid delusions saying that there are cameras and microphones set up in house to spy on her; daughter says no history of psychiatric illness that she knows of and no psychotic symptoms until this past July. Plan: 08/15: psychotic symptoms most likely secondary to neurocognitive disorder. continue risperidone and sertraline. Once MOCA is completed, pattern of cognitive impairment will be more clear. 08/16 continue current medications. May consider medication such as exelon or aricept 08/17 may change to olanzapine as pt already with resting tremors. Start exelon 1.5mg po BID. 08/18 continue tx. change risperidone to olanzapine 2.5mg po qhs given underlying resting tremor. 08/19 continue with same treatment 08/20 continue same treatment. Tremors are visible- neurology saw pt and recommended propanolol, however, pt on metoprolol. This fiction and nonfiction writer prose sent message to neurology to clarify if okay to give both but no response yet. 08/21 increase Zyprexa up to 5 mg po qhs. 08/22 continue tx. 08/24 Increase olanzapine to 2.5mg po daily and 5mg po qhs. start aumentin 500mg po BID x 7 days for sinusitis. 08/26 Tremors are visible and impairing her mobility- neurology saw pt and recommended propanolol, however, pt on metoprolol. This fiction and nonfiction writer prose sent message to neurology to clarify if okay to give both but no response yet. Will add propanolol 20mg po BID. 08/27: Continue current tx plan. VSS. 08/28: Continue current plan 08/29 continue tx. 08/30 continue tx. 08/31 continue tx. 09/01 continue tx. called [facility] to check on next cortisone shot for left knee not until November. 09/02 continue tx. 09/03 continue tx 09/04 continue tx. 09/05 continue tx. 09/06 schedule tylenol 979 mg po BID. one time dose of tramadol for knee pain. 09/07/22 cont plan of care d/c planning 09/08 continue tx 09/09 continue tx. 09/10: no changes 09/11: Complaining of lower left leg swelling- p itting, no clear tenderness, no cellulitis, but differs significantly from right side. Will order doppler and hospitalist consult 09/12 continue with same treatment no DVT as per medical team 09/13 continue same treatment 09/14 add tramadol 25mg po BID at noon and bedtime. continue tylenol. For knee pain. 09/15 continue current medication, may titrate tramadol for pain, monitor sedation and therapeutic effect. 09/17/22 Continue plan of care monitor for over sedation Reason for continued inpatient stay Substantial Risk for: inability to function and rapid decompensation Time Spent With Patient Time: Total time managing care of this patient today ____ minutes.
[2022-09-17] MEDS: traMADoL HCL 50 MG TABLET 25 MG PO ×2 (13:05→20:54)
[2022-09-17] MEDS: OLANZapine 2.5 MG TABLET PO (14:23)
[2022-09-17 18:00] VITALS: BP 125/58; PULSE 60; RESP 18; TEMP 36.4; O2SAT 97
[2022-09-17] MEDS: OLANZapine 5 MG TABLET PO (20:53)
[2022-09-17] MEDS: traZODone HCL 100 MG TABLET PO (20:56)
[2022-09-18 06:00] VITALS: BP 143/67; PULSE 58; RESP 16; TEMP 36.2
[2022-09-18] MEDS: Sertraline HCL 50 MG TABLET PO (08:28)
[2022-09-18] MEDS: Atorvastatin Calcium 10 MG TABLET PO (08:28)
[2022-09-18] MEDS: Metoprolol Succinate ER 50 MG TAB.ER.24H PO (08:28)
[2022-09-18] MEDS: Acetaminophen 325 MG TABLET 975 MG PO ×2 (08:29→20:10)
[2022-09-18] MEDS: Aspirin Enteric Coated 81 MG TABLET.DR PO (08:29)
[2022-09-18] MEDS: Furosemide 40 MG TABLET PO (08:29)
[2022-09-18] MEDS: NIFEdipine ER 90 MG TAB.ER.24 PO (08:30)
[2022-09-18] MEDS: Propranolol HCL 20 MG TABLET PO (08:30)
[2022-09-18] MEDS: Cholecalciferol (Vitamin D3) 25 MCG TABLET PO (08:30)
[2022-09-18] MEDS: Rivastigmine Tartrate 1.5 MG CAPSULE PO ×2 (08:30→20:11)
[2022-09-18] MEDS: traMADoL HCL 50 MG TABLET 25 MG PO ×2 (11:56→20:09)
[2022-09-18] MEDS: OLANZapine 2.5 MG TABLET PO (15:16)
[2022-09-18 18:00] VITALS: BP 114/56; PULSE 59; RESP 18; TEMP 36.1; O2SAT 95
[2022-09-18] MEDS: OLANZapine 5 MG TABLET PO (20:08)
[2022-09-18] MEDS: traZODone HCL 100 MG TABLET PO (20:08)
--- NOTE | 2022-09-18 23:08 | HO.PSYCHPN ---
Subjective Subjective Date of Service: 09/17/22 Reason For Visit: confused Diagnostics Vital Signs (24Hr): Vital Signs - 24 hr 09/18/22 06:00 09/18/22 18:00 Temperature 97.2 F 96.9 F Pulse Rate 58 59 Respiratory Rate 16 18 Blood Pressure 143/67 H 114/56 L Pulse Oximetry 95 Oxygen Delivery Method Room Air Room Air Oxygen Flow Rate 96 BMI result Body Mass Index 25.3 Labs 08/12/22 15:40 08/29/22 09:20 Imaging Radiology Impressions: ITS Impressions Head CT 08/15/22 14:53 IMPRESSION: No acute intracranial pathology. Significant right sphenoid sinus disease; correlate for any acute symptomatology. Chest X-Ray 08/28/22 22:24 IMPRESSION: No acute pulmonary disease. Venous Duplex 09/11/22 15:52 IMPRESSION: No DVT demonstrated in the bilateral lower extremity. Medications Medications Current Medications Acetaminophen (Acetaminophen 325 Mg Tablet) 975 mg PO BID [facility] Last Admin: 09/18/22 20:10 Dose: 975 mg Al Hydroxide/Mg Hydroxide (Magnesium Hydrox/Alum Hydrox 30 Ml Oral.Susp) 30 ml PO Q6H PRN PRN Reason: Heartburn/Nausea Aspirin (Aspirin Enteric Coated 81 Mg Tablet.Dr) 81 mg PO DAILY [facility] Last Admin: 09/18/22 08:29 Dose: 81 mg Atorvastatin Calcium (Atorvastatin Calcium 10 Mg Tablet) 10 mg PO DAILY [facility] Last Admin: 09/18/22 08:28 Dose: 10 mg Benzocaine (Throat Lozenge, Medicated Lozenge) 1 lozenge MUCOUS MEM Q2H PRN PRN Reason: Sore Throat Last Admin: 08/26/22 06:05 Dose: 1 lozenge Calcium Carbonate (Calcium Carbonate 500 Mg Tablet) 500 mg PO DAILY [facility] Last Admin: 09/18/22 08:29 Dose: 500 mg Capsaicin (Capsaicin 0.025% Cream 60 Gm Tube) 1 appl TOPICAL TID PRN; Protocol PRN Reason: Pain, Moderate (Pain Scale 4-6 Furosemide (Furosemide 40 Mg Tablet) 40 mg PO DAILY [facility]; Protocol Last Admin: 09/18/22 08:29 Dose: 40 mg Guaifenesin (Guaifenesin 200 Mg/10 Ml 10 Ml Liquid) 10 ml PO Q6H PRN PRN Reason: Cough Last Admin: 09/06/22 23:15 Dose: 10 ml Guaifenesin/Dextromethorphan (Guaifenesin Dm 100/10/5 Ml 5 Ml Syrup) 5 ml PO Q4H PRN PRN Reason: cough Magnesium Hydroxide (Milk Of Magnesia 30 Ml Oral.Susp) 30 ml PO DAILY PRN PRN Reason: Constipation Melatonin (Melatonin 3 Mg Tablet) 9 mg PO BEDTIME PRN PRN Reason: insomnia Last Admin: 09/06/22 23:14 Dose: 9 mg Metoprolol Succinate (Metoprolol Succinate Er 50 Mg Tab.Er.24h) 50 mg PO DAILY [facility]; Protocol Last Admin: 09/18/22 08:28 Dose: 50 mg Nifedipine (Nifedipine Er 90 Mg Tab.Er.24) 90 mg PO DAILY [facility] Last Admin: 09/18/22 08:30 Dose: 90 mg Non-Formulary Medication ( Diclofenac Sodium 1% Gel) 1 each TOPICAL BID@0830,2030 [facility] Last Admin: 09/18/22 20:13 Dose: 1 each Olanzapine (Olanzapine 2.5 Mg Tablet) 2.5 mg PO TID PRN PRN Reason: agitation Last Admin: 08/23/22 00:47 Dose: 2.5 mg Olanzapine (Olanzapine 5 Mg Tablet) 5 mg PO BEDTIME [facility] Last Admin: 09/18/22 20:08 Dose: 5 mg Olanzapine (Olanzapine 2.5 Mg Tablet) 2.5 mg PO DAILY@1500 [facility] Last Admin: 09/18/22 15:16 Dose: 2.5 mg Ondansetron HCl (Ondansetron Odt 4 Mg Tab.Rapdis) 4 mg TRANSLINGU Q8H PRN PRN Reason: Nausea Propranolol HCl (Propranolol Hcl 20 Mg Tablet) 20 mg PO BID [facility]; Protocol Last Admin: 09/18/22 20:09 Dose: Not Given Rivastigmine Tartrate (Rivastigmine Tartrate 1.5 Mg Capsule) 1.5 mg PO BID [facility] Last Admin: 09/18/22 20:11 Dose: 1.5 mg Sertraline HCl (Sertraline Hcl 50 Mg Tablet) 50 mg PO DAILY [facility] Last Admin: 09/18/22 08:28 Dose: 50 mg Tramadol HCl (Tramadol Hcl 50 Mg Tablet) 25 mg PO BID@1200,2100 [facility] Last Admin: 09/18/22 20:09 Dose: 25 mg Trazodone HCl (Trazodone Hcl 50 Mg Tablet) 50 mg PO BEDTIME PRN PRN Reason: Sleep Last Admin: 09/06/22 23:12 Dose: 50 mg Trazodone HCl (Trazodone Hcl 100 Mg Tablet) 100 mg PO BEDTIME [facility] Last Admin: 09/18/22 20:08 Dose: 100 mg Vitamin D (Cholecalciferol (Vitamin D3) 25 Mcg Tablet) 25 mcg PO DAILY [facility] Last Admin: 09/18/22 08:30 Dose: 25 mcg Allergies Allergies Allergy/AdvReac Type Severity Reaction Status Date / Time No Known Allergies Allergy Verified 08/12/22 23:06 Assessment & Plan Assessment & Plan (1) Major 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 Patient is friendly and calm. She is alert and oriented to self place; she said she came to the hospital because she was nervous but is not sure why she has to remain. Patient endorses paranoid delusions saying that there are cameras and microphones set up in house to spy on her; daughter says no history of psychiatric illness that she knows of and no psychotic symptoms until this past July. Plan: 08/15: psychotic symptoms most likely secondary to neurocognitive disorder. continue risperidone and sertraline. Once MOCA is completed, pattern of cognitive impairment will be more clear. 08/16 continue current medications. May consider medication such as exelon or aricept 08/17 may change to olanzapine as pt already with resting tremors. Start exelon 1.5mg po BID. 08/18 continue tx. change risperidone to olanzapine 2.5mg po qhs given underlying resting tremor. 08/19 continue with same treatment 08/20 continue same treatment. Tremors are visible- neurology saw pt and recommended propanolol, however, pt on metoprolol. This editorial writer sent message to neurology to clarify if okay to give both but no response yet. 08/21 increase Zyprexa up to 5 mg po qhs. 08/22 continue tx. 08/24 Increase olanzapine to 2.5mg po daily and 5mg po qhs. start aumentin 500mg po BID x 7 days for sinusitis. 08/26 Tremors are visible and impairing her mobility- neurology saw pt and recommended propanolol, however, pt on metoprolol. This editorial writer sent message to neurology to clarify if okay to give both but no response yet. Will add propanolol 20mg po BID. 08/27: Continue current tx plan. VSS. 08/28: Continue current plan 08/29 continue tx. 08/30 continue tx. 08/31 continue tx. 09/01 continue tx. called [facility] to check on next cortisone shot for left knee not until November. 09/02 continue tx. 09/03 continue tx 09/04 continue tx. 09/05 continue tx. 09/06 schedule tylenol 979 mg po BID. one time dose of tramadol for knee pain. 09/07/22 cont plan of care d/c planning 09/08 continue tx 09/09 continue tx. 09/10: no changes 09/11: Complaining of lower left leg swelling- p itting, no clear tenderness, no cellulitis, but differs significantly from right side. Will order doppler and hospitalist consult 09/12 continue with same treatment no DVT as per medical team 09/13 continue same treatment 09/14 add tramadol 25mg po BID at noon and bedtime. continue tylenol. For knee pain. 09/15 continue current medication, may titrate tramadol for pain, monitor sedation and therapeutic effect. 09/17/22 Continue plan of care monitor for over sedation Reason for continued inpatient stay Substantial Risk for: inability to function and rapid decompensation Time Spent With Patient Time: Total time managing care of this patient today ____ minutes.
--- NOTE | 2022-09-18 23:09 | HO.PSYCHPN ---
Subjective Subjective Date of Service: 09/18/22 Reason For Visit: confused Subjective Notes: Conditional Voluntary Interim History: On interview the patient denies new symptoms, compliant with treatment Mental Status Exam Mental Status Exam Patient Appearance: Well Grooomed and Appropriate Patient Orientation: Person and Situation Level of Consciousness: Awake and Appropriate Patient Behavior: Guarded and Passive Mood Description: Calm Affect Description: Constricted Patient Cognition Impaired: Yes Ability to Follow Directions: Good Speech Pattern: Clear Hallucinations: None Delusions: Not Present Thought Process: Distracted Thought Content: positive for [place] and positive for Poverty of Content Judgement: Fair Diagnostics Vital Signs (24Hr): Vital Signs - 24 hr 09/18/22 06:00 09/18/22 18:00 Temperature 97.2 F 96.9 F Pulse Rate 58 59 Respiratory Rate 16 18 Blood Pressure 143/67 H 114/56 L Pulse Oximetry 95 Oxygen Delivery Method Room Air Room Air Oxygen Flow Rate 96 BMI result Body Mass Index 25.3 Labs 08/12/22 15:40 08/29/22 09:20 Imaging Radiology Impressions: ITS Impressions Head CT 08/15/22 14:53 IMPRESSION: No acute intracranial pathology. Significant right sphenoid sinus disease; correlate for any acute symptomatology. Chest X-Ray 08/28/22 22:24 IMPRESSION: No acute pulmonary disease. Venous Duplex 09/11/22 15:52 IMPRESSION: No DVT demonstrated in the bilateral lower extremity. Medications Medications Current Medications Acetaminophen (Acetaminophen 325 Mg Tablet) 975 mg PO BID [facility] Last Admin: 09/18/22 20:10 Dose: 975 mg Al Hydroxide/Mg Hydroxide (Magnesium Hydrox/Alum Hydrox 30 Ml Oral.Susp) 30 ml PO Q6H PRN PRN Reason: Heartburn/Nausea Aspirin (Aspirin Enteric Coated 81 Mg Tablet.Dr) 81 mg PO DAILY [facility] Last Admin: 09/18/22 08:29 Dose: 81 mg Atorvastatin Calcium (Atorvastatin Calcium 10 Mg Tablet) 10 mg PO DAILY [facility] Last Admin: 09/18/22 08:28 Dose: 10 mg Benzocaine (Throat Lozenge, Medicated Lozenge) 1 lozenge MUCOUS MEM Q2H PRN PRN Reason: Sore Throat Last Admin: 08/26/22 06:05 Dose: 1 lozenge Calcium Carbonate (Calcium Carbonate 500 Mg Tablet) 500 mg PO DAILY [facility] Last Admin: 09/18/22 08:29 Dose: 500 mg Capsaicin (Capsaicin 0.025% Cream 60 Gm Tube) 1 appl TOPICAL TID PRN; Protocol PRN Reason: Pain, Moderate (Pain Scale 4-6 Furosemide (Furosemide 40 Mg Tablet) 40 mg PO DAILY [facility]; Protocol Last Admin: 09/18/22 08:29 Dose: 40 mg Guaifenesin (Guaifenesin 200 Mg/10 Ml 10 Ml Liquid) 10 ml PO Q6H PRN PRN Reason: Cough Last Admin: 09/06/22 23:15 Dose: 10 ml Guaifenesin/Dextromethorphan (Guaifenesin Dm 100/10/5 Ml 5 Ml Syrup) 5 ml PO Q4H PRN PRN Reason: cough Magnesium Hydroxide (Milk Of Magnesia 30 Ml Oral.Susp) 30 ml PO DAILY PRN PRN Reason: Constipation Melatonin (Melatonin 3 Mg Tablet) 9 mg PO BEDTIME PRN PRN Reason: insomnia Last Admin: 09/06/22 23:14 Dose: 9 mg Metoprolol Succinate (Metoprolol Succinate Er 50 Mg Tab.Er.24h) 50 mg PO DAILY [facility]; Protocol Last Admin: 09/18/22 08:28 Dose: 50 mg Nifedipine (Nifedipine Er 90 Mg Tab.Er.24) 90 mg PO DAILY [facility] Last Admin: 09/18/22 08:30 Dose: 90 mg Non-Formulary Medication ( Diclofenac Sodium 1% Gel) 1 each TOPICAL BID@0830,2030 [facility] Last Admin: 09/18/22 20:13 Dose: 1 each Olanzapine (Olanzapine 2.5 Mg Tablet) 2.5 mg PO TID PRN PRN Reason: agitation Last Admin: 08/23/22 00:47 Dose: 2.5 mg Olanzapine (Olanzapine 5 Mg Tablet) 5 mg PO BEDTIME [facility] Last Admin: 09/18/22 20:08 Dose: 5 mg Olanzapine (Olanzapine 2.5 Mg Tablet) 2.5 mg PO DAILY@1500 [facility] Last Admin: 09/18/22 15:16 Dose: 2.5 mg Ondansetron HCl (Ondansetron Odt 4 Mg Tab.Rapdis) 4 mg TRANSLINGU Q8H PRN PRN Reason: Nausea Propranolol HCl (Propranolol Hcl 20 Mg Tablet) 20 mg PO BID [facility]; Protocol Last Admin: 09/18/22 20:09 Dose: Not Given Rivastigmine Tartrate (Rivastigmine Tartrate 1.5 Mg Capsule) 1.5 mg PO BID [facility] Last Admin: 09/18/22 20:11 Dose: 1.5 mg Sertraline HCl (Sertraline Hcl 50 Mg Tablet) 50 mg PO DAILY [facility] Last Admin: 09/18/22 08:28 Dose: 50 mg Tramadol HCl (Tramadol Hcl 50 Mg Tablet) 25 mg PO BID@1200,2100 [facility] Last Admin: 09/18/22 20:09 Dose: 25 mg Trazodone HCl (Trazodone Hcl 50 Mg Tablet) 50 mg PO BEDTIME PRN PRN Reason: Sleep Last Admin: 09/06/22 23:12 Dose: 50 mg Trazodone HCl (Trazodone Hcl 100 Mg Tablet) 100 mg PO BEDTIME [facility] Last Admin: 09/18/22 20:08 Dose: 100 mg Vitamin D (Cholecalciferol (Vitamin D3) 25 Mcg Tablet) 25 mcg PO DAILY [facility] Last Admin: 09/18/22 08:30 Dose: 25 mcg Allergies Allergies Allergy/AdvReac Type Severity Reaction Status Date / Time No Known Allergies Allergy Verified 08/12/22 23:06 Assessment & Plan Assessment & Plan (1) Major 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 Patient is friendly and calm. She is alert and oriented to self place; she said she came to the hospital because she was nervous but is not sure why she has to remain. Patient endorses paranoid delusions saying that there are cameras and microphones set up in house to spy on her; daughter says no history of psychiatric illness that she knows of and no psychotic symptoms until this past July. Plan: 08/15: psychotic symptoms most likely secondary to neurocognitive disorder. continue risperidone and sertraline. Once MOCA is completed, pattern of cognitive impairment will be more clear. 08/16 continue current medications. May consider medication such as exelon or aricept 08/17 may change to olanzapine as pt already with resting tremors. Start exelon 1.5mg po BID. 08/18 continue tx. change risperidone to olanzapine 2.5mg po qhs given underlying resting tremor. 08/19 continue with same treatment 08/20 continue same treatment. Tremors are visible- neurology saw pt and recommended propanolol, however, pt on metoprolol. This magnetic tape typewriter operator sent message to neurology to clarify if okay to give both but no response yet. 08/21 increase Zyprexa up to 5 mg po qhs. 08/22 continue tx. 08/24 Increase olanzapine to 2.5mg po daily and 5mg po qhs. start aumentin 500mg po BID x 7 days for sinusitis. 08/26 Tremors are visible and impairing her mobility- neurology saw pt and recommended propanolol, however, pt on metoprolol. This magnetic tape typewriter operator sent message to neurology to clarify if okay to give both but no response yet. Will add propanolol 20mg po BID. 08/27: Continue current tx plan. VSS. 08/28: Continue current plan 08/29 continue tx. 08/30 continue tx. 08/31 continue tx. 09/01 continue tx. called [facility] to check on next cortisone shot for left knee not until November. 09/02 continue tx. 09/03 continue tx 09/04 continue tx. 09/05 continue tx. 09/06 schedule tylenol 979 mg po BID. one time dose of tramadol for knee pain. 09/07/22 cont plan of care d/c planning 09/08 continue tx 09/09 continue tx. 09/10: no changes 09/11: Complaining of lower left leg swelling- p itting, no clear tenderness, no cellulitis, but differs significantly from right side. Will order doppler and hospitalist consult 09/12 continue with same treatment no DVT as per medical team 09/13 continue same treatment 09/14 add tramadol 25mg po BID at noon and bedtime. continue tylenol. For knee pain. 09/15 continue current medication, may titrate tramadol for pain, monitor sedation and therapeutic effect. 09/17/22 Continue plan of care monitor for over sedation 09/18/2022 Continue plan of care discharge planning case reviewed with nursing staff Reason for continued inpatient stay Substantial Risk for: inability to function and rapid decompensation Time Spent With Patient Time: Total time managing care of this patient today ____ minutes.
[2022-09-18] MEDS: traZODone HCL 50 MG TABLET PO (23:18)
[2022-09-19 08:45] VITALS: BP 143/78; PULSE 69; RESP 16; TEMP 36.3; O2SAT 96
[2022-09-19] MEDS: Propranolol HCL 20 MG TABLET PO ×2 (08:53→22:16)
[2022-09-19] MEDS: Furosemide 40 MG TABLET PO (08:53)
[2022-09-19] MEDS: Metoprolol Succinate ER 50 MG TAB.ER.24H PO (08:53)
[2022-09-19] MEDS: Aspirin Enteric Coated 81 MG TABLET.DR PO (08:53)
[2022-09-19] MEDS: Cholecalciferol (Vitamin D3) 25 MCG TABLET PO (08:53)
[2022-09-19] MEDS: Atorvastatin Calcium 10 MG TABLET PO (08:53)
[2022-09-19] MEDS: Rivastigmine Tartrate 1.5 MG CAPSULE PO ×2 (08:54→22:14)
[2022-09-19] MEDS: Sertraline HCL 50 MG TABLET PO (08:54)
[2022-09-19] MEDS: NIFEdipine ER 90 MG TAB.ER.24 PO (08:54)
[2022-09-19] MEDS: Acetaminophen 325 MG TABLET 975 MG PO ×2 (08:54→22:15)
--- NOTE | 2022-09-19 10:19 | HO.PSYCHPN ---
Subjective Subjective Date of Service: 09/19/22 Reason For Visit: confused Subjective Notes: Conditional Voluntary Interim History: The nursing staff reported the patient had been compliant with treatment, she had poor sleep last night since her roommate was snoring. She slept for hours. On interview the patient denies new symptoms, compliant with treatment Mental Status Exam Mental Status Exam Patient Appearance: Well Grooomed and Appropriate Patient Orientation: Person and Situation Level of Consciousness: Awake and Appropriate Patient Behavior: Guarded and Passive Mood Description: Calm Affect Description: Constricted Patient Cognition Impaired: Yes Ability to Follow Directions: Good Speech Pattern: Clear Hallucinations: None Delusions: Not Present Thought Process: Distracted Thought Content: positive for [place] and positive for Poverty of Content Judgement: Fair Diagnostics Vital Signs (24Hr): Vital Signs - 24 hr 09/18/22 18:00 09/19/22 08:45 Temperature 96.9 F 97.4 F Pulse Rate 59 69 Respiratory Rate 18 16 Blood Pressure 114/56 L 143/78 H Pulse Oximetry 95 96 Oxygen Delivery Method Room Air BMI result Body Mass Index 25.3 Labs 08/12/22 15:40 08/29/22 09:20 Imaging Radiology Impressions: ITS Impressions Head CT 08/15/22 14:53 IMPRESSION: No acute intracranial pathology. Significant right sphenoid sinus disease; correlate for any acute symptomatology. Chest X-Ray 08/28/22 22:24 IMPRESSION: No acute pulmonary disease. Venous Duplex 09/11/22 15:52 IMPRESSION: No DVT demonstrated in the bilateral lower extremity. Medications Medications Current Medications Acetaminophen (Acetaminophen 325 Mg Tablet) 975 mg PO BID [facility] Last Admin: 09/19/22 08:54 Dose: 975 mg Al Hydroxide/Mg Hydroxide (Magnesium Hydrox/Alum Hydrox 30 Ml Oral.Susp) 30 ml PO Q6H PRN PRN Reason: Heartburn/Nausea Aspirin (Aspirin Enteric Coated 81 Mg Tablet.) 81 mg PO DAILY [facility] Last Admin: 09/19/22 08:53 Dose: 81 mg Atorvastatin Calcium (Atorvastatin Calcium 10 Mg Tablet) 10 mg PO DAILY [facility] Last Admin: 09/19/22 08:53 Dose: 10 mg Benzocaine (Throat Lozenge, Medicated Lozenge) 1 lozenge MUCOUS MEM Q2H PRN PRN Reason: Sore Throat Last Admin: 08/26/22 06:05 Dose: 1 lozenge Calcium Carbonate (Calcium Carbonate 500 Mg Tablet) 500 mg PO DAILY [facility] Last Admin: 09/19/22 08:53 Dose: 500 mg Capsaicin (Capsaicin 0.025% Cream 60 Gm Tube) 1 appl TOPICAL TID PRN; Protocol PRN Reason: Pain, Moderate (Pain Scale 4-6 Furosemide (Furosemide 40 Mg Tablet) 40 mg PO DAILY [facility]; Protocol Last Admin: 09/19/22 08:53 Dose: 40 mg Guaifenesin (Guaifenesin 200 Mg/10 Ml 10 Ml Liquid) 10 ml PO Q6H PRN PRN Reason: Cough Last Admin: 09/06/22 23:15 Dose: 10 ml Guaifenesin/Dextromethorphan (Guaifenesin Dm 100/10/5 Ml 5 Ml Syrup) 5 ml PO Q4H PRN PRN Reason: cough Magnesium Hydroxide (Milk Of Magnesia 30 Ml Oral.Susp) 30 ml PO DAILY PRN PRN Reason: Constipation Melatonin (Melatonin 3 Mg Tablet) 9 mg PO BEDTIME PRN PRN Reason: insomnia Last Admin: 09/06/22 23:14 Dose: 9 mg Metoprolol Succinate (Metoprolol Succinate Er 50 Mg Tab.Er.24h) 50 mg PO DAILY [facility]; Protocol Last Admin: 09/19/22 08:53 Dose: 50 mg Nifedipine (Nifedipine Er 90 Mg Tab.Er.24) 90 mg PO DAILY [facility] Last Admin: 09/19/22 08:54 Dose: 90 mg Non-Formulary Medication ( Diclofenac Sodium 1% Gel) 1 each TOPICAL BID@0830,2030 [facility] Last Admin: 09/19/22 08:53 Dose: 1 each Olanzapine (Olanzapine 2.5 Mg Tablet) 2.5 mg PO TID PRN PRN Reason: agitation Last Admin: 08/23/22 00:47 Dose: 2.5 mg Olanzapine (Olanzapine 5 Mg Tablet) 5 mg PO BEDTIME [facility] Last Admin: 09/18/22 20:08 Dose: 5 mg Olanzapine (Olanzapine 2.5 Mg Tablet) 2.5 mg PO DAILY@1500 [facility] Last Admin: 09/18/22 15:16 Dose: 2.5 mg Ondansetron HCl (Ondansetron Odt 4 Mg Tab.Rapdis) 4 mg TRANSLINGU Q8H PRN PRN Reason: Nausea Propranolol HCl (Propranolol Hcl 20 Mg Tablet) 20 mg PO BID [facility]; Protocol Last Admin: 09/19/22 08:53 Dose: 20 mg Rivastigmine Tartrate (Rivastigmine Tartrate 1.5 Mg Capsule) 1.5 mg PO BID [facility] Last Admin: 09/19/22 08:54 Dose: 1.5 mg Sertraline HCl (Sertraline Hcl 50 Mg Tablet) 50 mg PO DAILY [facility] Last Admin: 09/19/22 08:54 Dose: 50 mg Tramadol HCl (Tramadol Hcl 50 Mg Tablet) 25 mg PO BID@1200,2100 [facility] Last Admin: 09/18/22 20:09 Dose: 25 mg Trazodone HCl (Trazodone Hcl 50 Mg Tablet) 50 mg PO BEDTIME PRN PRN Reason: Sleep Last Admin: 09/18/22 23:18 Dose: 50 mg Trazodone HCl (Trazodone Hcl 100 Mg Tablet) 100 mg PO BEDTIME [facility] Last Admin: 09/18/22 20:08 Dose: 100 mg Vitamin D (Cholecalciferol (Vitamin D3) 25 Mcg Tablet) 25 mcg PO DAILY [facility] Last Admin: 09/19/22 08:53 Dose: 25 mcg Allergies Allergies Allergy/AdvReac Type Severity Reaction Status Date / Time No Known Allergies Allergy Verified 08/12/22 23:06 Assessment & Plan Assessment & Plan (1) Major 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 Patient is friendly and calm. She is alert and oriented to self place; she said she came to the hospital because she was nervous but is not sure why she has to remain. Patient endorses paranoid delusions saying that there are cameras and microphones set up in house to spy on her; daughter says no history of psychiatric illness that she knows of and no psychotic symptoms until this past July. Plan: 08/15: psychotic symptoms most likely secondary to neurocognitive disorder. continue risperidone and sertraline. Once MOCA is completed, pattern of cognitive impairment will be more clear. 08/16 continue current medications. May consider medication such as exelon or aricept 08/17 may change to olanzapine as pt already with resting tremors. Start exelon 1.5mg po BID. 08/18 continue tx. change risperidone to olanzapine 2.5mg po qhs given underlying resting tremor. 08/19 continue with same treatment 08/20 continue same treatment. Tremors are visible- neurology saw pt and recommended propanolol, however, pt on metoprolol. This blog writer sent message to neurology to clarify if okay to give both but no response yet. 08/21 increase Zyprexa up to 5 mg po qhs. 08/22 continue tx. 08/24 Increase olanzapine to 2.5mg po daily and 5mg po qhs. start aumentin 500mg po BID x 7 days for sinusitis. 08/26 Tremors are visible and impairing her mobility- neurology saw pt and recommended propanolol, however, pt on metoprolol. This blog writer sent message to neurology to clarify if okay to give both but no response yet. Will add propanolol 20mg po BID. 08/27: Continue current tx plan. VSS. 08/28: Continue current plan 08/29 continue tx. 08/30 continue tx. 08/31 continue tx. 09/01 continue tx. called [facility] to check on next cortisone shot for left knee not until November. 09/02 continue tx. 09/03 continue tx 09/04 continue tx. 09/05 continue tx. 09/06 schedule tylenol 979 mg po BID. one time dose of tramadol for knee pain. 09/07/22 cont plan of care d/c planning 09/08 continue tx 09/09 continue tx. 09/10: no changes 09/11: Complaining of lower left leg swelling- p itting, no clear tenderness, no cellulitis, but differs significantly from right side. Will order doppler and hospitalist consult 09/12 continue with same treatment no DVT as per medical team 09/13 continue same treatment 09/14 add tramadol 25mg po BID at noon and bedtime. continue tylenol. For knee pain. 09/15 continue current medication, may titrate tramadol for pain, monitor sedation and therapeutic effect. 09/17/22 Continue plan of care monitor for over sedation 09/19 continue with same treatment Reason for continued inpatient stay Substantial Risk for: inability to function, rapid decompensation and med/psych decompensation Time Spent With Patient Time: Total time managing care of this patient today __20__ minutes.
[2022-09-19] MEDS: OLANZapine 2.5 MG TABLET PO (14:57)
[2022-09-19 18:00] VITALS: BP 129/57; PULSE 64; RESP 18; TEMP 36.2; O2SAT 94
[2022-09-19] MEDS: OLANZapine 5 MG TABLET PO (22:14)
[2022-09-19] MEDS: traZODone HCL 100 MG TABLET PO (22:16)
[2022-09-20 07:30] VITALS: BP 159/81; PULSE 60; RESP 18; TEMP 36.8; O2SAT 97
[2022-09-20] MEDS: Propranolol HCL 20 MG TABLET PO ×2 (08:03→20:50)
[2022-09-20] MEDS: NIFEdipine ER 90 MG TAB.ER.24 PO (08:03)
[2022-09-20] MEDS: Cholecalciferol (Vitamin D3) 25 MCG TABLET PO (08:03)
[2022-09-20] MEDS: Aspirin Enteric Coated 81 MG TABLET.DR PO (08:03)
[2022-09-20] MEDS: Rivastigmine Tartrate 1.5 MG CAPSULE PO ×2 (08:03→20:50)
[2022-09-20] MEDS: Atorvastatin Calcium 10 MG TABLET PO (08:03)
[2022-09-20] MEDS: Furosemide 40 MG TABLET PO (08:03)
[2022-09-20] MEDS: Metoprolol Succinate ER 50 MG TAB.ER.24H PO (08:04)
[2022-09-20] MEDS: Acetaminophen 325 MG TABLET 975 MG PO ×2 (08:04→20:48)
[2022-09-20] MEDS: Sertraline HCL 50 MG TABLET PO (08:06)
--- NOTE | 2022-09-20 13:21 | P.PNPSI_ITS ---
Subjective Subjective Date of Service: 09/20/22 Reason For Visit: confused Subjective Notes: Conditional Voluntary Interim History: Pt reports knee pain, slightly better with current medications but continues to ask if she can get cortisone shot sooner than November. Pt has been more visible on the unit and has attended more groups than usual. No SI/HI. Some self dialoguing but attention is good once pt talking on a one to one. Speech content and process is coherent and linear. Per nursing, no behavioral concerns. Medication Compliance: Yes Side effects from medications: No Attending Groups: Yes Review of Systems Review of Systems Complaining of lower left leg swelling- pitting, no clear tenderness, no cellulitis, but differs significantly from right side Yes all other systems are reviewed and are negative Diagnostics Vital Signs (24Hr): Vital Signs - 24 hr 09/19/22 18:00 09/20/22 07:30 Temperature 97.1 F 98.2 F Pulse Rate 64 60 Respiratory Rate 18 18 Blood Pressure 129/57 L 159/81 H Pulse Oximetry 94 97 Oxygen Delivery Method Room Air Room Air BMI result Body Mass Index 25.3 Labs 08/12/22 15:40 08/29/22 09:20 Imaging Radiology Impressions: ITS Impressions Head CT 08/15/22 14:53 IMPRESSION: No acute intracranial pathology. Significant right sphenoid sinus disease; correlate for any acute symptomatology. Chest X-Ray 08/28/22 22:24 IMPRESSION: No acute pulmonary disease. Venous Duplex 09/11/22 15:52 IMPRESSION: No DVT demonstrated in the bilateral lower extremity. Medications Medications Current Medications Acetaminophen (Acetaminophen 325 Mg Tablet) 975 mg PO BID [facility] Last Admin: 09/20/22 08:04 Dose: 975 mg Al Hydroxide/Mg Hydroxide (Magnesium Hydrox/Alum Hydrox 30 Ml Oral.Susp) 30 ml PO Q6H PRN PRN Reason: Heartburn/Nausea Aspirin (Aspirin Enteric Coated 81 Mg Tablet.) 81 mg PO DAILY [facility] Last Admin: 09/20/22 08:03 Dose: 81 mg Atorvastatin Calcium (Atorvastatin Calcium 10 Mg Tablet) 10 mg PO DAILY [facility] Last Admin: 09/20/22 08:03 Dose: 10 mg Benzocaine (Throat Lozenge, Medicated Lozenge) 1 lozenge MUCOUS MEM Q2H PRN PRN Reason: Sore Throat Last Admin: 08/26/22 06:05 Dose: 1 lozenge Calcium Carbonate (Calcium Carbonate 500 Mg Tablet) 500 mg PO DAILY [facility] Last Admin: 09/20/22 08:05 Dose: 500 mg Capsaicin (Capsaicin 0.025% Cream 60 Gm Tube) 1 appl TOPICAL TID PRN; Protocol PRN Reason: Pain, Moderate (Pain Scale 4-6 Furosemide (Furosemide 40 Mg Tablet) 40 mg PO DAILY [facility]; Protocol Last Admin: 09/20/22 08:03 Dose: 40 mg Guaifenesin (Guaifenesin 200 Mg/10 Ml 10 Ml Liquid) 10 ml PO Q6H PRN PRN Reason: Cough Last Admin: 09/06/22 23:15 Dose: 10 ml Guaifenesin/Dextromethorphan (Guaifenesin Dm 100/10/5 Ml 5 Ml Syrup) 5 ml PO Q4H PRN PRN Reason: cough Magnesium Hydroxide (Milk Of Magnesia 30 Ml Oral.Susp) 30 ml PO DAILY PRN PRN Reason: Constipation Melatonin (Melatonin 3 Mg Tablet) 9 mg PO BEDTIME PRN PRN Reason: insomnia Last Admin: 09/06/22 23:14 Dose: 9 mg Metoprolol Succinate (Metoprolol Succinate Er 50 Mg Tab.Er.24h) 50 mg PO DAILY [facility]; Protocol Last Admin: 09/20/22 08:04 Dose: 50 mg Nifedipine (Nifedipine Er 90 Mg Tab.Er.24) 90 mg PO DAILY [facility] Last Admin: 09/20/22 08:03 Dose: 90 mg Non-Formulary Medication ( Diclofenac Sodium 1% Gel) 1 each TOPICAL BID@0830,2030 [facility] Last Admin: 09/20/22 08:04 Dose: 1 each Olanzapine (Olanzapine 2.5 Mg Tablet) 2.5 mg PO TID PRN PRN Reason: agitation Last Admin: 08/23/22 00:47 Dose: 2.5 mg Olanzapine (Olanzapine 5 Mg Tablet) 5 mg PO BEDTIME [facility] Last Admin: 09/19/22 22:14 Dose: 5 mg Olanzapine (Olanzapine 2.5 Mg Tablet) 2.5 mg PO DAILY@1500 [facility] Last Admin: 09/19/22 14:57 Dose: 2.5 mg Ondansetron HCl (Ondansetron Odt 4 Mg Tab.Rapdis) 4 mg TRANSLINGU Q8H PRN PRN Reason: Nausea Propranolol HCl (Propranolol Hcl 20 Mg Tablet) 20 mg PO BID [facility]; Protocol Last Admin: 09/20/22 08:03 Dose: 20 mg Rivastigmine Tartrate (Rivastigmine Tartrate 1.5 Mg Capsule) 1.5 mg PO BID [facility] Last Admin: 09/20/22 08:03 Dose: 1.5 mg Sertraline HCl (Sertraline Hcl 50 Mg Tablet) 50 mg PO DAILY [facility] Last Admin: 09/20/22 08:06 Dose: 50 mg Trazodone HCl (Trazodone Hcl 50 Mg Tablet) 50 mg PO BEDTIME PRN PRN Reason: Sleep Last Admin: 09/18/22 23:18 Dose: 50 mg Trazodone HCl (Trazodone Hcl 100 Mg Tablet) 100 mg PO BEDTIME [facility] Last Admin: 09/19/22 22:16 Dose: 100 mg Vitamin D (Cholecalciferol (Vitamin D3) 25 Mcg Tablet) 25 mcg PO DAILY [facility] Last Admin: 09/20/22 08:03 Dose: 25 mcg Allergies Allergies Allergy/AdvReac Type Severity Reaction Status Date / Time No Known Allergies Allergy Verified 08/12/22 23:06 Assessment & Plan Assessment & Plan (1) Major 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 Patient is friendly and calm. She is alert and oriented to self place; she said she came to the hospital because she was nervous but is not sure why she has to remain. Patient endorses paranoid delusions saying that there are cameras and microphones set up in house to spy on her; daughter says no history of psychiatric illness that she knows of and no psychotic symptoms until this past July. Plan: 08/15: psychotic symptoms most likely secondary to neurocognitive disorder. continue risperidone and sertraline. Once MOCA is completed, pattern of cognitive impairment will be more clear. 08/16 continue current medications. May consider medication such as exelon or aricept 08/17 may change to olanzapine as pt already with resting tremors. Start exelon 1.5mg po BID. 08/18 continue tx. change risperidone to olanzapine 2.5mg po qhs given underlying resting tremor. 08/19 continue with same treatment 08/20 continue same treatment. Tremors are visible- neurology saw pt and recommended propanolol, however, pt on metoprolol. This script writer sent message to neurology to clarify if okay to give both but no response yet. 08/21 increase Zyprexa up to 5 mg po qhs. 08/22 continue tx. 08/24 Increase olanzapine to 2.5mg po daily and 5mg po qhs. start aumentin 500mg po BID x 7 days for sinusitis. 08/26 Tremors are visible and impairing her mobility- neurology saw pt and recommended propanolol, however, pt on metoprolol. This script writer sent message to neurology to clarify if okay to give both but no response yet. Will add propanolol 20mg po BID. 08/27: Continue current tx plan. VSS. 08/28: Continue current plan 08/29 continue tx. 08/30 continue tx. 08/31 continue tx. 09/01 continue tx. called [facility] to check on next cortisone shot for left knee not until November. 09/02 continue tx. 09/03 continue tx 09/04 continue tx. 09/05 continue tx. 09/06 schedule tylenol 979 mg po BID. one time dose of tramadol for knee pain. 09/07/22 cont plan of care d/c planning 09/08 continue tx 09/09 continue tx. 09/10: no changes 09/11: Complaining of lower left leg swelling- p itting, no clear tenderness, no cellulitis, but differs significantly from right side. Will order doppler and hospitalist consult 09/12 continue with same treatment no DVT as per medical team 09/13 continue same treatment 09/14 add tramadol 25mg po BID at noon and bedtime. continue tylenol. For knee pain. 09/15 continue current medication, may titrate tramadol for pain, monitor s edation and therapeutic effect. 09/17/22 Continue plan of care monitor for over sedation 09/18/2022 Continue plan of care discharge planning case reviewed with nursing staff 09/20 continue tx. Reason for continued inpatient stay Substantial Risk for: inability to function Time Spent With Patient Time: Total time managing care of this patient today ____ minutes.
[2022-09-20] MEDS: traMADoL HCL 50 MG TABLET 25 MG PO ×2 (16:11→20:49)
[2022-09-20] MEDS: OLANZapine 2.5 MG TABLET PO (16:14)
[2022-09-20 20:43] VITALS: BP 117/62; PULSE 59; RESP 18; TEMP 36.6; O2SAT 95
[2022-09-20] MEDS: OLANZapine 5 MG TABLET PO (20:50)
[2022-09-20] MEDS: traZODone HCL 100 MG TABLET PO (20:50)
[2022-09-21 06:00] VITALS: BP 148/77; PULSE 56; RESP 16; TEMP 36.6; O2SAT 96
[2022-09-21] MEDS: Cholecalciferol (Vitamin D3) 25 MCG TABLET PO (08:31)
[2022-09-21] MEDS: Acetaminophen 325 MG TABLET 975 MG PO ×2 (08:31→19:59)
[2022-09-21] MEDS: Rivastigmine Tartrate 1.5 MG CAPSULE PO ×2 (08:31→20:00)
[2022-09-21] MEDS: Sertraline HCL 50 MG TABLET PO (08:31)
[2022-09-21] MEDS: Metoprolol Succinate ER 50 MG TAB.ER.24H PO (08:32)
[2022-09-21] MEDS: Propranolol HCL 20 MG TABLET PO ×2 (08:32→19:59)
[2022-09-21] MEDS: traMADoL HCL 50 MG TABLET 25 MG PO ×3 (08:32→20:00)
[2022-09-21] MEDS: NIFEdipine ER 90 MG TAB.ER.24 PO (08:32)
[2022-09-21] MEDS: Furosemide 40 MG TABLET PO (08:33)
[2022-09-21] MEDS: Atorvastatin Calcium 10 MG TABLET PO (08:33)
[2022-09-21] MEDS: Aspirin Enteric Coated 81 MG TABLET.DR PO (08:33)
[2022-09-21] MEDS: OLANZapine 2.5 MG TABLET PO (14:22)
--- NOTE | 2022-09-21 16:46 | P.PNPSI_ITS ---
Subjective Subjective Date of Service: 09/21/22 Reason For Visit: confused Subjective Notes: Conditional Voluntary Interim History: Pt reports less knee pain with tramadol. Pt has been more visible on the unit and has attended more groups than usual. No SI/HI. Some self dialoguing but attention is good once pt talking on a one to one. Speech content and process is coherent and linear. Per nursing, no behavioral concerns. Review of Systems Review of Systems Complaining of lower left leg swelling- pitting, no clear tenderness, no cellulitis, but differs significantly from right side Yes all other systems are reviewed and are negative Mental Status Exam Mental Status Exam Narrative: Appearance: casually groomed, good hygiene, in NAD. Ambulates with walker Behavior: friendly Psychomotor: no agitation or retardation noted Speech: clear, normal rate/rhythm/volume, spontaneous. TP: mostly linear TC: feeling comfortable here Mood: Good Affect: bright, congruent SI: denies HI: denies VH/AH: denies, no overt signs Delusions: no overt delusional content noted or reported Insight/judgment: fair x 2. Memory/cog: alert, oriented to place, month and year, at times confused about situation Diagnostics Vital Signs (24Hr): Vital Signs - 24 hr 09/20/22 20:43 09/21/22 06:00 Temperature 97.8 F 97.9 F Pulse Rate 59 56 Respiratory Rate 18 16 Blood Pressure 117/62 148/77 H Pulse Oximetry 95 96 Oxygen Delivery Method Room Air Room Air BMI result Body Mass Index 25.3 Labs 08/12/22 15:40 08/29/22 09:20 Imaging Radiology Impressions: ITS Impressions Head CT 08/15/22 14:53 IMPRESSION: No acute intracranial pathology. Significant right sphenoid sinus disease; correlate for any acute symptomatology. Chest X-Ray 08/28/22 22:24 IMPRESSION: No acute pulmonary disease. Venous Duplex 09/11/22 15:52 IMPRESSION: No DVT demonstrated in the bilateral lower extremity. Medications Medications Current Medications Acetaminophen (Acetaminophen 325 Mg Tablet) 975 mg PO BID [facility] Last Admin: 09/21/22 08:31 Dose: 975 mg Al Hydroxide/Mg Hydroxide (Magnesium Hydrox/Alum Hydrox 30 Ml Oral.Susp) 30 ml PO Q6H PRN PRN Reason: Heartburn/Nausea Aspirin (Aspirin Enteric Coated 81 Mg Tablet.) 81 mg PO DAILY [facility] Last Admin: 09/21/22 08:33 Dose: 81 mg Atorvastatin Calcium (Atorvastatin Calcium 10 Mg Tablet) 10 mg PO DAILY [facility] Last Admin: 09/21/22 08:33 Dose: 10 mg Benzocaine (Throat Lozenge, Medicated Lozenge) 1 lozenge MUCOUS MEM Q2H PRN PRN Reason: Sore Throat Last Admin: 08/26/22 06:05 Dose: 1 lozenge Calcium Carbonate (Calcium Carbonate 500 Mg Tablet) 500 mg PO DAILY [facility] Last Admin: 09/21/22 08:32 Dose: 500 mg Capsaicin (Capsaicin 0.025% Cream 60 Gm Tube) 1 appl TOPICAL TID PRN; Protocol PRN Reason: Pain, Moderate (Pain Scale 4-6 Furosemide (Furosemide 40 Mg Tablet) 40 mg PO DAILY [facility]; Protocol Last Admin: 09/21/22 08:33 Dose: 40 mg Guaifenesin (Guaifenesin 200 Mg/10 Ml 10 Ml Liquid) 10 ml PO Q6H PRN PRN Reason: Cough Last Admin: 09/06/22 23:15 Dose: 10 ml Guaifenesin/Dextromethorphan (Guaifenesin Dm 100/10/5 Ml 5 Ml Syrup) 5 ml PO Q4H PRN PRN Reason: cough Magnesium Hydroxide (Milk Of Magnesia 30 Ml Oral.Susp) 30 ml PO DAILY PRN PRN Reason: Constipation Melatonin (Melatonin 3 Mg Tablet) 9 mg PO BEDTIME PRN PRN Reason: insomnia Last Admin: 09/06/22 23:14 Dose: 9 mg Metoprolol Succinate (Metoprolol Succinate Er 50 Mg Tab.Er.24h) 50 mg PO DAILY [facility]; Protocol Last Admin: 09/21/22 08:32 Dose: 50 mg Nifedipine (Nifedipine Er 90 Mg Tab.Er.24) 90 mg PO DAILY [facility] Last Admin: 09/21/22 08:32 Dose: 90 mg Non-Formulary Medication ( Diclofenac Sodium 1% Gel) 1 each TOPICAL BID@0830,2029 [facility] Last Admin: 09/21/22 08:33 Dose: 1 each Olanzapine (Olanzapine 2.5 Mg Tablet) 2.5 mg PO TID PRN PRN Reason: agitation Last Admin: 08/23/22 00:47 Dose: 2.5 mg Olanzapine (Olanzapine 5 Mg Tablet) 5 mg PO BEDTIME [facility] Last Admin: 09/20/22 20:50 Dose: 5 mg Olanzapine (Olanzapine 2.5 Mg Tablet) 2.5 mg PO DAILY@1500 [facility] Last Admin: 09/21/22 14:22 Dose: 2.5 mg Ondansetron HCl (Ondansetron Odt 4 Mg Tab.Rapdis) 4 mg TRANSLINGU Q8H PRN PRN Reason: Nausea Propranolol HCl (Propranolol Hcl 20 Mg Tablet) 20 mg PO BID [facility]; Protocol Last Admin: 09/21/22 08:32 Dose: 20 mg Rivastigmine Tartrate (Rivastigmine Tartrate 1.5 Mg Capsule) 1.5 mg PO BID [facility] Last Admin: 09/21/22 08:31 Dose: 1.5 mg Sertraline HCl (Sertraline Hcl 50 Mg Tablet) 50 mg PO DAILY [facility] Last Admin: 09/21/22 08:31 Dose: 50 mg Tramadol HCl (Tramadol Hcl 50 Mg Tablet) 25 mg PO TID [facility] Last Admin: 09/21/22 14:22 Dose: 25 mg Trazodone HCl (Trazodone Hcl 50 Mg Tablet) 50 mg PO BEDTIME PRN PRN Reason: Sleep Last Admin: 09/18/22 23:18 Dose: 50 mg Trazodone HCl (Trazodone Hcl 100 Mg Tablet) 100 mg PO BEDTIME [facility] Last Admin: 09/20/22 20:50 Dose: 100 mg Vitamin D (Cholecalciferol (Vitamin D3) 25 Mcg Tablet) 25 mcg PO DAILY [facility] Last Admin: 09/21/22 08:31 Dose: 25 mcg Allergies Allergies Allergy/AdvReac Type Severity Reaction Status Date / Time No Known Allergies Allergy Verified 08/12/22 23:06 Assessment & Plan Assessment & Plan (1) Major 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 Patient is friendly and calm. She is alert and oriented to self place; she said she came to the hospital because she was nervous but is not sure why she has to remain. Patient endorses paranoid delusions saying that there are cameras and microphones set up in house to spy on her; daughter says no history of psychiatric illness that she knows of and no psychotic symptoms until this past July. Plan: 08/15: psychotic symptoms most likely secondary to neurocognitive disorder. continue risperidone and sertraline. Once MOCA is completed, pattern of cognitive impairment will be more clear. 08/16 continue current medications. May consider medication such as exelon or aricept 08/17 may change to olanzapine as pt already with resting tremors. Start exelon 1.5mg po BID. 08/18 continue tx. change risperidone to olanzapine 2.5mg po qhs given underlying resting tremor. 08/19 continue with same treatment 08/20 continue same treatment. Tremors are visible- neurology saw pt and recommended propanolol, however, pt on metoprolol. This mortgage underwriter sent message to neurology to clarify if okay to give both but no response yet. 08/21 increase Zyprexa up to 5 mg po qhs. 08/22 continue tx. 08/24 Increase olanzapine to 2.5mg po daily and 5mg po qhs. start aumentin 500mg po BID x 7 days for sinusitis. 08/26 Tremors are visible and impairing her mobility- neurology saw pt and recommended propanolol, however, pt on metoprolol. This mortgage underwriter sent message to neurology to clarify if okay to give both but no response yet. Will add propanolol 20mg po BID. 08/27: Continue current tx plan. VSS. 08/28: Continue current plan 08/29 continue tx. 08/30 continue tx. 08/31 continue tx. 09/01 continue tx. called [facility] to check on next cortisone shot for left knee not until November. 09/02 continue tx. 09/03 continue tx 09/04 continue tx. 09/05 continue tx. 09/06 schedule tylenol 979 mg po BID. one time dose of tramadol for knee pain. 09/07/22 cont plan of care d/c planning 09/08 continue tx 09/09 continue tx. 09/10: no changes 09/11: Complaining of lower left leg swelling- p itting, no clear tenderness, no cellulitis, but differs significantly from right side. Will order doppler and hospitalist consult 09/12 continue with same treatment no DVT as per medical team 09/13 continue same treatment 09/14 add tramadol 25mg po BID at noon and bedtime. continue tylenol. For knee pain. 09/15 continue current medication, may titrate tramadol for pain, monitor sedation and therapeutic effect. 09/17/22 Continue plan of care monitor for over sedation 09/18/2022 Continue plan of care discharge planning case reviewed with nursing staff 09/20 continue tx. tramadol 25mg po TID 09/21 continie tx. Reason for continued inpatient stay Substantial Risk for: inability to function Time Spent With Patient Time: Total time managing care of this patient today ____ minutes.
[2022-09-21 18:00] VITALS: BP 149/65; PULSE 65; RESP 18; TEMP 36.1; O2SAT 96
[2022-09-21] MEDS: OLANZapine 5 MG TABLET PO (19:59)
[2022-09-21] MEDS: traZODone HCL 100 MG TABLET PO (20:00)
[2022-09-22] MEDS: Capsaicin 0.025% Cream 60 GM TUBE 1 APPL TOPICAL (00:06)
[2022-09-22 08:05] VITALS: BP 141/73; PULSE 64; RESP 16; TEMP 36.9; O2SAT 93
[2022-09-22] MEDS: Acetaminophen 325 MG TABLET 975 MG PO ×2 (08:38→22:21)
[2022-09-22] MEDS: traMADoL HCL 50 MG TABLET 25 MG PO ×3 (08:39→22:21)
[2022-09-22] MEDS: Atorvastatin Calcium 10 MG TABLET PO (08:39)
[2022-09-22] MEDS: Metoprolol Succinate ER 50 MG TAB.ER.24H PO (08:39)
[2022-09-22] MEDS: Furosemide 40 MG TABLET PO (08:39)
[2022-09-22] MEDS: Aspirin Enteric Coated 81 MG TABLET.DR PO (08:39)
[2022-09-22] MEDS: Sertraline HCL 50 MG TABLET PO (08:39)
[2022-09-22] MEDS: Cholecalciferol (Vitamin D3) 25 MCG TABLET PO (08:39)
[2022-09-22] MEDS: Rivastigmine Tartrate 1.5 MG CAPSULE PO ×2 (08:41→22:26)
[2022-09-22] MEDS: Propranolol HCL 20 MG TABLET PO (08:41)
[2022-09-22] MEDS: NIFEdipine ER 90 MG TAB.ER.24 PO (08:41)
[2022-09-22 11:02] VITALS: BMI 25.9
[2022-09-22] MEDS: OLANZapine 2.5 MG TABLET PO ×2 (14:41→22:25)
--- NOTE | 2022-09-22 21:36 | HO.PSYCHPN ---
Subjective Subjective Date of Service: 09/22/22 Reason For Visit: confused Subjective Notes: Conditional Voluntary Interim History: Per nursing, pt slept through the night. Pt reports pain on knee is less with tramadol but still difficult when she stands up to walk. She denies SI/HI. She reports she enjoys going to groups. She reports she worries about not finding place to go to long terms. No behavioral concerns. Medication Compliance: Yes Side effects from medications: No Review of Systems Review of Systems Complaining of lower left leg swelling- pitting, no clear tenderness, no cellulitis, but differs significantly from right side Yes all other systems are reviewed and are negative Mental Status Exam Mental Status Exam Narrative: Appearance: casually groomed, good hygiene, in NAD. Ambulates with walker Behavior: friendly Psychomotor: no agitation or retardation noted Speech: clear, normal rate/rhythm/volume, spontaneous. TP: mostly linear TC: feeling comfortable here Mood: Good Affect: bright, congruent SI: denies HI: denies VH/AH: denies, no overt signs Delusions: no overt delusional content noted or reported Insight/judgment: fair x 2. Memory/cog: alert, oriented to place, month and year, at times confused about situation Diagnostics Vital Signs (24Hr): Vital Signs - 24 hr 09/22/22 08:05 Temperature 98.4 F Pulse Rate 64 Respiratory Rate 16 Blood Pressure 141/73 H Pulse Oximetry 93 Oxygen Delivery Method Room Air BMI result Body Mass Index 25.9 Labs 08/12/22 15:40 08/29/22 09:20 Imaging Radiology Impressions: ITS Impressions Head CT 08/15/22 14:53 IMPRESSION: No acute intracranial pathology. Significant right sphenoid sinus disease; correlate for any acute symptomatology. Chest X-Ray 08/28/22 22:24 IMPRESSION: No acute pulmonary disease. Venous Duplex 09/11/22 15:52 IMPRESSION: No DVT demonstrated in the bilateral lower extremity. Medications Medications Current Medications Acetaminophen (Acetaminophen 325 Mg Tablet) 975 mg PO BID [facility] Last Admin: 09/22/22 08:38 Dose: 975 mg Al Hydroxide/Mg Hydroxide (Magnesium Hydrox/Alum Hydrox 30 Ml Oral.Susp) 30 ml PO Q6H PRN PRN Reason: Heartburn/Nausea Aspirin (Aspirin Enteric Coated 81 Mg Tablet.) 81 mg PO DAILY [facility] Last Admin: 04/20/23 08:39 Dose: 81 mg Atorvastatin Calcium (Atorvastatin Calcium 10 Mg Tablet) 10 mg PO DAILY [facility] Last Admin: 09/22/22 08:39 Dose: 10 mg Benzocaine (Throat Lozenge, Medicated Lozenge) 1 lozenge MUCOUS MEM Q2H PRN PRN Reason: Sore Throat Last Admin: 08/26/22 06:05 Dose: 1 lozenge Calcium Carbonate (Calcium Carbonate 500 Mg Tablet) 500 mg PO DAILY [facility] Last Admin: 09/22/22 08:41 Dose: 500 mg Capsaicin (Capsaicin 0.025% Cream 60 Gm Tube) 1 appl TOPICAL TID PRN; Protocol PRN Reason: Pain, Moderate (Pain Scale 4-6 Last Admin: 09/22/22 00:06 Dose: 1 appl Furosemide (Furosemide 40 Mg Tablet) 40 mg PO DAILY [facility]; Protocol Last Admin: 09/22/22 08:39 Dose: 40 mg Guaifenesin (Guaifenesin 200 Mg/10 Ml 10 Ml Liquid) 10 ml PO Q6H PRN PRN Reason: Cough Last Admin: 09/06/22 23:15 Dose: 10 ml Guaifenesin/Dextromethorphan (Guaifenesin Dm 100/10/5 Ml 5 Ml Syrup) 5 ml PO Q4H PRN PRN Reason: cough Magnesium Hydroxide (Milk Of Magnesia 30 Ml Oral.Susp) 30 ml PO DAILY PRN PRN Reason: Constipation Melatonin (Melatonin 3 Mg Tablet) 9 mg PO BEDTIME PRN PRN Reason: insomnia Last Admin: 09/06/22 23:14 Dose: 9 mg Metoprolol Succinate (Metoprolol Succinate Er 50 Mg Tab.Er.24h) 50 mg PO DAILY [facility]; Protocol Last Admin: 09/22/22 08:39 Dose: 50 mg Nifedipine (Nifedipine Er 90 Mg Tab.Er.24) 90 mg PO DAILY [facility] Last Admin: 09/22/22 08:41 Dose: 90 mg Non-Formulary Medication ( Diclofenac Sodium 1% Gel) 1 each TOPICAL BID@829,2029 [facility] Last Admin: 09/22/22 08:50 Dose: 1 each Olanzapine (Olanzapine 2.5 Mg Tablet) 2.5 mg PO TID PRN PRN Reason: agitation Last Admin: 08/23/22 00:47 Dose: 2.5 mg Olanzapine (Olanzapine 5 Mg Tablet) 5 mg PO BEDTIME [facility] Last Admin: 09/21/22 19:59 Dose: 5 mg Olanzapine (Olanzapine 2.5 Mg Tablet) 2.5 mg PO DAILY@1500 [facility] Last Admin: 09/22/22 14:41 Dose: 2.5 mg Ondansetron HCl (Ondansetron Odt 4 Mg Tab.Rapdis) 4 mg TRANSLINGU Q8H PRN PRN Reason: Nausea Propranolol HCl (Propranolol Hcl 20 Mg Tablet) 20 mg PO BID [facility]; Protocol Last Admin: 09/22/22 08:41 Dose: 20 mg Rivastigmine Tartrate (Rivastigmine Tartrate 1.5 Mg Capsule) 1.5 mg PO BID [facility] Last Admin: 09/22/22 08:41 Dose: 1.5 mg Sertraline HCl (Sertraline Hcl 50 Mg Tablet) 50 mg PO DAILY [facility] Last Admin: 09/22/22 08:39 Dose: 50 mg Tramadol HCl (Tramadol Hcl 50 Mg Tablet) 25 mg PO TID [facility] Last Admin: 09/22/22 14:41 Dose: 25 mg Trazodone HCl (Trazodone Hcl 50 Mg Tablet) 50 mg PO BEDTIME PRN PRN Reason: Sleep Last Admin: 09/22/22 00:00 Dose: 50 mg Trazodone HCl (Trazodone Hcl 100 Mg Tablet) 100 mg PO BEDTIME [facility] Last Admin: 09/21/22 20:00 Dose: 100 mg Vitamin D (Cholecalciferol (Vitamin D3) 25 Mcg Tablet) 25 mcg PO DAILY [facility] Last Admin: 09/22/22 08:39 Dose: 25 mcg Allergies Allergies Allergy/AdvReac Type Severity Reaction Status Date / Time No Known Allergies Allergy Verified 08/12/22 23:06 Assessment & Plan Assessment & Plan (1) Major 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 Patient is friendly and calm. She is alert and oriented to self place; she said she came to the hospital because she was nervous but is not sure why she has to remain. Patient endorses paranoid delusions saying that there are cameras and microphones set up in house to spy on her; daughter says no history of psychiatric illness that she knows of and no psychotic symptoms until this past July. Plan: 08/15: psychotic symptoms most likely secondary to neurocognitive disorder. continue risperidone and sertraline. Once MOCA is completed, pattern of cognitive impairment will be more clear. 08/16 continue current medications. May consider medication such as exelon or aricept 08/17 may change to olanzapine as pt already with resting tremors. Start exelon 1.5mg po BID. 08/18 continue tx. change risperidone to olanzapine 2.5mg po qhs given underlying resting tremor. 08/19 continue with same treatment 08/20 continue same treatment. Tremors are visible- neurology saw pt and recommended propanolol, however, pt on metoprolol. This production underwriter sent message to neurology to clarify if okay to give both but no response yet. 08/21 increase Zyprexa up to 5 mg po qhs. 08/22 continue tx. 08/24 Increase olanzapine to 2.5mg po daily and 5mg po qhs. start aumentin 500mg po BID x 7 days for sinusitis. 08/26 Tremors are visible and impairing her mobility- neurology saw pt and recommended propanolol, however, pt on metoprolol. This production underwriter sent message to neurology to clarify if okay to give both but no response yet. Will add propanolol 20mg po BID. 08/27: Continue current tx plan. VSS. 08/28: Continue current plan 08/29 continue tx. 08/30 continue tx. 08/31 continue tx. 09/01 continue tx. called [facility] to check on next cortisone shot for left knee not until November. 09/02 continue tx. 09/03 continue tx 09/04 continue tx. 09/05 continue tx. 09/06 schedule tylenol 979 mg po BID. one time dose of tramadol for knee pain. 09/07/22 cont plan of care d/c planning 09/08 continue tx 09/09 continue tx. 09/10: no changes 09/11: Complaining of lower left leg swelling- p itting, no clear tenderness, no cellulitis, but differs significantly from right side. Will order doppler and hospitalist consult 09/12 continue with same treatment no DVT as per medical team 09/13 continue same treatment 4/12 add tramadol 25mg po BID at noon and bedtime. continue tylenol. For knee pain. 09/15 continue current medication, may titrate tramadol for pain, monitor sedation and therapeutic effect. 09/17/22 Continue plan of care monitor for over sedation 09/18/2022 Continue plan of care discharge planning case reviewed with nursing staff 09/20 continue tx. tramadol 25mg po TID 09/21 continue tx. 09/22 continue tx. Reason for continued inpatient stay Substantial Risk for: inability to function Time Spent With Patient Time: Total time managing care of this patient today ____ minutes.
[2022-09-22 22:08] VITALS: BP 131/55; PULSE 58; RESP 18; TEMP 36.7; O2SAT 95
[2022-09-22 22:20] VITALS: BP 137/71; PULSE 57; RESP 18; TEMP 35.9; O2SAT 94
[2022-09-22] MEDS: OLANZapine 5 MG TABLET PO (22:21)
[2022-09-22] MEDS: traZODone HCL 50 MG TABLET PO ×2 (22:23)
[2022-09-22] MEDS: traZODone HCL 100 MG TABLET PO (22:25)
[2022-09-23 07:55] VITALS: BP 136/72; PULSE 72; RESP 18; TEMP 37; O2SAT 95
[2022-09-23] MEDS: Sertraline HCL 50 MG TABLET PO (09:36)
[2022-09-23] MEDS: Atorvastatin Calcium 10 MG TABLET PO (09:36)
[2022-09-23] MEDS: NIFEdipine ER 90 MG TAB.ER.24 PO (09:36)
[2022-09-23] MEDS: Aspirin Enteric Coated 81 MG TABLET.DR PO (09:36)
[2022-09-23] MEDS: Acetaminophen 325 MG TABLET 975 MG PO ×2 (09:36→20:07)
[2022-09-23] MEDS: Metoprolol Succinate ER 50 MG TAB.ER.24H PO (09:37)
[2022-09-23] MEDS: Rivastigmine Tartrate 1.5 MG CAPSULE PO ×2 (09:37→20:05)
[2022-09-23] MEDS: Furosemide 40 MG TABLET PO (09:37)
[2022-09-23] MEDS: Cholecalciferol (Vitamin D3) 25 MCG TABLET PO (09:38)
[2022-09-23] MEDS: traMADoL HCL 50 MG TABLET 25 MG PO ×3 (09:38→20:05)
[2022-09-23] MEDS: Propranolol HCL 20 MG TABLET PO ×2 (09:38→20:05)
[2022-09-23] MEDS: OLANZapine 2.5 MG TABLET PO (14:28)
[2022-09-23 18:00] VITALS: BP 124/62; PULSE 66; RESP 18; TEMP 36.2; O2SAT 97
[2022-09-23] MEDS: traZODone HCL 100 MG TABLET PO (20:05)
[2022-09-23] MEDS: OLANZapine 5 MG TABLET PO (20:07)
--- NOTE | 2022-09-23 21:50 | HO.PSYCHPN ---
Subjective Subjective Date of Service: 09/23/22 Reason For Visit: confused Subjective Notes: Conditional Voluntary Interim History: Per nursing, pt slept through the night. Pt reports she is trying to cope with being here on the unit and awaiting placement. Per SW, pt has been pre accepted at [place]. She denies SI/HI. She reports she enjoys going to groups. She reports she worries about not finding place to go to long terms. No behavioral concerns. Review of Systems Review of Systems Complaining of lower left leg swelling- pitting, no clear tenderness, no cellulitis, but differs significantly from right side Yes all other systems are reviewed and are negative Mental Status Exam Mental Status Exam Narrative: Appearance: casually groomed, good hygiene, in NAD. Ambulates with walker Behavior: friendly Psychomotor: no agitation or retardation noted Speech: clear, normal rate/rhythm/volume, spontaneous. TP: mostly linear TC: feeling comfortable here Mood: Good Affect: bright, congruent SI: denies HI: denies VH/AH: denies, no overt signs Delusions: no overt delusional content noted or reported Insight/judgment: fair x 2. Memory/cog: alert, oriented to place, month and year, at times confused about situation Diagnostics Vital Signs (24Hr): Vital Signs - 24 hr 09/22/22 22:08 09/22/22 22:20 09/23/22 07:55 Temperature 98.0 F 96.7 F L 98.6 F Pulse Rate 58 57 72 Respiratory Rate 18 18 18 Blood Pressure 131/55 L 137/71 136/72 Pulse Oximetry 95 94 95 Oxygen Delivery Method Room Air Room Air BMI result Body Mass Index 25.9 Labs 08/12/22 15:40 08/29/22 09:20 Imaging Radiology Impressions: ITS Impressions Head CT 08/15/22 14:53 IMPRESSION: No acute intracranial pathology. Significant right sphenoid sinus disease; correlate for any acute symptomatology. Chest X-Ray 08/28/22 22:24 IMPRESSION: No acute pulmonary disease. Venous Duplex 09/11/22 15:52 IMPRESSION: No DVT demonstrated in the bilateral lower extremity. Medications Medications Current Medications Acetaminophen (Acetaminophen 325 Mg Tablet) 975 mg PO BID [facility] Last Admin: 09/23/22 20:07 Dose: 975 mg Al Hydroxide/Mg Hydroxide (Magnesium Hydrox/Alum Hydrox 30 Ml Oral.Susp) 30 ml PO Q6H PRN PRN Reason: Heartburn/Nausea Aspirin (Aspirin Enteric Coated 81 Mg Tablet.Dr) 81 mg PO DAILY [facility] Last Admin: 09/23/22 09:36 Dose: 81 mg Atorvastatin Calcium (Atorvastatin Calcium 10 Mg Tablet) 10 mg PO DAILY [facility] Last Admin: 09/23/22 09:36 Dose: 10 mg Benzocaine (Throat Lozenge, Medicated Lozenge) 1 lozenge MUCOUS MEM Q2H PRN PRN Reason: Sore Throat Last Admin: 08/26/22 06:05 Dose: 1 lozenge Calcium Carbonate (Calcium Carbonate 500 Mg Tablet) 500 mg PO DAILY [facility] Last Admin: 09/23/22 10:26 Dose: Not Given Capsaicin (Capsaicin 0.025% Cream 60 Gm Tube) 1 appl TOPICAL TID PRN; Protocol PRN Reason: Pain, Moderate (Pain Scale 4-6 Last Admin: 09/22/22 00:06 Dose: 1 appl Furosemide (Furosemide 40 Mg Tablet) 40 mg PO DAILY [facility]; Protocol Last Admin: 09/23/22 09:37 Dose: 40 mg Guaifenesin (Guaifenesin 200 Mg/10 Ml 10 Ml Liquid) 10 ml PO Q6H PRN PRN Reason: Cough Last Admin: 09/06/22 23:15 Dose: 10 ml Guaifenesin/Dextromethorphan (Guaifenesin Dm 100/10/5 Ml 5 Ml Syrup) 5 ml PO Q4H PRN PRN Reason: cough Magnesium Hydroxide (Milk Of Magnesia 30 Ml Oral.Susp) 30 ml PO DAILY PRN PRN Reason: Constipation Melatonin (Melatonin 3 Mg Tablet) 9 mg PO BEDTIME PRN PRN Reason: insomnia Last Admin: 09/06/22 23:14 Dose: 9 mg Metoprolol Succinate (Metoprolol Succinate Er 50 Mg Tab.Er.24h) 50 mg PO DAILY [facility]; Protocol Last Admin: 09/23/22 09:37 Dose: 50 mg Nifedipine (Nifedipine Er 90 Mg Tab.Er.24) 90 mg PO DAILY [facility] Last Admin: 09/23/22 09:36 Dose: 90 mg Non-Formulary Medication ( Diclofenac Sodium 1% Gel) 1 each TOPICAL BID@0830,2029 [facility] Last Admin: 09/23/22 20:07 Dose: Not Given Olanzapine (Olanzapine 2.5 Mg Tablet) 2.5 mg PO TID PRN PRN Reason: agitation Last Admin: 09/22/22 22:25 Dose: 2.5 mg Olanzapine (Olanzapine 5 Mg Tablet) 5 mg PO BEDTIME [facility] Last Admin: 09/23/22 20:07 Dose: 5 mg Olanzapine (Olanzapine 2.5 Mg Tablet) 2.5 mg PO DAILY@1500 [facility] Last Admin: 09/23/22 14:28 Dose: 2.5 mg Ondansetron HCl (Ondansetron Odt 4 Mg Tab.Rapdis) 4 mg TRANSLINGU Q8H PRN PRN Reason: Nausea Propranolol HCl (Propranolol Hcl 20 Mg Tablet) 20 mg PO BID [facility]; Protocol Last Admin: 09/23/22 20:05 Dose: 20 mg Rivastigmine Tartrate (Rivastigmine Tartrate 1.5 Mg Capsule) 1.5 mg PO BID [facility] Last Admin: 09/23/22 20:05 Dose: 1.5 mg Sertraline HCl (Sertraline Hcl 50 Mg Tablet) 50 mg PO DAILY [facility] Last Admin: 09/23/22 09:36 Dose: 50 mg Tramadol HCl (Tramadol Hcl 50 Mg Tablet) 25 mg PO TID [facility] Last Admin: 09/23/22 20:05 Dose: 25 mg Trazodone HCl (Trazodone Hcl 50 Mg Tablet) 50 mg PO BEDTIME PRN PRN Reason: Sleep Last Admin: 09/22/22 22:23 Dose: 50 mg Trazodone HCl (Trazodone Hcl 100 Mg Tablet) 100 mg PO BEDTIME [facility] Last Admin: 09/23/22 20:05 Dose: 100 mg Vitamin D (Cholecalciferol (Vitamin D3) 25 Mcg Tablet) 25 mcg PO DAILY [facility] Last Admin: 09/23/22 09:38 Dose: 25 mcg Allergies Allergies Allergy/AdvReac Type Severity Reaction Status Date / Time No Known Allergies Allergy Verified 08/12/22 23:06 Assessment & Plan Assessment & Plan (1) Major 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 Patient is friendly and calm. She is alert and oriented to self place; she said she came to the hospital because she was nervous but is not sure why she has to remain. Patient endorses paranoid delusions saying that there are cameras and microphones set up in house to spy on her; daughter says no history of psychiatric illness that she knows of and no psychotic symptoms until this past July. Plan: 08/15: psychotic symptoms most likely secondary to neurocognitive disorder. continue risperidone and sertraline. Once MOCA is completed, pattern of cognitive impairment will be more clear. 08/16 continue current medications. May consider medication such as exelon or aricept 08/17 may change to olanzapine as pt already with resting tremors. Start exelon 1.5mg po BID. 08/18 continue tx. change risperidone to olanzapine 2.5mg po qhs given underlying resting tremor. 08/19 continue with same treatment 08/20 continue same treatment. Tremors are visible- neurology saw pt and recommended propanolol, however, pt on metoprolol. This copywriter sent message to neurology to clarify if okay to give both but no response yet. 08/21 increase Zyprexa up to 5 mg po qhs. 08/22 continue tx. 08/24 Increase olanzapine to 2.5mg po daily and 5mg po qhs. start aumentin 500mg po BID x 7 days for sinusitis. 08/26 Tremors are visible and impairing her mobility- neurology saw pt and recommended propanolol, however, pt on metoprolol. This copywriter sent message to neurology to clarify if okay to give both but no response yet. Will add propanolol 20mg po BID. 08/27: Continue current tx plan. VSS. 08/28: Continue current plan 08/29 continue tx. 08/30 continue tx. 08/31 continue tx. 09/01 continue tx. called [facility] to check on next cortisone shot for left knee not until November. 09/02 continue tx. 09/03 continue tx 09/04 continue tx. 09/05 continue tx. 09/06 schedule tylenol 979 mg po BID. one time dose of tramadol for knee pain. 09/07/22 cont plan of care d/c planning 09/08 continue tx 09/09 continue tx. 09/10: no changes 09/11: Complaining of lower left leg swelling- p itting, no clear tenderness, no cellulitis, but differs significantly from right side. Will order doppler and hospitalist consult 09/12 continue with same treatment no DVT as per medical team 09/13 continue same treatment 09/14 add tramadol 25mg po BID at noon and bedtime. continue tylenol. For knee pain. 09/15 continue current medication, may titrate tramadol for pain, monitor sedation and therapeutic effect. 09/17/22 Continue plan of care monitor for over sedation 09/18/2022 Continue plan of care discharge planning case reviewed with nursing staff 09/20 continue tx. tramadol 25mg po TID 09/21 continue tx. 09/22 continue tx. 09/23 continue tx. Reason for continued inpatient stay Substantial Risk for: inability to function Time Spent With Patient Time: Total time managing care of this patient today ____ minutes.
[2022-09-23] MEDS: Melatonin 3 MG TABLET 9 MG PO (22:34)
[2022-09-24 08:35] VITALS: BP 140/72; PULSE 71; RESP 16; TEMP 36.4; O2SAT 93
[2022-09-24] MEDS: NIFEdipine ER 90 MG TAB.ER.24 PO (08:54)
[2022-09-24] MEDS: traMADoL HCL 50 MG TABLET 25 MG PO ×3 (08:54→20:04)
[2022-09-24] MEDS: Metoprolol Succinate ER 50 MG TAB.ER.24H PO (08:56)
[2022-09-24] MEDS: Aspirin Enteric Coated 81 MG TABLET.DR PO (08:56)
[2022-09-24] MEDS: Acetaminophen 325 MG TABLET 975 MG PO ×2 (08:56→20:06)
[2022-09-24] MEDS: Sertraline HCL 50 MG TABLET PO (08:57)
[2022-09-24] MEDS: Furosemide 40 MG TABLET PO (08:57)
[2022-09-24] MEDS: Atorvastatin Calcium 10 MG TABLET PO (08:57)
[2022-09-24] MEDS: Rivastigmine Tartrate 1.5 MG CAPSULE PO ×2 (08:57→20:06)
[2022-09-24] MEDS: Cholecalciferol (Vitamin D3) 25 MCG TABLET PO (08:57)
[2022-09-24] MEDS: Propranolol HCL 20 MG TABLET PO ×2 (08:57→20:05)
--- NOTE | 2022-09-24 10:33 | P.PNPSI_ITS ---
Subjective Subjective Date of Service: 09/24/22 Reason For Visit: confused Subjective Notes: Conditional Voluntary Interim History: The nursing staff reported the patient slept poorly last night only 2 hours since she had been self dialogue in all night long, responding to internal stimuli. On interview the patient was pleasant, internally preoccupied, easily r edirectable. Mental Status Exam Mental Status Exam Patient Appearance: Well Grooomed and Appropriate Patient Orientation: Person and Situation Level of Consciousness: Awake and Appropriate Patient Behavior: Guarded and Passive Mood Description: Calm Affect Description: Constricted Patient Cognition Impaired: Yes Ability to Follow Directions: Good Speech Pattern: Clear Hallucinations: Auditory Delusions: Paranoid Ideation Thought Process: Distracted and Linear Thought Content: positive for [place] and positive for Circumstantial Judgement: Fair Diagnostics Vital Signs (24Hr): Vital Signs - 24 hr 09/23/22 18:00 09/24/22 08:35 Temperature 97.1 F 97.6 F Pulse Rate 66 71 Respiratory Rate 18 16 Blood Pressure 124/62 140/72 H Pulse Oximetry 97 93 Oxygen Delivery Method Room Air Room Air BMI result Body Mass Index 25.9 Labs 08/12/22 15:40 08/29/22 09:20 Imaging Radiology Impressions: ITS Impressions Head CT 08/15/22 14:53 IMPRESSION: No acute intracranial pathology. Significant right sphenoid sinus disease; correlate for any acute symptomatology. Chest X-Ray 08/28/22 22:24 IMPRESSION: No acute pulmonary disease. Venous Duplex 09/11/22 15:52 IMPRESSION: No DVT demonstrated in the bilateral lower extremity. Medications Medications Current Medications Acetaminophen (Acetaminophen 325 Mg Tablet) 975 mg PO BID [facility] Last Admin: 09/24/22 08:56 Dose: 975 mg Al Hydroxide/Mg Hydroxide (Magnesium Hydrox/Alum Hydrox 30 Ml Oral.Susp) 30 ml PO Q6H PRN PRN Reason: Heartburn/Nausea Aspirin (Aspirin Enteric Coated 81 Mg Tablet.) 81 mg PO DAILY [facility] Last Admin: 09/24/22 08:56 Dose: 81 mg Atorvastatin Calcium (Atorvastatin Calcium 10 Mg Tablet) 10 mg PO DAILY [facility] Last Admin: 09/24/22 08:57 Dose: 10 mg Benzocaine (Throat Lozenge, Medicated Lozenge) 1 lozenge MUCOUS MEM Q2H PRN PRN Reason: Sore Throat Last Admin: 08/26/22 06:05 Dose: 1 lozenge Calcium Carbonate (Calcium Carbonate 500 Mg Tablet) 500 mg PO DAILY [facility] Last Admin: 09/24/22 08:57 Dose: 500 mg Capsaicin (Capsaicin 0.025% Cream 60 Gm Tube) 1 appl TOPICAL TID PRN; Protocol PRN Reason: Pain, Moderate (Pain Scale 4-6 Last Admin: 09/22/22 00:06 Dose: 1 appl Furosemide (Furosemide 40 Mg Tablet) 40 mg PO DAILY [facility]; Protocol Last Admin: 09/24/22 08:57 Dose: 40 mg Guaifenesin (Guaifenesin 200 Mg/10 Ml 10 Ml Liquid) 10 ml PO Q6H PRN PRN Reason: Cough Last Admin: 09/06/22 23:15 Dose: 10 ml Guaifenesin/Dextromethorphan (Guaifenesin Dm 100/10/5 Ml 5 Ml Syrup) 5 ml PO Q4H PRN PRN Reason: cough Magnesium Hydroxide (Milk Of Magnesia 30 Ml Oral.Susp) 30 ml PO DAILY PRN PRN Reason: Constipation Melatonin (Melatonin 3 Mg Tablet) 9 mg PO BEDTIME PRN PRN Reason: insomnia Last Admin: 09/23/22 22:34 Dose: 9 mg Metoprolol Succinate (Metoprolol Succinate Er 50 Mg Tab.Er.24h) 50 mg PO DAILY [facility]; Protocol Last Admin: 09/24/22 08:56 Dose: 50 mg Nifedipine (Nifedipine Er 90 Mg Tab.Er.24) 90 mg PO DAILY [facility] Last Admin: 09/24/22 08:54 Dose: 90 mg Non-Formulary Medication ( Diclofenac Sodium 1% Gel) 1 each TOPICAL BID@0830, 2030 [facility] Last Admin: 09/23/22 20:07 Dose: Not Given Olanzapine (Olanzapine 2.5 Mg Tablet) 2.5 mg PO TID PRN PRN Reason: agitation Last Admin: 09/22/22 22:25 Dose: 2.5 mg Olanzapine (Olanzapine 5 Mg Tablet) 5 mg PO BEDTIME [facility] Last Admin: 09/23/22 20:07 Dose: 5 mg Olanzapine (Olanzapine 2.5 Mg Tablet) 2.5 mg PO DAILY@1500 [facility] Last Admin: 09/23/22 14:28 Dose: 2.5 mg Ondansetron HCl (Ondansetron Odt 4 Mg Tab.Rapdis) 4 mg TRANSLINGU Q8H PRN PRN Reason: Nausea Propranolol HCl (Propranolol Hcl 20 Mg Tablet) 20 mg PO BID [facility]; Protocol Last Admin: 09/24/22 08:57 Dose: 20 mg Rivastigmine Tartrate (Rivastigmine Tartrate 1.5 Mg Capsule) 1.5 mg PO BID [facility] Last Admin: 09/24/22 08:57 Dose: 1.5 mg Sertraline HCl (Sertraline Hcl 50 Mg Tablet) 50 mg PO DAILY [facility] Last Admin: 09/24/22 08:57 Dose: 50 mg Tramadol HCl (Tramadol Hcl 50 Mg Tablet) 25 mg PO TID [facility] Last Admin: 09/24/22 08:54 Dose: 25 mg Trazodone HCl (Trazodone Hcl 50 Mg Tablet) 50 mg PO BEDTIME PRN PRN Reason: Sleep Last Admin: 09/22/22 22:23 Dose: 50 mg Trazodone HCl (Trazodone Hcl 100 Mg Tablet) 100 mg PO BEDTIME [facility] Last Admin: 09/23/22 20:05 Dose: 100 mg Vitamin D (Cholecalciferol (Vitamin D3) 25 Mcg Tablet) 25 mcg PO DAILY [facility] Last Admin: 09/24/22 08:57 Dose: 25 mcg Allergies Allergies Allergy/AdvReac Type Severity Reaction Status Date / Time No Known Allergies Allergy Verified 08/12/22 23:06 Assessment & Plan Assessment & Plan (1) Major 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 Patient is friendly and calm. She is alert and oriented to self place; she said she came to the hospital because she was nervous but is not sure why she has to remain. Patient endorses paranoid delusions saying that there are cameras and microphones set up in house to spy on her; daughter says no history of psychiatric illness that she knows of and no psychotic symptoms until this past July. Plan: 08/15: psychotic symptoms most likely secondary to neurocognitive disorder. continue risperidone and sertraline. Once MOCA is completed, pattern of cognitive impairment will be more clear. 08/16 continue current medications. May consider medication such as exelon or aricept 08/17 may change to olanzapine as pt already with resting tremors. Start exelon 1.5mg po BID. 08/18 continue tx. change risperidone to olanzapine 2.5mg po qhs given underlying resting tremor. 08/19 continue with same treatment 08/20 continue same treatment. Tremors are visible- neurology saw pt and recommended propanolol, however, pt on metoprolol. This senior mortgage underwriter sent message to neurology to clarify if okay to give both but no response yet. 08/21 increase Zyprexa up to 5 mg po qhs. 08/22 continue tx. 08/24 Increase olanzapine to 2.5mg po daily and 5mg po qhs. start aumentin 500mg po BID x 7 days for sinusitis. 08/26 Tremors are visible and impairing her mobility- neurology saw pt and recommended propanolol, however, pt on metoprolol. This senior mortgage underwriter sent message to neurology to clarify if okay to give both but no response yet. Will add propanolol 20mg po BID. 08/27: Continue current tx plan. VSS. 08/28: Continue current plan 08/29 continue tx. 08/30 continue tx. 08/31 continue tx. 09/01 continue tx. called [facility] to check on next cortisone shot for left knee not until November. 09/02 continue tx. 09/03 continue tx 09/04 continue tx. 09/05 continue tx. 09/06 schedule tylenol 979 mg po BID. one time dose of tramadol for knee pain. 09/07/22 cont plan of care d/c planning 09/08 continue tx 09/09 continue tx. 09/10: no changes 09/11: Complaining of lower left leg swelling- p itting, no clear tenderness, no cellulitis, but differs significantly from right side. Will order doppler and hospitalist consult 09/12 continue with same treatment no DVT as per medical team 09/13 continue same treatment 09/14 add tramadol 25mg po BID at noon and bedtime. continue tylenol. For knee pain. 09/15 continue current medication, may titrate tramadol for pain, monitor sed ation and therapeutic effect. 09/17/22 Continue plan of care monitor for over sedation 09/18/2022 Continue plan of care discharge planning case reviewed with nursing staff 4/18 continue tx. tramadol 25mg po TID 09/21 continue tx. 09/22 continue tx. 09/23 continue tx. 09/24 continue treatment Reason for continued inpatient stay Substantial Risk for: inability to function, rapid decompensation and med/psych decompensation Time Spent With Patient Time: Total time managing care of this patient today __20__ minutes.
[2022-09-24] MEDS: OLANZapine 2.5 MG TABLET PO (16:28)
[2022-09-24 18:00] VITALS: BP 148/81; PULSE 69; RESP 16; TEMP 36.6; O2SAT 95
[2022-09-24] MEDS: Melatonin 3 MG TABLET 9 MG PO (20:04)
[2022-09-24] MEDS: traZODone HCL 100 MG TABLET PO (20:04)
[2022-09-24] MEDS: OLANZapine 5 MG TABLET PO (20:05)
[2022-09-25 09:00] VITALS: BP 155/84; PULSE 62; RESP 16; TEMP 36.2; O2SAT 96
[2022-09-25] MEDS: Metoprolol Succinate ER 50 MG TAB.ER.24H PO (09:11)
[2022-09-25] MEDS: Acetaminophen 325 MG TABLET 975 MG PO ×2 (09:11→21:01)
[2022-09-25] MEDS: Aspirin Enteric Coated 81 MG TABLET.DR PO (09:11)
[2022-09-25] MEDS: Atorvastatin Calcium 10 MG TABLET PO (09:11)
[2022-09-25] MEDS: NIFEdipine ER 90 MG TAB.ER.24 PO (09:11)
[2022-09-25] MEDS: Propranolol HCL 20 MG TABLET PO ×2 (09:11→21:02)
[2022-09-25] MEDS: traMADoL HCL 50 MG TABLET 25 MG PO (09:11)
[2022-09-25] MEDS: Furosemide 40 MG TABLET PO (09:12)
[2022-09-25] MEDS: Cholecalciferol (Vitamin D3) 25 MCG TABLET PO (09:12)
[2022-09-25] MEDS: Rivastigmine Tartrate 1.5 MG CAPSULE PO ×2 (09:13→21:02)
[2022-09-25] MEDS: Sertraline HCL 50 MG TABLET PO (09:13)
--- NOTE | 2022-09-25 09:20 | HO.PSYCHPN ---
Subjective Subjective Date of Service: 09/25/22 Reason For Visit: confused Subjective Notes: Conditional Voluntary Interim History: The nursing staff reported the patient had been fully compliant with medications, she slept well but needed p.r.n. at night. She has been pleasant and cooperative the staff has noticed that she has not self dialogue in anymore. On interview the patient denies new symptoms, waiting for placement. Mental Status Exam Mental Status Exam Patient Appearance: Well Grooomed and Appropriate Patient Orientation: Person and Situation Level of Consciousness: Awake and Appropriate Patient Behavior: Guarded and Passive Mood Description: Calm Affect Description: Constricted Patient Cognition Impaired: Yes Ability to Follow Directions: Good Speech Pattern: Clear Hallucinations: None Delusions: Not Present Thought Process: Distracted and Slowed Thinking Thought Content: positive for [place] and positive for Circumstantial Judgement: Fair Diagnostics Vital Signs (24Hr): Vital Signs - 24 hr 09/24/22 18:00 09/25/22 09:00 Temperature 97.9 F 97.2 F Pulse Rate 69 62 Respiratory Rate 16 16 Blood Pressure 148/81 H 155/84 H Pulse Oximetry 95 96 Oxygen Delivery Method Room Air Room Air BMI result Body Mass Index 25.9 Labs 08/12/22 15:40 08/29/22 09:20 Imaging Radiology Impressions: ITS Impressions Head CT 08/15/22 14:53 IMPRESSION: No acute intracranial pathology. Significant right sphenoid sinus disease; correlate for any acute symptomatology. Chest X-Ray 08/28/22 22:24 IMPRESSION: No acute pulmonary disease. Venous Duplex 09/11/22 15:52 IMPRESSION: No DVT demonstrated in the bilateral lower extremity. Medications Medications Current Medications Acetaminophen (Acetaminophen 325 Mg Tablet) 975 mg PO BID [facility] Last Admin: 09/25/22 09:11 Dose: 975 mg Al Hydroxide/Mg Hydroxide (Magnesium Hydrox/Alum Hydrox 30 Ml Oral.Susp) 30 ml PO Q6H PRN PRN Reason: Heartburn/Nausea Aspirin (Aspirin Enteric Coated 81 Mg Tablet.) 81 mg PO DAILY [facility] Last Admin: 09/25/22 09:11 Dose: 81 mg Atorvastatin Calcium (Atorvastatin Calcium 10 Mg Tablet) 10 mg PO DAILY [facility] Last Admin: 09/25/22 09:11 Dose: 10 mg Benzocaine (Throat Lozenge, Medicated Lozenge) 1 lozenge MUCOUS MEM Q2H PRN PRN Reason: Sore Throat Last Admin: 08/26/22 06:05 Dose: 1 lozenge Calcium Carbonate (Calcium Carbonate 500 Mg Tablet) 500 mg PO DAILY [facility] Last Admin: 09/25/22 09:11 Dose: 500 mg Capsaicin (Capsaicin 0.025% Cream 60 Gm Tube) 1 appl TOPICAL TID PRN; Protocol PRN Reason: Pain, Moderate (Pain Scale 4-6 Last Admin: 09/22/22 00:06 Dose: 1 appl Furosemide (Furosemide 40 Mg Tablet) 40 mg PO DAILY [facility]; Protocol Last Admin: 09/25/22 09:12 Dose: 40 mg Guaifenesin (Guaifenesin 200 Mg/10 Ml 10 Ml Liquid) 10 ml PO Q6H PRN PRN Reason: Cough Last Admin: 09/06/22 23:15 Dose: 10 ml Guaifenesin/Dextromethorphan (Guaifenesin Dm 100/10/5 Ml 5 Ml Syrup) 5 ml PO Q4H PRN PRN Reason: cough Magnesium Hydroxide (Milk Of Magnesia 30 Ml Oral.Susp) 30 ml PO DAILY PRN PRN Reason: Constipation Melatonin (Melatonin 3 Mg Tablet) 9 mg PO BEDTIME PRN PRN Reason: insomnia Last Admin: 09/24/22 20:04 Dose: 9 mg Metoprolol Succinate (Metoprolol Succinate Er 50 Mg Tab.Er.24h) 50 mg PO DAILY [facility]; Protocol Last Admin: 09/25/22 09:11 Dose: 50 mg Nifedipine (Nifedipine Er 90 Mg Tab.Er.24) 90 mg PO DAILY [facility] Last Admin: 09/25/22 09:11 Dose: 90 mg Non-Formulary Medication ( Diclofenac Sodium 1% Gel) 1 each TOPICAL BID@0830,2030 [facility] Last Admin: 09/25/22 09:09 Dose: 1 each Olanzapine (Olanzapine 2.5 Mg Tablet) 2.5 mg PO TID PRN PRN Reason: agitation Last Admin: 09/22/22 22:25 Dose: 2.5 mg Olanzapine (Olanzapine 5 Mg Tablet) 5 mg PO BEDTIME [facility] Last Admin: 09/24/22 20:05 Dose: 5 mg Olanzapine (Olanzapine 2.5 Mg Tablet) 2.5 mg PO DAILY@1500 [facility] Last Admin: 09/24/22 16:28 Dose: 2.5 mg Ondansetron HCl (Ondansetron Odt 4 Mg Tab.Rapdis) 4 mg TRANSLINGU Q8H PRN PRN Reason: Nausea Propranolol HCl (Propranolol Hcl 20 Mg Tablet) 20 mg PO BID [facility]; Protocol Last Admin: 09/25/22 09:11 Dose: 20 mg Rivastigmine Tartrate (Rivastigmine Tartrate 1.5 Mg Capsule) 1.5 mg PO BID [facility] Last Admin: 09/25/22 09:13 Dose: 1.5 mg Sertraline HCl (Sertraline Hcl 50 Mg Tablet) 50 mg PO DAILY [facility] Last Admin: 09/25/22 09:13 Dose: 50 mg Tramadol HCl (Tramadol Hcl 50 Mg Tablet) 25 mg PO TID [facility] Last Admin: 09/25/22 09:11 Dose: 25 mg Trazodone HCl (Trazodone Hcl 50 Mg Tablet) 50 mg PO BEDTIME PRN PRN Reason: Sleep Last Admin: 09/22/22 22:23 Dose: 50 mg Trazodone HCl (Trazodone Hcl 100 Mg Tablet) 100 mg PO BEDTIME [facility] Last Admin: 09/24/22 20:04 Dose: 100 mg Vitamin D (Cholecalciferol (Vitamin D3) 25 Mcg Tablet) 25 mcg PO DAILY [facility] Last Admin: 09/25/22 09:12 Dose: 25 mcg Allergies Allergies Allergy/AdvReac Type Severity Reaction Status Date / Time No Known Allergies Allergy Verified 08/12/22 23:06 Assessment & Plan Assessment & Plan (1) Major 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 Patient is friendly and calm. She is alert and oriented to self place; she said she came to the hospital because she was nervous but is not sure why she has to remain. Patient endorses paranoid delusions saying that there are cameras and microphones set up in house to spy on her; daughter says no history of psychiatric illness that she knows of and no psychotic symptoms until this past July. Plan: 08/15: psychotic symptoms most likely secondary to neurocognitive disorder. continue risperidone and sertraline. Once MOCA is completed, pattern of cognitive impairment will be more clear. 08/16 continue current medications. May consider medication such as exelon or aricept 08/17 may change to olanzapine as pt already with resting tremors. Start exelon 1.5mg po BID. 08/18 continue tx. change risperidone to olanzapine 2.5mg po qhs given underlying resting tremor. 08/19 continue with same treatment 08/20 continue same treatment. Tremors are visible- neurology saw pt and recommended propanolol, however, pt on metoprolol. This newswriter sent message to neurology to clarify if okay to give both but no response yet. 08/21 increase Zyprexa up to 5 mg po qhs. 08/22 continue tx. 08/24 Increase olanzapine to 2.5mg po daily and 5mg po qhs. start aumentin 500mg po BID x 7 days for sinusitis. 08/26 Tremors are visible and impairing her mobility- neurology saw pt and recommended propanolol, however, pt on metoprolol. This newswriter sent message to neurology to clarify if okay to give both but no response yet. Will add propanolol 20mg po BID. 08/27: Continue current tx plan. VSS. 08/28: Continue current plan 08/29 continue tx. 08/30 continue tx. 08/31 continue tx. 09/01 continue tx. called [facility] to check on next cortisone shot for left knee not until November. 09/02 continue tx. 09/03 continue tx 09/04 continue tx. 09/05 continue tx. 09/06 schedule tylenol 979 mg po BID. one time dose of tramadol for knee pain. 09/07/22 cont plan of care d/c planning 09/08 continue tx 09/09 continue tx. 09/10: no changes 09/11: Complaining of lower left leg swelling- p itting, no clear tenderness, no cellulitis, but differs significantly from right side. Will order doppler and hospitalist consult 09/12 continue with same treatment no DVT as per medical team 09/13 continue same treatment 09/14 add tramadol 25mg po BID at noon and bedtime. continue tylenol. For knee pain. 09/15 continue current medication, may titrate tramadol for pain, monitor sedation and therapeutic effect. 09/17/22 Continue plan of care monitor for over sedation 09/18/2022 Continue plan of care discharge planning case reviewed with nursing staff 09/20 continue tx. tramadol 25mg po TID 09/21 continue tx. 09/22 continue tx. 09/23 continue tx. 09/24 continue treatment 09/25 continue same treatment Reason for continued inpatient stay Substantial Risk for: inability to function, rapid decompensation and med/psych decompensation Time Spent With Patient Time: Total time managing care of this patient today __20__ minutes.
[2022-09-25] MEDS: OLANZapine 2.5 MG TABLET PO (15:41)
[2022-09-25 18:00] VITALS: BP 130/62; PULSE 65; RESP 16; TEMP 36.9; O2SAT 94
[2022-09-25 21:00] VITALS: BP 146/64; PULSE 60; O2SAT 95
[2022-09-25] MEDS: traZODone HCL 100 MG TABLET PO (21:02)
[2022-09-25] MEDS: OLANZapine 5 MG TABLET PO (21:02)
[2022-09-26] MEDS: Acetaminophen 325 MG TABLET 975 MG PO ×2 (10:27→20:46)
[2022-09-26] MEDS: Propranolol HCL 20 MG TABLET PO ×2 (10:27→20:47)
[2022-09-26] MEDS: Metoprolol Succinate ER 50 MG TAB.ER.24H PO (10:28)
[2022-09-26] MEDS: Furosemide 40 MG TABLET PO (10:28)
[2022-09-26] MEDS: Rivastigmine Tartrate 1.5 MG CAPSULE PO ×2 (10:28→20:47)
[2022-09-26] MEDS: Aspirin Enteric Coated 81 MG TABLET.DR PO (10:28)
[2022-09-26] MEDS: Atorvastatin Calcium 10 MG TABLET PO (10:28)
[2022-09-26] MEDS: Cholecalciferol (Vitamin D3) 25 MCG TABLET PO (10:29)
[2022-09-26] MEDS: Sertraline HCL 50 MG TABLET PO (10:29)
[2022-09-26 10:30] VITALS: BP 148/78; PULSE 69; RESP 16; TEMP 36.6; O2SAT 95
[2022-09-26] MEDS: NIFEdipine ER 90 MG TAB.ER.24 PO (13:30)
[2022-09-26] MEDS: OLANZapine 2.5 MG TABLET PO (16:24)
--- NOTE | 2022-09-26 18:34 | PC.NURSE ---
Pt. approached for am meds at approx. 11 am. Pt. at baseline mentation, oriented only to self, and looking for bathroom. Pt. shown to bathroom and upon exiting reports headache. As this continuity writer prepared her medications while she was standing outside of bathroom in her room, her eyes rolled back in her head and she went unresponsive and slumped to the floor. She was caught by this continuity writer and lowered to the floor. Staff responded to calls for help and pt. lifted to bed. Rapid response called. Response team arrived at 11:10. VS stable and recorded. IV access obtained and pt. sent to CT scan. Remained obtunded upon return, briefly opening eyes only to noxious stimuli. Stat EKG and labs obtained. Placed on 1:1 observation. Son, Robby Bryant updated via telephone. Pt. awoke confused at approx. 16:30. Pt. oriented to time, place, and situation by this continuity writer and she expressed thanks. Pt. seen for follow up by hospitalist who reports all testing negative and he discontinued 1:1. Son updated again via telephone. Vitals remained stable.
--- NOTE | 2022-09-26 20:11 | P.PNPSI_ITS ---
Subjective Subjective Date of Service: 09/26/22 Reason For Visit: confused Mental Status Exam Mental Status Exam Narrative: Appearance: casually groomed, good hygiene, in NAD. Ambulates with walker Behavior: friendly Psychomotor: no agitation or retardation noted Speech: clear, normal rate/rhythm/volume, spontaneous. TP: mostly linear TC: feeling comfortable here Mood: Good Affect: bright, congruent SI: denies HI: denies VH/AH: denies, no overt signs Delusions: no overt delusional content noted or reported Insight/judgment: fair x 2. Memory/cog: alert, oriented to place, month and year, at times confused about situation Diagnostics Vital Signs (24Hr): Vital Signs - 24 hr 09/25/22 21:00 09/26/22 10:30 Temperature 97.9 F Pulse Rate 60 69 Respiratory Rate 16 Blood Pressure 146/64 H 148/78 H Pulse Oximetry 95 95 Oxygen Delivery Method Room Air Room Air BMI result Body Mass Index 25.9 Labs 08/12/22 15:40 08/29/22 09:20 Imaging Radiology Impressions: ITS Impressions Head CT 08/15/22 14:53 IMPRESSION: No acute intracranial pathology. Significant right sphenoid sinus disease; correlate for any acute symptomatology. Chest X-Ray 08/28/22 22:24 IMPRESSION: No acute pulmonary disease. Venous Duplex 09/11/22 15:52 IMPRESSION: No DVT demonstrated in the bilateral lower extremity. Medications Medications Current Medications Acetaminophen (Acetaminophen 325 Mg Tablet) 975 mg PO BID [facility] Last Admin: 09/26/22 10:27 Dose: 975 mg Al Hydroxide/Mg Hydroxide (Magnesium Hydrox/Alum Hydrox 30 Ml Oral.Susp) 30 ml PO Q6H PRN PRN Reason: Heartburn/Nausea Aspirin (Aspirin Enteric Coated 81 Mg Tablet.) 81 mg PO DAILY [facility] Last Admin: 09/26/22 10:28 Dose: 81 mg Atorvastatin Calcium (Atorvastatin Calcium 10 Mg Tablet) 10 mg PO DAILY [facility] Last Admin: 09/26/22 10:28 Dose: 10 mg Benzocaine (Throat Lozenge, Medicated Lozenge) 1 lozenge MUCOUS MEM Q2H PRN PRN Reason: Sore Throat Last Admin: 08/26/22 06:05 Dose: 1 lozenge Calcium Carbonate (Calcium Carbonate 500 Mg Tablet) 500 mg PO DAILY [facility] Last Admin: 04/24/23 10:28 Dose: 500 mg Capsaicin (Capsaicin 0.025% Cream 60 Gm Tube) 1 appl TOPICAL TID PRN; Protocol PRN Reason: Pain, Moderate (Pain Scale 4-6 Last Admin: 09/22/22 00:06 Dose: 1 appl Furosemide (Furosemide 40 Mg Tablet) 40 mg PO DAILY [facility]; Protocol Last Admin: 09/26/22 10:28 Dose: 40 mg Guaifenesin (Guaifenesin 200 Mg/10 Ml 10 Ml Liquid) 10 ml PO Q6H PRN PRN Reason: Cough Last Admin: 09/06/22 23:15 Dose: 10 ml Guaifenesin/Dextromethorphan (Guaifenesin Dm 100/10/5 Ml 5 Ml Syrup) 5 ml PO Q4H PRN PRN Reason: cough Magnesium Hydroxide (Milk Of Magnesia 30 Ml Oral.Susp) 30 ml PO DAILY PRN PRN Reason: Constipation Melatonin (Melatonin 3 Mg Tablet) 9 mg PO BEDTIME PRN PRN Reason: insomnia Last Admin: 09/24/22 20:04 Dose: 9 mg Metoprolol Succinate (Metoprolol Succinate Er 50 Mg Tab.Er.24h) 50 mg PO DAILY [facility]; Protocol Last Admin: 09/26/22 10:28 Dose: 50 mg Nifedipine (Nifedipine Er 90 Mg Tab.Er.24) 90 mg PO DAILY [facility] Last Admin: 09/26/22 13:30 Dose: 90 mg Non-Formulary Medication ( Diclofenac Sodium 1% Gel) 1 each TOPICAL BID@0830,2030 [facility] Last Admin: 09/26/22 10:32 Dose: 1 each Olanzapine (Olanzapine 2.5 Mg Tablet) 2.5 mg PO TID PRN PRN Reason: agitation Last Admin: 09/22/22 22:25 Dose: 2.5 mg Olanzapine (Olanzapine 5 Mg Tablet) 5 mg PO BEDTIME [facility] Last Admin: 09/25/22 21:02 Dose: 5 mg Olanzapine (Olanzapine 2.5 Mg Tablet) 2.5 mg PO DAILY@1500 [facility] Last Admin: 09/26/22 16:24 Dose: 2.5 mg Ondansetron HCl (Ondansetron Odt 4 Mg Tab.Rapdis) 4 mg TRANSLINGU Q8H PRN PRN Reason: Nausea Propranolol HCl (Propranolol Hcl 20 Mg Tablet) 20 mg PO BID [facility]; Protocol Last Admin: 09/26/22 10:27 Dose: 20 mg Rivastigmine Tartrate (Rivastigmine Tartrate 1.5 Mg Capsule) 1.5 mg PO BID [facility] Last Admin: 09/26/22 10:28 Dose: 1.5 mg Sertraline HCl (Sertraline Hcl 50 Mg Tablet) 50 mg PO DAILY [facility] Last Admin: 09/26/22 10:29 Dose: 50 mg Trazodone HCl (Trazodone Hcl 50 Mg Tablet) 50 mg PO BEDTIME PRN PRN Reason: Sleep Last Admin: 09/22/22 22:23 Dose: 50 mg Trazodone HCl (Trazodone Hcl 100 Mg Tablet) 100 mg PO BEDTIME [facility] Last Admin: 09/25/22 21:02 Dose: 100 mg Vitamin D (Cholecalciferol (Vitamin D3) 25 Mcg Tablet) 25 mcg PO DAILY [facility] Last Admin: 09/26/22 10:29 Dose: 25 mcg Allergies Allergies Allergy/AdvReac Type Severity Reaction Status Date / Time No Known Allergies Allergy Verified 08/12/22 23:06 Assessment & Plan Assessment & Plan (1) Major 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 Patient is friendly and calm. She is alert and oriented to self place; she said she came to the hospital because she was nervous but is not sure why she has to remain. Patient endorses paranoid delusions saying that there are cameras and microphones set up in house to spy on her; daughter says no history of psychiatric illness that she knows of and no psychotic symptoms until this past July. Plan: 08/15: psychotic symptoms most likely secondary to neurocognitive disorder. con tinue risperidone and sertraline. Once MOCA is completed, pattern of cognitive impairment will be more clear. 08/16 continue current medications. May consider medication such as exelon or aricept 08/17 may change to olanzapine as pt already with resting tremors. Start exelon 1.5mg po BID. 08/18 continue tx. change risperidone to olanzapine 2.5mg po qhs given underlying resting tremor. 08/19 continue with same treatment 08/20 continue same treatment. Tremors are visible- neurology saw pt and recomme nded propanolol, however, pt on metoprolol. This speech writer sent message to neurology to clarify if okay to give both but no response yet. 08/21 increase Zyprexa up to 5 mg po qhs. 08/22 continue tx. 08/24 Increase olanzapine to 2.5mg po daily and 5mg po qhs. start aumentin 500mg po BID x 7 days for sinusitis. 08/26 Tremors are visible and impairing her mobility- neurology saw pt and recommended propanolol, however, pt on metoprolol. This speech writer sent message to neurology to clarify if okay to give both but no response yet. Will add propanolol 20mg po BID. 08/27: Continue current tx plan. VSS. 08/28: Continue current plan 08/29 continue tx. 08/30 continue tx. 08/31 continue tx. 09/01 continue tx. called [facility] to check on next cortisone shot for left knee not until November. 09/02 continue tx. 09/03 continue tx 09/04 continue tx. 09/05 continue tx. 09/06 schedule tylenol 979 mg po BID. one time dose of tramadol for knee pain. 09/07/22 cont plan of care d/c planning 09/08 continue tx 09/09 continue tx. 09/10: no changes 09/11: Complaining of lower left leg swelling- p itting, no clear tenderness, no cellulitis, but differs significantly from right side. Will order doppler and hospitalist consult 09/12 continue with same treatment no DVT as per medical team 09/13 continue same treatment 09/14 add tramadol 25mg po BID at noon and bedtime. continue tylenol. For knee pain. 09/15 continue current medication, may titrate tramadol for pain, monitor sedation and therapeutic effect. 09/17/22 Continue plan of care monitor for over sedation 09/18/2022 Continue plan of care discharge planning case reviewed with nursing staff 09/20 continue tx. tramadol 25mg po TID 09/21 continue tx. 09/22 continue tx. 09/23 continue tx. 09/24 continue treatment 09/25 continue same treatment 09/26 continue- increase tramadol for knee pain to 50mg po TID Reason for continued inpatient stay Substantial Risk for: inability to function Time Spent With Patient Time: Total time managing care of this patient today ____ minutes.
[2022-09-26 20:44] VITALS: BP 123/57; PULSE 66; RESP 17; TEMP 36.3; O2SAT 94
[2022-09-26] MEDS: traMADoL HCL 50 MG TABLET PO (20:46)
[2022-09-26] MEDS: traZODone HCL 100 MG TABLET PO (20:47)
[2022-09-26] MEDS: OLANZapine 5 MG TABLET PO (20:47)
[2022-09-27 07:30] VITALS: BP 174/80; PULSE 96; RESP 17; TEMP 36.2; O2SAT 97
[2022-09-27] MEDS: Propranolol HCL 20 MG TABLET PO ×2 (09:02→20:23)
[2022-09-27] MEDS: Aspirin Enteric Coated 81 MG TABLET.DR PO (09:02)
[2022-09-27] MEDS: Acetaminophen 325 MG TABLET 975 MG PO ×2 (09:03→20:22)
[2022-09-27] MEDS: NIFEdipine ER 90 MG TAB.ER.24 PO (09:03)
[2022-09-27] MEDS: Atorvastatin Calcium 10 MG TABLET PO (09:03)
[2022-09-27] MEDS: Sertraline HCL 50 MG TABLET PO (09:03)
[2022-09-27] MEDS: Metoprolol Succinate ER 50 MG TAB.ER.24H PO (09:03)
[2022-09-27] MEDS: Rivastigmine Tartrate 1.5 MG CAPSULE PO ×2 (09:04→20:23)
[2022-09-27] MEDS: traMADoL HCL 50 MG TABLET PO ×3 (09:05→20:23)
[2022-09-27] MEDS: Furosemide 40 MG TABLET PO (09:05)
[2022-09-27] MEDS: Cholecalciferol (Vitamin D3) 25 MCG TABLET PO (09:05)
--- NOTE | 2022-09-27 14:30 | P.PNPSI_ITS ---
Subjective Subjective Date of Service: 09/27/22 Reason For Visit: confused Subjective Notes: Conditional Voluntary Interim History: Pt reports feeling better in that she is sleeping better and her mood is good. She denies SI/HI. She reports hoping to go to facility soon. She continues to report left knee pain, left leg with edema. Per nursing, pt sleeping through the night. No behavioral concerns. Review of Systems Review of Systems Complaining of lower left leg swelling- pitting, no clear tenderness, no cellulitis, but differs significantly from right side Yes all other systems are reviewed and are negative Mental Status Exam Mental Status Exam Narrative: Appearance: casually groomed, good hygiene, in NAD. Ambulates with walker Behavior: friendly Psychomotor: no agitation or retardation noted Speech: clear, normal rate/rhythm/volume, spontaneous. TP: mostly linear TC: feeling comfortable here Mood: Good Affect: bright, congruent SI: denies HI: denies VH/AH: denies, no overt signs Delusions: no overt delusional content noted or reported Insight/judgment: fair x 2. Memory/cog: alert, oriented to place, month and year, at times confused about situation Diagnostics Vital Signs (24Hr): Vital Signs - 24 hr 09/26/22 20:44 09/27/22 07:30 Temperature 97.4 F 97.1 F Pulse Rate 66 96 Respiratory Rate 17 17 Blood Pressure 123/57 L 174/80 H Pulse Oximetry 94 97 Oxygen Delivery Method Room Air Room Air BMI result Body Mass Index 25.9 Labs 08/12/22 15:40 08/29/22 09:20 Imaging Radiology Impressions: ITS Impressions Head CT 08/15/22 14:53 IMPRESSION: No acute intracranial pathology. Significant right sphenoid sinus disease; correlate for any acute symptomatology. Chest X-Ray 08/28/22 22:24 IMPRESSION: No acute pulmonary disease. Venous Duplex 09/11/22 15:52 IMPRESSION: No DVT demonstrated in the bilateral lower extremity. Medications Medications Current Medications Acetaminophen (Acetaminophen 325 Mg Tablet) 975 mg PO BID [facility] Last Admin: 09/27/22 09:03 Dose: 975 mg Al Hydroxide/Mg Hydroxide (Magnesium Hydrox/Alum Hydrox 30 Ml Oral.Susp) 30 ml PO Q6H PRN PRN Reason: Heartburn/Nausea Aspirin (Aspirin Enteric Coated 81 Mg Tablet.) 81 mg PO DAILY [facility] Last Admin: 09/27/22 09:02 Dose: 81 mg Atorvastatin Calcium (Atorvastatin Calcium 10 Mg Tablet) 10 mg PO DAILY [facility] Last Admin: 09/27/22 09:03 Dose: 10 mg Benzocaine (Throat Lozenge, Medicated Lozenge) 1 lozenge MUCOUS MEM Q2H PRN PRN Reason: Sore Throat Last Admin: 08/26/22 06:05 Dose: 1 lozenge Calcium Carbonate (Calcium Carbonate 500 Mg Tablet) 500 mg PO DAILY [facility] Last Admin: 09/27/22 09:06 Dose: 500 mg Capsaicin (Capsaicin 0.025% Cream 60 Gm Tube) 1 appl TOPICAL TID PRN; Protocol PRN Reason: Pain, Moderate (Pain Scale 4-6 Last Admin: 09/22/22 00:06 Dose: 1 appl Furosemide (Furosemide 40 Mg Tablet) 40 mg PO DAILY [facility]; Protocol Last Admin: 09/27/22 09:05 Dose: 40 mg Guaifenesin (Guaifenesin 200 Mg/10 Ml 10 Ml Liquid) 10 ml PO Q6H PRN PRN Reason: Cough Last Admin: 09/06/22 23:15 Dose: 10 ml Guaifenesin/Dextromethorphan (Guaifenesin Dm 100/10/5 Ml 5 Ml Syrup) 5 ml PO Q4H PRN PRN Reason: cough Magnesium Hydroxide (Milk Of Magnesia 30 Ml Oral.Susp) 30 ml PO DAILY PRN PRN Reason: Constipation Melatonin (Melatonin 3 Mg Tablet) 9 mg PO BEDTIME PRN PRN Reason: insomnia Last Admin: 09/24/22 20:04 Dose: 9 mg Metoprolol Succinate (Metoprolol Succinate Er 50 Mg Tab.Er.24h) 50 mg PO DAILY [facility]; Protocol Last Admin: 09/27/22 09:03 Dose: 50 mg Nifedipine (Nifedipine Er 90 Mg Tab.Er.24) 90 mg PO DAILY [facility] Last Admin: 09/27/22 09:03 Dose: 90 mg Non-Formulary Medication ( Diclofenac Sodium 1% Gel) 1 each TOPICAL BID@0830,2029 [facility] Last Admin: 09/27/22 09:04 Dose: 1 each Olanzapine (Olanzapine 2.5 Mg Tablet) 2.5 mg PO TID PRN PRN Reason: agitation Last Admin: 09/22/22 22:25 Dose: 2.5 mg Olanzapine (Olanzapine 5 Mg Tablet) 5 mg PO BEDTIME [facility] Last Admin: 09/26/22 20:47 Dose: 5 mg Olanzapine (Olanzapine 2.5 Mg Tablet) 2.5 mg PO DAILY@1500 [facility] Last Admin: 09/26/22 16:24 Dose: 2.5 mg Ondansetron HCl (Ondansetron Odt 4 Mg Tab.Rapdis) 4 mg TRANSLINGU Q8H PRN PRN Reason: Nausea Propranolol HCl (Propranolol Hcl 20 Mg Tablet) 20 mg PO BID [facility]; Protocol Last Admin: 09/27/22 09:02 Dose: 20 mg Rivastigmine Tartrate (Rivastigmine Tartrate 1.5 Mg Capsule) 1.5 mg PO BID [facility] Last Admin: 09/27/22 09:04 Dose: 1.5 mg Sertraline HCl (Sertraline Hcl 50 Mg Tablet) 50 mg PO DAILY [facility] Last Admin: 09/27/22 09:03 Dose: 50 mg Tramadol HCl (Tramadol Hcl 50 Mg Tablet) 50 mg PO TID [facility] Last Admin: 09/27/22 09:05 Dose: 50 mg Trazodone HCl (Trazodone Hcl 50 Mg Tablet) 50 mg PO BEDTIME PRN PRN Reason: Sleep Last Admin: 09/22/22 22:23 Dose: 50 mg Trazodone HCl (Trazodone Hcl 100 Mg Tablet) 100 mg PO BEDTIME [facility] Last Admin: 09/26/22 20:47 Dose: 100 mg Vitamin D (Cholecalciferol (Vitamin D3) 25 Mcg Tablet) 25 mcg PO DAILY [facility] Last Admin: 09/27/22 09:05 Dose: 25 mcg Allergies Allergies Allergy/AdvReac Type Severity Reaction Status Date / Time No Known Allergies Allergy Verified 08/12/22 23:06 Assessment & Plan Assessment & Plan (1) Major 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 Patient is friendly and calm. She is alert and oriented to self place; she said she came to the hospital because she was nervous but is not sure why she has to remain. Patient endorses paranoid delusions saying that there are cameras and microphones set up in house to spy on her; daughter says no history of psychiatric illness that she knows of and no psychotic symptoms until this past July. Plan: 08/15: psychotic symptoms most likely secondary to neurocognitive disorder. continue risperidone and sertraline. Once MOCA is completed, pattern of cognitive impairment will be more clear. 08/16 continue current medications. May consider medication such as exelon or aricept 08/17 may change to olanzapine as pt already with resting tremors. Start exelon 1.5mg po BID. 08/18 continue tx. change risperidone to olanzapine 2.5mg po qhs given underlying resting tremor. 08/19 continue with same treatment 08/20 continue same treatment. Tremors are visible- neurology saw pt and recommended propanolol, however, pt on metoprolol. This va underwriter sent message to neurology to clarify if okay to give both but no response yet. 08/21 increase Zyprexa up to 5 mg po qhs. 08/22 continue tx. 08/24 Increase olanzapine to 2.5mg po daily and 5mg po qhs. start aumentin 500mg po BID x 7 days for sinusitis. 08/26 Tremors are visible and impairing her mobility- neurology saw pt and recommended propanolol, however, pt on metoprolol. This va underwriter sent message to neurology to clarify if okay to give both but no response yet. Will add propanolol 20mg po BID. 08/27: Continue current tx plan. VSS. 08/28: Continue current plan 08/29 continue tx. 08/30 continue tx. 08/31 continue tx. 09/01 continue tx. called [facility] to check on next cortisone shot for left knee not until November. 09/02 continue tx. 09/03 continue tx 09/04 continue tx. 09/05 continue tx. 09/06 schedule tylenol 979 mg po BID. one time dose of tramadol for knee pain. 09/07/22 cont plan of care d/c planning 09/08 continue tx 09/09 continue tx. 09/10: no changes 09/11: Complaining of lower left leg swelling- p itting, no clear tenderness, no cellulitis, but differs significantly from right side. Will order doppler and hospitalist consult 09/12 continue with same treatment no DVT as per medical team 09/13 continue same treatment 09/14 add tramadol 25mg po BID at noon and bedtime. continue tylenol. For knee pain. 09/15 continue current medication, may titrate tramadol for pain, monitor sedation and therapeutic effect. 09/17/22 Continue plan of care monitor for over sedation 09/18/2022 Continue plan of care discharge planning case reviewed with nursing staff 09/20 continue tx. tramadol 25mg po TID 09/21 continue tx. 09/22 continue tx. 09/23 continue tx. 09/24 continue treatment 09/25 continue same treatment 09/26 continue- increase tramadol for knee pain to 50mg po TID 09/27 continue tx. hospitalist consult for left knee pain. Reason for continued inpatient stay Substantial Risk for: inability to function Time Spent With Patient Time: Total time managing care of this patient today ____ minutes.
[2022-09-27] MEDS: OLANZapine 2.5 MG TABLET PO (15:01)
--- NOTE | 2022-09-27 17:17 | PC.NURSE ---
Hospitalist saw patient for left knee pain, per request by provider. No change from previous exam, ice pack applied.
--- NOTE | 2022-09-27 17:32 | PM.EVENT ---
Event Note Date of Service: 09/27/22 Event Note: 82-year-old female admitted to Psychiatry consult placed to hospitalist service for evaluation of chronic left knee pain. The patient reports she has pad pain in the left knee ongoing for years without any change in quality or severity. Denies any recent injury. 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 At this time, she feels pain is reasonably managed with Tylenol, diclofenac gel, and tramadol. Would not recommend repeat imaging at this time but patient should follow up outpatient with Orthopedic surgery for further imaging including possible MRI and evaluation for further management. Continue current plan with pain management. Time Spent With Patient Time: Total time managing care of this patient today ____ minutes.
[2022-09-27 18:00] VITALS: BP 122/60; PULSE 69; RESP 17; TEMP 36.4; O2SAT 92
[2022-09-27] MEDS: OLANZapine 5 MG TABLET PO (20:23)
[2022-09-27] MEDS: traZODone HCL 100 MG TABLET PO (20:23)
[2022-09-28 07:30] VITALS: BP 125/61; PULSE 67; RESP 18; TEMP 36; O2SAT 97
[2022-09-28] MEDS: Metoprolol Succinate ER 50 MG TAB.ER.24H PO (08:37)
[2022-09-28] MEDS: Acetaminophen 325 MG TABLET 975 MG PO ×2 (08:38→20:28)
[2022-09-28] MEDS: Rivastigmine Tartrate 1.5 MG CAPSULE PO ×2 (08:38→20:27)
[2022-09-28] MEDS: Aspirin Enteric Coated 81 MG TABLET.DR PO (08:39)
[2022-09-28] MEDS: Propranolol HCL 20 MG TABLET PO ×2 (08:39→20:29)
[2022-09-28] MEDS: traMADoL HCL 50 MG TABLET PO ×3 (08:39→20:27)
[2022-09-28] MEDS: NIFEdipine ER 90 MG TAB.ER.24 PO (08:40)
[2022-09-28] MEDS: Furosemide 40 MG TABLET PO (08:40)
[2022-09-28] MEDS: Sertraline HCL 50 MG TABLET PO (08:40)
[2022-09-28] MEDS: Cholecalciferol (Vitamin D3) 25 MCG TABLET PO (08:40)
[2022-09-28] MEDS: Atorvastatin Calcium 10 MG TABLET PO (08:40)
[2022-09-28] MEDS: OLANZapine 2.5 MG TABLET PO (15:08)
[2022-09-28] MEDS: OLANZapine 5 MG TABLET PO (20:29)
[2022-09-28] MEDS: traZODone HCL 100 MG TABLET PO (20:29)
[2022-09-28 20:33] VITALS: BP 140/63; PULSE 68; TEMP 36.7; O2SAT 96
--- NOTE | 2022-09-28 21:59 | P.PNPSI_ITS ---
Subjective Subjective Date of Service: 09/28/22 Reason For Visit: confused Subjective Notes: Conditional Voluntary Interim History: Pt reports feeling better. No SI/HI. She continues at times to talk to herself but easily redirected and her attention when talking with others seems intact. Pt visible at times for meals and some groups but does spend most of time in bed. She reports she can't wait to go to LT facility. no behavioral concerns. Medication Compliance: Yes Review of Systems Review of Systems Complaining of lower left leg swelling- pitting, no clear tenderness, no cellulitis, but differs significantly from right side Yes all other systems are reviewed and are negative Mental Status Exam Mental Status Exam Narrative: Appearance: casually groomed, good hygiene, in NAD. Ambulates with walker Behavior: friendly Psychomotor: no agitation or retardation noted Speech: clear, normal rate/rhythm/volume, spontaneous. TP: mostly linear TC: feeling comfortable here Mood: Good Affect: bright, congruent SI: denies HI: denies VH/AH: denies, no overt signs Delusions: no overt delusional content noted or reported Insight/judgment: fair x 2. Memory/cog: alert, oriented to place, month and year, at times confused about situation Diagnostics Vital Signs (24Hr): Vital Signs - 24 hr 09/28/22 07:30 09/28/22 20:33 Temperature 96.8 F 98.0 F Pulse Rate 67 68 Respiratory Rate 18 Blood Pressure 125/61 140/63 H Pulse Oximetry 97 96 Oxygen Delivery Method Room Air Room Air BMI result Body Mass Index 25.9 Labs 08/12/22 15:40 08/29/22 09:20 Imaging Radiology Impressions: ITS Impressions Head CT 08/15/22 14:53 IMPRESSION: No acute intracranial pathology. Significant right sphenoid sinus disease; correlate for any acute symptomatology. Chest X-Ray 08/28/22 22:24 IMPRESSION: No acute pulmonary disease. Venous Duplex 09/11/22 15:52 IMPRESSION: No DVT demonstrated in the bilateral lower extremity. Medications Medications Current Medications Acetaminophen (Acetaminophen 325 Mg Tablet) 975 mg PO BID [facility] [place] Last Admin: 09/28/22 20:28 Dose: 975 mg Al Hydroxide/Mg Hydroxide (Magnesium Hydrox/Alum Hydrox 30 Ml Oral.Susp) 30 ml PO Q6H PRN PRN Reason: Heartburn/Nausea Aspirin (Aspirin Enteric Coated 81 Mg Tablet.Dr) 81 mg PO DAILY [facility] [place] Last Admin: 09/28/22 08:39 Dose: 81 mg Atorvastatin Calcium (Atorvastatin Calcium 10 Mg Tablet) 10 mg PO DAILY [facility] [place] Last Admin: 09/28/22 08:40 Dose: 10 mg Benzocaine (Throat Lozenge, Medicated Lozenge) 1 lozenge MUCOUS MEM Q2H PRN PRN Reason: Sore Throat Last Admin: 08/26/22 06:05 Dose: 1 lozenge Calcium Carbonate (Calcium Carbonate 500 Mg Tablet) 500 mg PO DAILY [facility] [place] Last Admin: 09/28/22 08:40 Dose: 500 mg Capsaicin (Capsaicin 0.025% Cream 60 Gm Tube) 1 appl TOPICAL TID PRN; Protocol PRN Reason: Pain, Moderate (Pain Scale 4-6 Last Admin: 09/22/22 00:06 Dose: 1 appl Furosemide (Furosemide 40 Mg Tablet) 40 mg PO DAILY [facility] [place]; Protocol Last Admin: 09/28/22 08:40 Dose: 40 mg Guaifenesin (Guaifenesin 200 Mg/10 Ml 10 Ml Liquid) 10 ml PO Q6H PRN PRN Reason: Cough Last Admin: 09/06/22 23:15 Dose: 10 ml Guaifenesin/Dextromethorphan (Guaifenesin Dm 100/10/5 Ml 5 Ml Syrup) 5 ml PO Q4H PRN PRN Reason: cough Magnesium Hydroxide (Milk Of Magnesia 30 Ml Oral.Susp) 30 ml PO DAILY PRN PRN Reason: Constipation Melatonin (Melatonin 3 Mg Tablet) 9 mg PO BEDTIME PRN PRN Reason: insomnia Last Admin: 09/24/22 20:04 Dose: 9 mg Metoprolol Succinate (Metoprolol Succinate Er 50 Mg Tab.Er.24h) 50 mg PO DAILY [facility] [place]; Protocol Last Admin: 09/28/22 08:37 Dose: 50 mg Nifedipine (Nifedipine Er 90 Mg Tab.Er.24) 90 mg PO DAILY [facility] [place] Last Admin: 09/28/22 08:40 Dose: 90 mg Non-Formulary Medication ( Diclofenac Sodium 1% Gel) 1 each TOPICAL BID@0830,2029 [facility] [place] Last Admin: 09/28/22 20:29 Dose: 1 each Olanzapine (Olanzapine 2.5 Mg Tablet) 2.5 mg PO TID PRN PRN Reason: agitation Last Admin: 09/22/22 22:25 Dose: 2.5 mg Olanzapine (Olanzapine 5 Mg Tablet) 5 mg PO BEDTIME [facility] [place] Last Admin: 09/28/22 20:29 Dose: 5 mg Olanzapine (Olanzapine 2.5 Mg Tablet) 2.5 mg PO DAILY@1500 [facility] [place] Last Admin: 09/28/22 15:08 Dose: 2.5 mg Ondansetron HCl (Ondansetron Odt 4 Mg Tab.Rapdis) 4 mg TRANSLINGU Q8H PRN PRN Reason: Nausea Propranolol HCl (Propranolol Hcl 20 Mg Tablet) 20 mg PO BID [facility] [place]; Protocol Last Admin: 09/28/22 20:29 Dose: 20 mg Rivastigmine Tartrate (Rivastigmine Tartrate 1.5 Mg Capsule) 1.5 mg PO BID [facility] [place] Last Admin: 09/28/22 20:27 Dose: 1.5 mg Sertraline HCl (Sertraline Hcl 50 Mg Tablet) 50 mg PO DAILY [facility] [place] Last Admin: 09/28/22 08:40 Dose: 50 mg Tramadol HCl (Tramadol Hcl 50 Mg Tablet) 50 mg PO TID [facility] [place] Last Admin: 09/28/22 20:27 Dose: 50 mg Trazodone HCl (Trazodone Hcl 50 Mg Tablet) 50 mg PO BEDTIME PRN PRN Reason: Sleep Last Admin: 09/22/22 22:23 Dose: 50 mg Trazodone HCl (Trazodone Hcl 100 Mg Tablet) 100 mg PO BEDTIME [facility] [place] Last Admin: 09/28/22 20:29 Dose: 100 mg Vitamin D (Cholecalciferol (Vitamin D3) 25 Mcg Tablet) 25 mcg PO DAILY [facility] [place] Last Admin: 09/28/22 08:40 Dose: 25 mcg Allergies Allergies Allergy/AdvReac Type Severity Reaction Status Date / Time No Known Allergies Allergy Verified 08/12/22 23:06 Assessment & Plan Assessment & Plan (1) Major neurocognitive disorder due to multiple etiologies with behavioral disturbance: Status: Acute Code(s): F02.818 - Dementia in other diseases classified elsewhere, unspecified severity, with other behavioral disturbance Plan Patient is a 81-year-old female with little known psychiatric history, moved her e to live with her daughter 9 months ago and presents now for psychotic symptoms starting in early July. Patient is friendly and calm. She is alert and oriented to self place; she said she came to the hospital because she was nervous but is not sure why she has to remain. Patient endorses paranoid delusions saying that there are cameras and microphones set up in house to spy on her; daughter says no history of psychiatric illness that she knows of and no psychotic symptoms until this past July. Plan: 08/15: psychotic symptoms most likely secondary to neurocognitive disorder. co ntinue risperidone and sertraline. Once MOCA is completed, pattern of cognitive impairment will be more clear. 08/16 continue current medications. May consider medication such as exelon or aricept 08/17 may change to olanzapine as pt already with resting tremors. Start exelon 1.5mg po BID. 08/18 continue tx. change risperidone to olanzapine 2.5mg po qhs given underlying resting tremor. 08/19 continue with same treatment 08/20 continue same treatment. Tremors are visible- neurology saw pt and recomm ended propanolol, however, pt on metoprolol. This verse writer sent message to neurology to clarify if okay to give both but no response yet. 08/21 increase Zyprexa up to 5 mg po qhs. 08/22 continue tx. 08/24 Increase olanzapine to 2.5mg po daily and 5mg po qhs. start aumentin 500mg po BID x 7 days for sinusitis. 08/26 Tremors are visible and impairing her mobility- neurology saw pt and recommended propanolol, however, pt on metoprolol. This verse writer sent message to neurology to clarify if okay to give both but no response yet. Will add propanolol 20mg po BID. 08/27: Continue current tx plan. VSS. 08/28: Continue current plan 08/29 continue tx. 08/30 continue tx. 08/31 continue tx. 09/01 continue tx. called [facility] to check on next cortisone shot for left knee not until November. 09/02 continue tx. 09/03 continue tx 09/04 continue tx. 09/05 continue tx. 09/06 schedule tylenol 979 mg po BID. one time dose of tramadol for knee pain. 09/07/22 cont plan of care d/c planning 09/08 continue tx 09/09 continue tx. 09/10: no changes 09/11: Complaining of lower left leg swelling- p itting, no clear tenderness, no c ellulitis, but differs significantly from right side. Will order doppler and hospitalist consult 09/12 continue with same treatment no DVT as per medical team 09/13 continue same treatment 09/14 add tramadol 25mg po BID at noon and bedtime. continue tylenol. For knee pain. 09/15 continue current medication, may titrate tramadol for pain, monitor sedation and therapeutic effect. 09/17/22 Continue plan of care monitor for over sedation 09/18/2022 Continue plan of care discharge planning case reviewed with nursing staff 09/20 continue tx. tramadol 25mg po TID 09/21 continue tx. 09/22 continue tx. 09/23 continue tx. 09/24 continue treatment 09/25 continue same treatment 09/26 continue- increase tramadol for knee pain to 50mg po TID 09/27 continue tx. hospitalist consult for left knee pain. 09/28 continue tx. Reason for continued inpatient stay Substantial Risk for: inability to function Time Spent With Patient Time: Total time managing care of this patient today ____ minutes.
[2022-09-29 08:30] VITALS: BP 136/63; PULSE 64; RESP 16; TEMP 36.4; O2SAT 97
[2022-09-29] MEDS: Aspirin Enteric Coated 81 MG TABLET.DR PO (08:36)
[2022-09-29] MEDS: Cholecalciferol (Vitamin D3) 25 MCG TABLET PO (08:36)
[2022-09-29] MEDS: Metoprolol Succinate ER 50 MG TAB.ER.24H PO (08:36)
[2022-09-29] MEDS: Sertraline HCL 50 MG TABLET PO (08:37)
[2022-09-29] MEDS: Propranolol HCL 20 MG TABLET PO ×2 (08:37→20:42)
[2022-09-29] MEDS: Rivastigmine Tartrate 1.5 MG CAPSULE PO ×2 (08:37→20:42)
[2022-09-29] MEDS: NIFEdipine ER 90 MG TAB.ER.24 PO (08:37)
[2022-09-29] MEDS: traMADoL HCL 50 MG TABLET PO ×3 (08:37→20:42)
[2022-09-29] MEDS: Furosemide 40 MG TABLET PO (08:38)
[2022-09-29] MEDS: Atorvastatin Calcium 10 MG TABLET PO (08:39)
[2022-09-29] MEDS: Acetaminophen 325 MG TABLET 975 MG PO ×2 (08:39→20:40)
[2022-09-29] MEDS: OLANZapine 2.5 MG TABLET PO (15:02)
--- NOTE | 2022-09-29 17:06 | P.PNPSI_ITS ---
Subjective Subjective Date of Service: 09/29/22 Reason For Visit: confused Interim History: Pt continues to report feeling better. No SI/HI. She continues at times to talk to herself but easily redirected and her attention when talking with others seems intact. Pt visible at times for meals and some groups but does spend most of time in bed. She reports she can't wait to go to LT facility. no behavioral concerns. Medication Compliance: Yes Review of Systems Review of Systems Complaining of lower left leg swelling- pitting, no clear tenderness, no cellulitis, but differs significantly from right side Yes all other systems are reviewed and are negative Mental Status Exam Mental Status Exam Narrative: Appearance: casually groomed, good hygiene, in NAD. Ambulates with walker Behavior: friendly Psychomotor: no agitation or retardation noted Speech: clear, normal rate/rhythm/volume, spontaneous. TP: mostly linear TC: feeling comfortable here Mood: Good Affect: bright, congruent SI: denies HI: denies VH/AH: denies, no overt signs Delusions: no overt delusional content noted or reported Insight/judgment: fair x 2. Memory/cog: alert, oriented to place, month and year, at times confused about situation Diagnostics Vital Signs (24Hr): Vital Signs - 24 hr 09/28/22 20:33 09/29/22 08:30 Temperature 98.0 F 97.6 F Pulse Rate 68 64 Respiratory Rate 16 Blood Pressure 140/63 H 136/63 Pulse Oximetry 96 97 Oxygen Delivery Method Room Air Room Air BMI result Body Mass Index 25.9 Labs 08/12/22 15:40 08/29/22 09:20 Imaging Radiology Impressions: ITS Impressions Head CT 08/15/22 14:53 IMPRESSION: No acute intracranial pathology. Significant right sphenoid sinus disease; correlate for any acute symptomatology. Chest X-Ray 08/28/22 22:24 IMPRESSION: No acute pulmonary disease. Venous Duplex 09/11/22 15:52 IMPRESSION: No DVT demonstrated in the bilateral lower extremity. Medications Medications Current Medications Acetaminophen (Acetaminophen 325 Mg Tablet) 975 mg PO BID [facility] Last Admin: 09/29/22 08:39 Dose: 975 mg Al Hydroxide/Mg Hydroxide (Magnesium Hydrox/Alum Hydrox 30 Ml Oral.Susp) 30 ml PO Q6H PRN PRN Reason: Heartburn/Nausea Aspirin (Aspirin Enteric Coated 81 Mg Tablet.Dr) 81 mg PO DAILY [facility] Last Admin: 09/29/22 08:36 Dose: 81 mg Atorvastatin Calcium (Atorvastatin Calcium 10 Mg Tablet) 10 mg PO DAILY [facility] Last Admin: 09/29/22 08:39 Dose: 10 mg Benzocaine (Throat Lozenge, Medicated Lozenge) 1 lozenge MUCOUS MEM Q2H PRN PRN Reason: Sore Throat Last Admin: 08/26/22 06:05 Dose: 1 lozenge Calcium Carbonate (Calcium Carbonate 500 Mg Tablet) 500 mg PO DAILY [facility] Last Admin: 09/29/22 08:38 Dose: 500 mg Capsaicin (Capsaicin 0.025% Cream 60 Gm Tube) 1 appl TOPICAL TID PRN; Protocol PRN Reason: Pain, Moderate (Pain Scale 4-6 Last Admin: 09/22/22 00:06 Dose: 1 appl Furosemide (Furosemide 40 Mg Tablet) 40 mg PO DAILY [facility]; Protocol Last Admin: 09/29/22 08:38 Dose: 40 mg Guaifenesin (Guaifenesin 200 Mg/10 Ml 10 Ml Liquid) 10 ml PO Q6H PRN PRN Reason: Cough Last Admin: 09/06/22 23:15 Dose: 10 ml Guaifenesin/Dextromethorphan (Guaifenesin Dm 100/10/5 Ml 5 Ml Syrup) 5 ml PO Q4H PRN PRN Reason: cough Magnesium Hydroxide (Milk Of Magnesia 30 Ml Oral.Susp) 30 ml PO DAILY PRN PRN Reason: Constipation Melatonin (Melatonin 3 Mg Tablet) 9 mg PO BEDTIME PRN PRN Reason: insomnia Last Admin: 09/24/22 20:04 Dose: 9 mg Metoprolol Succinate (Metoprolol Succinate Er 50 Mg Tab.Er.24h) 50 mg PO DAILY [facility]; Protocol Last Admin: 09/29/22 08:36 Dose: 50 mg Nifedipine (Nifedipine Er 90 Mg Tab.Er.24) 90 mg PO DAILY [facility] Last Admin: 09/29/22 08:37 Dose: 90 mg Non-Formulary Medication ( Diclofenac Sodium 1% Gel) 1 each TOPICAL BID@0830,2 030 [facility] Last Admin: 09/29/22 08:36 Dose: 1 each Olanzapine (Olanzapine 2.5 Mg Tablet) 2.5 mg PO TID PRN PRN Reason: agitation Last Admin: 09/22/22 22:25 Dose: 2.5 mg Olanzapine (Olanzapine 5 Mg Tablet) 5 mg PO BEDTIME [facility] Last Admin: 09/28/22 20:29 Dose: 5 mg Olanzapine (Olanzapine 2.5 Mg Tablet) 2.5 mg PO DAILY@1500 [facility] Last Admin: 09/29/22 15:02 Dose: 2.5 mg Ondansetron HCl (Ondansetron Odt 4 Mg Tab.Rapdis) 4 mg TRANSLINGU Q8H PRN PRN Reason: Nausea Propranolol HCl (Propranolol Hcl 20 Mg Tablet) 20 mg PO BID [facility]; Protocol Last Admin: 09/29/22 08:37 Dose: 20 mg Rivastigmine Tartrate (Rivastigmine Tartrate 1.5 Mg Capsule) 1.5 mg PO BID [facility] Last Admin: 09/29/22 08:37 Dose: 1.5 mg Sertraline HCl (Sertraline Hcl 50 Mg Tablet) 50 mg PO DAILY [facility] Last Admin: 09/29/22 08:37 Dose: 50 mg Tramadol HCl (Tramadol Hcl 50 Mg Tablet) 50 mg PO TID [facility] Last Admin: 09/29/22 15:02 Dose: 50 mg Trazodone HCl (Trazodone Hcl 50 Mg Tablet) 50 mg PO BEDTIME PRN PRN Reason: Sleep Last Admin: 09/22/22 22:23 Dose: 50 mg Trazodone HCl (Trazodone Hcl 100 Mg Tablet) 100 mg PO BEDTIME [facility] Last Admin: 09/28/22 20:29 Dose: 100 mg Vitamin D (Cholecalciferol (Vitamin D3) 25 Mcg Tablet) 25 mcg PO DAILY [facility] Last Admin: 09/29/22 08:36 Dose: 25 mcg Allergies Allergies Allergy/AdvReac Type Severity Reaction Status Date / Time No Known Allergies Allergy Verified 08/12/22 23:06 Assessment & Plan Assessment & Plan (1) Major 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 Patient is friendly and calm. She is aler t and oriented to self place; she said she came to the hospital because she was nervous but is not sure why she has to remain. Patient endorses paranoid delusions saying that there are cameras and microphones set up in house to spy on her; daughter says no history of psychiatric illness that she knows of and no psychotic symptoms until this past July. Plan: 08/15: psychotic symptoms most likely secondary to neurocognitive disorder. continue risperidone and sertraline. Once MOCA is completed, pattern of cognitive impairment will be more clear. 08/16 continue current medications. May consider medication such as exelon or aricept 08/17 may change to olanzapine as pt already with resting tremors. Start exelon 1.5mg po BID. 08/18 continue tx. change risperidone to olanzapine 2.5mg po qhs given underlying resting tremor. 08/19 continue with same treatment 08/20 continue same treatment. Tremors are visible- neurology saw pt and recommended propanolol, however, pt on metoprolol. This expert medical writer sent message to neurology to clarify if okay to give both but no response yet. 08/21 increase Zyprexa up to 5 mg po qhs. 08/22 continue tx. 08/24 Increase olanzapine to 2.5mg po daily and 5mg po qhs. start aumentin 500mg po BID x 7 days for sinusitis. 08/26 Tremors are visible and impairing her mobility- neurology saw pt and recommended propanolol, however, pt on metoprolol. This expert medical writer sent message to neurology to clarify if okay to give both but no response yet. Will add propanolol 20mg po BID. 08/27: Continue current tx plan. VSS. 08/28: Continue current plan 08/29 continue tx. 08/30 continue tx. 08/31 continue tx. 09/01 continue tx. called [facility] to check on next cortisone shot for left knee not until November. 09/02 continue tx. 09/03 continue tx 09/04 continue tx. 09/05 continue tx. 09/06 schedule tylenol 979 mg po BID. one time dose of tramadol for knee pain. 09/07/22 cont plan of care d/c planning 09/08 continue tx 09/09 continue tx. 09/10: no changes 09/11: Complaining of lower left leg swelling- p itting, no clear tenderness, no cellulitis, but differs significantly from right side. Will order doppler and hospitalist consult 09/12 continue with same treatment no DVT as per medical team 09/13 continue same treatment 09/14 add tramadol 25mg po BID at noon and bedtime. continue tylenol. For knee pain. 09/15 continue current medication, may titrate tramadol for pain, monitor sedatio n and therapeutic effect. 09/17/22 Continue plan of care monitor for over sedation 09/18/2022 Continue plan of care discharge planning case reviewed with nursing staff 09/20 continue tx. tramadol 25mg po TID 09/21 continue tx. 09/22 continue tx. 09/23 continue tx. 09/24 continue treatment 09/25 continue same treatment 09/26 continue- increase tramadol for knee pain to 50mg po TID 09/27 continue tx. hospitalist consult for left knee pain. 09/28 continue tx. 09/29 continue tx. Reason for continued inpatient stay Substantial Risk for: inability to function and stable for discharge Time Spent With Patient Time: Total time managing care of this patient today ____ minutes.
[2022-09-29 17:08] LABS: COVID-19 Test Negative (Negative); IDNOW Serial# BCCEAD1C
[2022-09-29 18:00] VITALS: BP 119/59; PULSE 62; RESP 18; TEMP 36.3; O2SAT 94
[2022-09-29] MEDS: OLANZapine 5 MG TABLET PO (20:42)
[2022-09-29] MEDS: traZODone HCL 100 MG TABLET PO (20:42)
[2022-09-30 08:00] VITALS: BP 152/69; PULSE 65; RESP 18; TEMP 36.4; O2SAT 95
[2022-09-30] MEDS: Acetaminophen 325 MG TABLET 975 MG PO (08:26)
[2022-09-30] MEDS: traMADoL HCL 50 MG TABLET PO (08:27)
[2022-09-30] MEDS: Atorvastatin Calcium 10 MG TABLET PO (08:27)
[2022-09-30] MEDS: Cholecalciferol (Vitamin D3) 25 MCG TABLET PO (08:27)
[2022-09-30] MEDS: Propranolol HCL 20 MG TABLET PO (08:27)
[2022-09-30] MEDS: Aspirin Enteric Coated 81 MG TABLET.DR PO (08:28)
[2022-09-30] MEDS: Sertraline HCL 50 MG TABLET PO (08:28)
[2022-09-30] MEDS: NIFEdipine ER 90 MG TAB.ER.24 PO (08:28)
[2022-09-30] MEDS: Metoprolol Succinate ER 50 MG TAB.ER.24H PO (08:28)
[2022-09-30] MEDS: Furosemide 40 MG TABLET PO (08:29)
[2022-09-30] MEDS: Rivastigmine Tartrate 1.5 MG CAPSULE PO (08:30)
--- NOTE | 2022-09-30 08:55 | P.DS_ITS ---
DS: Providers Provider Date of Service: 09/30/22 Date of admission: 08/13/22 00:38 Primary care physician: Unknown Physician Consults: 08/22/22 21:27 Consult to Neurology Routine Consulting Provider: [facility] Reason for consultation: bilat tremor preceding antipsychotic use Has provider been notified: Yes 09/11/22 13:37 Consult to Hospitalist Routine Comment: Utrasound pending Consulting Provider: Hospitalist Reason For Exam: lower limb swelling- left > right. Ultrasound pend 09/27/22 14:28 Consult to Hospitalist Routine Comment: Consulting Provider: Hospitalist Reason For Exam: left knee pain DS: Diagnosis Discharge Diagnosis (1) Major neurocognitive disorder due to multiple etiologies with behavioral disturbance: Status: Acute DS: Medications Discharge Medications Home Medications: Home Medications Medication Instructions Recorded Confirmed diclofenac sodium 1 % topical gel 2 - 4 g topical BID 08/13/22 08/13/22 Previous Rx's Medication Instructions Recorded acetaminophen 325 mg tablet 975 mg PO BID #0 tabs 09/30/22 aspirin 81 mg tablet,delayed 81 mg PO DAILY #0 tabs 09/30/22 release atorvastatin 10 mg tablet 10 mg PO DAILY #0 tabs 09/30/22 calcium carbonate 500 mg calcium 500 mg PO DAILY #0 tabs 09/30/22 (1,250 mg) tablet (Oyster Shell Calcium 500) cholecalciferol (vitamin D3) 25 25 mcg PO DAILY #0 tabs 09/30/22 mcg (1,000 unit) tablet furosemide 40 mg tablet 40 mg PO DAILY #0 tabs 09/30/22 metoprolol succinate 50 mg 50 mg PO DAILY #0 tabs 09/30/22 tablet,extended release 24 hr nifedipine 90 mg tablet,extended 90 mg PO DAILY #0 tabs 09/30/22 release 24 hr olanzapine 2.5 mg tablet 2.5 mg PO DAILY@1500 #0 tabs 09/30/22 olanzapine 5 mg tablet 5 mg PO BEDTIME #0 tabs 09/30/22 propranolol 20 mg tablet 20 mg PO BID #0 tabs 09/30/22 rivastigmine tartrate 1.5 mg 1.5 mg PO BID #0 caps 09/30/22 capsule sertraline 50 mg tablet 50 mg PO DAILY #0 tabs 09/30/22 tramadol 50 mg tablet 50 mg PO TID #0 tabs 09/30/22 trazodone 100 mg tablet 100 mg PO BEDTIME #0 tabs 09/30/22 Mental Status Exam Mental Status Exam Narrative: Appearance: casually groomed, good hygiene, in NAD. Ambulates with walker Behavior: friendly Psychomotor: no agitation or retardation noted Speech: clear, normal rate/rhythm/volume, spontaneous. TP: mostly linear TC: feeling comfortable here Mood: Good Affect: bright, congruent SI: denies HI: denies VH/AH: denies, no overt signs Delusions: no overt delusional content noted or reported Insight/judgment: fair x 2. Memory/cog: alert, oriented to place, month and year, at times confused about situation Data Data Completed and Pending Completed studies during hospitalization [Text1]: 09/29/22 16:45 COVID-19 (ODAL[facility]) Negative COVID-19 Clin Com See Note 08/18/22 11:15 Throat Throat Culture - Final No Group A Beta-hemolytic Streptococci isolated. Imaging Diagnostic Imaging Impressions Head CT 08/15/22 14:53 IMPRESSION: No acute intracranial pathology. Significant right sphenoid sinus disease; correlate for any acute symptomatology. Chest X-Ray 08/28/22 22:24 IMPRESSION: No acute pulmonary disease. Venous Duplex 09/11/22 15:52 IMPRESSION: No DVT demonstrated in the bilateral lower extremity. DS: Summary Hospital Course Hospital Course: Patient seen with corporate sales trainer Patient is a 81-year-old female with little known psychiatric history, moved here to live with her daughter 9 months ago and presents now for psychotic symptoms starting in early July.? Patient is friendly and calm.? She is alert and oriented to self place; she said she came to the hospital because she was nervous but is not sure why she has to remain.? Patient endorses paranoid delusions saying that there are cameras and microphones set up in house to spy on her; she is not sure who is doing it or why, perhaps the other tenants because they do not know her?? Patient also has some worries that the police are after her but it is not clear why.? Patient says that she prays a lot at home and her daughter mistakenly think she has hearing voices and talking to someone.? She agrees to stay on the unit to help her with nervousness including starting medications for such.? Patient's daughter also named dinah paz who says that her mother has been living with her for the past 9 months and everything has been fine; in early July patient started having auditory hallucinations and talking about paranoid delusions saying the apartment was bugged; she would leave the apartment unannounced and was wandering around the building; when found on another floor she said her she hurt her cousin tell her to go there (no such goes exists).? She says her mother will sit there talking out loud to no one; patient and daughter patient any visual hallucinations.? Daughter says she has never heard of her mother having any psychiatric illness in her life; however she does not know what her day-to-day life was like and will ask family who knows her from [place]. Past Psychiatric History: None Medical Evaluation Reviewed: Yes HOSPITAL COURSE On the unit, pt was admitted on a CV and placed on 15 minutes checks for safety. Pt initially had difficulty sleeping and presented with some paranoia regarding somewhat entering her home and trying to hurt her and her daughter. MOCA completed which showed impairments in executive function, recall. Her orientation has been grossly intact. Her cognitive impairments showed a mostly a vascular pattern of dementia. On the unit she was started on olanzapine for mood and paranoia. She was also started on exelon. She presented with chronic essential tremors, seen by neurology and started on propanolol. Pt is also on metoprolol, therefore recommendation is to coordinate with cardiology to see if switching to propanolol and discontinuing metoprolol is appropriate for her cardiac condition. She denied suicidal or homicidal ideation. Pt did not present with any disruptive or aggressive or combative behaviors. Pt never required an IM for agitation. She was pleasant on approach. She was sleeping and eating well. She tolerated medications well without any side effects. Status at Discharge Cognitive/behavioral status at discharge: Pt with brighter affect. No SI/HI. Pt with some residual self dialoguing that pt reports is praying but may be in response to internal stimuli. No signs of aggression towards self or others. No paranoia. Functional status at discharge: independent ambulation Overall status at discharge: patient is progressing back to baseline Time Spent with Patient Time attestation: Total time managing care of this patient today ____ minutes. Discharge Plan Discharge Anticipated Discharge Date/Time: 09/30/22 08:41 Patient Disposition: Home, Self-Care Discharge Diagnosis: Major Neurocognitive Disorder Referrals: Physician,Unknown J [Primary Care Provider] - 1 Week Discharge Medications: New rivastigmine tartrate 1.5 mg Capsule 1.5 mg PO BID Qty: 0 0RF acetaminophen 325 mg Tablet 975 mg PO BID Qty: 0 0RF atorvastatin 10 mg Tablet 10 mg PO DAILY Qty: 0 0RF metoprolol succinate 50 mg Tablet Extended Release 24 Hr 50 mg PO DAILY Qty: 0 0RF Protocol: Hold for SBP/HR < HOLD for SBP < : 90 HOLD for HR < : 60 nifedipine 90 mg Tablet Extended Release 24hr 90 mg PO DAILY Qty: 0 0RF propranolol 20 mg Tablet 20 mg PO BID Qty: 0 0RF Protocol: Hold for SBP/HR < HOLD for SBP < : 90 HOLD for HR < : 60 sertraline 50 mg Tablet 50 mg PO DAILY Qty: 0 0RF aspirin 81 mg Tablet,Delayed Release (Dr/Ec) 81 mg PO DAILY Qty: 0 0RF olanzapine 5 mg Tablet 5 mg PO BEDTIME Qty: 0 0RF olanzapine 2.5 mg Tablet 2.5 mg PO DAILY@1500 Qty: 0 0RF tramadol 50 mg Tablet 50 mg PO TID Qty: 0 0RF calcium carbonate [Oyster Shell Calcium 500] 500 mg calcium (1,250 mg) Tablet 500 mg PO DAILY Qty: 0 0RF trazodone 100 mg Tablet 100 mg PO BEDTIME Qty: 0 0RF furosemide 40 mg Tablet 40 mg PO DAILY Qty: 0 0RF Protocol: Hold for SBP< HOLD for SBP < : 90 cholecalciferol (vitamin D3) 25 mcg (1,000 unit) Tablet 25 mcg PO DAILY Qty: 0 0RF Continued diclofenac sodium 1 % gel 2 - 4 g topical BID Discontinued furosemide 40 mg tablet 1 tab PO DAILY atorvastatin 10 mg tablet 1 tab PO DAILY nifedipine 90 mg tablet extended release 1 tab PO DAILY metoprolol succinate 50 mg tablet extended release 24 hr 1 tab PO DAILY calcium carbonate 500 mg calcium (1,250 mg) tablet 1 tab PO DAILY sertraline 25 mg tablet 1 tab PO DAILY cholecalciferol (vitamin D3) [Vitamin D3] 25 mcg (1,000 unit) capsule 1 cap PO DAILY melatonin 10 mg tablet,disintegrating 1 tab PO BEDTIME PRN (Reason: insomnia) sertraline 50 mg tablet 1 tab PO DAILY Discharge Orders: Discharge Order (Routine); Ordered 09/30/22 Ordered By: Verónica Muniz Diet: Regular diet Activity on Discharge: As tolerated Stand Alone Forms: Patient Portal Discharge page Care Plan Goals: 1. Maintain mood 2. NO SI/HI 3. No aggression towards self or others Health Concerns: Follow up with PCP Plan of Treatment: 1. Take medications as prescribed 2. Go to nearest ED or call 911 in event of emergency. Assessment: Pt with brighter, non labile affect. No SI/HI. No aggression towards self or others. No overt paranoia. Pt eating and sleeping well.
== END 2022-09-30 11:25 | disposition home or self-care (01) | DRG 884 ==
LOC: HO.ED 18:38 → HO.PGERI 08-13 01:02
PROVIDERS: Internal Medicine; Psychiatry & Neurology Psychiatry; Social Worker; Admitting Provider Psychiatry & Neurology Psychiatry; Emergency Provider Emergency Medicine; Visit Provider Psychiatry & Neurology Psychiatry
DX: F03.92 Unspecified dementia, unspecified severity, with psychotic disturbance (principal); M17.12 Unilateral primary osteoarthritis, left knee; G25.0 Essential tremor; E87.6 Hypokalemia; Z20.822 Contact with and (suspected) exposure to COVID-19; Z79.82 Long term (current) use of aspirin; Z79.899 Other long term (current) drug therapy
CPT/HCPCS: 0241U; 36415; 70450; 71045; 80053; 80061; 80307; 81003; 82077; 84443; 84484; 85025; 87070; 87635; 93005; 93970; 99285

== ENCOUNTER 2022-09-30 12:48 | Emergency (ER) | payer MEDICARE, SELFPAY ==
[2022-09-30 13:20] VITALS: BP 135/85; BP 149/67; PULSE 64; PULSE 70; RESP 18; TEMP 36.8; O2SAT 93; O2SAT 98; BMI 27.1
--- NOTE | 2022-09-30 13:26 | ED_ITS ---
HPI - General Adult General Chief complaint: General Medical Stated complaint: returning per EMS Time Seen by Provider: 09/30/22 13:25 Source: patient and EMS Mode of arrival: EMS Limitations: no limitations History of Present Illness HPI narrative: Patient is an 82 year old assigned female at with a history of behavioral disorders presenting to the emergency department today for re-admission into [facility]. Patient was transferred from our [facility] unit to another facility by EMS. Upon arrival at the other facility, the staff stated they didn't get the appropriate paperwork and so they refused to accept the patient. EMS brought the patient back to the ED. Patient denies any dizziness, lightheadedness, abdominal pain, nausea, vomiting, fever, chills, blurry vision, double vision, loss of vision, chest pain, difficulty breathing, shortness of breath, back pain, night sweats, pain with urination, increased urinary frequency, increased urinary urgency, blood in her urine or stool, syncope or a near syncopal episode, recent trauma or falls, bowel incontinence, bladder incontinence, bowel retention, bladder retention, or any other complaints at this time. Patient was with medical personnel the entire time. Relieving factors: none Exacerbating factors: none Associated symptoms: denies other symptoms Treatments prior to arrival: none Related Data Home Medications Medication Instructions Recorded Confirmed diclofenac sodium 1 % topical gel 2 - 4 g topical BID 08/13/22 08/13/22 Previous Rx's Medication Instructions Recorded acetaminophen 325 mg tablet 975 mg PO BID #0 tabs 09/30/22 aspirin 81 mg tablet,delayed 81 mg PO DAILY #0 tabs 09/30/22 release atorvastatin 10 mg tablet 10 mg PO DAILY #0 tabs 09/30/22 calcium carbonate 500 mg calcium 500 mg PO DAILY #0 tabs 09/30/22 (1,250 mg) tablet (Oyster Shell Calcium 500) cholecalciferol (vitamin D3) 25 25 mcg PO DAILY #0 tabs 09/30/22 mcg (1,000 unit) tablet furosemide 40 mg tablet 40 mg PO DAILY #0 tabs 09/30/22 metoprolol succinate 50 mg 50 mg PO DAILY #0 tabs 09/30/22 tablet,extended release 24 hr nifedipine 90 mg tablet,extended 90 mg PO DAILY #0 tabs 09/30/22 release 24 hr olanzapine 2.5 mg tablet 2.5 mg PO DAILY@1500 #0 tabs 09/30/22 olanzapine 5 mg tablet 5 mg PO BEDTIME #0 tabs 09/30/22 propranolol 20 mg tablet 20 mg PO BID #0 tabs 09/30/22 rivastigmine tartrate 1.5 mg 1.5 mg PO BID #0 caps 09/30/22 capsule sertraline 50 mg tablet 50 mg PO DAILY #0 tabs 09/30/22 tramadol 50 mg tablet 50 mg PO TID #0 tabs 09/30/22 trazodone 100 mg tablet 100 mg PO BEDTIME #0 tabs 09/30/22 Allergies Allergy/AdvReac Type Severity Reaction Status Date / Time No Known Allergies Allergy Verified 09/30/22 13:26 Review of Systems Constitutional: Constitutional: Reports no additional constitutional complaints, Denies chills, Denies fever(s) and Denies night sweats Eyes: Eyes: Reports no additional eye complaints, Denies blurry vision, Denies change in vision, Denies diplopia, Denies eye discharge, Denies loss of vision and Denies eye pain ENT: Denies dizziness Cardiovascular: Cardiovascular: Reports no additional cardiovascular complaints, Denies chest pain, Denies lightheadedness, Denies Loss of Consciousness and Denies dyspnea Respiratory: Respiratory: Reports no additional respiratory complaints and Denies dyspnea Gastrointestinal: Gastrointestinal: Reports no additional gastrointestinal complaints, Denies abdominal pain, Denies melena, Denies hematochezia, Denies change in bowel habits and Denies change in stool character Genitourinary: Genitourinary: Denies hematuria, Denies urinary frequency, Denies dysuria, Denies urinary incontinence, Denies urinary hesitancy and Denies urinary urgency Musculoskeletal: Musculoskeletal: Reports no additional musculoskeletal complaints, Denies numbness and Denies tingling Neurologic: Denies dizziness, Denies loss of vision, Denies numbness and Denies tingling Psychiatric: Psychiatric: Reports no additional psychiatric complaints Endocrine: Endocrine: Reports no additional endocrine complaints Hematologic/Lymphatic: Hematologic/Lymphatic: Reports no additional hematologic/lymphatic complaints Allergic/Immunologic: Allergic/Immunologic: Reports no additional allergic/immunologic complaints PMFSH Past Medical History Attestation statement: The following information was validated with the patient. Source: old records reviewed and nursing notes reviewed Social History Social History Household Members: Children Housing: Apartment Do you presently have visiting nurse or other home services: Yes Unable to assess alcohol history related to: Unable to respond Patient Tobacco Use Status: Never used Tobacco Smoked in Last 30 Days: No Use of substances other than those prescribed or required for medical reasons: No Advance Directives: Yes Advance Directives on File: Yes Advance Directives Date on File: 08/12/22 Sexual orientation: Straight/Heterosexual Physical Exam ED Vital Signs: Vital Signs - 24 hr 09/30/22 13:20 09/30/22 13:36 09/30/22 15:42 Temperature 98.3 F 98.2 F Pulse Rate 64 66 Respiratory Rate 18 18 16 Blood Pressure 149/67 H 135/87 Pulse Oximetry 93 Oxygen Delivery Method Room Air Room Air BMI result Body Mass Index 27.1 Const General: cooperative, no acute distress, alert and awake Nutritional Appearance: well nourished Orientation/consciousness: patient oriented x3 Limitations: no limitations HENMT Head: Yes normal to inspection and Yes atraumatic Ears: hearing grossly normal bilaterally and external ears normal General nose exam: Normal external nose present, no nasal discharge noted and no epistaxis Face and sinus: Yes normal facial exam, No abrasion and No laceration Mouth: Normal oral and palatal mucosa present, no drooling and no muffled voice Eyes General: appearance normal, both eyes and all related structures Periorbital: periorbital findings normal Eyelids: Yes eyelids normal Conjunctivae: conjunctivae normal Pupils: Equal, round and reactive pupils present EOM: EOMs intact bilaterally Neck Neck: Yes normal visual inspection, Yes full ROM and Yes no lymphadenopathy Chest Chest palpation & inspection: normal inspection of the chest Resp Effort & Inspection: normal respiratory effort and able to speak in complete sentences GI Inspection: Yes normal to inspection Neuro General: patient oriented x3 and moves all extremities Cranial nerves: Yes Equal, round and reactive pupils present Cognition (Neuro): normal cognition Motor exam (neuro): 5/5 motor strength present throughout Sensory Exam: Normal double simultaneous stimulation for sensation Coordination: [id number] test normal Extrem General: Yes normal to inspection, Yes full ROM and Yes capillary refill normal Psych Appearance: grossly normal Mental Status: mental status grossly normal Affect: normal affect Attitude: cooperative Thought process: Normal thought process present Thought content: Normal thought content present Insight: Good insight present (Psych) Medical Decision Making Medical Decision Making MDM Narrative: Patient is an 82 year old assigned female at with a history of behavioral issues presenting to the emergency department today after a failed discharge / transfer. Patient's physical exam was unremarkable. I spoke to the psychiatry team who agreed the patient does not need repeat labs / medical work up as she never left medical custody. Patient is to be admitted back to [facility] or the transfer to the facility in [place] will be completed. I explained my physical exam findings to the patient. I answered all questions asked by the patient. Patient pending either [facility] admission or transfer to the [facility]. Differential Diagnosis Differential Diagnoses: The differential diagnosis associated with the presentation includes behavioral issues Consult Healthcare Provider Management of the patient was discussed with: Behavioral Health Provider (as noted in the HPI) Independent Historian Clinical information obtained from an independent historian. History obtained from or confirmed by: EMS Discharge Plan Discharge Clinical Impression: Behavior problem, adult Patient Disposition: Still a Patient Prescriptions: No Action diclofenac sodium 1 % gel 2 - 4 g topical BID rivastigmine tartrate 1.5 mg Capsule 1.5 mg PO BID Qty: 0 0RF acetaminophen 325 mg Tablet 975 mg PO BID Qty: 0 0RF atorvastatin 10 mg Tablet 10 mg PO DAILY Qty: 0 0RF metoprolol succinate 50 mg Tablet Extended Release 24 Hr 50 mg PO DAILY Qty: 0 0RF Protocol: Hold for SBP/HR < HOLD for SBP < : 90 HOLD for HR < : 60 nifedipine 90 mg Tablet Extended Release 24hr 90 mg PO DAILY Qty: 0 0RF propranolol 20 mg Tablet 20 mg PO BID Qty: 0 0RF Protocol: Hold for SBP/HR < HOLD for SBP < : 90 HOLD for HR < : 60 sertraline 50 mg Tablet 50 mg PO DAILY Qty: 0 0RF aspirin 81 mg Tablet,Delayed Release (Dr/Ec) 81 mg PO DAILY Qty: 0 0RF olanzapine 5 mg Tablet 5 mg PO BEDTIME Qty: 0 0RF olanzapine 2.5 mg Tablet 2.5 mg PO DAILY@1500 Qty: 0 0RF tramadol 50 mg Tablet 50 mg PO TID Qty: 0 0RF calcium carbonate [Oyster Shell Calcium 500] 500 mg calcium (1,250 mg) Tablet 500 mg PO DAILY Qty: 0 0RF trazodone 100 mg Tablet 100 mg PO BEDTIME Qty: 0 0RF furosemide 40 mg Tablet 40 mg PO DAILY Qty: 0 0RF Protocol: Hold for SBP< HOLD for SBP < : 90 cholecalciferol (vitamin D3) 25 mcg (1,000 unit) Tablet 25 mcg PO DAILY Qty: 0 0RF
[2022-09-30 13:36] VITALS: RESP 18
--- NOTE | 2022-09-30 15:00 | MHC.CARE ---
CARE Team is made aware that pt was discharged from today and was sent to [facility]. When pt arrived there was reportedly paperwork that was not in order, so they sent the pt back to the ED. Pt is not in a psychiatric crisis at this time. Plan is for S1 social worker masters to attempt to get pt back to [facility] today, and if not, pt should be referred to case management. Pt is not in need of re-admission to at this time.
[2022-09-30 15:42] VITALS: BP 135/87; PULSE 66; RESP 16; TEMP 36.8
--- NOTE | 2022-09-30 16:43 | PC.NURSE ---
pt alert and oriented, skin appropriate for ethnicity, respirations even and unlabored, ls clear. pt denies si/hi, calm and cooperative plan for the pt to go back to [facility] around [id number]
--- NOTE | 2022-09-30 17:25 | MHC.CM.ED ---
CM received call from [facility] regarding this patient and return from [facility]. Had questions. JOYCE spoke with Lola Kim [facility] for S1. Michelle has been working with facility regarding just what paperwork was needed for facility. Pt PASRR 1-screened out. Pt will return to [facility] between 6-7 am. Michelle has arranged transport. Roberta Walker aware. admin secretary aware.
== END 2022-09-30 18:24 | disposition still patient (30) ==
PROVIDERS: Emergency Provider Emergency Medicine
DX: F91.9 Conduct disorder, unspecified (principal)
CPT/HCPCS: 99284